=== PATIENT | male | born 1990 | race Caucasian/White ===

== ENCOUNTER 2019-06-09 08:18 | Inpatient (IN) | payer OTHER | END 2019-06-12 08:55 | disposition home or self-care (01) | LOC: YASAS 08:18 → Y6N 09:51 ==

== ENCOUNTER 2019-12-18 13:08 | Inpatient (IN) | payer OTHER ==
[2019-12-18] MEDS ORDERED: SODIUM CHLORIDE 0.9% 1000 ML INFUS.BAG IV ONE ×3 (13:18→17:05)
--- NOTE | 2019-12-18 13:18 | PDOC ---
History of Present Illness - General Chief Complaint: Respiratory Arrest Stated Complaint: UNRESPONSIVE Time Seen by Provider: 12/18/19 13:16 History Source: Patient, Parent(s), EMS, Friend, Old Records Exam Limitations: Unresponsive - History of Present Illness Initial Comments: 12/18/19 13:16 29yM w PMHx substance abuse (opioids, cocaine, cannabis), seizure BIBEMS from [facility] found dyspneic, tachypneic, minimally responsive to command, tonic- clonic arm movement, epistaxis at [facility] at 12[facility] gave total of 8 narcan, 5gm x2 versed which stopped seizure activity but remained minimally responsive to pain, desat to 70s on RA. Intubated w 20 etomidate, 100 rocuronium, 7.5 ET tube, at 24 viet to protect airway, placed on vent, given another 5 versed. Per parents and friends living at [facility], pt was coughing for past 4 days, denies recent known illicit drug use over past 2 months. On olanzapine, propofol, sertraline. Past seizures attributed to illicit drug use, not on any seizure medication Past History - Past Medical History Allergies/Adverse Reactions: Allergies Allergy/AdvReac Type Severity Reaction Status Date / Time No Known Allergies Allergy Verified 12/18/19 13:20 Home Medications: Ambulatory Orders Olanzapine 15 mg PO HS 06/09/19 Propranolol HCl 10 mg PO BID 06/09/19 Sertraline HCl [Zoloft] 150 mg PO DAILY 06/09/19 Asthma: No Cardiac Disorders: No COPD: No Diabetes: No GI Disorders: No Disorders: No HTN: No Kidney Stones: No Seizures: No - Surgical History Abdominal Surgery: No Appendectomy: No Cardiac Surgery: No Cholecystectomy: No Lung Surgery: No Neurologic Surgery: No Orthopedic Surgery: No - Reproductive History Testicular Surgery: No - Psycho Social/Smoking Cessation Hx Smoking History: Never smoked Hx Alcohol Use: No Drug/Substance Use Hx: Yes (percocets) Substance Use Type: Opiates Hx Substance Use Treatment: Yes Review of Systems - Review of Systems Able to Perform ROS?: No *Physical Exam - Physical Exam General Appearance: Yes: Nourished, Appropriately Dressed HEENT: positive: STEVE (not dilated/constricted). negative: Scleral Icterus (R) , Scleral Icterus (L), Rhinorrhea Neck: positive: Supple. negative: Rigid Respiratory/Chest: positive: Rhonchi (damaso ). negative: Chest Tender, Respiratory Distress (on vent), Crackles, Wheezing Cardiovascular: positive: Regular Rhythm, S1, S2, Tachycardia. negative: Edema , Murmur Gastrointestinal/Abdominal: positive: Normal Bowel Sounds, Flat, Soft. negative : Organomegaly Extremity: positive: Normal Capillary Refill, Delayed Capillary Refill Integumentary: positive: Normal Color, Cold. negative: Warm, Rash, Swelling Neurologic: negative: Fully Oriented, Alert, Respond to painful stimul ED Treatment Course - LABORATORY CBC & Chemistry Diagram: 12/18/19 13:30 12/18/19 13:30 Medical Decision Making - Critical Care Time Total Critical Care Time (minutes): 36 Critical Care Statement: The care of this patient involved high complexity decision making to prevent further life threatening deterioration of the patient 's condition and/or to evaluate & treat vital organ system(s) failure or risk of failure. - Medical Decision Making 12/18/19 13:18 Head/c-spine CT diffuse hypoattenuation of white matter, hyperattenuated distal ICA/tentorium, no acute bleed/infarct/mass, cannot rule out mild brain edema. NO cervical fx/subluxation EKG sinus tachycardia, HR 149, QTc 425, no ST changes CXR extensive L lung opacity - PNA + opioids, benzo, cocaine, lactate 4.7, carboxyhemoglobin 3.2 --- 29yM w PMHx substance abuse (opioids, cocaine, cannabis) BIBEMS found unresponsive, dyspneic, seizure activity at sober house likely 2/2 opioid/benzo/ cocaine use. Also has CAP (L sided opacity on CXR). Low concern for CVA (no acute bleed/infarct CT) Given 2L NS, vanc, zosyn, azithromycin, transitioned from propofol to precedex drip d/t hypotension. Placed [place]. Vent TV 450, RR 24, FiO2 100, PEEP 5 Accepted by ICU for placement Consulted Dr Mobley neuro - load w 1g keppra, schedule 500 keppra BID, agrees with plan Admitted ICU hospitalist for seizure, CAP, acute respiratory failure, cocaine/ opioid abuse Discharge - Discharge Information Problems reviewed: Yes Clinical Impression/Diagnosis: Seizure, Substance abuse, Cocaine use disorder Acute respiratory failure Qualifiers: Respiratory failure complication: unspecified whether with hypoxia or hypercapnia Qualified Code(s): J96.00 - Acute respiratory failure, unspecified whether with hypoxia or hypercapnia CAP (community acquired pneumonia) Qualifiers: Laterality: left Lung location: lower lobe of lung Qualified Code(s): J18.9 - Pneumonia, unspecified organism Opioid dependence Qualifiers: Substance use status: with unspecified opioid-induced disorder Qualified Code(s ): F11.29 - Opioid dependence with unspecified opioid-induced disorder Condition: Critical - Follow up/Referral - Patient Discharge Instructions - Post Discharge Activity
[2019-12-18] MEDS ORDERED: ETOMIDATE 20 MG/10 ML AMPUL IVPUSH ONE (13:25)
[2019-12-18] MEDS ORDERED: PROPOFOL 1,000,000 MCG/100 ML VIAL ONE (13:42)
[2019-12-18 13:43] LABS: CARBOXYHEMOGLOBIN 3.2 % (0-2)
[2019-12-18] MEDS ORDERED: PIPERACILLIN/TAZOB 4.5 GM 4.5 GM in DEXTROSE 5%-WATER 100 ML IVPB ONE (13:43)
[2019-12-18] MEDS ORDERED: VANCOMYCIN 1 GM in D5W (PRE-DOCKED) 1,000 MG/250 ML IVPB ONE (13:43)
[2019-12-18] MEDS ORDERED: AZITHROMYCIN IVPB 500 MG in DEXTROSE 5%-WATER - 250 ML IVPB ONE (13:43)
--- NOTE | 2019-12-18 14:03 | PDOC ---
Documentation entered by Nadege Henriquez SCRIBE, acting as scribe for Jeimy Santiago DO. Jeimy Santiago DO: This documentation has been prepared by the Florence moran Nirvannie, SCRIBE, under my direction and personally reviewed by me in its entirety. I confirm that the documentation accurately reflects all work, treatment, procedures, and medical decision making performed by me. Attending Attestation - Resident Resident Name: Fracisco García - ED Attending Attestation I have performed the following: I have examined & evaluated the patient, The case was reviewed & discussed with the resident, I agree w/resident's findings & plan, Exceptions are as noted - HPI HPI: 12/18/19 14:04 The patient is a 29 year old male, with a significant past medical history of polysubstance abuse (heroin, oxycontin, THC) and hypertension, who presents to the emergency department via EMS unresponsive. As per EMS, they responded to a call for a patient [facility] at [facility]. He was given 8 of Narcan by [facility] staff. They note he there was he vomited prior to their arrival and there was possible epistaxis. EMS notes patient experienced full body convulsions thus given Versed x2 (15). He was minimally responsive to very deep painful stimuli thus, was intubated in the field for airway protection. Pre-intubation O2 Saturation: 70% Intubated with: 20 Etomidate 100 Rocuronium 7.5 ET-tube While in the ED, patient is intubated, unresponsive, and not seizing. History is limited secondary to patients clinical condition. Allergies per [facility] from [facility]: NKDA Social History: Polysubstance abuse (heroin, oxycontin, THC) Home Medications per EMS: Propranolol. Cetirizine. Unknown further medications and dosages. - Physicial Exam PE: 12/18/19 14:05 Constitutional: +Unresponsive. +Intubated. Head: Normocephalic. Atraumatic Eyes: +Pupils 3mm and nonreactive. ENT: +Dry vomit and blood to the perioral. Neck: No lymphadenopathy. Cardiovascular: +Tachycardic. Regular rhythm. S1, S2 regular. Distal pulses are 2+ and symmetric. Pulmonary/Chest: +Coarse breath sounds bilaterally, L>R. Rhonchorous breath sounds bilaterally. No wheezing orrales. Abdominal: Soft and non-distended. No rebound, guarding or rigidity. No organomegaly. No palpable masses. External Genitalia: Normal, no signs of blood or trauma. Musculoskeletal: No edema. No cyanosis. No clubbing. Radial/pedal pulses are intact and 2+ bilaterally Skin: Skin is warm and dry. No petechiae. No purpura. Neurological: +Unresponsive. Psychiatric: +Unresponsive. - Critical Care Time Total Critical Care Time: 60 Critical Care Statement: The care of this patient involved high complexity decision making to prevent further life threatening deterioration of the patient 's condition and/or to evaluate & treat vital organ system(s) failure or risk of failure. - Medical Decision Making 12/18/19 13:48 I, Dr. Jeimy Santiago, DO, attest that this document has been prepared under my direction and personally reviewed by me in its entirety. I further attest, that it accurately reflects all work, treatment, procedures and medical decision -making performed by me. a/p: 29yo male biba from his [facility] for eval of seizure activity -pt given 8mg narcan by the fci, still seizing -given versed 5mg x 2 without improvement in seizure activity -pt intubated for airway protection by medics and for hypoxia - pulse ox 70, sonorous respirations -pt arrives intubated and unresponsive -pupils 3mm -pt received rocuronium waitstaff captain -pt with coarse bs L>R, concern for pna -will send labs, ekg, cultures, head ct -will place on the vent -rectal temp 99 -concern for pna vs aspiration pna -will start iv abx -will need admission to the ICU 12/18/19 14:01 Father Yury called and was updated- states hx of prior seizures in the past when using drugs and fentanyl has been in rehab and the fci x 2m for drug use seen yesterday and was coughing, looked sick, was taking otc cough medicine Yury: [phone] 12/18/19 14:27 pt starting to gag on the tube, no other purposeful movements will start propofol 12/18/19 14:33 TJ a family friend at the bedside and updated 12/18/19 14:33 case discussed with the ICU team Dr. Leandra dudley JUNE microblogged for admission 12/18/19 14:44 drug screen + cocaine, opiates, benzos - received benzos waitstaff captain 12/18/19 14:49 ICU team at the bedside and accepts pt to unit precedex ordered 12/18/19 14:58 case discussed with june who accepts pt to service 12/18/19 15:13 pt with elevated wbc 12/18/19 15:[address] Mobley who recommends keppra load and keppra bid 12/18/19 15:29 pt with trop .44 renal failure hyperkalemia call placed to nephro 12/18/19 15:35 CK high and unable to be calculated, diluting call placed to cards as well rectal asa ordered will treat hyperkalemia 12/18/19 15:57 Call placed to [facility] transfer center for critical care transfer, case discussed with Dr. Bartholomew made aware no beds are available to admit to ICU pending bed availability at [facility]. 12/18/19 16:[address] Bartholomew - no icu beds at [facility] available resident discussed the case with nephrology family updated and will admit here pending a bed availability at [facility] 12/18/19 16:[address] burton who agrees with the current plan 12/18/19 16:18 all docs discussed and agree with the plan pt will be admitted to our icu family updated 12/18/19 16:20 family agrees to the central line resident placed the central line Discharge - Discharge Information Problems reviewed: Yes Clinical Impression/Diagnosis: Seizure, Substance abuse, Cocaine use disorder Acute respiratory failure Qualifiers: Respiratory failure complication: unspecified whether with hypoxia or hypercapnia Qualified Code(s): J96.00 - Acute respiratory failure, unspecified whether with hypoxia or hypercapnia CAP (community acquired pneumonia) Qualifiers: Laterality: left Lung location: lower lobe of lung Qualified Code(s): J18.9 - Pneumonia, unspecified organism Opioid dependence Qualifiers: Substance use status: with unspecified opioid-induced disorder Qualified Code(s ): F11.29 - Opioid dependence with unspecified opioid-induced disorder Condition: Critical - Admission Yes - Follow up/Referral - Patient Discharge Instructions - Post Discharge Activity Heart Score/ECG Review - ECG Intrepretation Comment:: 12/18/19 13:52 sinus tach at 149, r axis, t wave inversions inferior leads, R heart strain pattern on the ekg, abnl ekg
[2019-12-18] MEDS: PROPOFOL 1,000,000 MCG/100 ML VIAL IVPB SCH ×3 (14:20→19:52)
[2019-12-18] MEDS ORDERED: ACETAMINOPHEN 1000 MG/100 ML VIAL (NON FORMULARY) IVPB ONE (14:34)
--- NOTE | 2019-12-18 14:37 | EKG ---
Test Reason : Blood Pressure : / mmHG Vent. Rate : 149 BPM Atrial Rate : 149 BPM P-R Int : 124 ms QRS Dur : 098 ms QT Int : 270 ms P-R-T Axes : 044 095 013 degrees QTc Int : 425 ms SINUS TACHYCARDIA RIGHTWARD AXIS T WAVE ABNORMALITY, CONSIDER INFERIOR ISCHEMIA ABNORMAL ECG NO PREVIOUS ECGS AVAILABLE Confirmed by MD KAREN, YOHANNES ([id number]) on 12/18/2019 2:37:32 PM Referred By: Confirmed By:YOHANNES JONES MD
[2019-12-18 14:39] LABS: METHADONE, UR NEGATIVE ng/ml (CUTOFF=300); PHENCYCLIDINE,URINE NEGATIVE ng/ml (CUTOFF=25); URINE AMPHETAMINES NEGATIVE ng/ml (CUTOFF=500); URINE BARBITURATES NEGATIVE ng/ml (CUTOFF=200)
[2019-12-18 14:41] LABS: COCAINE, UR POSITIVE ng/ml (CUTOFF=300); OPIATES, URI POSITIVE ng/ml (CUTOFF=300); URINE BENZODIAZEPINES POSITIVE ng/ml (CUTOFF=200)
[2019-12-18] MEDS ORDERED: LORazepam 2 MG/ML SDV VIAL ONE (14:41)
[2019-12-18] MEDS ORDERED: DEXMEDETOMIDINE HCL 200 MCG in SODIUM CHLORIDE 48 ML IVPB SCH (14:45)
[2019-12-18] MEDS ORDERED: DEXMEDETOMIDINE HCL 200 MCG/2 ML IVPB ONE (14:46)
[2019-12-18 14:50] LABS: EPI CELLS 1.7 /HPF (0-5/HPF); HYALINE CASTS 34 /lpf (0-8); URINE APPEARANCE CLEAR; URINE BACTERIA 0.7 /hpf (NEGATIVE); URINE BILIRUBIN NEGATIVE (NEGATIVE); URINE COLOR YELLOW; URINE GLUCOSE (UA) NEGATIVE (NEGATIVE); URINE KETONE NEGATIVE (NEGATIVE); URINE LEUK ESTERASE NEGATIVE (NEGATIVE); URINE NITRITE NEGATIVE (NEGATIVE); URINE PROTEIN 2+ (NEGATIVE); URINE RBC 3 /hpf (0-4); URINE UROBILINOGEN 0.2 mg/dL (0.2-1.0); URINE WBC 5 /hpf (0-5)
[2019-12-18 14:57] LABS: BASO % 0.1 % (0-2.0); MEAN PLT VOLUME 7.9 fl (7.5-11.1)
[2019-12-18 14:59] LABS: HEMOGLOBIN 18.5 GM/dL (11.7-16.9); LYMPH % 11.5 % (8-40); MCH 33.1 pg (25.7-33.7); MCHC 33.7 g/dl (32.0-35.9); MEAN CELL VOLUME 98.4 fl (80-96); MONO % 12.7 % (3.8-10.2); NEUT % 75.7 % (42.8-82.8); PLATELET COUNT 334 K/MM3 (134-434); RBC 5.59 M/mm3 (4.00-5.60); RDW 13.8 % (11.9-15.9); WHITE BLOOD COUNT 13.7 K/mm3 (4.0-10.0)
[2019-12-18] MEDS ORDERED: levETIRAcetam 500 MG/5 ML INJECTION VIAL IVPB ONE ×2 (15:10→15:19)
[2019-12-18 15:17] LABS: INR 1.07 (0.83-1.09); PROTHROMBIN TIME (PATIENT) 12.6 SEC (9.7-13.0)
[2019-12-18] MEDS ORDERED: ACETAMINOPHEN INJECTION 100 ML IVPB ONE (15:19)
[2019-12-18] MEDS ORDERED: AZITHROMYCIN IVPB 500 MG/250 ML BAG IVPB ONE (15:19)
[2019-12-18 15:20] LABS: ACTIVATED PTT 26.7 SECONDS (25.2-36.5)
[2019-12-18] MEDS ORDERED: VANCOMYCIN 1 GRAM (PRE-DOCKED) 1,000 MG/250 ML BAG IVPB ONE (15:20)
[2019-12-18] MEDS ORDERED: PIPERACILLIN/TAZOB 4.5 GM 4.5 GM/100 ML BAG IVPB ONE (15:20)
[2019-12-18 15:21] LABS: MAGNESIUM 2.5 mg/dL (1.8-2.4)
[2019-12-18 15:27] LABS: ALBUMIN 3.9 g/dl (3.4-5.0); ALK PHOS 146 U/L (45-117); ANION GAP 10 MMOL/L (8-16); BILIRUBIN,TOTAL 0.6 mg/dL (0.2-1); BLOOD UREA NITROGEN 32.5 mg/dL (7-18); CALCIUM 7.4 mg/dL (8.5-10.1); CHLORIDE 104 mmol/L (98-107); CO2 25 mmol/L (21-32); CREATININE 3.2 mg/dL (0.55-1.3); GLUCOSE,RANDOM 65 mg/dL (74-106); SGOT/AST 261 U/L (15-37); SGPT/ALT 72 U/L (13-61); SODIUM 138 mmol/L (136-145); TOT PROT 7.4 g/dl (6.4-8.2)
[2019-12-18 15:28] LABS: POTASSIUM 7.5 mmol/L (3.5-5.1)
[2019-12-18] MEDS ORDERED: ALBUTEROL SO4 0.083% IH SOL 2.5 MG/3 ML VIAL.NEB. NEB ONE ×3 (15:28→15:44)
--- NOTE | 2019-12-18 15:30 | HP ---
CHIEF COMPLAINT: seizure, loss of consciousness PCP: HISTORY OF PRESENT ILLNESS: Patient is a 29 year old male with history of polysubstance use disorder ( opiates, cocaine, cannabis), major depressive disorder (prior suicidal episodes) , paranoid psychoid, hemochromatosis, presents after being found minimally responsive, tremulous at correction. Patient was seen earlier this morning, snoring, and not easily arousable, however his co-inhabitants believed he was sleepy, and left him to rest. Upon checking on him around noon, he was noted to be shaking, minimally responsive with clear vomitus on the pillow, and bleeding from the nose. Patients family at bedside endorse that that yesterday patient endored flu- like symptoms cough, congestion, and went to store to by Tylenol, and DayQuill. Family endorse that patient is not fully complaint with his home Olanzapine, Propranolol, and Sertaline, or his [facility] therapy. Family endorse patient has had two prior episodes of seizures induced by drug use. Per [facility], he had last drug test approx. two weeks ago and was negative. He had been reportedly sober while resident of the [facility] over the past two months. Per ED sign out, patient was desaturating to the 70s on room air, and was given Naracan, with minimal effect. Upon EMS arrival, patient was intubated (etomidate , rocuronium), with 7.5 ET tube. Given Versed ER course was notable for: (1) CT head (2) Femoral line placement (3) Recent Travel: denies PAST MEDICAL HISTORY: polysubstance use disorder (opiates, cocaine, cannabis), major depressive disorder (prior suicidal episodes), paranoid psychoid, hemochromatosis PAST SURGICAL HISTORY: denies Social History: Lives in sober living correction for the past two months. Smoking: Social smoker, family unable to quantify Alcohol: Former alcohol consumption, denies excessive consumptin Drugs: opiates, marijuana, Allergies No Known Allergies Allergy (Verified 12/18/19 13:20) HOME MEDICATIONS: Home Medications Medication Instructions Recorded Olanzapine 15 mg PO HS 06/09/19 Propranolol HCl 10 mg PO BID 06/09/19 Sertraline HCl [Zoloft] 150 mg PO DAILY 06/09/19 REVIEW OF SYSTEMS As per HPI. Unable to obtain further due to patient's clinical condition ( intubated, sedated). PHYSICAL EXAMINATION Vital Signs - 24 hr 12/18/19 12/18/19 12/18/19 13:14 13:20 14:20 Temperature 99.2 F Pulse Rate 152 H Pulse Rate [ 143 H Apical] Respiratory 18 28 H Rate Blood Pressure 125/87 Blood Pressure 106/50 L [Right Arm] O2 Sat by Pulse 100 92 L Oximetry (%) 12/18/19 12/18/19 14:37 15:00 Temperature Pulse Rate Pulse Rate [ 141 H 136 H Apical] Respiratory 26 H 28 H Rate Blood Pressure Blood Pressure 155/135 H 120/93 [Right Arm] O2 Sat by Pulse 93 L Oximetry (%) GENERAL: Intubated, sedated. HEENT: NC/AT. PERRL, sclera anicteric, conjunctiva clear. Supple. LUNGS: Coarse, mechanical breath sounds auscultated bilaterally, with scattered rhonchi. HEART: Regular rate and rhythm, normal S1 and S2 without murmur, rub or gallop. ABDOMEN: Soft, not distended. Normoactive bowel sounds. No hepatomegaly palpated. EXTREMITIES: 2+ radial ,dorsalis pedis pulses bilaterally, cool. No peripheral edema. NEUROLOGICAL: Sedated, however moves all four extremities equally. SKIN: Warm, dry. Left femoral line in place. Laboratory Results - last 24 hr 12/18/19 12/18/19 12/18/19 13:30 13:30 13:30 WBC 13.7 H RBC 5.59 Hgb 18.5 H Hct 55.0 H D MCV 98.4 H MCH 33.1 MCHC 33.7 RDW 13.8 Plt Count 334 D MPV 7.9 Absolute Neuts (auto) 10.4 H Neutrophils % 75.7 Lymphocytes % 11.5 D Monocytes % 12.7 H D Eosinophils % 0.0 D Basophils % 0.1 Nucleated RBC % 0 PT with INR INR PTT (Actin FS) Carboxyhemoglobin Methemoglobin Sodium 138 Potassium 7.5 H* Chloride 104 Carbon Dioxide 25 Anion Gap 10 BUN 32.5 H Creatinine 3.2 H Est GFR (CKD-EPI)AfAm 29.17 Est GFR (CKD-EPI)NonAf 25.17 Random Glucose 65 L Lactic Acid Calcium 7.4 L Magnesium 2.5 H Total Bilirubin 0.6 AST 261 H ALT 72 H Alkaline Phosphatase 146 H Ammonia Creatine Kinase Troponin I 0.44 H Total Protein 7.4 Albumin 3.9 Lipase 137 TSH 2.37 Urine Color Urine Appearance Urine pH Ur Specific Holcomb Urine Protein Urine Glucose (UA) Urine Ketones Urine Blood Urine Nitrite Urine Bilirubin Urine Urobilinogen Ur Leukocyte Esterase Urine WBC (Auto) Urine RBC (Auto) Urine Casts (Auto) U Epithel Cells (Auto) Urine Bacteria (Auto) Opiates Screen Methadone Screen Barbiturate Screen Phencyclidine Screen Ur Amphetamines Screen MDMA (Ecstasy) Screen Benzodiazepines Screen Cocaine Screen U Marijuana (THC) Screen Alcohol, Quantitative < 3 12/18/19 12/18/19 12/18/19 13:30 13:33 13:55 WBC RBC Hgb Hct MCV MCH MCHC RDW Plt Count MPV Absolute Neuts (auto) Neutrophils % Lymphocytes % Monocytes % Eosinophils % Basophils % Nucleated RBC % PT with INR 12.60 INR 1.07 PTT (Actin FS) 26.7 Carboxyhemoglobin 3.2 H Methemoglobin 1.0 Sodium Potassium Chloride Carbon Dioxide Anion Gap BUN Creatinine Est GFR (CKD-EPI)AfAm Est GFR (CKD-EPI)NonAf Random Glucose Lactic Acid Calcium Magnesium Total Bilirubin AST ALT Alkaline Phosphatase Ammonia Creatine Kinase Troponin I Total Protein Albumin Lipase TSH Urine Color Urine Appearance Urine pH Ur Specific Holcomb Urine Protein Urine Glucose (UA) Urine Ketones Urine Blood Urine Nitrite Urine Bilirubin Urine Urobilinogen Ur Leukocyte Esterase Urine WBC (Auto) Urine RBC (Auto) Urine Casts (Auto) U Epithel Cells (Auto) Urine Bacteria (Auto) Opiates Screen Positive A* Methadone Screen Negative Barbiturate Screen Negative Phencyclidine Screen Negative Ur Amphetamines Screen Negative MDMA (Ecstasy) Screen Negative Benzodiazepines Screen Positive A* Cocaine Screen Positive A* U Marijuana (THC) Screen Negative Alcohol, Quantitative 12/18/19 12/18/19 12/18/19 13:55 13:55 13:55 WBC RBC Hgb Hct MCV MCH MCHC RDW Plt Count MPV Absolute Neuts (auto) Neutrophils % Lymphocytes % Monocytes % Eosinophils % Basophils % Nucleated RBC % PT with INR INR PTT (Actin FS) Carboxyhemoglobin Methemoglobin Sodium Potassium Chloride Carbon Dioxide Anion Gap BUN Creatinine Est GFR (CKD-EPI)AfAm Est GFR (CKD-EPI)NonAf Random Glucose Lactic Acid 4.7 H* Calcium Magnesium Total Bilirubin AST ALT Alkaline Phosphatase Ammonia 27.50 Creatine Kinase Troponin I Total Protein Albumin Lipase TSH Urine Color Yellow Urine Appearance Clear Urine pH 5.0 Ur Specific Holcomb 1.019 Urine Protein 2+ H Urine Glucose (UA) Negative Urine Ketones Negative Urine Blood 3+ H Urine Nitrite Negative Urine Bilirubin Negative Urine Urobilinogen 0.2 Ur Leukocyte Esterase Negative Urine WBC (Auto) 5 Urine RBC (Auto) 3 Urine Casts (Auto) 34 U Epithel Cells (Auto) 1.7 Urine Bacteria (Auto) 0.7 Opiates Screen Methadone Screen Barbiturate Screen Phencyclidine Screen Ur Amphetamines Screen MDMA (Ecstasy) Screen Benzodiazepines Screen Cocaine Screen U Marijuana (THC) Screen Alcohol, Quantitative ASSESSMENT/PLAN: Patient is a 29 year old male with history of polysubstance use disorder ( opiates, cocaine, cannabis), major depressive disorder (prior suicidal episodes) , paranoid psychoid, hemochromatosis, presents after being found minimally responsive, tremulous at correction. Acute hypoxic respiratory failure -Chest radiograph reveals left lung infiltrative changes, atelectasis -ABG reveals metabolic acidosis, hypoxemia. -Currently intubated; ARDS NET ventilator settings: Tidal volume 425 respiratory rate 20 FiO2 100% PEEP 15. Goal plateu pressure less than 30. -Follow chest radiograph -D-dimer 2231; however unclear for PE in setting of acute seizure, and renal insufficency. However, EKG reveals S1Q3T3. In setting of acute hypoxic respiratory failure, will begin Heparin drip for suspected pulmonary embolism. Unable to obtain CTA chest as patient has acute kidney injury. Sepsis secondary to ?left sided pneumonia -Concern for aspiration pneumonia as patient was reportedly seizing, with vomitus, and blood noted upon his bed sheets. -Patient received 3L IV normal saline in ED. Continue IV fluids, CVP goal 8 - 12 in setting of sepsis -Patient received IV Vancomycin, Zosyn, Cleosin. -Levophed initiated for hemodynamic support -ID recommendations appreciated NSTEMI -Troponin 0.44. EKG reveals sinus tachycardia at 144BPM. -Likely type II, secondary to sepsis -Follow troponin -Cardiac ECHO -Telemetry monitoring Seizure -CT head reveals decreased attenuation of cerebral white matter, concerning for mild brain edema. -Loaded with Keppra in ED. Continue 500mg IV BID -Sedated with Propofol, Fentanyl. -Neurology recommendations appreciated. -Seizure precautions Acute kidney injury; secondary to rhabdomyolysis -CPK was not quantifiable in the laboratory -Del Angel catheter draining tea colored urine -Continue IV normal saline bolus. -Follow CPK -Nephrology recommendations appreciated Hyperkalemia -Likely secondary to seizure activity. -Given Insulin, D50, Kayexelate in ED. Nephrology recommendations appreciated -Follow repeat BMP Major depressive disorder -Will reconcile, and reinstate home medications once weaned off sedation FEN -IV normal saline boluses, to maintain CVP 8 -12 -Hyperkalemia; follow BMP -NPO Prophylaxis -SCDs bilateral lower extremities Disposition -Admit to ICU Visit type - Emergency Visit Emergency Visit: Yes ED Registration Date: 12/18/19 Care time: The patient presented to the Emergency Department on the above date and was hospitalized for further evaluation of their emergent condition. - New Patient This patient is new to me today: Yes Date on this admission: 12/18/19 - Critical Care Critical Care patient: Yes Total Critical Care Time (in minutes): 60 Critical Care Statement: The care of this patient involved high complexity decision making to prevent further life threatening deterioration of the patient 's condition and/or to evaluate & treat vital organ system(s) failure or risk of failure. ATTENDING PHYSICIAN STATEMENT I saw and evaluated the patient. I reviewed the resident's note and discussed the case with the resident. I agree with the resident's findings and plan as documented. SUBJECTIVE: OBJECTIVE: ASSESSMENT AND PLAN:
[2019-12-18] MEDS ORDERED: ASPIRIN 300 MG SUPP.RECT PR ONE (15:32)
[2019-12-18] MEDS ORDERED: INSULIN REGULAR HUMAN 100 UNITS/ML *VIAL IVPUSH ONE ×2 (15:33→20:46)
[2019-12-18] MEDS ORDERED: DEXTROSE 50%-WATER - 25 GM/50 ML VIAL IVPUSH ONE ×2 (15:33→20:45)
[2019-12-18] MEDS ORDERED: CALCIUM GLUCONATE 10% - 1,000 MG/10 ML VIAL IVPUSH ONE ×2 (15:33→20:44)
[2019-12-18] MEDS ORDERED: SODIUM ZIRCONIUM CYCLOSILICATE (LOKELMA) 5 GM PACKET PO ONE (15:34)
[2019-12-18] MEDS ORDERED: ASPIRIN 300 MG SUPP.RECT RC ONE ×2 (15:34→15:45)
[2019-12-18] MEDS ORDERED: SODIUM POLYSTYRENE SULFONATE 15 GM/60 ML BOTTLE PO ONE ×2 (15:36→20:45)
[2019-12-18] MEDS ORDERED: MIDAZOLAM HCL 2 MG/2 ML SINGLE DOSE VIAL IVPUSH ONE (15:43)
[2019-12-18] MEDS ORDERED: DEXTROSE 50%-WATER - 25 GM/50 ML VIAL ONE ×2 (15:44→21:40)
[2019-12-18] MEDS ORDERED: CALCIUM GLUCONATE 10% - 1,000 MG/10 ML VIAL ONE (15:45)
[2019-12-18] MEDS ORDERED: INSULIN REGULAR HUMAN 100 UNITS/ML *VIAL ONE (15:45)
[2019-12-18 15:52] LABS: ANISOCYTOSIS 1+; MACROCYTOSIS 0; PLATELET ESTIMATE NORMAL
[2019-12-18] MEDS ORDERED: MIDAZOLAM HCL 2 MG/2 ML SINGLE DOSE VIAL ONE (15:55)
[2019-12-18] MEDS ORDERED: fentaNYL CITRATE 250 MCG/5 ML VIAL ONE (16:14)
[2019-12-18] MEDS ORDERED: NOREPINEPHRINE BITARTRATE 8,000 MCG in DEXTROSE 5%-WATER - 492 ML IV SCH ×2 (16:15→18:38)
[2019-12-18] MEDS: FENTANYL INJECTION 500 MCG in DEXTROSE 5%-WATER - 90 ML IVPB SCH (16:21)
[2019-12-18] MEDS ORDERED: NOREPINEPHRINE BITARTRATE 4 MG/4 ML ML IV ONE ×2 (16:28→19:35)
--- NOTE | 2019-12-18 16:31 | PN ---
Teaching Attending Note Name of Resident: Jonathan Reid ATTENDING PHYSICIAN STATEMENT I saw and evaluated the patient. I reviewed the resident's note and discussed the case with the resident. I agree with the resident's findings and plan as documented. SUBJECTIVE: Patient is a 29yom with PMHx of substance abuse (opioids, cocaine, cannabis), seizure from [facility] ,presented to the emergency room as per notes dyspneic , tachypneic, minimally responsive to command, tonic-clonic arm movement, epistaxis at correction at 12pm. As per notes, [facility] and EMS gave total of 8 narcan, 5gm x2 versed which stopped seizure activity but remained minimally responsive to pain, desat to 70s on RA. Patient was intubated w 20 etomidate, 100 rocuronium, 7.5 ET tube, at 24 viet to protect airway, placed on vent, given another 5 versed. Per parents and friends living at [facility], pt was coughing for past 4 days, denies recent known illicit drug use over past 2 months. Past seizures attributed to his use of illicit drugs, not on any seizure medication at this time. Unable to get further hx since patient is intubated. OBJECTIVE: Vital Signs Temperature 99.2 F 12/18/19 13:20 Pulse Rate 136 H 12/18/19 15:00 Respiratory Rate 40 H 12/18/19 15:51 Blood Pressure 120/93 12/18/19 15:00 O2 Sat by Pulse Oximetry (%) 95 12/18/19 15:51 GENERAL: The patient is intubated , sedated and s/p paralytics. HEAD: NC/AT EYES: sedated, intubated, sclera anicteric, conjunctiva clear. ENT: Ears normal, positive for Et-tube NECK: Trachea midline, supple. LUNGS: intubated on the Vent. HEART: sinus tachycardia , S1, S2 positive, no rub or gallop. ABDOMEN: Soft, NT,ND, no guarding, no rebound, no hepatosplenomegaly, no masses. EXTREMITIES: 2+ pulses, warm, well-perfused, no edema. NEUROLOGICAL: unable to access PSYCH: unable to access, intubated . SKIN: Warm, dry, normal turgor, no rashes or lesions noted CBCD WBC 13.7 K/mm3 (4.0-10.0) H 12/18/19 13:30 RBC 5.59 M/mm3 (4.00-5.60) 12/18/19 13:30 Hgb 18.5 GM/dL (11.7-16.9) H 12/18/19 13:30 Hct 55.0 % (35.4-49) H D 12/18/19 13:30 MCV 98.4 fl (80-96) H 12/18/19 13:30 MCHC 33.7 g/dl (32.0-35.9) 12/18/19 13:30 RDW 13.8 % (11.9-15.9) 12/18/19 13:30 Plt Count 334 K/MM3 (134-434) D 12/18/19 13:30 MPV 7.9 fl (7.5-11.1) 12/18/19 13:30 CMP Sodium 138 mmol/L (136-145) 12/18/19 13:30 Potassium 7.5 mmol/L (3.5-5.1) H* 12/18/19 13:30 Chloride 104 mmol/L (98-107) 12/18/19 13:30 Carbon Dioxide 25 mmol/L (21-32) 12/18/19 13:30 Anion Gap 10 MMOL/L (8-16) 12/18/19 13:30 BUN 32.5 mg/dL (7-18) H 12/18/19 13:30 Creatinine 3.2 mg/dL (0.55-1.3) H 12/18/19 13:30 Random Glucose 65 mg/dL (74-106) L 12/18/19 13:30 Calcium 7.4 mg/dL (8.5-10.1) L 12/18/19 13:30 Total Bilirubin 0.6 mg/dL (0.2-1) 12/18/19 13:30 AST 261 U/L (15-37) H 12/18/19 13:30 ALT 72 U/L (13-61) H 12/18/19 13:30 Alkaline Phosphatase 146 U/L (45-117) H 12/18/19 13:30 Total Protein 7.4 g/dl (6.4-8.2) 12/18/19 13:30 Albumin 3.9 g/dl (3.4-5.0) 12/18/19 13:30 CARDIAC ENZYMES Creatine Kinase U/L (26-308) 12/18/19 13:30 Troponin I 0.44 ng/ml (0.00-0.05) H 12/18/19 13:30 Current Medications Generic Name Dose Route Start Last Admin Trade Name Andresq PRN Reason Stop Dose Admin Chlorhexidine Gluconate 1 applic 12/18/19 22:00 Hibiclens For Decolonization - TP HS JARED Chlorhexidine Gluconate 1 applic 12/18/19 22:00 Hibiclens For Decolonization - TP HS JARED Propofol 1,000,000 mcg in 100 mls @ 3.402 mls/hr 12/18/19 13:30 12/18/19 15: 00 Diprivan - IVPB 0 mcg/kg/min TITR JARED 0 mls/hr Titration Protocol 5 MCG/KG/MIN Dexmedetomidine HCl 200 mcg/ 50 mls @ 5.66 mls/hr 12/18/19 14:45 12/18/19 15: 00 Sodium Chloride IVPB 0.2 mcg/kg/hr TITR JARED 5.66 mls/hr Administration 0.2 MCG/KG/HR Fentanyl 500 mcg/ Dextrose 100 mls @ 0.2 mls/hr 12/18/19 16:00 12/18/19 16:21 IVPB 12/19/19 15:59 1 mcg/hr TITR JARED 0.2 mls/hr Administration 1 MCG/HR Norepinephrine Bitartrate 8, 500 mls @ 12.75 mls/hr 12/18/19 16:15 000 mcg/ Dextrose IV ASDIR JARED Protocol 0.03 MCG/KG/MIN Levetiracetam 500 mg 12/18/19 22:00 Keppra Injection - IVPB BID JARED Mupirocin 1 applic 12/18/19 22:00 Bactroban Ointment (For Decolonization) - NS 12/23/19 21:59 BID JARED Mupirocin 1 applic 12/18/19 22:00 Bactroban Ointment (For Decolonization) - NS 12/23/19 21:59 BID JARED Home Medications Medication Instructions Recorded Olanzapine 15 mg PO HS 06/09/19 Propranolol HCl 10 mg PO BID 06/09/19 Sertraline HCl [Zoloft] 150 mg PO DAILY 06/09/19 CXR: Extensive left infiltrate.ET in place EKG: S1Q3T3 pattern ASSESSMENT AND PLAN: Patient is a 29yom with PMHx of substance abuse (opioids, cocaine, cannabis), seizure from [facility] ,presented to the emergency room with respiratory failure s/p intubation since was found unresponsive with tonic-clonic arm movement. #Acute respiratory failure s/p intubation: ICU management , discussed with #Septic shock ICU management, trend lactic acid , septic w/u ordered. ID discussed with , on pressors #Extensive left lower lobe infiltrate(Pneumonia) shayla't r/o aspiration: on clindamycin/zosyn renally dosed, one dose of vancomycin #acute hyperkalemia: given calcium gluconate/insulin/d50/bicarb, repeat is 4.5 #Acute severe Rhabdo: IVF at 250ml/hr, bmp every 4 hours, nephro on the case #Polysubstance Abuse ; s/p narcan , intubated now for airway protection #ARF due to acute rhabdo, IVF at 250ml per hr. Dr Reed on the case #Elevated Ddimer 2k/with carmoxyhgb elevation with S1Q3T3 pattern with tachycardia shayla't r/o PE: will start the patient heparin drip , echo ordered , cardio onthe case dr burton. duplex of le ordered DVT Px: heparin drip ICU cc time: 40min, discussed with id/pulm/residents
[2019-12-18] MEDS ORDERED: SODIUM POLYSTYRENE SULFONATE 15 GM/60 ML BOTTLE ONE (16:42)
--- NOTE | 2019-12-18 16:49 | PDOC ---
*Physical Exam - Vital Signs Last Vital Signs Temp Pulse Resp BP Pulse Ox 99.2 F 136 H 40 H 120/93 95 12/18/19 13:20 12/18/19 15:00 12/18/19 15:51 12/18/19 15:00 12/18/19 15:51 ED Treatment Course - LABORATORY CBC & Chemistry Diagram: 12/18/19 13:30 12/18/19 18:00 - Medications Given in the ED: ED Medications Discontinued Medications Generic Name Dose Route Start Last Admin Trade Name Kimberley PRN Reason Stop Dose Admin Acetaminophen 1,000 mg 12/18/19 14:34 12/18/19 15:50 Ofirmev Injection - IVPB 12/18/19 14:35 1,000 mg ONCE ONE Administration Calcium Gluconate 1,000 mg 12/18/19 15:33 12/18/19 15:40 Calcium Gluconate 10% - IVPUSH 12/18/19 15:34 1,000 mg ONCE ONE Administration Dextrose 25 gm 12/18/19 15:33 12/18/19 15:40 D50w (Vial) - IVPUSH 12/18/19 15:34 25 gm NOW ONE Administration Fentanyl 100 mcg 12/18/19 15:31 12/18/19 15:37 Sublimaze Injection - IVPUSH 12/18/19 15:32 100 mcg ONCE ONE Administration Azithromycin 500 mg/ Dextrose 250 mls @ 250 mls/hr 12/18/19 13:43 12/18/19 16 :04 IVPB 12/18/19 14:42 250 mls/hr ONCE ONE Administration Piperacillin Sod/Tazobactam 100 mls @ 200 mls/hr 12/18/19 13:43 12/18/19 15: 30 Sod 4.5 gm/ Dextrose IVPB 12/18/19 14:12 200 mls/hr ONCE ONE Administration Protocol Insulin Human Regular 10 units 12/18/19 15:33 12/18/19 15:40 Novolin R Vial *For Ivpush Or Iv Drip Only* IVPUSH 12/18/19 15:34 10 units ONCE ONE Administration Levetiracetam 1,000 mg 12/18/19 15:10 12/18/19 15:27 Keppra Injection - IVPB 12/18/19 15:11 1,000 mg ONCE ONE Administration Lorazepam 2 mg 12/18/19 14:41 12/18/19 14:40 Ativan Injection - IVPUSH 12/18/19 14:42 2 mg ONCE ONE Administration Midazolam HCl 2 mg 12/18/19 15:43 12/18/19 15:55 Versed - IVPUSH 12/18/19 15:44 2 mg ONCE ONE Administration Sodium Chloride 1,000 ml 12/18/19 13:18 12/18/19 13:15 Normal Saline - IV 12/18/19 13:19 1,000 ml ONCE ONE Administration Sodium Chloride 1,000 ml 12/18/19 14:34 12/18/19 14:30 Normal Saline - IV 12/18/19 14:35 1,000 ml ONCE ONE Administration Discharge - Discharge Information Problems reviewed: Yes Clinical Impression/Diagnosis: Seizure, Substance abuse, Cocaine use disorder Acute respiratory failure Qualifiers: Respiratory failure complication: unspecified whether with hypoxia or hypercapnia Qualified Code(s): J96.00 - Acute respiratory failure, unspecified whether with hypoxia or hypercapnia CAP (community acquired pneumonia) Qualifiers: Laterality: left Lung location: lower lobe of lung Qualified Code(s): J18.9 - Pneumonia, unspecified organism Opioid dependence Qualifiers: Substance use status: with unspecified opioid-induced disorder Qualified Code(s ): F11.29 - Opioid dependence with unspecified opioid-induced disorder Condition: Critical - Follow up/Referral - Patient Discharge Instructions - Post Discharge Activity Central Line Insertion - Procedure Note Indication: Sepsis, Vasopressor Consent on Chart: No (emergent procedure) Central Line: Triple Lumen Catheter Position: Supine Area prepped with Chlorhexidine solution then draped using sterile barrier protection. Anesthesia: Lidocaine 1% Technique used: Seldinger Ultrasound Guided Assistance: Yes Site: Left Femoral Dark venous non-pulsatile flow noted from hub of needle. The catheter was introduced. Guide wire removed intact. Each port aspirated then flushed with sterile normal saline and capped. Line secured to skin with suture. Biopatch placed around base of line. Sterile occlusive dressing applied. No complications. Patient tolerated the procedure well.
[2019-12-18 17:05] LABS: ARTERIAL BLD GAS O2 SATURATION 74.9 % (95-98); ARTERIAL BLOOD GAS BASE EXCESS -10.4 meq/l (-2-2); ARTERIAL BLOOD GAS PCO2 42.6 mmHg (35-45); ARTERIAL BLOOD GAS pH 7.22 (7.35-7.45)
[2019-12-18] MEDS ORDERED: ASPIRIN 81 MG CHEWABLE TABLETS PO ONE (17:05)
[2019-12-18] MEDS ORDERED: ASPIRIN 81 MG CHEWABLE TABLETS ONE (17:06)
[2019-12-18] MEDS ORDERED: VANCOMYCIN 1 GM PREMIX - 1 GM/200 ML BAG IVPB ONE (17:13)
[2019-12-18 17:24] LABS: ARTERIAL BLOOD GAS PO2 < 49 mmHg (80-100)
--- NOTE | 2019-12-18 17:49 | CONSULT ---
Consultation: REQUESTING PROVIDER: CONSULT REQUEST: We have been asked to medically evaluate this patient for acute hypoxic respiratory failure. HISTORY OF PRESENT ILLNESS: 29 y.o. M PMH polysubstance abuse (opioids, benzos, cocaine, THC), MDD (prior suicidal episodes), paranoid personality d/o, hemochromatosis presenting from [facility]hab [facility] via EMS for unresponsiveness. As patient is intubated, history obtained from test carrier of patient's fdc. Says the patient was found unconscious, vomiting lying on his side in his room; also noted to have epistaxis. He was given 8 of narcan by the staff at the rehab home. En route to ED patient had seizure activity, was given 2 versed pushed by EMS & intubated in the field for desats to 70s & worsening resp distress. In ED patient remained unresponsive. U-tox + for benzos/ opiates/ cocaine. CXR shows near complete L lung opacity. ABG showing acute hypoxic respiratory failure. L femoral line placed for access in ED, levo initiated 2/2 hypotension, sedated on propofol. ROS: tachycardia, hypotension, reported flu-like symptoms x past few days PHYSICAL EXAMINATION Vital Signs - 24 hr Last Vital Signs Temp Pulse Resp BP Pulse Ox 99.2 F 117 H 26 H 80/45 L 92 L 12/18/19 13:20 12/18/19 17:10 12/18/19 16:48 12/18/19 17:10 12/18/19 16:38 GENERAL: Intubated & sedated HEENT: NCAT. ET tube in place. Sclera clear. MMM. No JVD LUNGS: + vent sounds b/l; decreased breath sounds @ L lung base. HEART: Tachycardic, normal S1 and S2 without murmur, rub or gallop. ABDOMEN: Soft, nontender, not distended, normoactive bowel sounds. : [place] in place draining milan colored urine EXTREMITIES: 2+ pulses, warm, well-perfused. No cyanosis. No peripheral edema. PSYCHIATRIC: unable to assess at this time SKIN: Warm, dry, normal turgor, no rashes or lesions noted. Laboratory Results - last 24 hr Laboratory Last Values WBC 13.7 K/mm3 (4.0-10.0) H 12/18/19 13:30 RBC 5.59 M/mm3 (4.00-5.60) 12/18/19 13:30 Hgb 18.5 GM/dL (11.7-16.9) H 12/18/19 13:30 Hct 55.0 % (35.4-49) H D 12/18/19 13:30 MCV 98.4 fl (80-96) H 12/18/19 13:30 MCH 33.1 pg (25.7-33.7) 12/18/19 13:30 MCHC 33.7 g/dl (32.0-35.9) 12/18/19 13:30 RDW 13.8 % (11.9-15.9) 12/18/19 13:30 Plt Count 334 K/MM3 (134-434) D 12/18/19 13:30 MPV 7.9 fl (7.5-11.1) 12/18/19 13:30 Absolute Neuts (auto) 10.4 K/mm3 (1.5-8.0) H 12/18/19 13:30 Neutrophils % 75.7 % (42.8-82.8) 12/18/19 13:30 Neutrophils % (Manual) 34.6 % (42.8-82.8) L 12/18/19 13:30 Band Neutrophils % 26.7 % 12/18/19 13:30 Lymphocytes % 11.5 % (8-40) D 12/18/19 13:30 Lymphocytes % (Manual) 4.0 % (8-40) L 12/18/19 13:30 Monocytes % 12.7 % (3.8-10.2) H D 12/18/19 13:30 Monocytes % (Manual) 9 % (3.8-10.2) 12/18/19 13:30 Eosinophils % 0.0 % (0-4.5) D 12/18/19 13:30 Eosinophils % (Manual) 0.0 % (0-4.5) 12/18/19 13:30 Basophils % 0.1 % (0-2.0) 12/18/19 13:30 Basophils % (Manual) 0.0 % (0-2.0) 12/18/19 13:30 Myelocytes % (Man) 0 % (0-2) 12/18/19 13:30 Promyelocytes % (Man) 0 % (0-2) 12/18/19 13:30 Blast Cells % (Manual) 0 % (0-0) 12/18/19 13:30 Nucleated RBC % 0 % (0-0) 12/18/19 13:30 Metamyelocytes 14 % (0-2) H 12/18/19 13:30 Hypochromia 0 12/18/19 13:30 Platelet Estimate Normal 12/18/19 13:30 Polychromasia 2+ 12/18/19 13:30 Poikilocytosis 1+ 12/18/19 13:30 Anisocytosis 1+ 12/18/19 13:30 Microcytosis 1+ 12/18/19 13:30 Macrocytosis 0 12/18/19 13:30 PT with INR 12.60 SEC (9.7-13.0) 12/18/19 13:30 INR 1.07 (0.83-1.09) 12/18/19 13:30 PTT (Actin FS) 26.7 SECONDS (25.2-36.5) 12/18/19 13:30 D-Dimer 2231 ng/ml (0-500) H 12/18/19 13:30 Anticoagulation Therapy No Result Required. 12/18/19 16:36 Puncture Site Right femoral 12/18/19 16:36 ABG pH 7.22 (7.35-7.45) L 12/18/19 16:36 ABG pCO2 at Pt Temp 42.6 mmHg (35-45) 12/18/19 16:36 ABG pO2 at Pt Temp < 49 mmHg (80-100) L* 12/18/19 16:36 ABG HCO3 16.7 mmol/L (22-27) L 12/18/19 16:36 ABG O2 Sat (Measured) 74.9 % (95-98) L 12/18/19 16:36 ABG O2 Content No Result Required. 12/18/19 16:36 ABG Base Excess -10.4 meq/l (-2-2) L 12/18/19 16:36 Abdiel Test No Result Required. 12/18/19 16:36 Carboxyhemoglobin 3.2 % (0-2) H 12/18/19 13:33 Methemoglobin 1.0 % (0-2) 12/18/19 13:33 O2 Delivery Device Mech vent 12/18/19 16:36 Oxygen Flow Rate 100% 12/18/19 16:36 Vent Mode A/c 12/18/19 16:36 Vent Rate 18 12/18/19 16:36 Mechanical Rate Yes 12/18/19 16:36 PEEP 8.0 cmH2O 12/18/19 16:36 Pressure Support Vent 450 12/18/19 16:36 Sodium 138 mmol/L (136-145) 12/18/19 13:30 Potassium 7.5 mmol/L (3.5-5.1) H* 12/18/19 13:30 Chloride 104 mmol/L (98-107) 12/18/19 13:30 Carbon Dioxide 25 mmol/L (21-32) 12/18/19 13:30 Anion Gap 10 MMOL/L (8-16) 12/18/19 13:30 BUN 32.5 mg/dL (7-18) H 12/18/19 13:30 Creatinine 3.2 mg/dL (0.55-1.3) H 12/18/19 13:30 Est GFR (CKD-EPI)AfAm 29.17 12/18/19 13:30 Est GFR (CKD-EPI)NonAf 25.17 12/18/19 13:30 Random Glucose 65 mg/dL (74-106) L 12/18/19 13:30 Lactic Acid 5.2 mmol/L (0.4-2.0) H* 12/18/19 15:36 Calcium 7.4 mg/dL (8.5-10.1) L 12/18/19 13:30 Magnesium 2.5 mg/dL (1.8-2.4) H 12/18/19 13:30 Total Bilirubin 0.6 mg/dL (0.2-1) 12/18/19 13:30 AST 261 U/L (15-37) H 12/18/19 13:30 ALT 72 U/L (13-61) H 12/18/19 13:30 Alkaline Phosphatase 146 U/L (45-117) H 12/18/19 13:30 Ammonia 27.50 umol/L (11-32) 12/18/19 13:55 Creatine Kinase U/L (26-308) 12/18/19 13:30 Troponin I 0.44 ng/ml (0.00-0.05) H 12/18/19 13:30 Total Protein 7.4 g/dl (6.4-8.2) 12/18/19 13:30 Albumin 3.9 g/dl (3.4-5.0) 12/18/19 13:30 Lipase 137 U/L (73-393) 12/18/19 13:30 TSH 2.37 uIU/ml (0.358-3.74) 12/18/19 13:30 Urine Color Yellow 12/18/19 13:55 Urine Appearance Clear 12/18/19 13:55 Urine pH 5.0 (5.0-8.0) 12/18/19 13:55 Ur Specific [place] 1.019 (1.010-1.035) 12/18/19 13:55 Urine Protein 2+ (NEGATIVE) H 12/18/19 13:55 Urine Glucose (UA) Negative (NEGATIVE) 12/18/19 13:55 Urine Ketones Negative (NEGATIVE) 12/18/19 13:55 Urine Blood 3+ (NEGATIVE) H 12/18/19 13:55 Urine Nitrite Negative (NEGATIVE) 12/18/19 13:55 Urine Bilirubin Negative (NEGATIVE) 12/18/19 13:55 Urine Urobilinogen 0.2 mg/dL (0.2-1.0) 12/18/19 13:55 Ur Leukocyte Esterase Negative (NEGATIVE) 12/18/19 13:55 Urine WBC (Auto) 5 /hpf (0-5) 12/18/19 13:55 Urine RBC (Auto) 3 /hpf (0-4) 12/18/19 13:55 Urine Casts (Auto) 34 /lpf (0-8) 12/18/19 13:55 U Pathogenic Cast Auto Few granular /lpf (NEGATIVE) 12/18/19 13:55 U Epithel Cells (Auto) 1.7 /HPF (0-5/HPF) 12/18/19 13:55 Urine Bacteria (Auto) 0.7 /hpf (NEGATIVE) 12/18/19 13:55 Urine Yeast (Auto) None (NEGATIVE) 12/18/19 13:55 Salicylates < 1.7 mg/dL (2.8-20) L 12/18/19 15:30 Opiates Screen Positive ng/ml (HXWOOZ=745) A* 12/18/19 13:55 Methadone Screen Negative ng/ml (YPNTYK=776) 12/18/19 13:55 Acetaminophen <2.0 12/18/19 15:30 Barbiturate Screen Negative ng/ml (BWFRDK=661) 12/18/19 13:55 Phencyclidine Screen Negative ng/ml (CUTOFF=25) 12/18/19 13:55 Ur Amphetamines Screen Negative ng/ml (WECLQL=785) 12/18/19 13:55 MDMA (Ecstasy) Screen Negative ng/ml (OTSZPF=193) 12/18/19 13:55 Benzodiazepines Screen Positive ng/ml (VCZBNW=533) A* 12/18/19 13:55 Cocaine Screen Positive ng/ml (NDPZLE=865) A* 12/18/19 13:55 U Marijuana (THC) Screen Negative ng/ml (CUTOFF=50) 12/18/19 13:55 Alcohol, Quantitative < 3 mg/dL (0.0-5.0) 12/18/19 13:30 Current Medications Chlorhexidine Gluconate (Hibiclens For Decolonization -) 1 applic TP HS JARED Chlorhexidine Gluconate (Hibiclens For Decolonization -) 1 applic TP HS JARED Propofol (Diprivan -) 1,000,000 mcg in 100 mls @ 3.402 mls/hr IVPB TITR JARED; Protocol Last Titration: 12/18/19 15:00 Dose: 0 mcg/kg/min, 0 mls/hr Dexmedetomidine HCl 200 mcg/ (Sodium Chloride) 50 mls @ 5.66 mls/hr IVPB TITR JARED Last Infusion: 12/18/19 15:45 Dose: 0.8 mcg/kg/hr, 22.67 mls/hr Fentanyl 500 mcg/ Dextrose 100 mls @ 0.2 mls/hr IVPB TITR JARED Stop: 12/19/19 15:59 Last Admin: 12/18/19 16:21 Dose: 50 mcg/hr, 10 mls/hr Norepinephrine Bitartrate 8, (000 mcg/ Dextrose) 500 mls @ 12.75 mls/hr IV ASDIR JARED; Protocol Last Titration: 12/18/19 17:10 Dose: 0.01 mcg/kg/min, 7 mls/hr Piperacillin Sod/Tazobactam (Sod 2.25 gm/ Dextrose) 50 mls @ 100 mls/hr IVPB Q8H-IV JARED; Protocol Clindamycin Phosphate (Cleocin 900 Mg Premix Ivpb -) 900 mg in 50 mls @ 100 mls/hr IVPB Q8H-IV JARED; Protocol Propofol (Diprivan -) 1,000,000 mcg in 100 mls @ 3.402 mls/hr IVPB TITR JARED; Protocol Sodium Chloride (Normal Saline -) 1,000 mls @ 125 mls/hr IV ASDIR JARED Sodium Chloride (Normal Saline -) 1,000 mls @ 1,000 mls/hr IV ASDIR STA Stop: 12/18/19 19:03 Sodium Bicarbonate 150 meq/ (Dextrose) 1,150 mls @ 100 mls/hr IV Q10H JARED Levetiracetam (Keppra Injection -) 500 mg IVPB BID JARED Mupirocin (Bactroban Ointment (For Decolonization) -) 1 applic NS BID JARED Stop: 12/23/19 21:59 Mupirocin (Bactroban Ointment (For Decolonization) -) 1 applic NS BID JARED Stop: 12/23/19 21:59 Sodium Bicarbonate (Sodium Bicarbonate 8.4% -) 50 meq IVPUSH ONCE ONE Stop: 12/18/19 17:57 ASSESSMENT/PLAN: 29 y.o. M PMH polysubstance abuse (opioids, benzos, cocaine, THC), hx of tremors, MDD (prior suicidal episodes), paranoid personality d/o, hemochromatosis admitted for acute hypoxic respiratory failure. 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 Mobley consulted, recs load w/ 1g keppra, 500mg keppra BID for seizures -home meds: olanzapine, propranolol, sertraline #CV -EKG shows sinus tachy 149, no ST changes, qtc 425 -S1Q3T3 noted on EKG, starting heparin drip -trop 0.44, f/u repeat & trend -lactic acid uptrending, f/u repeat -on pressor support w/ levo, adding vaso, left fem line in place -cvp monitoring -case discussed w/ Dr. Leija-- recommends continue hemodynamic support. patient currently not a candidate for cardiac cath or b-blockers given cocaine in u-tox; additionally pt has multiple reasons for elevated trops #Pulm -acute hypoxic resp failure -CXR shows near complete L lung opacity -intubated 425/20/100%/15 -ABG: appears venous, pH 7.21 pCO2 46.9 -maintain SaO2 >90% -fludrocortisone hydrocortisone #Renal -acute rhabdo, f/u cpk -continue IVF NS @125cc/hr -bicarb push & drip -Hyperkalemia to 7.5-- given kayexalate 30g, ca gluconate 1g, d50w 25g, insulin 10U -f/u renal U/S -Dr. Reed aware #GI -transaminitis-- may be 2/2 shock liver -trend lft's -f/u abd U/S #Heme/onc -reported hx of hemochromatosis -hgb 18.5; continue to monitor cbc #ID -possible aspiration pna -leukocytosis -covering empirically s/p vanc/zosyn/ azithromycin in ED -clindamycin added -Dr. Hopkins aware #FENLTD -continue ivf -hyperkalemia, f/u repeat bmp -NPO -L femoral central line placed 12/18/2019 -toledo placed 12/18/2019 Dr. Lux made aware Dispo: We will continue to follow the patient. Thank you for this consultative opportunity. Call made to [facility], patient accepted to ICU under Dr. Ortiz pending bed availability Visit type - Emergency Visit Emergency Visit: Yes ED Registration Date: 12/18/19 Care time: The patient presented to the Emergency Department on the above date and was hospitalized for further evaluation of their emergent condition. - New Patient This patient is new to me today: Yes Date on this admission: 12/20/19 - Critical Care Critical Care patient: Yes Total Critical Care Time (in minutes): 45 Critical Care Statement: The care of this patient involved high complexity decision making to prevent further life threatening deterioration of the patient's condition and/or to evaluate & treat vital organ system(s) failure or risk of failure. ATTENDING PHYSICIAN STATEMENT I saw and evaluated the patient. I reviewed the resident's note and discussed the case with the resident. I agree with the resident's findings and plan as documented. SUBJECTIVE: OBJECTIVE: ASSESSMENT AND PLAN:
[2019-12-18] MEDS ORDERED: SODIUM BICARBONATE 8.4% 50 MEQ/50 ML DISP.SYRIN IVPUSH ONE ×2 (17:56→22:28)
[2019-12-18] MEDS ORDERED: DEXTROSE 5%-WATER - 1,000 ML with SODIUM BICARBONATE 8.4% - 150 MEQ IV SCH (18:00)
[2019-12-18] MEDS ORDERED: SODIUM CHLORIDE 1,000 ML IV STA ×2 (18:04→18:31)
[2019-12-18] MEDS ORDERED: SODIUM BICARBONATE 8.4% - 150 MEQ in DEXTROSE 5%-WATER - 1,000 ML IV SCH (18:10)
[2019-12-18] MEDS ORDERED: SODIUM CHLORIDE 1,000 ML IV SCH ×2 (18:15→23:53)
--- NOTE | 2019-12-18 18:34 | CONSULT ---
Consult - text type - Consultation Consultation Note: NEUROLOGY CONSULTATION is greatly appreciated: Events reviewed and discussed with Drs. García and Jessie. Patient examined with family at the bedside. Apparently on olanzepine and sertraline This 29 yo RH man with h/o polysubstance abuse has had 2 possible seizures in the past attributed to benzodiazepine withdrawal. No living in a "sober" correction but today's Tox screen is positive for Opioids , benzodiazepines and cocaine. Pt unwell with cough x few days. Found unresponsive today with stertorous respirations. Then, had witnessed Tonic -clonic seizure. Given versed in the field by EMS then intubated for respiratory compromise. In ED K+=7.5 mg% and CK reported to high to measure without dilation. No further seizures noted but patient on Propofol, fentanyl, Cortef, Flurinef, multiple pressors and antibioics for pneumonia. Examined in [facility] ED prior to transfer to the ICU. DEE: Intubated. No response to sternal pressure but + Spontaneous respirations. Pupils 2 mm reactive. No corneals. Min Horizontal EOM's to Doll's head Flaccid Tetraplegia. Suppressed reflexes. Plantars silent. No response to pinch. IMP: Severe B/L cerebraql dysfunction c/w Iatrogenic coma at this time. Etiology of today's events uncertain. Respiratory arrest due to opioids and benzos complicated by seizures Vs. seizures and respiratory arrest due to illicit drugs + versed. High CK could be seen with trauma, pressure or prolonged seizures. SUGGEST: Agree with current regimen of pressors, aggressive hydration, antibiotics Continue levetiracetaqm a500 mg IV q 12 hrs. Reduce Fentanyl and propofol as expeditiously as possible. Await CK (and follow daily to assure gradual normalization). Thank you very much, Iban Mobley MD
[2019-12-18 18:44] LABS: ANION GAP 9 MMOL/L (8-16); BLOOD UREA NITROGEN 33.4 mg/dL (7-18); CHLORIDE 115 mmol/L (98-107); CO2 19 mmol/L (21-32); CREATININE 3.1 mg/dL (0.55-1.3); GLUCOSE,RANDOM 110 mg/dL (74-106); POTASSIUM 4.7 mmol/L (3.5-5.1); SODIUM 143 mmol/L (136-145)
[2019-12-18] MEDS ORDERED: HEPARIN NA (PORCINE) 5,000 UNITS/ML 1ML VIAL IVPUSH PRN ×2 (18:51)
[2019-12-18] MEDS ORDERED: HEPARIN - 25,000 UNIT in SODIUM CHLORIDE 495 ML IV SCH (19:00)
[2019-12-18] MEDS: VASOPRESSIN 50 UNITS in SODIUM CHLORIDE 97.5 ML IVPB SCH (19:00)
[2019-12-18 19:31] LABS: N-TERMINAL BNP 4306.9 pg/ml (5-125)
[2019-12-18] MEDS ORDERED: MIDAZOLAM IN 0.9 % SOD.CHLORID 1 MG/1 ML PLAST..BAG ONE (19:34)
[2019-12-18] MEDS ORDERED: MIDAZOLAM 100 MG in SODIUM CHLORIDE 100 ML IVPB SCH (19:45)
[2019-12-18] MEDS: PIPERACILLIN/TAZOB 2.25 GM 2.25 GM in DEXTROSE 5%-WATER - 50 ML IVPB SCH (19:47)
[2019-12-18] MEDS ORDERED: SODIUM BICARBONATE 8.4% 50 MEQ/50 ML VIAL ONE (19:47)
[2019-12-18] MEDS: CLINDAMYCIN 900 MG PREMIX IVPB 900 MG/50 ML BAG IVPB SCH (19:59)
[2019-12-18] MEDS: HYDROCORTISONE SOD SUCCINATE 100 MG/2 ML VIAL IVPB SCH (19:59)
[2019-12-18] MEDS ORDERED: DOPAMINE 400 MG/D5W - 400,000 MCG/250 ML INFUS.BAG IVPB ONE (20:00)
[2019-12-18] MEDS ORDERED: DOPAMINE HCL 400,000 MCG in SODIUM CHLORIDE 240 ML IV SCH (20:00)
[2019-12-18 20:10] LABS: ARTERIAL BLD GAS O2 SATURATION 59.7 % (95-98); ARTERIAL BLOOD GAS BASE EXCESS -9.6 meq/l (-2-2); ARTERIAL BLOOD GAS PCO2 46.9 mmHg (35-45); ARTERIAL BLOOD GAS pH 7.21 (7.35-7.45)
[2019-12-18 20:25] LABS: BLOOD UREA NITROGEN 35.8 mg/dL (7-18); CALCIUM 7.1 mg/dL (8.5-10.1); CREATININE 2.8 mg/dL (0.55-1.3); POTASSIUM 5.2 mmol/L (3.5-5.1)
[2019-12-18 20:29] LABS: ALLENS TEST POSITIVE; ARTERIAL BLOOD GAS PO2 < 49 mmHg (80-100)
[2019-12-18] MEDS: FLUDROCORTISONE ACETATE 0.1 MG TABLET (FP) GT SCH (20:45)
[2019-12-18] MEDS ORDERED: SODIUM POLYSTYRENE SULFONATE 15 GM/60 ML BOTTLE GT ONE (20:45)
[2019-12-18] MEDS ORDERED: ALBUTEROL SO4 2.5/IPRATROPIUM 0.5 INH SOL 3 ML VIAL.NEB. NEB ONE (20:47)
[2019-12-18] MEDS ORDERED: DEXTROSE 50%-WATER 25 GM/50 ML DISP.SYRIN ONE (21:27)
[2019-12-18] MEDS: PANTOPRAZOLE SODIUM 40 MG VIAL IVPUSH SCH (21:38)
[2019-12-18] MEDS: CHLORHEXIDINE GLUCONATE 4% CLEANSER FOR DECOLONIZATION TP SCH (21:42)
[2019-12-18] MEDS: MUPIROCIN 2% TOPICAL OINTMENT FOR DECOLONIZATION NS SCH (21:43)
[2019-12-18] MEDS ORDERED: MUPIROCIN 2% TOPICAL OINTMENT FOR DECOLONIZATION NS SCH (22:00)
[2019-12-18] MEDS ORDERED: CHLORHEXIDINE GLUCONATE 4% CLEANSER FOR DECOLONIZATION TP SCH (22:00)
[2019-12-18] MEDS: levETIRAcetam 500 MG/5 ML INJECTION VIAL IVPB SCH (22:01)
[2019-12-18 22:14] LABS: ARTERIAL BLD GAS O2 SATURATION 96.7 % (95-98); ARTERIAL BLOOD GAS BASE EXCESS -7.6 meq/l (-2-2); ARTERIAL BLOOD GAS PCO2 46.2 mmHg (35-45); ARTERIAL BLOOD GAS PO2 95.3 mmHg (80-100); ARTERIAL BLOOD GAS pH 7.25 (7.35-7.45)
[2019-12-18 22:22] LABS: ALLENS TEST POSITIVE
[2019-12-18] MEDS ORDERED: SODIUM BICARBONATE 8.4% 50 MEQ/50 ML VIAL IVPUSH ONE (22:45)
[2019-12-19] MEDS ORDERED: PROPOFOL 1,000,000 MCG/100 ML VIAL ONE (00:09)
[2019-12-19] MEDS ORDERED: fentaNYL CITRATE 250 MCG/5 ML VIAL ONE ×2 (00:09→10:18)
[2019-12-19] MEDS: HYDROCORTISONE SOD SUCCINATE 100 MG/2 ML VIAL IVPB SCH ×2 (01:04→05:41)
[2019-12-19] MEDS ORDERED: DEXTROSE 5%-WATER - 50 ML IVPB ONE ×2 (01:06→09:33)
[2019-12-19] MEDS ORDERED: PIPERACILLIN/TAZOBACTAM 2.25 GM VIAL IVPB ONE ×2 (01:06→09:32)
[2019-12-19] MEDS: PIPERACILLIN/TAZOB 2.25 GM 2.25 GM in DEXTROSE 5%-WATER - 50 ML IVPB SCH ×2 (01:08→10:03)
[2019-12-19 01:52] LABS: BLOOD UREA NITROGEN 34.3 mg/dL (7-18); CALCIUM 7.1 mg/dL (8.5-10.1); CREATININE 2.4 mg/dL (0.55-1.3); POTASSIUM 4.7 mmol/L (3.5-5.1)
[2019-12-19] MEDS: CLINDAMYCIN 900 MG PREMIX IVPB 900 MG/50 ML BAG IVPB SCH ×2 (02:05→10:00)
[2019-12-19] MEDS: PROPOFOL 1,000,000 MCG/100 ML VIAL IVPB SCH ×3 (02:13→17:31)
[2019-12-19] MEDS: FENTANYL INJECTION 500 MCG in DEXTROSE 5%-WATER - 90 ML IVPB SCH ×2 (02:17→12:38)
[2019-12-19] MEDS ORDERED: PT OWN MED DRAWER 7, Y5N ONE (05:06)
[2019-12-19 06:28] LABS: ARTERIAL BLD GAS O2 SATURATION 99.3 % (95-98); ARTERIAL BLOOD GAS BASE EXCESS -3.9 meq/l (-2-2); ARTERIAL BLOOD GAS PCO2 49.4 mmHg (35-45); ARTERIAL BLOOD GAS PO2 261 mmHg (80-100); ARTERIAL BLOOD GAS pH 7.29 (7.35-7.45)
[2019-12-19 06:58] LABS: HEMATOCRIT 40.3 % (35.4-49); HEMOGLOBIN 13.9 GM/dL (11.7-16.9); MCH 33.1 pg (25.7-33.7); MCHC 34.4 g/dl (32.0-35.9); MEAN CELL VOLUME 96.4 fl (80-96); MEAN PLT VOLUME 7.5 fl (7.5-11.1); PLATELET COUNT 215 K/MM3 (134-434); RBC 4.18 M/mm3 (4.00-5.60); RDW 14.1 % (11.9-15.9); WHITE BLOOD COUNT 14.8 K/mm3 (4.0-10.0)
[2019-12-19 07:23] LABS: ALLENS TEST POSITIVE
[2019-12-19 07:36] LABS: ALBUMIN 2.4 g/dl (3.4-5.0); BILIRUBIN,TOTAL 0.7 mg/dL (0.2-1); BLOOD UREA NITROGEN 31.1 mg/dL (7-18); MAGNESIUM 1.7 mg/dL (1.8-2.4); PHOSPHOROUS 3.5 mg/dL (2.5-4.9); POTASSIUM 4.5 mmol/L (3.5-5.1); TOT PROT 4.5 g/dl (6.4-8.2)
[2019-12-19 07:55] LABS: CALCIUM 6.9 mg/dL (8.5-10.1)
[2019-12-19 08:03] LABS: GAMMA GLUTAMYL TRANSPEPTIDASE 37 U/L (5-85)
[2019-12-19] MEDS ORDERED: CALCIUM GLUCONATE 10% - 1,000 MG/10 ML VIAL IVPB ONE (08:15)
--- NOTE | 2019-12-19 09:11 | EKG ---
Test Reason : Blood Pressure : / mmHG Vent. Rate : 119 BPM Atrial Rate : 119 BPM P-R Int : 126 ms QRS Dur : 086 ms QT Int : 324 ms P-R-T Axes : 038 045 018 degrees QTc Int : 455 ms SINUS TACHYCARDIA OTHERWISE NORMAL ECG WHEN COMPARED WITH ECG OF 18-DEC-2019 20:17, NO SIGNIFICANT CHANGE WAS FOUND Confirmed by Douglas Rodriguez ([id number]) on 12/19/2019 9:11:03 AM Referred By: Confirmed By:Douglas Rodriguez
--- NOTE | 2019-12-19 09:13 | EKG ---
Test Reason : Blood Pressure : / mmHG Vent. Rate : 115 BPM Atrial Rate : 115 BPM P-R Int : 124 ms QRS Dur : 082 ms QT Int : 308 ms P-R-T Axes : 053 068 008 degrees QTc Int : 426 ms SINUS TACHYCARDIA OTHERWISE NORMAL ECG WHEN COMPARED WITH ECG OF 18-DEC-2019 20:02, NO SIGNIFICANT CHANGE WAS FOUND Confirmed by Douglas Rodriguez ([id number]) on 12/19/2019 9:13:05 AM Referred By: Confirmed By:Douglas Rodriguez
--- NOTE | 2019-12-19 09:43 | CON.CARD ---
Consult Consult Specialty:: CV - History of Present Illness Chief Complaint: unresponsive History of Present Illness: 29 year old male found minimally responsive in residential treatment facility. noted to be tremulous as well. previously seen earlier that day in AM snoring, and not easily arousable, however his co-inhabitants believed he was sleeping. Upon checking on him around noon, he was noted to be shaking, minimally responsive with clear vomitus on the pillow, and bleeding from the nose. Patients family reports he c/o'd flu- like symptoms cough, congestion the day prior course: desat to 70s, intubated by EMS. given narcan with no response. hypotensive to 70s in ER--resuscitated temp to 101.8 tachy 110s CPK > 21359, urine + cocaine bun/creat 32/3.2-->31/2.0 this am lactate 5-->2.5 this am AST/LT elevated trop 0.44--3.6--2.6 ECG x 2 no ischemic findings CXR extensive L infiltrate CT head: mild bilat white matter leukomalacia of ? etiology--neuro consulted presently: intubated, sedated off pressors PMH: polysubstance use disorder (opiates, cocaine, cannabis), major depressive disorder (prior suicidal episodes), paranoid psychoid, hemochromatosis - Alcohol/Substance Use Hx Alcohol Use: No - Smoking History Smoking history: Never smoked Home Medications - Allergies Allergies/Adverse Reactions: Allergies Allergy/AdvReac Type Severity Reaction Status Date / Time No Known Allergies Allergy Verified 12/18/19 13:20 - Home Medications Home Medications: Ambulatory Orders Olanzapine 15 mg PO HS 06/09/19 Propranolol HCl 10 mg PO BID 06/09/19 Sertraline HCl [Zoloft] 150 mg PO DAILY 06/09/19 Family Medical History Family History: Unable to Obtain Review of Systems Unable to obtain ROS, reason: pt sedated/intubated Vital Signs: Vital Signs Temperature 99.9 F H 12/19/19 07:00 Pulse Rate 116 H 12/19/19 08:30 Respiratory Rate 24 H 12/19/19 08:52 Blood Pressure 104/62 12/19/19 08:30 O2 Sat by Pulse Oximetry (%) 96 12/19/19 08:52 Constitutional: Yes: Well Nourished, No Distress Eyes: No: Sclera Icterus HENT: No: Nasal Congestion Neck: No: Decreased ROM Respiratory: Yes: CTA Bilaterally (anteriorly), Diminished (L lung field diffusely). No: Accessory Muscle Use, Rales, Wheezes Gastrointestinal: Yes: Normal Bowel Sounds. No: Distention, Hepatomegaly, Palpable Mass, Tenderness Cardiovascular: Yes: Regular Rate and Rhythm JVD: No Carotid Bruit: No PMI: Non-Displaced Heart Sounds: Yes: S1, S2. No: Gallop Murmur: No: Systolic Murmur, Diastolic Murmur Musculoskeletal: Yes: Other (No kyphosis) Extremities: No: Cool, Cyanosis Edema: No Peripheral Pulses: 2+ Left Carotid, 2+ Right Carotid, 2+ Left Doralis Pedis, 2+ Right Dorsalis Pedis Integumentary: No: Jaundice Neurological: No: Alert, Oriented (x3) Psychiatric: No: Agitated - Other Data Labs, Other Data: CBC, BMP 12/19/19 05:33 12/19/19 05:33 INR, PTT INR 1.07 (0.83-1.09) 12/18/19 13:30 Troponin, BNP 12/18/19 12/18/19 12/19/19 13:30 18:00 00:12 Troponin I 0.44 H 1.07 H* 3.62 H* B-Natriuretic Peptide 4306.9 H 12/19/19 05:33 Troponin I 2.64 H* B-Natriuretic Peptide Troponin, BNP 12/18/19 12/18/19 12/19/19 13:30 18:00 00:12 Troponin I 0.44 H 1.07 H* 3.62 H* B-Natriuretic Peptide 4306.9 H 12/19/19 05:33 Troponin I 2.64 H* B-Natriuretic Peptide Assessment/Plan ECG #1:: sinus tach, Rward QRS axis, nonsp T wave abn, no progression #2 and 3: normal axis, o/w change PNA, hypoxic resp failure, polysubstance abuse/intoxication: -extensive L infiltrate on CXR, ? aspiration -abx, vent mgmt, etc per pulm/crit care septic shock, lactic acidosis: -off pressors, currently hemodynamically stable. -monitor MAP--rec vasopressin prn for MAP > 60, with levo/dopamine as needed ( at cost of tachycardia)--currently MAP at goals -aggressive fluid resuscitation, abx mgmt as doing rhabdomyolysis with JOSE MIGUEL (sec to cocaine intoxication): -renal fxn improving -cont aggressive fluids NSTEMI: -pt young with no known traditional CAD risk factors -no ecg changes, mult other life-threatening medical problems -this is Type II SD sec to demand ischemia/injury, vs sepsis syndrome associated myonecrosis -no ischemia-focused med intervention or testing indicated -check echo for LV function transaminitis: -likely shock liver -trend labs, cont supportive care ext time in data review, pt exam, formulating mgmt plan of potentially life- threatening medical problems = 39 min
[2019-12-19] MEDS: MIDAZOLAM IN 0.9 % SOD.CHLORID 100 MG/100 ML PLAST..BAG IVPB SCH ×2 (09:59→17:26)
[2019-12-19] MEDS ORDERED: AZITHROMYCIN IVPB 250 MG in DEXTROSE 5%-WATER - 250 ML IVPB SCH (10:00)
[2019-12-19] MEDS: levETIRAcetam 500 MG/5 ML INJECTION VIAL IVPB SCH ×2 (10:04→21:01)
[2019-12-19] MEDS: PANTOPRAZOLE SODIUM 40 MG VIAL IVPUSH SCH (10:05)
[2019-12-19] MEDS: FLUDROCORTISONE ACETATE 0.1 MG TABLET (FP) GT SCH (10:29)
[2019-12-19] MEDS: MUPIROCIN 2% TOPICAL OINTMENT FOR DECOLONIZATION NS SCH ×2 (10:52→21:02)
--- NOTE | 2019-12-19 11:26 | PN ---
Progress Note (short form) - Note Progress Note: ID consult dictated imp/reccd 29 yo [facility], history of opiate use with multiple ODs- last 2 months ago at home\was admitted to the hospital briefly at that time has not recently had any medical admissions- they have all been for detox/rehab now found [place] at [facility], ?seizures, unresponsive brought to ED and intubated- large right sided infiltrate most c/w aspiration would continue vancomycin by level (renal function improving) and zosyn given recent admission to the hospoital obtain sputum culture today obtain urinary antigens rhabdoymolysis- iv hydration ongoing possible seizure Problem List - Problems (1) Acute respiratory failure Code(s): J96.00 - ACUTE RESPIRATORY FAILURE, UNSP W HYPOXIA OR HYPERCAPNIA Qualifiers: Respiratory failure complication: unspecified whether with hypoxia or hypercapnia Qualified Code(s): J96.00 - Acute respiratory failure, unspecified whether with hypoxia or hypercapnia (2) Aspiration pneumonia Code(s): J69.0 - PNEUMONITIS DUE TO INHALATION OF FOOD AND VOMIT (3) Substance abuse Code(s): F19.10 - OTHER PSYCHOACTIVE SUBSTANCE ABUSE, UNCOMPLICATED (4) Seizure Code(s): R56.9 - UNSPECIFIED CONVULSIONS (5) Rhabdomyolysis Code(s): M62.82 - RHABDOMYOLYSIS
[2019-12-19] MEDS ORDERED: CEFTRIAXONE 2 GM in DEXTROSE 5%-WATER 100 ML IVPB SCH (11:30)
--- NOTE | 2019-12-19 11:40 | PN ---
Teaching Attending Note Name of Resident: Jojo Chaparro ATTENDING PHYSICIAN STATEMENT I saw and evaluated the patient. I reviewed the resident's note and discussed the case with the resident. I agree with the resident's findings and plan as documented. SUBJECTIVE: Pt seen and examined in the ICU. Remains intubated, sedated. Hemodynamics much improved, off pressors. Oxygenation also improving, FiO2 down to 40%, PEEP 8. Bedside ultrasound performed showing minimal effusion but mostly consolidated lung. OBJECTIVE: Vital Signs Period Temp Pulse Resp BP Sys/Santoyo Pulse Ox Last 24 Hr 99.2 F-101.8 F 112-152 18-40 78-155/35-135 81-100 Intake & Output 12/16/19 12/17/19 12/18/19 12/19/19 23:59 23:59 23:59 23:59 Intake Total 1250 2538 Output Total 1175 1500 Balance 75 1038 Weight 105 kg Gen: intubated, sedated Heart: tachycardic, regular Lung: scattered rhonchi Abd: soft, nontender Ext: no edema CBC, BMP 12/19/19 05:33 12/19/19 05:33 Active Medications Chlorhexidine Gluconate (Hibiclens For Decolonization -) 1 applic TP HS [facility] Last Admin: 12/18/19 21:42 Dose: 1 applic Heparin Sodium (Porcine) (Heparin -) 5,000 unit SQ TID [facility] Fentanyl 500 mcg/ Dextrose 100 mls @ 0.2 mls/hr IVPB TITR [facility] Stop: 12/19/19 15:59 Last Admin: 12/19/19 02:17 Dose: 50 mcg/hr, 10 mls/hr Clindamycin Phosphate (Cleocin 900 Mg Premix Ivpb -) 900 mg in 50 mls @ 100 mls /hr IVPB Q8H-IV [facility]; Protocol Last Admin: 12/19/19 10:00 Dose: 100 mls/hr Propofol (Diprivan -) 1,000,000 mcg in 100 mls @ 3.402 mls/hr IVPB TITR [facility]; Protocol Last Admin: 12/19/19 10:09 Dose: 8 mcg/kg/min, 5.443 mls/hr Vasopressin 50 units/ Sodium (Chloride) 100 mls @ 24 mls/hr IVPB TITR [facility]; Protocol Last Titration: 12/18/19 23:30 Dose: 0 units/min, 0 mls/hr Norepinephrine Bitartrate 8, (000 mcg/ Dextrose) 500 mls @ 12.75 mls/hr IV Q39H [facility]; Protocol Last Titration: 12/19/19 06:20 Dose: 0.04 mcg/kg/min, 18.8 mls/hr Dopamine HCl 400,000 mcg/ (Sodium Chloride) 250 mls @ 8.5 mls/hr IV TITR [facility]; Protocol Last Admin: 12/19/19 02:49 Dose: Not Given Azithromycin 250 mg/ Dextrose 250 mls @ 250 mls/hr IVPB DAILY [facility] Last Admin: 12/19/19 10:28 Dose: 250 mls/hr Sodium Chloride (Normal Saline -) 1,000 mls @ 150 mls/hr IV ASDIR [facility] Last Admin: 12/19/19 00:21 Dose: 150 mls/hr Midazolam HCl (Midazolam 100mg/100ml-0.9%Nacl) 100 mg in 100 mls @ 1 mls/hr IVPB TITR [facility]; Protocol Last Admin: 12/19/19 09:59 Dose: 6 mg/hr, 6 mls/hr Ceftriaxone Sodium 2 gm/ (Dextrose) 100 mls @ 200 mls/hr IVPB DAILY [facility]; Protocol Levetiracetam (Keppra Injection -) 500 mg IVPB BID [facility] Last Admin: 12/19/19 10:04 Dose: 500 mg Mupirocin (Bactroban Ointment (For Decolonization) -) 1 applic NS BID [facility] Stop: 12/23/19 21:59 Last Admin: 12/19/19 10:52 Dose: 1 applic Pantoprazole Sodium (Protonix Iv) 40 mg IVPUSH DAILY [facility] Last Admin: 12/19/19 10:05 Dose: 40 mg ASSESSMENT AND PLAN: Acute Hypoxic and Hypercapneic Respiratory Failure Pneumonia likely Aspiration Septic Shock Lactic Acidosis Acute Kidney Injury Rhabdomyolysis Elevated LFTs likely Ischemic Injury +Troponins likely Demand Ischemia Polysubstance Abuse Depression Hemochromatosis - IV antibiotics - f/u cultures - send urinary antigens - change femoral line - off pressors, maintain MAP >65 - taper stress dose steroids - IVF, bicarb - monitor urine output, creatinine - check urine myoglobin - trend cardiac enzymes - echocardiogram - taper Fio2, PEEP to keep SpO2 >90% - if continues to improve, lighten sedation to assess mental status - spontaneous breathing trials as tolerated - enteral feeds if unable to extubate - DVT/GI prophylaxis - continue ICU monitoring critical care time spent in reviewing chart, evaluating patient and formulating plan 35 min
--- NOTE | 2019-12-19 11:40 | CONSULT ---
Consult - text type - Consultation Consultation Note: Renal consult for JOSE MIGUEL and hyperkalemia This is a 29 year old gentleman with history of substance abuse who presented from long term unresponsive and intubated in the field and found to have shock and acute renal failure with hyperkalemia. Seen and examined at the bedside. Family at the bedside. Pt has reported flu like symptoms for a few days prior to admission. Currently sedated on vent. Making urine via [place]. PMHx: as above Allergies: NKDA Family Hx: NC Social Hx: No T/A/D ROS: as per HPI, all other pertinent ros negative Home Medications Medication Instructions Recorded Olanzapine 15 mg PO HS 06/09/19 Propranolol HCl 10 mg PO BID 06/09/19 Sertraline HCl [Zoloft] 150 mg PO DAILY 06/09/19 Vital Signs Temperature 99.9 F H 12/19/19 07:00 Pulse Rate 116 H 12/19/19 08:30 Respiratory Rate 24 H 12/19/19 08:52 Blood Pressure 104/62 12/19/19 08:30 O2 Sat by Pulse Oximetry (%) 96 12/19/19 08:52 Intake & Output 12/16/19 12/17/19 12/18/19 12/19/19 23:59 23:59 23:59 23:59 Intake Total 1250 2538 Output Total 1175 1500 Balance 75 1038 Weight 105 kg On vent via ET Tube neck supple RRR, no M/R Dec BS left lung, no wheeze soft NT/ND no LE edema, clubbing or cyanosis [place] in place CBC, BMP 12/19/19 05:33 12/19/19 05:33 Laboratory Tests 12/18/19 12/18/19 12/18/19 13:30 18:00 19:10 Potassium 7.5 H* 5.2 H Carbon Dioxide 25 20 L Creatinine 3.2 H 2.8 H Lactic Acid Creatine Kinase > 22128 H 12/19/19 12/19/19 12/19/19 05:33 05:33 05:33 Potassium 4.5 Carbon Dioxide 23 Creatinine 2.0 H Lactic Acid 2.5 H* Creatine Kinase > 1400 H Current Medications Chlorhexidine Gluconate (Hibiclens For Decolonization -) 1 applic TP HS JARED Last Admin: 12/18/19 21:42 Dose: 1 applic Heparin Sodium (Porcine) (Heparin -) 5,000 unit SQ TID JARED Fentanyl 500 mcg/ Dextrose 100 mls @ 0.2 mls/hr IVPB TITR [facility] Stop: 12/19/19 15:59 Last Admin: 12/19/19 02:17 Dose: 50 mcg/hr, 10 mls/hr Clindamycin Phosphate (Cleocin 900 Mg Premix Ivpb -) 900 mg in 50 mls @ 100 mls /hr IVPB Q8H-IV [facility]; Protocol Last Admin: 12/19/19 10:00 Dose: 100 mls/hr Propofol (Diprivan -) 1,000,000 mcg in 100 mls @ 3.402 mls/hr IVPB TITR [facility]; Protocol Last Admin: 12/19/19 10:09 Dose: 8 mcg/kg/min, 5.443 mls/hr Vasopressin 50 units/ Sodium (Chloride) 100 mls @ 24 mls/hr IVPB TITR [facility]; Protocol Last Titration: 12/18/19 23:30 Dose: 0 units/min, 0 mls/hr Norepinephrine Bitartrate 8, (000 mcg/ Dextrose) 500 mls @ 12.75 mls/hr IV Q39H [facility]; Protocol Last Titration: 12/19/19 06:20 Dose: 0.04 mcg/kg/min, 18.8 mls/hr Dopamine HCl 400,000 mcg/ (Sodium Chloride) 250 mls @ 8.5 mls/hr IV TITR [facility]; Protocol Last Admin: 12/19/19 02:49 Dose: Not Given Azithromycin 250 mg/ Dextrose 250 mls @ 250 mls/hr IVPB DAILY [facility] Last Admin: 12/19/19 10:28 Dose: 250 mls/hr Sodium Chloride (Normal Saline -) 1,000 mls @ 150 mls/hr IV ASDIR [facility] Last Admin: 12/19/19 00:21 Dose: 150 mls/hr Midazolam HCl (Midazolam 100mg/100ml-0.9%Nacl) 100 mg in 100 mls @ 1 mls/hr IVPB TITR [facility]; Protocol Last Admin: 12/19/19 09:59 Dose: 6 mg/hr, 6 mls/hr Ceftriaxone Sodium 2 gm/ (Dextrose) 100 mls @ 200 mls/hr IVPB DAILY [facility]; Protocol Levetiracetam (Keppra Injection -) 500 mg IVPB BID [facility] Last Admin: 12/19/19 10:04 Dose: 500 mg Mupirocin (Bactroban Ointment (For Decolonization) -) 1 applic NS BID [facility] Stop: 12/23/19 21:59 Last Admin: 12/19/19 10:52 Dose: 1 applic Pantoprazole Sodium (Protonix Iv) 40 mg IVPUSH DAILY [facility] Last Admin: 12/19/19 10:05 Dose: 40 mg 29 year old gentleman with history of substance abuse who presented from long term unresponsive and intubated in the field and found to have shock and acute renal failure with hyperkalemia. 1. Acute kidney injury from pigment injury vs. ATN from shock 2. Hyperkalemia 3. Rhabdomyolysis 4. Shock/Sepsis 5. AMS 6. Lactic acidosis 7. Hypocalcemia 8. Hypomagnesemia Renal function gradually improving from admission and pt is non-oliguric. Hyperkalemia has resolved. pH > 7.2. CK levels remain very elevated Continue Normal saline and Bicarb gtt concurrently. Would monitor BMP Q6h to monitor for significant hypocalceima (corrected Ca < 7.5), metabolic alkalsosis (serum bicarb > 30) that can be induced by bicarb gtt Will need to be on aggressive IVF untril CK < 5000 Continue vent support keep MAP > 65, CVP 10-12 Empiric antibiotics per ID Trend Mg/PHos levels daily Thank you Jose Roberto Reed DO
[2019-12-19] MEDS ORDERED: DEXTROSE 5%-WATER 100 ML IVPB ONE ×4 (11:45→20:44)
[2019-12-19] MEDS ORDERED: VANCOMYCIN 1 GM in D5W (PRE-DOCKED) 1,000 MG/250 ML IVPB SCH (12:00)
[2019-12-19] MEDS ORDERED: MAGNESIUM SULF 50% (8.12 MEQ/2 ML-1 GM VIAL) IVPB ONE (12:00)
[2019-12-19] MEDS ORDERED: PIPERACILLIN/TAZOBACTAM 4.5 GM VIAL IVPB ONE ×3 (12:04→20:44)
[2019-12-19] MEDS: PIPERACILLIN/TAZOB 4.5 GM 4.5 GM in DEXTROSE 5%-WATER 100 ML IVPB SCH ×4 (12:07→18:05)
--- NOTE | 2019-12-19 12:10 | ECHO ---
Name: HANNAH SUAREZ Exam:Adult Echocardiogram Study Date: 12/19/2019 10:29 AM Age: 29 yrs Reason For Study: evaluate systolic fn,vegetations Height: 71 in Weight: 250 lb BSA: 2.3 m2 Procedure Study Quality: Poor. Left Ventricle The left ventricular size, thickness and function are normal. Ejection Fraction = 55-60%. Right Ventricle The right ventricle is not well visualized. Atria Normal left and right atrial size and function. Mitral Valve The mitral valve is grossly normal. Tricuspid Valve The tricuspid valve is not well visualized, but is grossly normal. Aortic Valve The aortic valve is normal in structure and function. Pulmonic Valve The pulmonic valve is not well visualized. Great Vessels The aortic root is normal size. Pericardium/Pleura There is no pericardial effusion. Interpretation Summary This was essentially a normal study. Technicall limited study. Douglas Rodriguez 12/19/2019 12:09 PM
--- NOTE | 2019-12-19 12:13 | EKG ---
Test Reason : Blood Pressure : / mmHG Vent. Rate : 120 BPM Atrial Rate : 120 BPM P-R Int : 130 ms QRS Dur : 090 ms QT Int : 348 ms P-R-T Axes : 041 035 017 degrees QTc Int : 491 ms SINUS TACHYCARDIA OTHERWISE NORMAL ECG WHEN COMPARED WITH ECG OF 19-DEC-2019 02:19, NO SIGNIFICANT CHANGE WAS FOUND Confirmed by Douglas Rodriguez ([id number]) on 12/19/2019 12:13:09 PM Referred By: Confirmed By:Douglas Rodriguez
[2019-12-19] MEDS ORDERED: SODIUM BICARBONATE 8.4% - 150 MEQ in DEXTROSE 5%-WATER - 1,000 ML IVPB SCH (12:15)
[2019-12-19] MEDS ORDERED: VANCOMYCIN 1 GM in D5W (PRE-DOCKED) 1,000 MG/250 ML IVPB ONE (12:30)
[2019-12-19] MEDS: HEPARIN NA (PORCINE) 5,000 UNITS/ML 1ML VIAL SQ SCH ×2 (14:51→21:00)
--- NOTE | 2019-12-19 15:02 | PN ---
Physical Exam: SUBJECTIVE: Patient seen and examined in the morning. Patient was hypotensive overnight, low MAP reported to be 30, was put on pressors and bicarb drip due to acidosis on ABG. In the morning pressors were turned off. Patient was sedated and intubated, unable to respond to questions about pain. OBJECTIVE: Vital Signs Period Temp Pulse Resp BP Sys/Santoyo Pulse Ox Last 24 Hr 99.9 F-101.8 F 112-143 15-40 78-155/35-135 81-99 GENERAL: The patient is sedated and intubated. Not alert. HEAD:ET tube in place. EYES: PERRLA. ENT: Copious secretions on suction. NECK: Trachea midline, full range of motion, supple. LUNGS: Decreased breath sounds on the left side, clear to auscultation on the right side. HEART: Tachycardic, but no murmurs, rubs, gallops present. ABDOMEN: Soft, nontender, normoactive bowel sounds. EXTREMITIES: 2+ pulses, warm, well-perfused, no edema. SKIN: Warm, dry, normal turgor, no rashes or lesions noted Laboratory Results - last 24 hr 12/18/19 12/18/19 12/18/19 10:00 13:30 13:30 WBC 13.7 H RBC 5.59 Hgb 18.5 H Hct 55.0 H D MCV 98.4 H MCH 33.1 MCHC 33.7 RDW 13.8 Plt Count 334 D MPV 7.9 Absolute Neuts (auto) 10.4 H Neutrophils % 75.7 Neutrophils % (Manual) 34.6 L Band Neutrophils % 26.7 Lymphocytes % 11.5 D Lymphocytes % (Manual) 4.0 L Monocytes % 12.7 H D Monocytes % (Manual) 9 Eosinophils % 0.0 D Eosinophils % (Manual) 0.0 Basophils % 0.1 Basophils % (Manual) 0.0 Myelocytes % (Man) 0 Promyelocytes % (Man) 0 Blast Cells % (Manual) 0 Nucleated RBC % 0 Metamyelocytes 14 H Hypochromia 0 Platelet Estimate Normal Polychromasia 2+ Poikilocytosis 1+ Anisocytosis 1+ Microcytosis 1+ Macrocytosis 0 PT with INR INR PTT (Actin FS) D-Dimer Anticoagulation Therapy No Result Required. Puncture Site ABG pH ABG pCO2 at Pt Temp ABG pO2 at Pt Temp ABG HCO3 ABG O2 Sat (Measured) ABG O2 Content ABG Base Excess Abdiel Test O2 Delivery Device Oxygen Flow Rate Vent Mode Vent Rate Mechanical Rate PEEP Pressure Support Vent Sodium 138 Potassium 7.5 H* Chloride 104 Carbon Dioxide 25 Anion Gap 10 BUN 32.5 H Creatinine 3.2 H Est GFR (CKD-EPI)AfAm 29.17 Est GFR (CKD-EPI)NonAf 25.17 Random Glucose 65 L Lactic Acid Calcium 7.4 L Phosphorus Magnesium Total Bilirubin 0.6 GGT AST 261 H ALT 72 H Alkaline Phosphatase 146 H Ammonia Creatine Kinase Creatine Kinase Index CK-MB (CK-2) Troponin I 0.44 H B-Natriuretic Peptide Total Protein 7.4 Albumin 3.9 Lipase TSH Urine Color Urine Appearance Urine pH Ur Specific [place] Urine Protein Urine Glucose (UA) Urine Ketones Urine Blood Urine Nitrite Urine Bilirubin Urine Urobilinogen Ur Leukocyte Esterase Urine WBC (Auto) Urine RBC (Auto) Urine Casts (Auto) U Pathogenic Cast Auto U Epithel Cells (Auto) Urine Bacteria (Auto) Urine Yeast (Auto) Random Vancomycin Salicylates Opiates Screen Methadone Screen Acetaminophen Barbiturate Screen Phencyclidine Screen Ur Amphetamines Screen MDMA (Ecstasy) Screen Benzodiazepines Screen Cocaine Screen U Marijuana (THC) Screen Alcohol, Quantitative < 3 Influenza A (Rapid) Influenza B (Rapid) 12/18/19 12/18/19 12/18/19 13:30 13:30 13:30 WBC RBC Hgb Hct MCV MCH MCHC RDW Plt Count MPV Absolute Neuts (auto) Neutrophils % Neutrophils % (Manual) Band Neutrophils % Lymphocytes % Lymphocytes % (Manual) Monocytes % Monocytes % (Manual) Eosinophils % Eosinophils % (Manual) Basophils % Basophils % (Manual) Myelocytes % (Man) Promyelocytes % (Man) Blast Cells % (Manual) Nucleated RBC % Metamyelocytes Hypochromia Platelet Estimate Polychromasia Poikilocytosis Anisocytosis Microcytosis Macrocytosis PT with INR 12.60 INR 1.07 PTT (Actin FS) 26.7 D-Dimer 2231 H Anticoagulation Therapy Puncture Site ABG pH ABG pCO2 at Pt Temp ABG pO2 at Pt Temp ABG HCO3 ABG O2 Sat (Measured) ABG O2 Content ABG Base Excess Abdiel Test O2 Delivery Device Oxygen Flow Rate Vent Mode Vent Rate Mechanical Rate PEEP Pressure Support Vent Sodium Potassium Chloride Carbon Dioxide Anion Gap BUN Creatinine Est GFR (CKD-EPI)AfAm Est GFR (CKD-EPI)NonAf Random Glucose Lactic Acid Calcium Phosphorus Magnesium 2.5 H Total Bilirubin GGT AST ALT Alkaline Phosphatase Ammonia Creatine Kinase Creatine Kinase Index CK-MB (CK-2) Troponin I B-Natriuretic Peptide Total Protein Albumin Lipase 137 TSH 2.37 Urine Color Urine Appearance Urine pH Ur Specific [place] Urine Protein Urine Glucose (UA) Urine Ketones Urine Blood Urine Nitrite Urine Bilirubin Urine Urobilinogen Ur Leukocyte Esterase Urine WBC (Auto) Urine RBC (Auto) Urine Casts (Auto) U Pathogenic Cast Auto U Epithel Cells (Auto) Urine Bacteria (Auto) Urine Yeast (Auto) Random Vancomycin Salicylates Opiates Screen Methadone Screen Acetaminophen Barbiturate Screen Phencyclidine Screen Ur Amphetamines Screen MDMA (Ecstasy) Screen Benzodiazepines Screen Cocaine Screen U Marijuana (THC) Screen Alcohol, Quantitative Influenza A (Rapid) Influenza B (Rapid) 12/18/19 12/18/19 12/18/19 13:55 13:55 13:55 WBC RBC Hgb Hct MCV MCH MCHC RDW Plt Count MPV Absolute Neuts (auto) Neutrophils % Neutrophils % (Manual) Band Neutrophils % Lymphocytes % Lymphocytes % (Manual) Monocytes % Monocytes % (Manual) Eosinophils % Eosinophils % (Manual) Basophils % Basophils % (Manual) Myelocytes % (Man) Promyelocytes % (Man) Blast Cells % (Manual) Nucleated RBC % Metamyelocytes Hypochromia Platelet Estimate Polychromasia Poikilocytosis Anisocytosis Microcytosis Macrocytosis PT with INR INR PTT (Actin FS) D-Dimer Anticoagulation Therapy Puncture Site ABG pH ABG pCO2 at Pt Temp ABG pO2 at Pt Temp ABG HCO3 ABG O2 Sat (Measured) ABG O2 Content ABG Base Excess Abdiel Test O2 Delivery Device Oxygen Flow Rate Vent Mode Vent Rate Mechanical Rate PEEP Pressure Support Vent Sodium Potassium Chloride Carbon Dioxide Anion Gap BUN Creatinine Est GFR (CKD-EPI)AfAm Est GFR (CKD-EPI)NonAf Random Glucose Lactic Acid 4.7 H* Calcium Phosphorus Magnesium Total Bilirubin GGT AST ALT Alkaline Phosphatase Ammonia Creatine Kinase Creatine Kinase Index CK-MB (CK-2) Troponin I B-Natriuretic Peptide Total Protein Albumin Lipase TSH Urine Color Yellow Urine Appearance Clear Urine pH 5.0 Ur Specific [place] 1.019 Urine Protein 2+ H Urine Glucose (UA) Negative Urine Ketones Negative Urine Blood 3+ H Urine Nitrite Negative Urine Bilirubin Negative Urine Urobilinogen 0.2 Ur Leukocyte Esterase Negative Urine WBC (Auto) 5 Urine RBC (Auto) 3 Urine Casts (Auto) 34 U Pathogenic Cast Auto Few granular U Epithel Cells (Auto) 1.7 Urine Bacteria (Auto) 0.7 Urine Yeast (Auto) None Random Vancomycin Salicylates Opiates Screen Positive A* Methadone Screen Negative Acetaminophen Barbiturate Screen Negative Phencyclidine Screen Negative Ur Amphetamines Screen Negative MDMA (Ecstasy) Screen Negative Benzodiazepines Screen Positive A* Cocaine Screen Positive A* U Marijuana (THC) Screen Negative Alcohol, Quantitative Influenza A (Rapid) Influenza B (Rapid) 12/18/19 12/18/19 12/18/19 13:55 15:30 15:36 WBC RBC Hgb Hct MCV MCH MCHC RDW Plt Count MPV Absolute Neuts (auto) Neutrophils % Neutrophils % (Manual) Band Neutrophils % Lymphocytes % Lymphocytes % (Manual) Monocytes % Monocytes % (Manual) Eosinophils % Eosinophils % (Manual) Basophils % Basophils % (Manual) Myelocytes % (Man) Promyelocytes % (Man) Blast Cells % (Manual) Nucleated RBC % Metamyelocytes Hypochromia Platelet Estimate Polychromasia Poikilocytosis Anisocytosis Microcytosis Macrocytosis PT with INR INR PTT (Actin FS) D-Dimer Anticoagulation Therapy Puncture Site ABG pH ABG pCO2 at Pt Temp ABG pO2 at Pt Temp ABG HCO3 ABG O2 Sat (Measured) ABG O2 Content ABG Base Excess Abdiel Test O2 Delivery Device Oxygen Flow Rate Vent Mode Vent Rate Mechanical Rate PEEP Pressure Support Vent Sodium Potassium Chloride Carbon Dioxide Anion Gap BUN Creatinine Est GFR (CKD-EPI)AfAm Est GFR (CKD-EPI)NonAf Random Glucose Lactic Acid 5.2 H* Calcium Phosphorus Magnesium Total Bilirubin GGT AST ALT Alkaline Phosphatase Ammonia 27.50 Creatine Kinase Creatine Kinase Index CK-MB (CK-2) Troponin I B-Natriuretic Peptide Total Protein Albumin Lipase TSH Urine Color Urine Appearance Urine pH Ur Specific [place] Urine Protein Urine Glucose (UA) Urine Ketones Urine Blood Urine Nitrite Urine Bilirubin Urine Urobilinogen Ur Leukocyte Esterase Urine WBC (Auto) Urine RBC (Auto) Urine Casts (Auto) U Pathogenic Cast Auto U Epithel Cells (Auto) Urine Bacteria (Auto) Urine Yeast (Auto) Random Vancomycin Salicylates < 1.7 L Opiates Screen Methadone Screen Acetaminophen <2.0 Barbiturate Screen Phencyclidine Screen Ur Amphetamines Screen MDMA (Ecstasy) Screen Benzodiazepines Screen Cocaine Screen U Marijuana (THC) Screen Alcohol, Quantitative Influenza A (Rapid) Influenza B (Rapid) 12/18/19 12/18/19 12/18/19 16:36 18:00 18:00 WBC RBC Hgb Hct MCV MCH MCHC RDW Plt Count MPV Absolute Neuts (auto) Neutrophils % Neutrophils % (Manual) Band Neutrophils % Lymphocytes % Lymphocytes % (Manual) Monocytes % Monocytes % (Manual) Eosinophils % Eosinophils % (Manual) Basophils % Basophils % (Manual) Myelocytes % (Man) Promyelocytes % (Man) Blast Cells % (Manual) Nucleated RBC % Metamyelocytes Hypochromia Platelet Estimate Polychromasia Poikilocytosis Anisocytosis Microcytosis Macrocytosis PT with INR INR PTT (Actin FS) D-Dimer Anticoagulation Therapy No Result Required. Puncture Site Right femoral ABG pH 7.22 L ABG pCO2 at Pt Temp 42.6 ABG pO2 at Pt Temp < 49 L* ABG HCO3 16.7 L ABG O2 Sat (Measured) 74.9 L ABG O2 Content No Result Required. ABG Base Excess -10.4 L Abdiel Test No Result Required. O2 Delivery Device Mech vent Oxygen Flow Rate 100% Vent Mode A/c Vent Rate 18 Mechanical Rate Yes PEEP 8.0 Pressure Support Vent 450 Sodium 143 Potassium 4.7 Chloride 115 H Carbon Dioxide 19 L Anion Gap 9 BUN 33.4 H Creatinine 3.1 H Est GFR (CKD-EPI)AfAm 30.31 Est GFR (CKD-EPI)NonAf 26.15 Random Glucose 110 H Lactic Acid 5.2 H* Calcium 7.0 L Phosphorus Magnesium Total Bilirubin GGT AST ALT Alkaline Phosphatase Ammonia Creatine Kinase > 27059 H Creatine Kinase Index 0.0 CK-MB (CK-2) 115.2 H Troponin I 1.07 H* B-Natriuretic Peptide 4306.9 H Total Protein Albumin Lipase TSH Urine Color Urine Appearance Urine pH Ur Specific [place] Urine Protein Urine Glucose (UA) Urine Ketones Urine Blood Urine Nitrite Urine Bilirubin Urine Urobilinogen Ur Leukocyte Esterase Urine WBC (Auto) Urine RBC (Auto) Urine Casts (Auto) U Pathogenic Cast Auto U Epithel Cells (Auto) Urine Bacteria (Auto) Urine Yeast (Auto) Random Vancomycin Salicylates Opiates Screen Methadone Screen Acetaminophen Barbiturate Screen Phencyclidine Screen Ur Amphetamines Screen MDMA (Ecstasy) Screen Benzodiazepines Screen Cocaine Screen U Marijuana (THC) Screen Alcohol, Quantitative Influenza A (Rapid) Influenza B (Rapid) 12/18/19 12/18/19 12/18/19 19:10 19:55 21:00 WBC RBC Hgb Hct MCV MCH MCHC RDW Plt Count MPV Absolute Neuts (auto) Neutrophils % Neutrophils % (Manual) Band Neutrophils % Lymphocytes % Lymphocytes % (Manual) Monocytes % Monocytes % (Manual) Eosinophils % Eosinophils % (Manual) Basophils % Basophils % (Manual) Myelocytes % (Man) Promyelocytes % (Man) Blast Cells % (Manual) Nucleated RBC % Metamyelocytes Hypochromia Platelet Estimate Polychromasia Poikilocytosis Anisocytosis Microcytosis Macrocytosis PT with INR INR PTT (Actin FS) D-Dimer Anticoagulation Therapy No Result Required. Puncture Site Right radial ABG pH 7.21 L ABG pCO2 at Pt Temp 46.9 H ABG pO2 at Pt Temp < 49 L* ABG HCO3 17.9 L ABG O2 Sat (Measured) 59.7 L ABG O2 Content No Result Required. ABG Base Excess -9.6 L Abdiel Test Positive O2 Delivery Device No Result Required. Oxygen Flow Rate Yes Vent Mode No Result Required. Vent Rate No Result Required. Mechanical Rate No Result Required. PEEP Pressure Support Vent No Result Required. Sodium 144 Potassium 5.2 H Chloride 114 H Carbon Dioxide 20 L Anion Gap 10 BUN 35.8 H Creatinine 2.8 H Est GFR (CKD-EPI)AfAm 34.28 Est GFR (CKD-EPI)NonAf 29.57 Random Glucose 102 Lactic Acid Calcium 7.1 L Phosphorus Magnesium Total Bilirubin GGT AST ALT Alkaline Phosphatase Ammonia Creatine Kinase Creatine Kinase Index CK-MB (CK-2) Troponin I B-Natriuretic Peptide Total Protein Albumin Lipase TSH Urine Color Urine Appearance Urine pH Ur Specific [place] Urine Protein Urine Glucose (UA) Urine Ketones Urine Blood Urine Nitrite Urine Bilirubin Urine Urobilinogen Ur Leukocyte Esterase Urine WBC (Auto) Urine RBC (Auto) Urine Casts (Auto) U Pathogenic Cast Auto U Epithel Cells (Auto) Urine Bacteria (Auto) Urine Yeast (Auto) Random Vancomycin Salicylates Opiates Screen Methadone Screen Acetaminophen Barbiturate Screen Phencyclidine Screen Ur Amphetamines Screen MDMA (Ecstasy) Screen Benzodiazepines Screen Cocaine Screen U Marijuana (THC) Screen Alcohol, Quantitative Influenza A (Rapid) Negative Influenza B (Rapid) Negative 12/18/19 12/19/19 12/19/19 22:00 00:12 00:12 WBC RBC Hgb Hct MCV MCH MCHC RDW Plt Count MPV Absolute Neuts (auto) Neutrophils % Neutrophils % (Manual) Band Neutrophils % Lymphocytes % Lymphocytes % (Manual) Monocytes % Monocytes % (Manual) Eosinophils % Eosinophils % (Manual) Basophils % Basophils % (Manual) Myelocytes % (Man) Promyelocytes % (Man) Blast Cells % (Manual) Nucleated RBC % Metamyelocytes Hypochromia Platelet Estimate Polychromasia Poikilocytosis Anisocytosis Microcytosis Macrocytosis PT with INR INR PTT (Actin FS) D-Dimer Anticoagulation Therapy Puncture Site Right brachial ABG pH 7.25 L ABG pCO2 at Pt Temp 46.2 H ABG pO2 at Pt Temp 95.3 ABG HCO3 19.3 L ABG O2 Sat (Measured) 96.7 ABG O2 Content 18.8 ABG Base Excess -7.6 L Abdiel Test Positive O2 Delivery Device Vent Oxygen Flow Rate 100 Vent Mode A/c Vent Rate 20 Mechanical Rate Y PEEP 15.0 Pressure Support Vent 425 Sodium 143 Potassium 4.7 Chloride 112 H Carbon Dioxide 23 Anion Gap 7 L BUN 34.3 H Creatinine 2.4 H Est GFR (CKD-EPI)AfAm 41.30 Est GFR (CKD-EPI)NonAf 35.63 Random Glucose 126 H Lactic Acid 3.3 H* Calcium 7.1 L Phosphorus Magnesium Total Bilirubin GGT AST ALT Alkaline Phosphatase Ammonia Creatine Kinase Creatine Kinase Index CK-MB (CK-2) Troponin I 3.62 H* B-Natriuretic Peptide Total Protein Albumin Lipase TSH Urine Color Urine Appearance Urine pH Ur Specific [place] Urine Protein Urine Glucose (UA) Urine Ketones Urine Blood Urine Nitrite Urine Bilirubin Urine Urobilinogen Ur Leukocyte Esterase Urine WBC (Auto) Urine RBC (Auto) Urine Casts (Auto) U Pathogenic Cast Auto U Epithel Cells (Auto) Urine Bacteria (Auto) Urine Yeast (Auto) Random Vancomycin Salicylates Opiates Screen Methadone Screen Acetaminophen Barbiturate Screen Phencyclidine Screen Ur Amphetamines Screen MDMA (Ecstasy) Screen Benzodiazepines Screen Cocaine Screen U Marijuana (THC) Screen Alcohol, Quantitative Influenza A (Rapid) Influenza B (Rapid) 12/19/19 12/19/19 12/19/19 00:12 05:33 05:33 WBC 14.8 H RBC 4.18 Hgb 13.9 Hct 40.3 D MCV 96.4 H MCH 33.1 MCHC 34.4 RDW 14.1 Plt Count 215 D MPV 7.5 Absolute Neuts (auto) Neutrophils % Neutrophils % (Manual) Band Neutrophils % Lymphocytes % Lymphocytes % (Manual) Monocytes % Monocytes % (Manual) Eosinophils % Eosinophils % (Manual) Basophils % Basophils % (Manual) Myelocytes % (Man) Promyelocytes % (Man) Blast Cells % (Manual) Nucleated RBC % Metamyelocytes Hypochromia Platelet Estimate Polychromasia Poikilocytosis Anisocytosis Microcytosis Macrocytosis PT with INR INR PTT (Actin FS) 43.3 H D-Dimer Anticoagulation Therapy Puncture Site ABG pH ABG pCO2 at Pt Temp ABG pO2 at Pt Temp ABG HCO3 ABG O2 Sat (Measured) ABG O2 Content ABG Base Excess Abdiel Test O2 Delivery Device Oxygen Flow Rate Vent Mode Vent Rate Mechanical Rate PEEP Pressure Support Vent Sodium Potassium Chloride Carbon Dioxide Anion Gap BUN Creatinine Est GFR (CKD-EPI)AfAm Est GFR (CKD-EPI)NonAf Random Glucose Lactic Acid Calcium Phosphorus Magnesium Total Bilirubin GGT AST ALT Alkaline Phosphatase Ammonia Creatine Kinase Creatine Kinase Index CK-MB (CK-2) Troponin I B-Natriuretic Peptide Total Protein Albumin Lipase TSH Urine Color Urine Appearance Urine pH Ur Specific [place] Urine Protein Urine Glucose (UA) Urine Ketones Urine Blood Urine Nitrite Urine Bilirubin Urine Urobilinogen Ur Leukocyte Esterase Urine WBC (Auto) Urine RBC (Auto) Urine Casts (Auto) U Pathogenic Cast Auto U Epithel Cells (Auto) Urine Bacteria (Auto) Urine Yeast (Auto) Random Vancomycin 5.9 L Salicylates Opiates Screen Methadone Screen Acetaminophen Barbiturate Screen Phencyclidine Screen Ur Amphetamines Screen MDMA (Ecstasy) Screen Benzodiazepines Screen Cocaine Screen U Marijuana (THC) Screen Alcohol, Quantitative Influenza A (Rapid) Influenza B (Rapid) 12/19/19 12/19/19 12/19/19 05:33 05:33 05:33 WBC RBC Hgb Hct MCV MCH MCHC RDW Plt Count MPV Absolute Neuts (auto) Neutrophils % Neutrophils % (Manual) Band Neutrophils % Lymphocytes % Lymphocytes % (Manual) Monocytes % Monocytes % (Manual) Eosinophils % Eosinophils % (Manual) Basophils % Basophils % (Manual) Myelocytes % (Man) Promyelocytes % (Man) Blast Cells % (Manual) Nucleated RBC % Metamyelocytes Hypochromia Platelet Estimate Polychromasia Poikilocytosis Anisocytosis Microcytosis Macrocytosis PT with INR INR PTT (Actin FS) D-Dimer Anticoagulation Therapy Puncture Site ABG pH ABG pCO2 at Pt Temp ABG pO2 at Pt Temp ABG HCO3 ABG O2 Sat (Measured) ABG O2 Content ABG Base Excess Abdiel Test O2 Delivery Device Oxygen Flow Rate Vent Mode Vent Rate Mechanical Rate PEEP Pressure Support Vent Sodium 142 Potassium 4.5 Chloride 112 H Carbon Dioxide 23 Anion Gap 7 L BUN 31.1 H Creatinine 2.0 H Est GFR (CKD-EPI)AfAm 51.48 Est GFR (CKD-EPI)NonAf 44.42 Random Glucose 123 H Lactic Acid 2.5 H* Calcium 6.9 L* Phosphorus 3.5 Magnesium 1.7 L Total Bilirubin 0.7 GGT 37 AST 536 H ALT 101 H Alkaline Phosphatase 99 Ammonia Creatine Kinase > 1400 H Creatine Kinase Index 0.0 CK-MB (CK-2) 92.3 H Troponin I 2.64 H* B-Natriuretic Peptide Total Protein 4.5 L Albumin 2.4 L Lipase TSH Urine Color Urine Appearance Urine pH Ur Specific [place] Urine Protein Urine Glucose (UA) Urine Ketones Urine Blood Urine Nitrite Urine Bilirubin Urine Urobilinogen Ur Leukocyte Esterase Urine WBC (Auto) Urine RBC (Auto) Urine Casts (Auto) U Pathogenic Cast Auto U Epithel Cells (Auto) Urine Bacteria (Auto) Urine Yeast (Auto) Random Vancomycin Salicylates Opiates Screen Methadone Screen Acetaminophen Barbiturate Screen Phencyclidine Screen Ur Amphetamines Screen MDMA (Ecstasy) Screen Benzodiazepines Screen Cocaine Screen U Marijuana (THC) Screen Alcohol, Quantitative Influenza A (Rapid) Influenza B (Rapid) 12/19/19 12/19/19 06:00 08:30 WBC RBC Hgb Hct MCV MCH MCHC RDW Plt Count MPV Absolute Neuts (auto) Neutrophils % Neutrophils % (Manual) Band Neutrophils % Lymphocytes % Lymphocytes % (Manual) Monocytes % Monocytes % (Manual) Eosinophils % Eosinophils % (Manual) Basophils % Basophils % (Manual) Myelocytes % (Man) Promyelocytes % (Man) Blast Cells % (Manual) Nucleated RBC % Metamyelocytes Hypochromia Platelet Estimate Polychromasia Poikilocytosis Anisocytosis Microcytosis Macrocytosis PT with INR INR PTT (Actin FS) 49.6 H D-Dimer Anticoagulation Therapy No Result Required. Puncture Site Left brachial ABG pH 7.29 L ABG pCO2 at Pt Temp 49.4 H ABG pO2 at Pt Temp 261 H ABG HCO3 23.0 ABG O2 Sat (Measured) 99.3 H ABG O2 Content 26.1 ABG Base Excess -3.9 L Abdiel Test Positive O2 Delivery Device No Result Required. Oxygen Flow Rate 100% Vent Mode A/c Vent Rate 12 Mechanical Rate No Result Required. PEEP Pressure Support Vent No Result Required. Sodium Potassium Chloride Carbon Dioxide Anion Gap BUN Creatinine Est GFR (CKD-EPI)AfAm Est GFR (CKD-EPI)NonAf Random Glucose Lactic Acid Calcium Phosphorus Magnesium Total Bilirubin GGT AST ALT Alkaline Phosphatase Ammonia Creatine Kinase Creatine Kinase Index CK-MB (CK-2) Troponin I B-Natriuretic Peptide Total Protein Albumin Lipase TSH Urine Color Urine Appearance Urine pH Ur Specific [place] Urine Protein Urine Glucose (UA) Urine Ketones Urine Blood Urine Nitrite Urine Bilirubin Urine Urobilinogen Ur Leukocyte Esterase Urine WBC (Auto) Urine RBC (Auto) Urine Casts (Auto) U Pathogenic Cast Auto U Epithel Cells (Auto) Urine Bacteria (Auto) Urine Yeast (Auto) Random Vancomycin Salicylates Opiates Screen Methadone Screen Acetaminophen Barbiturate Screen Phencyclidine Screen Ur Amphetamines Screen MDMA (Ecstasy) Screen Benzodiazepines Screen Cocaine Screen U Marijuana (THC) Screen Alcohol, Quantitative Influenza A (Rapid) Influenza B (Rapid) Active Medications Generic Name Dose Route Start Last Admin Trade Name Freq PRN Reason Stop Dose Admin Chlorhexidine Gluconate 1 applic 12/18/19 22:00 12/18/19 21:42 Hibiclens For Decolonization - TP 1 applic HS JARED Administration Heparin Sodium (Porcine) 5,000 unit 12/19/19 14:00 Heparin - SQ TID JARED Fentanyl 500 mcg/ Dextrose 100 mls @ 0.2 mls/hr 12/18/19 16:00 12/19/19 12:38 IVPB 12/19/19 15:59 50 mcg/hr TITR JARED 10 mls/hr Administration 1 MCG/HR Propofol 1,000,000 mcg in 100 mls @ 3.402 mls/hr 12/18/19 18:00 12/19/19 10:09 Diprivan - IVPB 8 mcg/kg/min TITR JARED 5.443 mls/hr Administration Protocol 5 MCG/KG/MIN Vasopressin 50 units/ Sodium 100 mls @ 24 mls/hr 12/18/19 18:30 12/18/19 23:30 Chloride IVPB 0 units/min TITR JARED 0 mls/hr Titration Protocol 0.2 UNITS/MIN Norepinephrine Bitartrate 8, 500 mls @ 12.75 mls/hr 12/18/19 18:38 12/19/19 06:20 000 mcg/ Dextrose IV 0.04 mcg/kg/min Q39H JARED 18.8 mls/hr Titration Protocol 0.03 MCG/KG/MIN Sodium Chloride 1,000 mls @ 150 mls/hr 12/18/19 23:53 12/19/19 00:21 Normal Saline - IV 150 mls/hr ASDIR JARED Administration Midazolam HCl 100 mg in 100 mls @ 1 mls/hr 12/19/19 09:25 12/19/19 09:59 Midazolam 100mg/100ml-0.9%Nacl IVPB 6 mg/hr TITR JARED 6 mls/hr Administration Protocol 1 MG/HR Piperacillin Sod/Tazobactam 100 mls @ 200 mls/hr 12/19/19 12:00 12/19/19 12:07 Sod 4.5 gm/ Dextrose IVPB 200 mls/hr Q6H JARED Administration Protocol Sodium Bicarbonate 150 meq/ 1,150 mls @ 83 mls/hr 12/19/19 12:15 Dextrose IVPB Q13H JARED Piperacillin Sod/Tazobactam 100 mls @ 200 mls/hr 12/19/19 12:15 12/19/19 12:37 Sod 4.5 gm/ Dextrose IVPB 12/20/19 06:44 Not Given Q6H JARED Protocol Levetiracetam 500 mg 12/18/19 22:00 12/19/19 10:04 Keppra Injection - IVPB 500 mg BID JARED Administration Mupirocin 1 applic 12/18/19 22:00 12/19/19 10:52 Bactroban Ointment (For Decolonization) - NS 12/23/19 21:59 1 applic BID JARED Administration Pantoprazole Sodium 40 mg 12/18/19 20:45 12/19/19 10:05 Protonix Iv IVPUSH 40 mg DAILY JARED Administration Vancomycin HCl 1,000 mg 12/19/19 12:00 Vancomycin (Pre-Docked) IVPB Q8H [facility] Protocol ASSESSMENT/PLAN: 29 M PMH PSA (opioids, benzos, cocaine, THC) hx of tremors, MDD (prior suicidal episodes), paranoid personality disorder, hemochromatosis, patient transferred to ICU for acute hypoxic respiratory failure, 29 y.o. M PMH polysubstance abuse (opioids, benzos, cocaine, THC), hx of tremors, MDD (prior suicidal episodes), paranoid personality d/o, hemochromatosis admitted for acute hypoxic respiratory failure. Neuro/Psych -Patient has hx of withdrawal seizures, PSA, MDD, paranoid personality, tremors. -After discussion with family, patient had had previous psychiatric admissions at [facility] in relation to Substance Use. Patient had 2 admissions to medical floor after overdosing on Heroin, likely laced with fentanyl according to family. -Utox was positive for opiates, benzos, cocaine. -Had witnessed seizure by EMS. -Was found down at [facility], unsure of how long. -Sedated on propofol, versed, and fentanyl -Loaded with keppra, continue keppra 500 BID -Neurology consulted, appreciate recs Cardiovascular -EKG shows sinus tachycardia, no ST Changes, QTC of 496. -Likely septic shock 2/2 to PNA. -Troponins peaked at 3.62, downtrending now, likely demand ischemia 2/2 sepsis -[id number] noted on initial EKG, was on heparin drip. Repeat EKG shows resolution, d/c heparin drip -Lactic acid downtrending -Patient required pressors in the morning and d/c steroids, currently maintaining MAPS on his own. -CVP monitoring -Cardiology consulted, appreciate recs. Patient was not candidate for cardiac cath or beta blockers due to positive cocaine on U-Tox. Pulm -Acute Hypoxic Respiratory failure -Chest X-ray shows significant multi-lobar consolidation in the left lung. -ABG shows: 7.29/49.4/261/23/99.3 -Vent settings: Vt: 425, RR: 14, O2: 40%, PEEP 5. -Repeat ABG after bicarb drip running @ 6PM GI -Transaminitis likely 2/2 to shock liver -LFTs elevated -Abdominal U/S shows mild fatty liver, borderline thickening of gallbladder. -Continue to trend LFTs Renal -Acute rhabdomyolsis -CPK showed >14,000. Remains elevated -Repeat @ 6PM -Bicarb drip -Repeat UA, VBG, Calcium, and Phosphorous @6PM -Replete Calcium as needed. -Hyperkalemia overnight, normalized after given kayexelate 30, Calcium gluconate, insulin, d50. -Renal U/S shows unremarkable kidneys. -Nephrology consulted, appreciate recs Heme/Onc -Hx of hemochromatosis -Hgb of 13.9 today ID -Left lung PNA -Given vanc/zoysn/azithromycin/clindamycin -Patient was hospitalized twice in past year, will cover with Vancomycin and Zoysn -F/U Urine culture, Blood culture, sputum culture -ID recommended, appreciate recs F: NS @ 150 E: Bicarb drip, monitor Ca, K, Phos, Mag. CMP. Repeat CMP @ 6PM. N: NPO Lines: Right side central line placed 2/3, Del Angel placed 2/2. DVT: Heparin SQ Dispo: Continue ICU monitoring, patient no longer requires transfer to [facility]. Visit type - Emergency Visit Emergency Visit: Yes ED Registration Date: 12/18/19 Care time: The patient presented to the Emergency Department on the above date and was hospitalized for further evaluation of their emergent condition. - New Patient This patient is new to me today: Yes Date on this admission: 12/19/19 - Critical Care Critical Care patient: Yes Total Critical Care Time (in minutes): 35 Critical Care Statement: The care of this patient involved high complexity decision making to prevent further life threatening deterioration of the patient's condition and/or to evaluate & treat vital organ system(s) failure or risk of failure. ATTENDING PHYSICIAN STATEMENT I saw and evaluated the patient. I reviewed the resident's note and discussed the case with the resident. I agree with the resident's findings and plan as documented. SUBJECTIVE: OBJECTIVE: ASSESSMENT AND PLAN:
[2019-12-19] MEDS ORDERED: ACETAMINOPHEN 1000 MG/100 ML VIAL (NON FORMULARY) IVPB ONE (16:26)
[2019-12-19 16:58] LABS: BLOOD UREA NITROGEN 26.8 mg/dL (7-18); CALCIUM 7.5 mg/dL (8.5-10.1); CREATININE 1.6 mg/dL (0.55-1.3); POTASSIUM 3.9 mmol/L (3.5-5.1)
--- NOTE | 2019-12-19 17:11 | PN ---
Teaching Attending Note Name of Resident: Perry Ortega ATTENDING PHYSICIAN STATEMENT I saw and evaluated the patient. I reviewed the resident's note and discussed the case with the resident. I agree with the resident's findings and plan as documented. SUBJECTIVE: in ICU, intubated , sedated. Vital Signs Temperature 100.2 F H 12/19/19 15:00 Pulse Rate 130 H 12/19/19 15:00 Respiratory Rate 17 12/19/19 16:05 Blood Pressure 121/57 L 12/19/19 15:00 O2 Sat by Pulse Oximetry (%) 94 L 12/19/19 12:10 GENERAL: The patient is intubated , sedated and s/p paralytics. HEAD: NC/AT EYES: sedated, intubated, sclera anicteric, conjunctiva clear. ENT: Ears normal, positive for Et-tube NECK: Trachea midline, supple. LUNGS: intubated on the Vent. HEART: sinus tachycardia , S1, S2 positive, no rub or gallop. ABDOMEN: Soft, NT,ND, no guarding, no rebound, no hepatosplenomegaly, no masses. EXTREMITIES: 2+ pulses, warm, well-perfused, no edema. NEUROLOGICAL: unable to access PSYCH: unable to access, intubated . SKIN: Warm, dry, normal turgor, no rashes or lesions noted CBCD WBC 14.8 K/mm3 (4.0-10.0) H 12/19/19 05:33 RBC 4.18 M/mm3 (4.00-5.60) 12/19/19 05:33 Hgb 13.9 GM/dL (11.7-16.9) 12/19/19 05:33 Hct 40.3 % (35.4-49) D 12/19/19 05:33 MCV 96.4 fl (80-96) H 12/19/19 05:33 MCHC 34.4 g/dl (32.0-35.9) 12/19/19 05:33 RDW 14.1 % (11.9-15.9) 12/19/19 05:33 Plt Count 215 K/MM3 (134-434) D 12/19/19 05:33 MPV 7.5 fl (7.5-11.1) 12/19/19 05:33 CMP Sodium 145 mmol/L (136-145) 12/19/19 16:00 Potassium 3.9 mmol/L (3.5-5.1) 12/19/19 16:00 Chloride 113 mmol/L (98-107) H 12/19/19 16:00 Carbon Dioxide 27 mmol/L (21-32) 12/19/19 16:00 Anion Gap 5 MMOL/L (8-16) L 12/19/19 16:00 BUN 26.8 mg/dL (7-18) H 12/19/19 16:00 Creatinine 1.6 mg/dL (0.55-1.3) H 12/19/19 16:00 Random Glucose 107 mg/dL (74-106) H 12/19/19 16:00 Calcium 7.5 mg/dL (8.5-10.1) L 12/19/19 16:00 Total Bilirubin 0.7 mg/dL (0.2-1) 12/19/19 05:33 AST 536 U/L (15-37) H 12/19/19 05:33 ALT 101 U/L (13-61) H 12/19/19 05:33 Alkaline Phosphatase 99 U/L (45-117) 12/19/19 05:33 Total Protein 4.5 g/dl (6.4-8.2) L 12/19/19 05:33 Albumin 2.4 g/dl (3.4-5.0) L 12/19/19 05:33 CARDIAC ENZYMES Creatine Kinase > 54973 U/L (26-308) H 12/19/19 05:33 Troponin I 2.64 ng/ml (0.00-0.05) H* 12/19/19 05:33 Current Medications Generic Name Dose Route Start Last Admin Trade Name Freq PRN Reason Stop Dose Admin Chlorhexidine Gluconate 1 applic 12/18/19 22:00 12/18/19 21:42 Hibiclens For Decolonization - TP 1 applic HS JARED Administration Heparin Sodium (Porcine) 5,000 unit 12/19/19 14:00 12/19/19 14:51 Heparin - SQ 5,000 unit TID JARED Administration Propofol 1,000,000 mcg in 100 mls @ 3.402 mls/hr 12/18/19 18:00 12/19/19 10: 09 Diprivan - IVPB 8 mcg/kg/min TITR JARED 5.443 mls/hr Administration Protocol 5 MCG/KG/MIN Vasopressin 50 units/ Sodium 100 mls @ 24 mls/hr 12/18/19 18:30 12/18/19 23: 30 Chloride IVPB 0 units/min TITR JARED 0 mls/hr Titration Protocol 0.2 UNITS/MIN Norepinephrine Bitartrate 8, 500 mls @ 12.75 mls/hr 12/18/19 18:38 12/19/19 06:20 000 mcg/ Dextrose IV 0.04 mcg/kg/min Q39H JARED 18.8 mls/hr Titration Protocol 0.03 MCG/KG/MIN Sodium Chloride 1,000 mls @ 150 mls/hr 12/18/19 23:53 12/19/19 00:21 Normal Saline - IV 150 mls/hr ASDIR JARED Administration Midazolam HCl 100 mg in 100 mls @ 1 mls/hr 12/19/19 09:25 12/19/19 09:59 Midazolam 100mg/100ml-0.9%Nacl IVPB 6 mg/hr TITR JARED 6 mls/hr Administration Protocol 1 MG/HR Piperacillin Sod/Tazobactam 100 mls @ 200 mls/hr 12/19/19 12:00 12/19/19 12: 07 Sod 4.5 gm/ Dextrose IVPB 200 mls/hr Q6H JARED Administration Protocol Sodium Bicarbonate 150 meq/ 1,150 mls @ 83 mls/hr 12/19/19 12:15 Dextrose IVPB Q13H JARED Piperacillin Sod/Tazobactam 100 mls @ 200 mls/hr 12/19/19 12:15 12/19/19 12: 37 Sod 4.5 gm/ Dextrose IVPB 12/20/19 06:44 Not Given Q6H JARED Protocol Levetiracetam 500 mg 12/18/19 22:00 12/19/19 10:04 Keppra Injection - IVPB 500 mg BID JARED Administration Mupirocin 1 applic 12/18/19 22:00 12/19/19 10:52 Bactroban Ointment (For Decolonization) - NS 12/23/19 21:59 1 applic BID JARED Administration Pantoprazole Sodium 40 mg 12/18/19 20:45 12/19/19 10:05 Protonix Iv IVPUSH 40 mg DAILY JARED Administration Home Medications Medication Instructions Recorded Olanzapine 15 mg PO HS 06/09/19 Propranolol HCl 10 mg PO BID 06/09/19 Sertraline HCl [Zoloft] 150 mg PO DAILY 06/09/19 Home Medications Medication Instructions Recorded Olanzapine 15 mg PO HS 06/09/19 Propranolol HCl 10 mg PO BID 06/09/19 Sertraline HCl [Zoloft] 150 mg PO DAILY 06/09/19 Laboratory Tests 12/18/19 12/18/19 12/18/19 13:30 13:55 13:55 Potassium 7.5 H* Chloride Lactic Acid 4.7 H* Opiates Screen Positive A* Benzodiazepines Screen Positive A* Cocaine Screen Positive A* 12/18/19 12/18/19 12/18/19 15:36 18:00 18:00 Potassium Chloride 115 H Lactic Acid 5.2 H* 5.2 H* Opiates Screen Benzodiazepines Screen Cocaine Screen CXR: Extensive left infiltrate.ET in place EKG: S1Q3T3 pattern LE duplex: negative for DVT EKG 12/19/2019; sinus tach.rate of 120, Qtc 491, no significant change Microbiology 12/18/19 13:30 Blood - Peripheral Venous Blood Culture - Preliminary NO GROWTH OBTAINED AFTER 24 HOURS, INCUBATION TO CONTINUE FOR 4 DAYS. 12/18/19 13:30 Blood - Peripheral Venous Blood Culture - Preliminary NO GROWTH OBTAINED AFTER 24 HOURS, INCUBATION TO CONTINUE FOR 4 DAYS. ASSESSMENT AND PLAN: Patient is a 29yom with PMHx of substance abuse (opioids, cocaine, cannabis), seizure from [facility] ,presented to the emergency room with respiratory failure s/p intubation since was found unresponsive with tonic-clonic arm movement. #Acute respiratory failure s/p intubation: ICU management , discussed with , #Septic shock ICU management, trend lactic acid , septic w/u, no growth so far, on pressors, weaning off #Extensive left lower lobe infiltrate(Pneumonia) shayla't r/o aspiration: s/p clindamycin, continue zosyn and vanco as per ID; renally dosed, s/p vanco #acute hyperkalemia: given calcium gluconate/insulin/d50/bicarb, repeat is 4.5-- >3.9 now #Acute severe Rhabdo: IVF at 250ml/hr, bmp every 4 hours, nephro on the case #Polysubstance Abuse ; s/p narcan , intubated now for airway protection #ARF due to acute rhabdo, IVF at 250ml per hr. Dr Reed on the case #Elevated Ddimer 2k/with carmoxyhgb elevation with S1Q3T3 pattern with tachycardia shayla't r/o PE: continue heparin drip , echo ordered is normal , cardio onthe case dr burton. duplex of le negative DVT Px: heparin drip ICU: CC 35min
--- NOTE | 2019-12-19 17:36 | PN ---
Physical Exam: SUBJECTIVE: Patient seen and examined NAEON Weaned off vassopressin. On levophed, intubated and sedated OBJECTIVE: Vital Signs Period Temp Pulse Resp BP Sys/Santoyo Pulse Ox Last 24 Hr 99.8 F-101.8 F 112-130 15-27 78-149/35-78 81-99 GENERAL: Intubated, sedated(propofol, midazolam) HEENT: NC/AT.Sclera anicteric, conjunctiva clear. Supple. LUNGS: Coarse, mechanical breath sounds auscultated bilaterally, with scattered rhonchi. HEART: Tachy to 110s, reg rhythm, normal S1 and S2 without murmur, rub or gallop. ABDOMEN: Soft, not distended. Normoactive bowel sounds. No hepatomegaly palpated. EXTREMITIES: 2+ radial ,dorsalis pedis pulses bilaterally. No peripheral edema. NEUROLOGICAL: unable to examine d/t sedation SKIN: Warm, dry. Left femoral line in place. Laboratory Results - last 24 hr 12/18/19 12/18/19 12/18/19 10:00 16:36 18:00 WBC RBC Hgb Hct MCV MCH MCHC RDW Plt Count MPV PTT (Actin FS) Anticoagulation Therapy No Result Required. Puncture Site Right femoral ABG pH 7.22 L ABG pCO2 at Pt Temp 42.6 ABG pO2 at Pt Temp < 49 L* ABG HCO3 16.7 L ABG O2 Sat (Measured) 74.9 L ABG O2 Content No Result Required. ABG Base Excess -10.4 L Abdiel Test No Result Required. O2 Delivery Device Mec vent Oxygen Flow Rate 100% Vent Mode A/c Vent Rate 18 Mechanical Rate Yes PEEP 8.0 Pressure Support Vent 450 Sodium 143 Potassium 4.7 Chloride 115 H Carbon Dioxide 19 L Anion Gap 9 BUN 33.4 H Creatinine 3.1 H Est GFR (CKD-EPI)AfAm 30.31 Est GFR (CKD-EPI)NonAf 26.15 Random Glucose 110 H Lactic Acid Calcium 7.0 L Phosphorus Magnesium Total Bilirubin GGT AST ALT Alkaline Phosphatase Creatine Kinase > 81535 H Creatine Kinase Index 0.0 CK-MB (CK-2) 115.2 H Troponin I 1.07 H* B-Natriuretic Peptide 4306.9 H Total Protein Albumin Random Vancomycin Influenza A (Rapid) Influenza B (Rapid) 12/18/19 12/18/19 12/18/19 18:00 19:10 19:55 WBC RBC Hgb Hct MCV MCH MCHC RDW Plt Count MPV PTT (Actin FS) Anticoagulation Therapy No Result Required. Puncture Site Right radial ABG pH 7.21 L ABG pCO2 at Pt Temp 46.9 H ABG pO2 at Pt Temp < 49 L* ABG HCO3 17.9 L ABG O2 Sat (Measured) 59.7 L ABG O2 Content No Result Required. ABG Base Excess -9.6 L Abdiel Test Positive O2 Delivery Device No Result Required. Oxygen Flow Rate Yes Vent Mode No Result Required. Vent Rate No Result Required. Mechanical Rate No Result Required. PEEP Pressure Support Vent No Result Required. Sodium 144 Potassium 5.2 H Chloride 114 H Carbon Dioxide 20 L Anion Gap 10 BUN 35.8 H Creatinine 2.8 H Est GFR (CKD-EPI)AfAm 34.28 Est GFR (CKD-EPI)NonAf 29.57 Random Glucose 102 Lactic Acid 5.2 H* Calcium 7.1 L Phosphorus Magnesium Total Bilirubin GGT AST ALT Alkaline Phosphatase Creatine Kinase Creatine Kinase Index CK-MB (CK-2) Troponin I B-Natriuretic Peptide Total Protein Albumin Random Vancomycin Influenza A (Rapid) Influenza B (Rapid) 12/18/19 12/18/19 12/19/19 21:00 22:00 00:12 WBC RBC Hgb Hct MCV MCH MCHC RDW Plt Count MPV PTT (Actin FS) Anticoagulation Therapy Puncture Site Right brachial ABG pH 7.25 L ABG pCO2 at Pt Temp 46.2 H ABG pO2 at Pt Temp 95.3 ABG HCO3 19.3 L ABG O2 Sat (Measured) 96.7 ABG O2 Content 18.8 ABG Base Excess -7.6 L Abdiel Test Positive O2 Delivery Device Vent Oxygen Flow Rate 100 Vent Mode A/c Vent Rate 20 Mechanical Rate Y PEEP 15.0 Pressure Support Vent 425 Sodium 143 Potassium 4.7 Chloride 112 H Carbon Dioxide 23 Anion Gap 7 L BUN 34.3 H Creatinine 2.4 H Est GFR (CKD-EPI)AfAm 41.30 Est GFR (CKD-EPI)NonAf 35.63 Random Glucose 126 H Lactic Acid Calcium 7.1 L Phosphorus Magnesium Total Bilirubin GGT AST ALT Alkaline Phosphatase Creatine Kinase Creatine Kinase Index CK-MB (CK-2) Troponin I 3.62 H* B-Natriuretic Peptide Total Protein Albumin Random Vancomycin Influenza A (Rapid) Negative Influenza B (Rapid) Negative 12/19/19 12/19/19 12/19/19 00:12 00:12 05:33 WBC RBC Hgb Hct MCV MCH MCHC RDW Plt Count MPV PTT (Actin FS) 43.3 H Anticoagulation Therapy Puncture Site ABG pH ABG pCO2 at Pt Temp ABG pO2 at Pt Temp ABG HCO3 ABG O2 Sat (Measured) ABG O2 Content ABG Base Excess Abdiel Test O2 Delivery Device Oxygen Flow Rate Vent Mode Vent Rate Mechanical Rate PEEP Pressure Support Vent Sodium Potassium Chloride Carbon Dioxide Anion Gap BUN Creatinine Est GFR (CKD-EPI)AfAm Est GFR (CKD-EPI)NonAf Random Glucose Lactic Acid 3.3 H* Calcium Phosphorus Magnesium Total Bilirubin GGT AST ALT Alkaline Phosphatase Creatine Kinase Creatine Kinase Index CK-MB (CK-2) Troponin I B-Natriuretic Peptide Total Protein Albumin Random Vancomycin 5.9 L Influenza A (Rapid) Influenza B (Rapid) 12/19/19 12/19/19 12/19/19 05:33 05:33 05:33 WBC 14.8 H RBC 4.18 Hgb 13.9 Hct 40.3 D MCV 96.4 H MCH 33.1 MCHC 34.4 RDW 14.1 Plt Count 215 D MPV 7.5 PTT (Actin FS) Anticoagulation Therapy Puncture Site ABG pH ABG pCO2 at Pt Temp ABG pO2 at Pt Temp ABG HCO3 ABG O2 Sat (Measured) ABG O2 Content ABG Base Excess Abdiel Test O2 Delivery Device Oxygen Flow Rate Vent Mode Vent Rate Mechanical Rate PEEP Pressure Support Vent Sodium 142 Potassium 4.5 Chloride 112 H Carbon Dioxide 23 Anion Gap 7 L BUN 31.1 H Creatinine 2.0 H Est GFR (CKD-EPI)AfAm 51.48 Est GFR (CKD-EPI)NonAf 44.42 Random Glucose 123 H Lactic Acid 2.5 H* Calcium 6.9 L* Phosphorus 3.5 Magnesium 1.7 L Total Bilirubin 0.7 GGT AST 536 H ALT 101 H Alkaline Phosphatase 99 Creatine Kinase Creatine Kinase Index CK-MB (CK-2) Troponin I B-Natriuretic Peptide Total Protein 4.5 L Albumin 2.4 L Random Vancomycin Influenza A (Rapid) Influenza B (Rapid) 12/19/19 12/19/19 12/19/19 05:33 05:33 06:00 WBC RBC Hgb Hct MCV MCH MCHC RDW Plt Count MPV PTT (Actin FS) Anticoagulation Therapy No Result Required. Puncture Site Left brachial ABG pH 7.29 L ABG pCO2 at Pt Temp 49.4 H ABG pO2 at Pt Temp 261 H ABG HCO3 23.0 ABG O2 Sat (Measured) 99.3 H ABG O2 Content 26.1 ABG Base Excess -3.9 L Abdiel Test Positive O2 Delivery Device No Result Required. Oxygen Flow Rate 100% Vent Mode A/c Vent Rate 12 Mechanical Rate No Result Required. PEEP Pressure Support Vent No Result Required. Sodium Potassium Chloride Carbon Dioxide Anion Gap BUN Creatinine Est GFR (CKD-EPI)AfAm Est GFR (CKD-EPI)NonAf Random Glucose Lactic Acid Calcium Phosphorus Magnesium Total Bilirubin GGT 37 AST ALT Alkaline Phosphatase Creatine Kinase > 72947 H Creatine Kinase Index Cancelled Cancelled CK-MB (CK-2) Cancelled Cancelled Troponin I 2.64 H* B-Natriuretic Peptide Total Protein Albumin Random Vancomycin Influenza A (Rapid) Influenza B (Rapid) 12/19/19 12/19/19 08:30 16:00 WBC RBC Hgb Hct MCV MCH MCHC RDW Plt Count MPV PTT (Actin FS) 49.6 H Anticoagulation Therapy Puncture Site ABG pH ABG pCO2 at Pt Temp ABG pO2 at Pt Temp ABG HCO3 ABG O2 Sat (Measured) ABG O2 Content ABG Base Excess Abdiel Test O2 Delivery Device Oxygen Flow Rate Vent Mode Vent Rate Mechanical Rate PEEP Pressure Support Vent Sodium 145 Potassium 3.9 Chloride 113 H Carbon Dioxide 27 Anion Gap 5 L BUN 26.8 H Creatinine 1.6 H Est GFR (CKD-EPI)AfAm 67.43 Est GFR (CKD-EPI)NonAf 58.18 Random Glucose 107 H Lactic Acid Calcium 7.5 L Phosphorus Magnesium Total Bilirubin GGT AST ALT Alkaline Phosphatase Creatine Kinase Creatine Kinase Index CK-MB (CK-2) Troponin I B-Natriuretic Peptide Total Protein Albumin Random Vancomycin Influenza A (Rapid) Influenza B (Rapid) Active Medications Generic Name Dose Route Start Last Admin Trade Name Freq PRN Reason Stop Dose Admin Chlorhexidine Gluconate 1 applic 12/18/19 22:00 12/18/19 21:42 Hibiclens For Decolonization - TP 1 applic HS JARED Administration Heparin Sodium (Porcine) 5,000 unit 12/19/19 14:00 12/19/19 14:51 Heparin - SQ 5,000 unit TID JARED Administration Propofol 1,000,000 mcg in 100 mls @ 3.402 mls/hr 12/18/19 18:00 12/19/19 10: 09 Diprivan - IVPB 8 mcg/kg/min TITR JARED 5.443 mls/hr Administration Protocol 5 MCG/KG/MIN Vasopressin 50 units/ Sodium 100 mls @ 24 mls/hr 12/18/19 18:30 12/18/19 23: 30 Chloride IVPB 0 units/min TITR JARED 0 mls/hr Titration Protocol 0.2 UNITS/MIN Norepinephrine Bitartrate 8, 500 mls @ 12.75 mls/hr 12/18/19 18:38 12/19/19 06:20 000 mcg/ Dextrose IV 0.04 mcg/kg/min Q39H JARED 18.8 mls/hr Titration Protocol 0.03 MCG/KG/MIN Sodium Chloride 1,000 mls @ 150 mls/hr 12/18/19 23:53 12/19/19 00:21 Normal Saline - IV 150 mls/hr ASDIR JARED Administration Midazolam HCl 100 mg in 100 mls @ 1 mls/hr 12/19/19 09:25 12/19/19 09:59 Midazolam 100mg/100ml-0.9%Nacl IVPB 6 mg/hr TITR JARED 6 mls/hr Administration Protocol 1 MG/HR Piperacillin Sod/Tazobactam 100 mls @ 200 mls/hr 12/19/19 12:00 12/19/19 12: 07 Sod 4.5 gm/ Dextrose IVPB 200 mls/hr Q6H JARED Administration Protocol Sodium Bicarbonate 150 meq/ 1,150 mls @ 83 mls/hr 12/19/19 12:15 Dextrose IVPB Q13H JARED Piperacillin Sod/Tazobactam 100 mls @ 200 mls/hr 12/19/19 12:15 12/19/19 12: 37 Sod 4.5 gm/ Dextrose IVPB 12/20/19 06:44 Not Given Q6H [facility] Protocol Levetiracetam 500 mg 12/18/19 22:00 12/19/19 10:04 Keppra Injection - IVPB 500 mg BID JARED Administration Mupirocin 1 applic 12/18/19 22:00 12/19/19 10:52 Bactroban Ointment (For Decolonization) - NS 12/23/19 21:59 1 applic BID JARED Administration Pantoprazole Sodium 40 mg 12/18/19 20:45 12/19/19 10:05 Protonix Iv IVPUSH 40 mg DAILY JARED Administration ASSESSMENT/PLAN: 29M with pmh of polysubstance use disorder (opiates, cocaine, cannabis), major depressive disorder (prior suicidal episodes), paranoid psychoid, hemochromatosis, presents after being found minimally responsive, tremulous at retirement. Intubated for metabolic acidosis w/ severe hypoxemia, imaging suggestive of severe Left-sided pneumonia. CTH showing mild b/l white matter leukomalacia, mild brain swelling/edema, mild chronic sinusitis. # Acute hypoxic respiratory failure > CXR: left lung infiltrative changes, atelectasis > AB.22/42.6/<49/16.7 then 7.29/49.4/261/23 > Vent Settings: AC, 425, 14, PEEP 5.0, 40% > D-dimer 2231 --unclear for PE but EKG reveals S1Q3T3 --no CTA, as JOSE MIGUEL --heparin gtt > Sepsis secondary to ?left sided pneumonia - abx regimen: Vancomycin, Zosyn - Levophed initiated for hemodynamic support - ID(Db) recommendations: -- vanc + zosyn -- fu sputum cx, fu urinary Ag # NSTEMI --likely demand and sepsis > Troponin 0.44, 1.07, 3.62, 2.64 > BNP 4306 > EKG reveals sinus tachycardia at 144BPM. > Cardiac ECHO: LVEF 55-60%, normal - Telemetry monitoring # Transaminitis --likely 2/2 sepsis > ALT/AST: 72/261, 101/536 > US RUQ: borderline GB wall thickening, mild fatty liver infiltration - avoid hepatotoxins # Seizure > CT head reveals decreased attenuation of cerebral white matter, concerning for mild brain edema. > CK >14,000 - Loaded with Keppra in ED. Continue 500mg IV BID - Neurology(Leandra) recommendations appreciated. --wean of sedation when possible, Keppra 500mg IV q12h -Seizure precautions # Acute kidney injury --secondary to rhabdomyolysis vs sespsis ---improving > US Renal: normal kidneys b/l > Cr 3.2, 3.1, 2.8, 2.4, 2.0, 1.6 -Del Angel catheter draining tea colored urine now yellow -Continue IV normal saline bolus. -Follow CPK -Nephrology recommendations appreciated # Hyperkalemia --resolved -Likely secondary to seizure activity. -Given Insulin, D50, Kayexelate in ED. Nephrology recommendations appreciated -Follow repeat BMP # Major depressive disorder -Will reconcile, and will consider home medications once weaned off sedation # FEN - NS @150, maintain CVP 8 -12 -Hyperkalemia; follow BMP -NPO Prophylaxis -SCDs bilateral lower extremities Disposition -Admit to ICU Visit type - Emergency Visit Emergency Visit: No - New Patient This patient is new to me today: No - Critical Care Critical Care patient: Yes Total Critical Care Time (in minutes): 33 Critical Care Statement: The care of this patient involved high complexity decision making to prevent further life threatening deterioration of the patient 's condition and/or to evaluate & treat vital organ system(s) failure or risk of failure. ATTENDING PHYSICIAN STATEMENT I saw and evaluated the patient. I reviewed the resident's note and discussed the case with the resident. I agree with the resident's findings and plan as documented. SUBJECTIVE: OBJECTIVE: ASSESSMENT AND PLAN:
[2019-12-19 18:09] LABS: EPI CELLS 5.7 /HPF (0-5/HPF); HYALINE CASTS 40 /lpf (0-8); URINE APPEARANCE TURBID; URINE BILIRUBIN NEGATIVE (NEGATIVE); URINE COLOR YELLOW; URINE GLUCOSE (UA) NEGATIVE (NEGATIVE); URINE KETONE NEGATIVE (NEGATIVE); URINE LEUK ESTERASE NEGATIVE (NEGATIVE); URINE NITRITE NEGATIVE (NEGATIVE); URINE PROTEIN 1+ (NEGATIVE); URINE RBC 22 /hpf (0-4)
[2019-12-19 18:35] LABS: URINE BACTERIA FEW /hpf (NEGATIVE); URINE WBC 18.6 /hpf (0-5)
[2019-12-19 18:37] LABS: URINE CRYSTALS MODERATE /hpf
--- NOTE | 2019-12-19 19:40 | CONS ---
DATE OF CONSULTATION: DATE OF DICTATION: 12/19/2019 INFECTIOUS DISEASE CONSULTATION REQUESTING PHYSICIAN: Hospitalist Service. CONSULTING PHYSICIAN: Deepika Bazzi MD. HISTORY OF PRESENT ILLNESS: This is a 29-year-old man with a history of polysubstance abuse. Per his mom, he has had several episodes of overdose, the last being 2 months ago when he overdosed in her house, and they resuscitated him with Narcan. He was then living in a sober house and was found unresponsive there yesterday with twitching. He was found minimally responsive. He had been seen earlier that morning snoring; however, his co-inhabitants believed he was sleeping, so it is unclear really how long he was unresponsive. Around noon he was noted to be shaking, minimally responsive, with clear vomitus on the pillow, and he was brought to the emergency room. He required intubation in the ER. He was hypoxic. He was given Narcan with minimal effect, and he was intubated. PAST MEDICAL HISTORY: Polysubstance use disorder, major depressive disorder, and paranoid psychosis and hemochromatosis. He has never had any surgery. He has been living in a sober halfway. He is a social smoker. He has social alcohol use and uses opiates, marijuana, and cocaine. He has no known drug allergies. MEDICATION: His medications as an outpatient include olanzapine, propranolol, and sertraline. REVIEW OF SYSTEMS: Per his mom, he has had multiple admissions for detox and rehabilitation but minimal medical admissions. On arrival to the ICU, he was initially acidotic and hypoxic requiring bicarb. He was in rhabdomyolysis and he required pressors. This morning the pressors have been stopped. He remains receiving IV fluids and he is now on antiseizure medications, and he is receiving antibiotics as well. I am asked to comment on his antibiotic management. PHYSICAL EXAMINATION: General: He is orally intubated. He is unresponsive. Vital signs: His temperature 99.8, pulse of 119, blood pressure 107/57, respiratory rate 15. His FiO2 is 40%. HEENT: Normocephalic. Eyes are anicteric. Lungs: Diminished breath sounds on the left. Heart: Regular rate and rhythm. Abdomen: Soft, nontender. Extremities: Without edema. LABORATORY: Notable for a white count of 14.8, hemoglobin 13.9, platelets are 215. His last ABG shows a pH of 7.29 from this morning. His BUN and creatinine are 26 and 1.6 with a CPK of greater than 14,000. His urinalysis notable for blood, is otherwise negative. His urine toxicology screen is positive for opiates, benzodiazepines, and cocaine. His transaminases: AST of 536, ALT of 101, and his hepatitis serology is pending. His influenza serology is negative. Blood cultures negative at 24 hours, and his chest x-ray shows diffuse air space changes in the left lung. He has some increased right hilar markings as well. He had a head CT and cervical CT done in the emergency room. He had a chest x-ray that shows extensive right infiltrates. IMPRESSION: In summary, he was seen by neurology for patient had severe bilateral cerebral dysfunction and complicated by respiratory arrest due to polysubstance use with possible seizures as well. Current plan from an infectious disease standpoint: Would continue vancomycin and Zosyn, as he has been in and out of multiple rehabilitation facilities, colonization with MRSA is a concern. Would obtain sputum culture today as well as urinary antigens. He is being treated for his rhabdomyolysis. 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 Further recommendations to follow. DEEPIKA BAZZI M.D. [id number]
[2019-12-19 20:16] LABS: ARTERIAL BLD GAS O2 SATURATION 96.7 % (95-98); ARTERIAL BLOOD GAS BASE EXCESS 2.5 meq/l (-2-2); ARTERIAL BLOOD GAS PCO2 48.4 mmHg (35-45); ARTERIAL BLOOD GAS PO2 83.8 mmHg (80-100); ARTERIAL BLOOD GAS pH 7.38 (7.35-7.45)
[2019-12-19 20:18] LABS: ALLENS TEST POSITIVE
[2019-12-19] MEDS: VASOPRESSIN 50 UNITS in SODIUM CHLORIDE 97.5 ML IVPB SCH (21:00)
[2019-12-19] MEDS ORDERED: PIPERACILLIN/TAZOB 4.5 GM 4.5 GM in DEXTROSE 5%-WATER 100 ML IVPB SCH (21:00)
[2019-12-19] MEDS: CHLORHEXIDINE GLUCONATE 4% CLEANSER FOR DECOLONIZATION TP SCH (21:02)
[2019-12-19 21:36] LABS: ALBUMIN 2.1 g/dl (3.4-5.0); ALK PHOS 80 U/L (45-117); ANION GAP 6 MMOL/L (8-16); BILIRUBIN,TOTAL 0.5 mg/dL (0.2-1); BLOOD UREA NITROGEN 25.3 mg/dL (7-18); CALCIUM 7.2 mg/dL (8.5-10.1); CHLORIDE 111 mmol/L (98-107); CO2 28 mmol/L (21-32); CREATININE 1.4 mg/dL (0.55-1.3); GLUCOSE,RANDOM 113 mg/dL (74-106); POTASSIUM 3.6 mmol/L (3.5-5.1); SGOT/AST 434 U/L (15-37); SGPT/ALT 90 U/L (13-61); SODIUM 144 mmol/L (136-145); TOT PROT 4.4 g/dl (6.4-8.2)
[2019-12-19] MEDS: LACTATED RINGERS SOLUTION 1,000 ML/1,000 ML INFUS.BAG IV SCH (23:30)
[2019-12-20] MEDS: VANCOMYCIN HCL 1,500 MG in DEXTROSE 5%-WATER - 500 ML IVPB SCH ×2 (00:12→12:53)
[2019-12-20] MEDS ORDERED: PIPERACILLIN/TAZOBACTAM 4.5 GM VIAL IVPB ONE ×3 (03:09→18:15)
[2019-12-20] MEDS ORDERED: DEXTROSE 5%-WATER 100 ML IVPB ONE ×3 (03:09→18:15)
[2019-12-20] MEDS: PIPERACILLIN/TAZOB 4.5 GM 4.5 GM in DEXTROSE 5%-WATER 100 ML IVPB SCH ×3 (03:20→18:25)
[2019-12-20] MEDS: MIDAZOLAM IN 0.9 % SOD.CHLORID 100 MG/100 ML PLAST..BAG IVPB SCH ×2 (03:20→12:36)
[2019-12-20] MEDS: HEPARIN NA (PORCINE) 5,000 UNITS/ML 1ML VIAL SQ SCH ×3 (05:00→22:05)
[2019-12-20 07:13] LABS: BASO % 0.4 % (0-2.0); EOS % 1.5 % (0-4.5); HEMATOCRIT 32.5 % (35.4-49); HEMOGLOBIN 11.3 GM/dL (11.7-16.9); MCH 33.4 pg (25.7-33.7); MCHC 34.8 g/dl (32.0-35.9); MEAN CELL VOLUME 95.9 fl (80-96); MEAN PLT VOLUME 7.5 fl (7.5-11.1); MONO % 5.8 % (3.8-10.2); NEUT % 72.3 % (42.8-82.8); PLATELET COUNT 161 K/MM3 (134-434); RBC 3.39 M/mm3 (4.00-5.60); RDW 13.9 % (11.9-15.9); WHITE BLOOD COUNT 10.6 K/mm3 (4.0-10.0)
[2019-12-20 07:15] LABS: ARTERIAL BLD GAS O2 SATURATION 95.3 % (95-98); ARTERIAL BLOOD GAS BASE EXCESS 2.4 meq/l (-2-2); ARTERIAL BLOOD GAS PCO2 54.9 mmHg (35-45); ARTERIAL BLOOD GAS PO2 90.1 mmHg (80-100); ARTERIAL BLOOD GAS pH 7.34 (7.35-7.45)
[2019-12-20 07:16] LABS: ALLENS TEST POSITIVE
[2019-12-20] MEDS: DEXTROSE 5%-WATER - 1,000 ML with SODIUM BICARBONATE 8.4% - 150 MEQ IV SCH ×2 (07:38→22:08)
[2019-12-20 08:15] LABS: BILIRUBIN,TOTAL 0.5 mg/dL (0.2-1); CALCIUM 7.3 mg/dL (8.5-10.1); CREATININE 1.3 mg/dL (0.55-1.3); MAGNESIUM 2.4 mg/dL (1.8-2.4); PHOSPHOROUS 2.2 mg/dL (2.5-4.9); POTASSIUM 3.4 mmol/L (3.5-5.1); TOT PROT 4.3 g/dl (6.4-8.2)
--- NOTE | 2019-12-20 09:03 | PN ---
Teaching Attending Note Name of Resident: Perry Ortega ATTENDING PHYSICIAN STATEMENT I saw and evaluated the patient. I reviewed the resident's note and discussed the case with the resident. I agree with the resident's findings and plan as documented. SUBJECTIVE: Patient is in ICU, sedate , intubated , weaning trial for possible extubation today , father at bedside. as per father , patient was never intubated before. OBJECTIVE: Vital Signs Temperature 97.6 F 12/20/19 06:00 Pulse Rate 101 H 12/20/19 06:00 Respiratory Rate 18 12/20/19 07:42 Blood Pressure 128/58 L 12/20/19 06:00 O2 Sat by Pulse Oximetry (%) 96 12/20/19 07:42 GENERAL: The patient is intubated , sedated and s/p paralytics. HEAD: NC/AT EYES: sedated, intubated, sclera anicteric, conjunctiva clear. ENT: Ears normal, positive for Et-tube NECK: Trachea midline, supple. LUNGS: intubated on the Vent. HEART: sinus tachycardia , S1, S2 positive, no rub or gallop. ABDOMEN: Soft, NT,ND, no guarding, no rebound, no hepatosplenomegaly, no masses. EXTREMITIES: 2+ pulses, warm, well-perfused, no edema. NEUROLOGICAL: unable to access PSYCH: unable to access, intubated . SKIN: Warm, dry, normal turgor, no rashes or lesions noted CBCD WBC 10.6 K/mm3 (4.0-10.0) H 12/20/19 05:30 RBC 3.39 M/mm3 (4.00-5.60) L 12/20/19 05:30 Hgb 11.3 GM/dL (11.7-16.9) L 12/20/19 05:30 Hct 32.5 % (35.4-49) L D 12/20/19 05:30 MCV 95.9 fl (80-96) 12/20/19 05:30 MCHC 34.8 g/dl (32.0-35.9) 12/20/19 05:30 RDW 13.9 % (11.9-15.9) 12/20/19 05:30 Plt Count 161 K/MM3 (134-434) D 12/20/19 05:30 MPV 7.5 fl (7.5-11.1) 12/20/19 05:30 CMP Sodium 143 mmol/L (136-145) 12/20/19 05:30 Potassium 3.4 mmol/L (3.5-5.1) L 12/20/19 05:30 Chloride 109 mmol/L (98-107) H 12/20/19 05:30 Carbon Dioxide 30 mmol/L (21-32) 12/20/19 05:30 Anion Gap 4 MMOL/L (8-16) L 12/20/19 05:30 BUN 22.0 mg/dL (7-18) H 12/20/19 05:30 Creatinine 1.3 mg/dL (0.55-1.3) 12/20/19 05:30 Random Glucose 73 mg/dL (74-106) L 12/20/19 05:30 Calcium 7.3 mg/dL (8.5-10.1) L 12/20/19 05:30 Total Bilirubin 0.5 mg/dL (0.2-1) 12/20/19 05:30 AST 372 U/L (15-37) H 12/20/19 05:30 ALT 90 U/L (13-61) H 12/20/19 05:30 Alkaline Phosphatase 74 U/L (45-117) 12/20/19 05:30 Total Protein 4.3 g/dl (6.4-8.2) L 12/20/19 05:30 Albumin 2.0 g/dl (3.4-5.0) L 12/20/19 05:30 CARDIAC ENZYMES Creatine Kinase > 74103 U/L (26-308) H 12/19/19 20:30 Troponin I 2.64 ng/ml (0.00-0.05) H* 12/19/19 05:33 Current Medications Generic Name Dose Route Start Last Admin Trade Name Freq PRN Reason Stop Dose Admin Chlorhexidine Gluconate 1 applic 12/18/19 22:00 12/19/19 21:02 Hibiclens For Decolonization - TP 1 applic HS JARED Administration Heparin Sodium (Porcine) 5,000 unit 12/19/19 14:00 12/20/19 05:00 Heparin - SQ 5,000 unit TID JARED Administration Propofol 1,000,000 mcg in 100 mls @ 3.402 mls/hr 02/02/20 18:00 12/20/19 08: 58 Diprivan - IVPB 10 mcg/kg/min TITR JARED 6.804 mls/hr Titration Protocol 5 MCG/KG/MIN Vasopressin 50 units/ Sodium 100 mls @ 24 mls/hr 12/18/19 18:30 12/19/19 21: 00 Chloride IVPB Not Given TITR JARED Protocol 0.2 UNITS/MIN Norepinephrine Bitartrate 8, 500 mls @ 12.75 mls/hr 12/18/19 18:38 12/19/19 08:30 000 mcg/ Dextrose IV 0 mcg/kg/min Q39H JARED 0 mls/hr Titration Protocol 0.03 MCG/KG/MIN Midazolam HCl 100 mg in 100 mls @ 1 mls/hr 12/19/19 09:25 12/20/19 08:58 Midazolam 100mg/100ml-0.9%Nacl IVPB 0 mg/hr TITR JARED 0 mls/hr Titration Protocol 1 MG/HR Vancomycin HCl 1,500 mg/ 500 mls @ 250 mls/hr 12/20/19 00:00 12/20/19 00:12 Dextrose IVPB 250 mls/hr 0000,1200 JARED Administration Protocol Piperacillin Sod/Tazobactam 100 mls @ 200 mls/hr 12/20/19 04:00 12/20/19 03: 20 Sod 4.5 gm/ Dextrose IVPB 200 mls/hr Q8H-IV JARED Administration Protocol Lactated Ringer's 1,000 ml in 1,000 mls @ 150 mls/hr 12/19/19 23:30 12/19/19 23:30 Lactated Ringers Solution IV 150 mls/hr ASDIR JARED Administration Sodium Bicarbonate 150 meq/ 1,150 mls @ 83 mls/hr 12/20/19 03:30 12/20/19 07: 38 Dextrose IV Not Given ASDIR JARED Potassium Phosphate 15 mm/ 255 mls @ 62.5 mls/hr 12/20/19 10:00 Sodium Chloride IVPB 12/20/19 14:04 ONCE ONE Potassium Chloride 10 meq in 100 mls @ 100 mls/hr 12/20/19 08:45 Potassium Chloride 10 Meq Premix Ivpb - IVPB 12/20/19 11:44 Q60M JARED Levetiracetam 500 mg 12/18/19 22:00 12/19/19 21:01 Keppra Injection - IVPB 500 mg BID JARED Administration Mupirocin 1 applic 12/18/19 22:00 12/19/19 21:02 Bactroban Ointment (For Decolonization) - NS 12/23/19 21:59 1 applic BID JARED Administration Pantoprazole Sodium 40 mg 12/18/19 20:45 12/19/19 10:05 Protonix Iv IVPUSH 40 mg DAILY JARED Administration Home Medications Medication Instructions Recorded Olanzapine 15 mg PO HS 06/09/19 Propranolol HCl 10 mg PO BID 06/09/19 Sertraline HCl [Zoloft] 150 mg PO DAILY 06/09/19 Home Medications Medication Instructions Recorded Olanzapine 15 mg PO HS 06/09/19 Propranolol HCl 10 mg PO BID 06/09/19 Sertraline HCl [Zoloft] 150 mg PO DAILY 06/09/19 Laboratory Tests 12/18/19 12/18/19 12/18/19 13:30 13:55 13:55 Potassium 7.5 H* Chloride Lactic Acid 4.7 H* Opiates Screen Positive A* Benzodiazepines Screen Positive A* Cocaine Screen Positive A* 12/18/19 12/18/19 12/18/19 15:36 18:00 18:00 Potassium Chloride 115 H Lactic Acid 5.2 H* 5.2 H* Opiates Screen Benzodiazepines Screen Cocaine Screen CXR: Extensive left infiltrate.ET in place EKG: S1Q3T3 pattern LE duplex: negative for DVT EKG 12/19/2019; sinus tach.rate of 120, Qtc 491, no significant change Microbiology 12/19/19 16:00 Sputum - Endotrachea Suction/Ventilator Gram Stain - Final 12/18/19 13:30 Blood - Peripheral Venous Blood Culture - Preliminary NO GROWTH OBTAINED AFTER 48 HOURS, INCUBATION TO CONTINUE FOR 3 DAYS. 12/18/19 13:30 Blood - Peripheral Venous Blood Culture - Preliminary NO GROWTH OBTAINED AFTER 48 HOURS, INCUBATION TO CONTINUE FOR 3 DAYS. 12/19/19 16:00 Urine - Urine Del Angel Legionella Antigen - Final 12/19/19 16:00 Urine - Urine Del Angel Streptococcus pneumoniae Antigen (M - Final 12/18/19 13:55 Urine - Urine Clean Catch Urine Culture - Final NO GROWTH OBTAINED ASSESSMENT AND PLAN: Patient is a 29yom with PMHx of substance abuse (opioids, cocaine, cannabis), seizure from Sober house ,presented to the emergency room with respiratory failure s/p intubation since was found unresponsive with tonic-clonic arm movement. #Acute respiratory failure s/p intubation: ICU management , weaning trial to extubate the patient #Septic shock ICU management, lactic acid trending down , septic w/u, no growth so far, continue pressor, trial of weaning off the pressors #Extensive left lower lobe infiltrate(Pneumonia) shayla't r/o aspiration: s/p clindamycin, continue zosyn and vanco as per ID; renally dosed, s/p vanco #acute hyperkalemia: given calcium gluconate/insulin/d50/bicarb, repeat is 4.5-- >3.9 ---> 3.4 repleted #Acute severe Rhabdo: IVF at 250ml/hr, bmp every 4 hours, nephro on the case #Polysubstance Abuse ; s/p narcan , intubated now for airway protection #ARF due to acute rhabdo, IVF at 250ml per hr. Dr Reed on the case #Elevated Ddimer 2k/with carmoxyhgb elevation with S1Q3T3 pattern with tachycardia shayla't r/o PE: s/p heparin drip stopped by ICU team, echo ordered is normal , cardio on the case. duplex is le negative # Hx of Depression # hx of Hemochromatosis DVT Px: heparin drip ICU: cc care time of 35min CXR reviewed
--- NOTE | 2019-12-20 09:45 | PROC ---
Central Line Insertion Indication: Poor Venous Access Risks and Benefits Explained: Yes Consent on Chart: Yes Central Line: Triple Lumen Catheter Anesthesia: 1% Lidocaine Sterile Technique: Yes Ultrasound Guided Assistance: Yes Position: Right Internal Jugular Post Insertion: Yes: Bilateral Breath Sounds, Bilateral Chest Expansion, Chest X-Ray Ordered Sterile Dressing Applied: Yes
[2019-12-20] MEDS ORDERED: POTASSIUM PHOSPHATE 15 MM in SODIUM CHLORIDE 250 ML IVPB ONE (10:00)
[2019-12-20] MEDS ORDERED: PT OWN MED DRAWER 7, Y5N ONE ×3 (10:02→11:23)
[2019-12-20] MEDS ORDERED: PROPOFOL 200 MG/20 ML VIAL IVPUSH ONE (10:04)
[2019-12-20] MEDS: KCL 10 MEQ IVPB 10 MEQ/100 ML INFUS.BAG IVPB SCH ×3 (10:15→12:37)
[2019-12-20] MEDS: levETIRAcetam 500 MG/5 ML INJECTION VIAL IVPB SCH ×2 (10:16→22:06)
[2019-12-20] MEDS: PANTOPRAZOLE SODIUM 40 MG VIAL IVPUSH SCH (10:21)
[2019-12-20] MEDS: MUPIROCIN 2% TOPICAL OINTMENT FOR DECOLONIZATION NS SCH ×2 (10:50→22:02)
--- NOTE | 2019-12-20 11:04 | PN ---
Progress Note (short form) - Note Progress Note: s: intubated, sedated Current Medications Chlorhexidine Gluconate (Hibiclens For Decolonization -) 1 applic TP HS JARED Last Admin: 12/19/19 21:02 Dose: 1 applic Heparin Sodium (Porcine) (Heparin -) 5,000 unit SQ TID JARED Last Admin: 12/20/19 05:00 Dose: 5,000 unit Propofol (Diprivan -) 1,000,000 mcg in 100 mls @ 3.402 mls/hr IVPB TITR JARED; Protocol Last Titration: 12/20/19 10:22 Dose: 25 mcg/kg/min, 17.01 mls/hr Midazolam HCl (Midazolam 100mg/100ml-0.9%Nacl) 100 mg in 100 mls @ 1 mls/hr IVPB TITR JARED; Protocol Last Titration: 12/20/19 10:22 Dose: 2 mg/hr, 2 mls/hr Vancomycin HCl 1,500 mg/ (Dextrose) 500 mls @ 250 mls/hr IVPB 0000,1200 JARED; Protocol Last Admin: 12/20/19 00:12 Dose: 250 mls/hr Piperacillin Sod/Tazobactam (Sod 4.5 gm/ Dextrose) 100 mls @ 200 mls/hr IVPB Q8H-IV JARED; Protocol Last Admin: 12/20/19 03:20 Dose: 200 mls/hr Lactated Ringer's (Lactated Ringers Solution) 1,000 ml in 1,000 mls @ 150 mls/ hr IV ASDIR JARED Last Admin: 12/19/19 23:30 Dose: 150 mls/hr Sodium Bicarbonate 150 meq/ (Dextrose) 1,150 mls @ 83 mls/hr IV ASDIR JARED Last Admin: 12/20/19 07:38 Dose: Not Given Potassium Phosphate 15 mm/ (Sodium Chloride) 255 mls @ 62.5 mls/hr IVPB ONCE ONE Stop: 12/20/19 14:04 Potassium Chloride (Potassium Chloride 10 Meq Premix Ivpb -) 10 meq in 100 mls @ 100 mls/hr IVPB Q60M JARED Stop: 12/20/19 11:44 Last Admin: 12/20/19 10:15 Dose: 100 mls/hr Dexmedetomidine HCl 200 mcg/ (Sodium Chloride) 50 mls @ 5.47 mls/hr IVPB TITR JARED; Protocol Levetiracetam (Keppra Injection -) 500 mg IVPB BID [facility] Last Admin: 12/20/19 10:16 Dose: 500 mg Mupirocin (Bactroban Ointment (For Decolonization) -) 1 applic NS BID [facility] Stop: 12/23/19 21:59 Last Admin: 12/20/19 10:50 Dose: 1 applic Pantoprazole Sodium (Protonix Iv) 40 mg IVPUSH DAILY [facility] Last Admin: 12/20/19 10:21 Dose: 40 mg Vital Signs Period Temp Pulse Resp BP Sys/Santoyo Pulse Ox Last 24 Hr 97.6 F-100.2 F 92-130 15-18 105-128/47-65 94-97 Constitutional: Yes: Well Nourished, No Distress Eyes: No: Sclera Icterus HENT: No: Nasal Congestion Neck: No: Decreased ROM Respiratory: Yes: CTA Bilaterally (anteriorly), Diminished (L lung field diffusely). No: Accessory Muscle Use, Rales, Wheezes Gastrointestinal: Yes: Normal Bowel Sounds. No: Distention, Hepatomegaly, Palpable Mass, Tenderness Cardiovascular: Yes: Regular Rate and Rhythm JVD: No Carotid Bruit: No PMI: Non-Displaced Heart Sounds: Yes: S1, S2. No: Gallop Murmur: No: Systolic Murmur, Diastolic Murmur Musculoskeletal: Yes: Other (No kyphosis) Extremities: No: Cool, Cyanosis Edema: No Peripheral Pulses: 2+ Left Carotid, 2+ Right Carotid, 2+ Left Doralis Pedis, 2+ Right Dorsalis Pedis Integumentary: No: Jaundice Neurological: No: Alert, Oriented (x3) Psychiatric: No: Agitated Assessment/Plan ECG #1:: sinus tach, Rward QRS axis, nonsp T wave abn, no progression #2 and 3: normal axis, o/w change echo 12/2019 tds, nl LV/RV function, no significant valvular pathology tele: sinus tach PNA, hypoxic resp failure, polysubstance abuse/intoxication: -extensive L infiltrate on CXR, ? aspiration -abx, vent mgmt, etc per pulm/crit care - pt on UFH gtt for ?PE - R axis on initial ecg, AC per critical care - no need for AC from troponin standpoint septic shock, lactic acidosis: -off pressors, currently hemodynamically stable-rec vasopressin prn for MAP > 60 if needed -aggressive fluid resuscitation, abx mgmt as doing rhabdomyolysis with JOSE MIGUEL (sec to cocaine intoxication): -renal fxn improving -cont fluids NSTEMI: -pt young with no known traditional CAD risk factors -no ecg changes, mult other life-threatening medical problems -this is Type II ND sec to demand ischemia/injury, vs sepsis syndrome associated myonecrosis -no ischemia-focused med intervention or testing indicated -nl LV function on echo, trop peaked at 3.6 transaminitis: -likely shock liver -trend labs, cont supportive care ext time in data review, pt exam, formulating mgmt plan of potentially life- threatening medical problems = 35 min
[2019-12-20] MEDS: PROPOFOL 1,000,000 MCG/100 ML VIAL IVPB SCH ×3 (11:08→22:05)
--- NOTE | 2019-12-20 12:16 | PN ---
Teaching Attending Note Name of Resident: Jojo Chaparro ATTENDING PHYSICIAN STATEMENT I saw and evaluated the patient. I reviewed the resident's note and discussed the case with the resident. I agree with the resident's findings and plan as documented. SUBJECTIVE: Pt seen and examined in the ICU. Remains intubated, sedated, off pressors. Vented on volume assist control with 50% FiO2. Trialled on CPAP/PS but with tachypnea and abdominal breathing. OBJECTIVE: Vital Signs Period Temp Pulse Resp BP Sys/Santoyo Pulse Ox Last 24 Hr 97.6 F-100.2 F 92-130 15-20 105-128/47-65 95-97 Intake & Output 12/17/19 12/18/19 12/19/19 12/20/19 23:59 23:59 23:59 23:59 Intake Total 1250 5728 3428 Output Total 1175 3100 600 Balance 75 2628 2828 Weight 105 kg 109.401 kg Gen: intubated, sedated Heart: RRR Lung: decreased breath sounds left Abd: soft, nontender Ext: no edema CBC, BMP 12/20/19 05:30 12/20/19 05:30 Active Medications Chlorhexidine Gluconate (Hibiclens For Decolonization -) 1 applic TP HS JARED Last Admin: 12/19/19 21:02 Dose: 1 applic Heparin Sodium (Porcine) (Heparin -) 5,000 unit SQ TID JARED Last Admin: 12/20/19 05:00 Dose: 5,000 unit Propofol (Diprivan -) 1,000,000 mcg in 100 mls @ 3.402 mls/hr IVPB TITR JARED; Protocol Last Admin: 12/20/19 11:08 Dose: 25 mcg/kg/min, 17.01 mls/hr Midazolam HCl (Midazolam 100mg/100ml-0.9%Nacl) 100 mg in 100 mls @ 1 mls/hr IVPB TITR JARED; Protocol Last Titration: 12/20/19 10:22 Dose: 2 mg/hr, 2 mls/hr Vancomycin HCl 1,500 mg/ (Dextrose) 500 mls @ 250 mls/hr IVPB 0000,1200 JARED; Protocol Last Admin: 12/20/19 00:12 Dose: 250 mls/hr Piperacillin Sod/Tazobactam (Sod 4.5 gm/ Dextrose) 100 mls @ 200 mls/hr IVPB Q8H-IV JARED; Protocol Last Admin: 12/20/19 11:00 Dose: 200 mls/hr Lactated Ringer's (Lactated Ringers Solution) 1,000 ml in 1,000 mls @ 150 mls/ hr IV ASDIR JARED Last Admin: 12/19/19 23:30 Dose: 150 mls/hr Sodium Bicarbonate 150 meq/ (Dextrose) 1,150 mls @ 83 mls/hr IV ASDIR JARED Last Admin: 12/20/19 07:38 Dose: Not Given Potassium Phosphate 15 mm/ (Sodium Chloride) 255 mls @ 62.5 mls/hr IVPB ONCE ONE Stop: 12/20/19 14:04 Last Admin: 12/20/19 11:37 Dose: 62.5 mls/hr Dexmedetomidine HCl 200 mcg/ (Sodium Chloride) 50 mls @ 5.47 mls/hr IVPB TITR JARED; Protocol Levetiracetam (Keppra Injection -) 500 mg IVPB BID [facility] Last Admin: 12/20/19 10:16 Dose: 500 mg Mupirocin (Bactroban Ointment (For Decolonization) -) 1 applic NS BID [facility] Stop: 12/23/19 21:59 Last Admin: 12/20/19 10:50 Dose: 1 applic Pantoprazole Sodium (Protonix Iv) 40 mg IVPUSH DAILY [facility] Last Admin: 12/20/19 10:21 Dose: 40 mg ASSESSMENT AND PLAN: Acute Hypoxic and Hypercapneic Respiratory Failure Pneumonia likely Aspiration Septic Shock Lactic Acidosis Acute Kidney Injury Rhabdomyolysis Elevated LFTs likely Ischemic Injury +Troponins likely Demand Ischemia Polysubstance Abuse Depression Hemochromatosis - continue antibiotics - f/u cultures - f/u urinary antigens - off pressors, maintain MAP >65 - s/p stress dose steroids - IVF, bicarb - monitor urine output, creatinine - check urine myoglobin - trend CPK - taper Fio2, PEEP to keep SpO2 >90% - daily sedation vacations to assess mental status - spontaneous breathing trials as tolerated - start enteral feeds - DVT/GI prophylaxis - continue ICU monitoring critical care time spent in reviewing chart, evaluating patient and formulating plan 35 min
[2019-12-20] MEDS: DEXMEDETOMIDINE HCL 200 MCG in SODIUM CHLORIDE 48 ML IVPB SCH ×2 (12:22→20:30)
--- NOTE | 2019-12-20 12:51 | PN ---
Physical Exam: SUBJECTIVE: Patient seen and examined in the morning. No acute events overnight, patient is intubated and sedated. Patient was taken off of sedation a few times,however he began resisting the vent. OBJECTIVE: Vital Signs Period Temp Pulse Resp BP Sys/Santoyo Pulse Ox Last 24 Hr 97.6 F-100.2 F 92-130 15-20 105-128/47-65 95-97 GENERAL: The patient is sedated and intubated. Not alert. HEAD:ET tube in place. EYES: PERRLA. ENT: Copious secretions on suction. NECK: Trachea midline, full range of motion, supple. LUNGS: Decreased breath sounds on the left side, clear to auscultation on the right side. HEART: Tachycardic, but no murmurs, rubs, gallops present. ABDOMEN: Soft, nontender, normoactive bowel sounds. EXTREMITIES: 2+ pulses, warm, well-perfused, no edema. SKIN: Warm, dry, normal turgor, no rashes or lesions noted Laboratory Results - last 24 hr 12/19/19 12/19/19 12/19/19 05:33 05:33 07:55 WBC RBC Hgb Hct MCV MCH MCHC RDW Plt Count MPV Absolute Neuts (auto) Neutrophils % Lymphocytes % Monocytes % Eosinophils % Basophils % Nucleated RBC % PTT (Actin FS) Anticoagulation Therapy No Result Required. Puncture Site Left radial ABG pH 7.38 ABG pCO2 at Pt Temp 48.4 H ABG pO2 at Pt Temp 83.8 ABG HCO3 27.7 H ABG O2 Sat (Measured) 96.7 ABG O2 Content 15.4 ABG Base Excess 2.5 H Abdiel Test Positive O2 Delivery Device Vent Oxygen Flow Rate 50 Vent Mode A/c Vent Rate 14 Mechanical Rate No Result Required. PEEP 5.0 Pressure Support Vent 425 Sodium Potassium Chloride Carbon Dioxide Anion Gap BUN Creatinine Est GFR (CKD-EPI)AfAm Est GFR (CKD-EPI)NonAf Random Glucose Lactic Acid Calcium Phosphorus Magnesium Total Bilirubin GGT 37 AST ALT Alkaline Phosphatase Creatine Kinase > 93009 H Creatine Kinase Index Cancelled Cancelled CK-MB (CK-2) Cancelled Cancelled Troponin I 2.64 H* Total Protein Albumin Urine Color Urine Appearance Urine pH Ur Specific [place] Urine Protein Urine Glucose (UA) Urine Ketones Urine Blood Urine Nitrite Urine Bilirubin Urine Urobilinogen Ur Leukocyte Esterase Urine WBC (Auto) Urine RBC (Auto) Urine Casts (Auto) U Pathogenic Cast Auto U Epithel Cells (Auto) Urine Crystals (Auto) Urine Bacteria (Auto) Random Vancomycin Hep C Ab Diagnostic Influenza A (Rapid) Influenza B (Rapid) 12/19/19 12/19/19 12/19/19 08:30 16:00 16:00 WBC RBC Hgb Hct MCV MCH MCHC RDW Plt Count MPV Absolute Neuts (auto) Neutrophils % Lymphocytes % Monocytes % Eosinophils % Basophils % Nucleated RBC % PTT (Actin FS) Anticoagulation Therapy Puncture Site ABG pH ABG pCO2 at Pt Temp ABG pO2 at Pt Temp ABG HCO3 ABG O2 Sat (Measured) ABG O2 Content ABG Base Excess Abdiel Test O2 Delivery Device Oxygen Flow Rate Vent Mode Vent Rate Mechanical Rate PEEP Pressure Support Vent Sodium 145 Potassium 3.9 Chloride 113 H Carbon Dioxide 27 Anion Gap 5 L BUN 26.8 H Creatinine 1.6 H Est GFR (CKD-EPI)AfAm 67.43 Est GFR (CKD-EPI)NonAf 58.18 Random Glucose 107 H Lactic Acid Calcium 7.5 L Phosphorus Magnesium Total Bilirubin GGT AST ALT Alkaline Phosphatase Creatine Kinase Creatine Kinase Index CK-MB (CK-2) Troponin I Total Protein Albumin Urine Color Yellow Urine Appearance Turbid Urine pH 5.0 Ur Specific [place] 1.024 Urine Protein 1+ H Urine Glucose (UA) Negative Urine Ketones Negative Urine Blood 3+ H Urine Nitrite Negative Urine Bilirubin Negative Urine Urobilinogen 1.0 Ur Leukocyte Esterase Negative Urine WBC (Auto) 18.6 Urine RBC (Auto) 22 Urine Casts (Auto) 40 U Pathogenic Cast Auto Moderate U Epithel Cells (Auto) 5.7 Urine Crystals (Auto) Moderate Urine Bacteria (Auto) Few Random Vancomycin Hep C Ab Diagnostic <0.1 Influenza A (Rapid) Influenza B (Rapid) 12/19/19 12/19/19 12/19/19 20:30 20:30 22:30 WBC RBC Hgb Hct MCV MCH MCHC RDW Plt Count MPV Absolute Neuts (auto) Neutrophils % Lymphocytes % Monocytes % Eosinophils % Basophils % Nucleated RBC % PTT (Actin FS) Anticoagulation Therapy Puncture Site ABG pH ABG pCO2 at Pt Temp ABG pO2 at Pt Temp ABG HCO3 ABG O2 Sat (Measured) ABG O2 Content ABG Base Excess Abdiel Test O2 Delivery Device Oxygen Flow Rate Vent Mode Vent Rate Mechanical Rate PEEP Pressure Support Vent Sodium 144 Potassium 3.6 Chloride 111 H Carbon Dioxide 28 Anion Gap 6 L BUN 25.3 H Creatinine 1.4 H Est GFR (CKD-EPI)AfAm 79.24 Est GFR (CKD-EPI)NonAf 68.37 Random Glucose 113 H Lactic Acid Calcium 7.2 L Phosphorus Magnesium Total Bilirubin 0.5 GGT AST 434 H ALT 90 H Alkaline Phosphatase 80 Creatine Kinase > 11087 H Creatine Kinase Index 0.0 CK-MB (CK-2) 31.9 H Troponin I Total Protein 4.4 L Albumin 2.1 L Urine Color Urine Appearance Urine pH Ur Specific [place] Urine Protein Urine Glucose (UA) Urine Ketones Urine Blood Urine Nitrite Urine Bilirubin Urine Urobilinogen Ur Leukocyte Esterase Urine WBC (Auto) Urine RBC (Auto) Urine Casts (Auto) U Pathogenic Cast Auto U Epithel Cells (Auto) Urine Crystals (Auto) Urine Bacteria (Auto) Random Vancomycin 9.2 L Hep C Ab Diagnostic Influenza A (Rapid) Negative Influenza B (Rapid) Negative 12/20/19 12/20/19 12/20/19 05:30 05:30 05:30 WBC 10.6 H RBC 3.39 L Hgb 11.3 L Hct 32.5 L D MCV 95.9 MCH 33.4 MCHC 34.8 RDW 13.9 Plt Count 161 D MPV 7.5 Absolute Neuts (auto) 7.6 Neutrophils % 72.3 Lymphocytes % 20.0 D Monocytes % 5.8 Eosinophils % 1.5 D Basophils % 0.4 D Nucleated RBC % 0 PTT (Actin FS) 32.3 Anticoagulation Therapy Puncture Site ABG pH ABG pCO2 at Pt Temp ABG pO2 at Pt Temp ABG HCO3 ABG O2 Sat (Measured) ABG O2 Content ABG Base Excess Abdiel Test O2 Delivery Device Oxygen Flow Rate Vent Mode Vent Rate Mechanical Rate PEEP Pressure Support Vent Sodium Potassium Chloride Carbon Dioxide Anion Gap BUN Creatinine Est GFR (CKD-EPI)AfAm Est GFR (CKD-EPI)NonAf Random Glucose Lactic Acid 0.9 Calcium Phosphorus Magnesium Total Bilirubin GGT AST ALT Alkaline Phosphatase Creatine Kinase Creatine Kinase Index CK-MB (CK-2) Troponin I Total Protein Albumin Urine Color Urine Appearance Urine pH Ur Specific [place] Urine Protein Urine Glucose (UA) Urine Ketones Urine Blood Urine Nitrite Urine Bilirubin Urine Urobilinogen Ur Leukocyte Esterase Urine WBC (Auto) Urine RBC (Auto) Urine Casts (Auto) U Pathogenic Cast Auto U Epithel Cells (Auto) Urine Crystals (Auto) Urine Bacteria (Auto) Random Vancomycin Hep C Ab Diagnostic Influenza A (Rapid) Influenza B (Rapid) 12/20/19 12/20/19 05:30 07:00 WBC RBC Hgb Hct MCV MCH MCHC RDW Plt Count MPV Absolute Neuts (auto) Neutrophils % Lymphocytes % Monocytes % Eosinophils % Basophils % Nucleated RBC % PTT (Actin FS) Anticoagulation Therapy No Result Required. Puncture Site Right brachial ABG pH 7.34 L ABG pCO2 at Pt Temp 54.9 H ABG pO2 at Pt Temp 90.1 ABG HCO3 28.7 H ABG O2 Sat (Measured) 95.3 ABG O2 Content 16.1 ABG Base Excess 2.4 H Abdiel Test Positive O2 Delivery Device Vent Oxygen Flow Rate 50% Vent Mode A/c Vent Rate 14 Mechanical Rate Yes PEEP 5.0 Pressure Support Vent 425 Sodium 143 Potassium 3.4 L Chloride 109 H Carbon Dioxide 30 Anion Gap 4 L BUN 22.0 H Creatinine 1.3 Est GFR (CKD-EPI)AfAm 86.67 Est GFR (CKD-EPI)NonAf 74.78 Random Glucose 73 L Lactic Acid Calcium 7.3 L Phosphorus 2.2 L Magnesium 2.4 Total Bilirubin 0.5 GGT AST 372 H ALT 90 H Alkaline Phosphatase 74 Creatine Kinase Creatine Kinase Index CK-MB (CK-2) Troponin I 0.82 H* Total Protein 4.3 L Albumin 2.0 L Urine Color Urine Appearance Urine pH Ur Specific [place] Urine Protein Urine Glucose (UA) Urine Ketones Urine Blood Urine Nitrite Urine Bilirubin Urine Urobilinogen Ur Leukocyte Esterase Urine WBC (Auto) Urine RBC (Auto) Urine Casts (Auto) U Pathogenic Cast Auto U Epithel Cells (Auto) Urine Crystals (Auto) Urine Bacteria (Auto) Random Vancomycin Hep C Ab Diagnostic Influenza A (Rapid) Influenza B (Rapid) Active Medications Generic Name Dose Route Start Last Admin Trade Name Freq PRN Reason Stop Dose Admin Chlorhexidine Gluconate 1 applic 12/18/19 22:00 12/19/19 21:02 Hibiclens For Decolonization - TP 1 applic HS JARED Administration Heparin Sodium (Porcine) 5,000 unit 12/19/19 14:00 12/20/19 05:00 Heparin - SQ 5,000 unit TID JARED Administration Propofol 1,000,000 mcg in 100 mls @ 3.402 mls/hr 12/18/19 18:00 12/20/19 11:08 Diprivan - IVPB 25 mcg/kg/min TITR JARED 17.01 mls/hr Administration Protocol 5 MCG/KG/MIN Midazolam HCl 100 mg in 100 mls @ 1 mls/hr 12/19/19 09:25 12/20/19 10:22 Midazolam 100mg/100ml-0.9%Nacl IVPB 2 mg/hr TITR JARED 2 mls/hr Titration Protocol 1 MG/HR Vancomycin HCl 1,500 mg/ 500 mls @ 250 mls/hr 12/20/19 00:00 12/20/19 00:12 Dextrose IVPB 250 mls/hr 0000,1200 JARED Administration Protocol Piperacillin Sod/Tazobactam 100 mls @ 200 mls/hr 12/20/19 04:00 12/20/19 11:00 Sod 4.5 gm/ Dextrose IVPB 200 mls/hr Q8H-IV JARED Administration Protocol Lactated Ringer's 1,000 ml in 1,000 mls @ 150 mls/hr 12/19/19 23:30 12/19/19 23:30 Lactated Ringers Solution IV 150 mls/hr ASDIR JARED Administration Sodium Bicarbonate 150 meq/ 1,150 mls @ 83 mls/hr 12/20/19 03:30 12/20/19 07:38 Dextrose IV Not Given ASDIR JARED Potassium Phosphate 15 mm/ 255 mls @ 62.5 mls/hr 12/20/19 10:00 12/20/19 11:37 Sodium Chloride IVPB 12/20/19 14:04 62.5 mls/hr ONCE ONE Administration Dexmedetomidine HCl 200 mcg/ 50 mls @ 5.47 mls/hr 12/20/19 10:15 12/20/19 12:22 Sodium Chloride IVPB 0.2 mcg/kg/hr TITR JARED 5.47 mls/hr Administration Protocol 0.2 MCG/KG/HR Levetiracetam 500 mg 12/18/19 22:00 12/20/19 10:16 Keppra Injection - IVPB 500 mg BID JARED Administration Mupirocin 1 applic 12/18/19 22:00 12/20/19 10:50 Bactroban Ointment (For Decolonization) - NS 12/23/19 21:59 1 applic BID JARED Administration Pantoprazole Sodium 40 mg 12/18/19 20:45 12/20/19 10:21 Protonix Iv IVPUSH 40 mg DAILY JARED Administration ASSESSMENT/PLAN: 29 M PMH PSA (opioids, benzos, cocaine, THC) hx of tremors, MDD (prior suicidal episodes), paranoid personality disorder, hemochromatosis, patient transferred to ICU for acute hypoxic respiratory failure. Neuro/Psych -Patient has hx of withdrawal seizures, PSA, MDD, paranoid personality, tremors. -After discussion with family, patient had had previous psychiatric admissions at [facility] in relation to Substance Use. Patient had 2 admissions to medical floor after overdosing on Heroin, likely laced with fentanyl according to family. -Utox was positive for opiates, benzos, cocaine. -Had witnessed seizure by EMS. -Was found down at [facility], unsure of how long. -Sedated on propofol, versed, and fentanyl. -D/C versed and switch to Precedex. -Loaded with keppra, continue keppra 500 BID -Neurology consulted, appreciate recs Cardiovascular -EKG shows sinus tachycardia, no ST Changes, QTC of 496. -Likely septic shock 2/2 to PNA. -Troponins peaked at 3.62, downtrending now. -Type II IL secondary to demand ischemia vs sepsis associated myonecrosis as per Cardiology. -S1Q3T3 noted on initial EKG, was on heparin drip. Repeat EKG shows resolution, d/c heparin drip -Lactic acid downtrending -Patient required pressors in the morning and d/c steroids, currently maintaining MAPS on his own. -CVP monitoring -Cardiology consulted, appreciate recs. Patient does not require Pulm -Acute Hypoxic Respiratory failure -Chest X-ray shows significant multi-lobar consolidation in the left lung. -ABG shows: 7.34/54.9/90.1/28.7/95.3 -Vent settings: Vt: 425, RR: 14, O2: 40%, PEEP 5. GI -Transaminitis likely 2/2 to shock liver -LFTs elevated but downtrending. -Abdominal U/S shows mild fatty liver, borderline thickening of gallbladder. -Continue to trend LFTs Renal -Acute rhabdomyolsis -CPK 17281. Remains elevated but is downtrending. -Continue LR -Bicarb drip -Repeat UA for urine PH. -Trend and Replete Calcium as needed. -Hyperkalemia overnight, normalized after given kayexelate 30, Calcium gluconate, insulin, d50. -Renal U/S shows unremarkable kidneys. -Nephrology consulted, appreciate recs Heme/Onc -Hx of hemochromatosis -Hgb of 11.3 today ID -Left lung PNA -Given vanc/zoysn/azithromycin/clindamycin -Patient was hospitalized twice in past year, will cover with Vancomycin and Zoysn -F/U Urine culture, Blood culture, sputum culture. Preliminary no growth. -ID recommended, appreciate recs F: LR @ 150 E: Bicarb drip, monitor Ca, K, Phos, Mag. CMP. Repeat CMP @ 6PM. N: Promote Tube Feed. Lines: Right side central line placed 2/3, Del Angel placed 2/2. DVT: Heparin SQ Dispo: Continue ICU monitoring Visit type - Emergency Visit Emergency Visit: Yes ED Registration Date: 12/18/19 Care time: The patient presented to the Emergency Department on the above date and was hospitalized for further evaluation of their emergent condition. - New Patient This patient is new to me today: No - Critical Care Critical Care patient: Yes Total Critical Care Time (in minutes): 45 Critical Care Statement: The care of this patient involved high complexity decision making to prevent further life threatening deterioration of the patient's condition and/or to evaluate & treat vital organ system(s) failure or risk of failure. ATTENDING PHYSICIAN STATEMENT I saw and evaluated the patient. I reviewed the resident's note and discussed the case with the resident. I agree with the resident's findings and plan as documented. SUBJECTIVE: OBJECTIVE: ASSESSMENT AND PLAN:
--- NOTE | 2019-12-20 14:10 | PN ---
Physical Exam: SUBJECTIVE: Patient seen and examined NAEON Off pressors since 12/19/19 AM. Left femoral line removed. RIJ placed. Father at bedside, endorses that patient had flu-like symptoms for week prior to admission. OBJECTIVE: Vital Signs Period Temp Pulse Resp BP Sys/Santoyo Pulse Ox Last 24 Hr 97.6 F-100.3 F 92-130 15-21 105-156/47-73 95-97 GENERAL: Intubated, sedated(propofol, midazolam) HEAD: NC/AT. Anicteric sclera, clear conjunctiva and w/o pallor. EYES: Sluggish pupils. Extraocular movements intact, sclera anicteric, conjunctiva clear. No ptosis. ENT: Ears normal, nares patent, OG and ET tube in place. NECK: Trachea midline, full range of motion, supple. LUNGS: Breath sounds w/ mechanical sounds bilaterally, mild scattered ronchi. Vent 425ml, 14, 5, 50% HEART: tachycardia, regular rhythm, S1, S2 without murmur, rub or gallop. ABDOMEN: Soft, nontender, nondistended, normoactive bowel sounds EXTREMITIES: 2+ pulses of b/l radial and b/l DP, warm, well-perfused. Mild peripheral nonpitting edema. NEUROLOGICAL: unable to examine d/t sedation SKIN: Warm, dry, normal turgor, no rashes or lesions noted. Laboratory Results - last 24 hr 12/19/19 12/19/19 12/19/19 05:33 05:33 07:55 WBC RBC Hgb Hct MCV MCH MCHC RDW Plt Count MPV Absolute Neuts (auto) Neutrophils % Lymphocytes % Monocytes % Eosinophils % Basophils % Nucleated RBC % PTT (Actin FS) Anticoagulation Therapy No Result Required. Puncture Site Left radial ABG pH 7.38 ABG pCO2 at Pt Temp 48.4 H ABG pO2 at Pt Temp 83.8 ABG HCO3 27.7 H ABG O2 Sat (Measured) 96.7 ABG O2 Content 15.4 ABG Base Excess 2.5 H Abdiel Test Positive O2 Delivery Device Vent Oxygen Flow Rate 50 Vent Mode A/c Vent Rate 14 Mechanical Rate No Result Required. PEEP 5.0 Pressure Support Vent 425 Sodium Potassium Chloride Carbon Dioxide Anion Gap BUN Creatinine Est GFR (CKD-EPI)AfAm Est GFR (CKD-EPI)NonAf Random Glucose Lactic Acid Calcium Phosphorus Magnesium Total Bilirubin GGT 37 AST ALT Alkaline Phosphatase Creatine Kinase > 95232 H Creatine Kinase Index Cancelled Cancelled CK-MB (CK-2) Cancelled Cancelled Troponin I 2.64 H* Total Protein Albumin Urine Color Urine Appearance Urine pH Ur Specific Harmony Urine Protein Urine Glucose (UA) Urine Ketones Urine Blood Urine Nitrite Urine Bilirubin Urine Urobilinogen Ur Leukocyte Esterase Urine WBC (Auto) Urine RBC (Auto) Urine Casts (Auto) U Pathogenic Cast Auto U Epithel Cells (Auto) Urine Crystals (Auto) Urine Bacteria (Auto) Random Vancomycin Hep C Ab Diagnostic Influenza A (Rapid) Influenza B (Rapid) 12/19/19 12/19/19 12/19/19 08:30 16:00 16:00 WBC RBC Hgb Hct MCV MCH MCHC RDW Plt Count MPV Absolute Neuts (auto) Neutrophils % Lymphocytes % Monocytes % Eosinophils % Basophils % Nucleated RBC % PTT (Actin FS) Anticoagulation Therapy Puncture Site ABG pH ABG pCO2 at Pt Temp ABG pO2 at Pt Temp ABG HCO3 ABG O2 Sat (Measured) ABG O2 Content ABG Base Excess Abdiel Test O2 Delivery Device Oxygen Flow Rate Vent Mode Vent Rate Mechanical Rate PEEP Pressure Support Vent Sodium 145 Potassium 3.9 Chloride 113 H Carbon Dioxide 27 Anion Gap 5 L BUN 26.8 H Creatinine 1.6 H Est GFR (CKD-EPI)AfAm 67.43 Est GFR (CKD-EPI)NonAf 58.18 Random Glucose 107 H Lactic Acid Calcium 7.5 L Phosphorus Magnesium Total Bilirubin GGT AST ALT Alkaline Phosphatase Creatine Kinase Creatine Kinase Index CK-MB (CK-2) Troponin I Total Protein Albumin Urine Color Yellow Urine Appearance Turbid Urine pH 5.0 Ur Specific Harmony 1.024 Urine Protein 1+ H Urine Glucose (UA) Negative Urine Ketones Negative Urine Blood 3+ H Urine Nitrite Negative Urine Bilirubin Negative Urine Urobilinogen 1.0 Ur Leukocyte Esterase Negative Urine WBC (Auto) 18.6 Urine RBC (Auto) 22 Urine Casts (Auto) 40 U Pathogenic Cast Auto Moderate U Epithel Cells (Auto) 5.7 Urine Crystals (Auto) Moderate Urine Bacteria (Auto) Few Random Vancomycin Hep C Ab Diagnostic <0.1 Influenza A (Rapid) Influenza B (Rapid) 12/19/19 12/19/19 12/19/19 20:30 20:30 22:30 WBC RBC Hgb Hct MCV MCH MCHC RDW Plt Count MPV Absolute Neuts (auto) Neutrophils % Lymphocytes % Monocytes % Eosinophils % Basophils % Nucleated RBC % PTT (Actin FS) Anticoagulation Therapy Puncture Site ABG pH ABG pCO2 at Pt Temp ABG pO2 at Pt Temp ABG HCO3 ABG O2 Sat (Measured) ABG O2 Content ABG Base Excess Abdiel Test O2 Delivery Device Oxygen Flow Rate Vent Mode Vent Rate Mechanical Rate PEEP Pressure Support Vent Sodium 144 Potassium 3.6 Chloride 111 H Carbon Dioxide 28 Anion Gap 6 L BUN 25.3 H Creatinine 1.4 H Est GFR (CKD-EPI)AfAm 79.24 Est GFR (CKD-EPI)NonAf 68.37 Random Glucose 113 H Lactic Acid Calcium 7.2 L Phosphorus Magnesium Total Bilirubin 0.5 GGT AST 434 H ALT 90 H Alkaline Phosphatase 80 Creatine Kinase > 10293 H Creatine Kinase Index 0.0 CK-MB (CK-2) 31.9 H Troponin I Total Protein 4.4 L Albumin 2.1 L Urine Color Urine Appearance Urine pH Ur Specific Harmony Urine Protein Urine Glucose (UA) Urine Ketones Urine Blood Urine Nitrite Urine Bilirubin Urine Urobilinogen Ur Leukocyte Esterase Urine WBC (Auto) Urine RBC (Auto) Urine Casts (Auto) U Pathogenic Cast Auto U Epithel Cells (Auto) Urine Crystals (Auto) Urine Bacteria (Auto) Random Vancomycin 9.2 L Hep C Ab Diagnostic Influenza A (Rapid) Negative Influenza B (Rapid) Negative 12/20/19 12/20/19 12/20/19 05:30 05:30 05:30 WBC 10.6 H RBC 3.39 L Hgb 11.3 L Hct 32.5 L D MCV 95.9 MCH 33.4 MCHC 34.8 RDW 13.9 Plt Count 161 D MPV 7.5 Absolute Neuts (auto) 7.6 Neutrophils % 72.3 Lymphocytes % 20.0 D Monocytes % 5.8 Eosinophils % 1.5 D Basophils % 0.4 D Nucleated RBC % 0 PTT (Actin FS) 32.3 Anticoagulation Therapy Puncture Site ABG pH ABG pCO2 at Pt Temp ABG pO2 at Pt Temp ABG HCO3 ABG O2 Sat (Measured) ABG O2 Content ABG Base Excess Abdiel Test O2 Delivery Device Oxygen Flow Rate Vent Mode Vent Rate Mechanical Rate PEEP Pressure Support Vent Sodium Potassium Chloride Carbon Dioxide Anion Gap BUN Creatinine Est GFR (CKD-EPI)AfAm Est GFR (CKD-EPI)NonAf Random Glucose Lactic Acid 0.9 Calcium Phosphorus Magnesium Total Bilirubin GGT AST ALT Alkaline Phosphatase Creatine Kinase Creatine Kinase Index CK-MB (CK-2) Troponin I Total Protein Albumin Urine Color Urine Appearance Urine pH Ur Specific Harmony Urine Protein Urine Glucose (UA) Urine Ketones Urine Blood Urine Nitrite Urine Bilirubin Urine Urobilinogen Ur Leukocyte Esterase Urine WBC (Auto) Urine RBC (Auto) Urine Casts (Auto) U Pathogenic Cast Auto U Epithel Cells (Auto) Urine Crystals (Auto) Urine Bacteria (Auto) Random Vancomycin Hep C Ab Diagnostic Influenza A (Rapid) Influenza B (Rapid) 12/20/19 12/20/19 05:30 07:00 WBC RBC Hgb Hct MCV MCH MCHC RDW Plt Count MPV Absolute Neuts (auto) Neutrophils % Lymphocytes % Monocytes % Eosinophils % Basophils % Nucleated RBC % PTT (Actin FS) Anticoagulation Therapy No Result Required. Puncture Site Right brachial ABG pH 7.34 L ABG pCO2 at Pt Temp 54.9 H ABG pO2 at Pt Temp 90.1 ABG HCO3 28.7 H ABG O2 Sat (Measured) 95.3 ABG O2 Content 16.1 ABG Base Excess 2.4 H Abdiel Test Positive O2 Delivery Device Vent Oxygen Flow Rate 50% Vent Mode A/c Vent Rate 14 Mechanical Rate Yes PEEP 5.0 Pressure Support Vent 425 Sodium 143 Potassium 3.4 L Chloride 109 H Carbon Dioxide 30 Anion Gap 4 L BUN 22.0 H Creatinine 1.3 Est GFR (CKD-EPI)AfAm 86.67 Est GFR (CKD-EPI)NonAf 74.78 Random Glucose 73 L Lactic Acid Calcium 7.3 L Phosphorus 2.2 L Magnesium 2.4 Total Bilirubin 0.5 GGT AST 372 H ALT 90 H Alkaline Phosphatase 74 Creatine Kinase 18000 H Creatine Kinase Index 16.8 H CK-MB (CK-2) 2025 H Troponin I 0.82 H* Total Protein 4.3 L Albumin 2.0 L Urine Color Urine Appearance Urine pH Ur Specific Harmony Urine Protein Urine Glucose (UA) Urine Ketones Urine Blood Urine Nitrite Urine Bilirubin Urine Urobilinogen Ur Leukocyte Esterase Urine WBC (Auto) Urine RBC (Auto) Urine Casts (Auto) U Pathogenic Cast Auto U Epithel Cells (Auto) Urine Crystals (Auto) Urine Bacteria (Auto) Random Vancomycin Hep C Ab Diagnostic Influenza A (Rapid) Influenza B (Rapid) Active Medications Generic Name Dose Route Start Last Admin Trade Name Freq PRN Reason Stop Dose Admin Chlorhexidine Gluconate 1 applic 12/18/19 22:00 12/19/19 21:02 Hibiclens For Decolonization - TP 1 applic HS JARED Administration Heparin Sodium (Porcine) 5,000 unit 12/19/19 14:00 12/20/19 05:00 Heparin - SQ 5,000 unit TID JARED Administration Propofol 1,000,000 mcg in 100 mls @ 3.402 mls/hr 12/18/19 18:00 12/20/19 13: 25 Diprivan - IVPB 30 mcg/kg/min TITR JARED 20.412 mls/hr Titration Protocol 5 MCG/KG/MIN Midazolam HCl 100 mg in 100 mls @ 1 mls/hr 12/19/19 09:25 12/20/19 12:52 Midazolam 100mg/100ml-0.9%Nacl IVPB 0 mg/hr TITR JARED 0 mls/hr Titration Protocol 1 MG/HR Vancomycin HCl 1,500 mg/ 500 mls @ 250 mls/hr 12/20/19 00:00 12/20/19 12:53 Dextrose IVPB 250 mls/hr 0000,1200 JARED Administration Protocol Piperacillin Sod/Tazobactam 100 mls @ 200 mls/hr 12/20/19 04:00 12/20/19 11: 00 Sod 4.5 gm/ Dextrose IVPB 200 mls/hr Q8H-IV JARED Administration Protocol Lactated Ringer's 1,000 ml in 1,000 mls @ 150 mls/hr 12/19/19 23:30 12/19/19 23:30 Lactated Ringers Solution IV 150 mls/hr ASDIR JARED Administration Sodium Bicarbonate 150 meq/ 1,150 mls @ 83 mls/hr 12/20/19 03:30 12/20/19 07: 38 Dextrose IV Not Given ASDIR JARED Potassium Phosphate 15 mm/ 255 mls @ 62.5 mls/hr 12/20/19 10:00 12/20/19 11: 37 Sodium Chloride IVPB 12/20/19 14:04 62.5 mls/hr ONCE ONE Administration Dexmedetomidine HCl 200 mcg/ 50 mls @ 5.47 mls/hr 12/20/19 10:15 12/20/19 12: 22 Sodium Chloride IVPB 0.2 mcg/kg/hr TITR JARED 5.47 mls/hr Administration Protocol 0.2 MCG/KG/HR Levetiracetam 500 mg 12/18/19 22:00 12/20/19 10:16 Keppra Injection - IVPB 500 mg BID JARED Administration Mupirocin 1 applic 12/18/19 22:00 12/20/19 10:50 Bactroban Ointment (For Decolonization) - NS 12/23/19 21:59 1 applic BID JARED Administration Pantoprazole Sodium 40 mg 12/18/19 20:45 12/20/19 10:21 Protonix Iv IVPUSH 40 mg DAILY JARED Administration ASSESSMENT/PLAN: 29M with pmh of polysubstance use disorder (opiates, cocaine, cannabis), major depressive disorder (prior suicidal episodes), paranoid psychoid, hemochromatosis, presents after being found minimally responsive, tremulous at [facility]dc. Intubated for metabolic acidosis w/ severe hypoxemia, imaging suggestive of severe Left-sided pneumonia. CTH showing mild b/l white matter leukomalacia, mild brain swelling/edema, mild chronic sinusitis. # Acute hypoxic respiratory failure > CXR: left lung infiltrative changes, atelectasis > AB.22/42.6/<49/16.7 then 7.29/49.4/261/23 > Vent Settings: AC, 425, 14, PEEP 5.0, 50% > D-dimer 2231 --unclear for PE but EKG reveals S1Q3T3 --no CTA, as JOSE MIGUEL --heparin gtt --stopped > Sepsis secondary to ?left sided pneumonia - abx regimen: Vancomycin, Zosyn - Levophed initiated for hemodynamic support - ID(Db) recommendations: -- vanc + zosyn -- fu sputum cx, fu urinary Ag # NSTEMI --likely demand and sepsis > Troponin 0.44, 1.07, 3.62, 2.64, 0.82 > BNP 4306 > EKG reveals sinus tachycardia at 144BPM. > Cardiac ECHO: LVEF 55-60%, normal - Telemetry monitoring # Transaminitis --likely 2/2 sepsis > ALT/AST: 72/261, 101/536, 372/90 > US RUQ: borderline GB wall thickening, mild fatty liver infiltration - avoid hepatotoxins # Seizure > CT head reveals decreased attenuation of cerebral white matter, concerning for mild brain edema. > CK >14,000, 90398 - Loaded with Keppra in ED. Continue 500mg IV BID - Neurology(Leandra) recommendations appreciated. --wean of sedation when possible, Keppra 500mg IV q12h -Seizure precautions # Acute kidney injury --secondary to rhabdomyolysis vs sespsis ---improving > US Renal: normal kidneys b/l > Cr 3.2, 3.1, 2.8, 2.4, 2.0, 1.6, 1.4, 1.3 - Del Angel catheter draining tea colored urine, now yellow - Continue IV normal saline bolus. - Follow CPK - Nephrology recommendations appreciated # Hyperkalemia --resolved - Likely secondary to seizure activity. - Given Insulin, D50, Kayexelate in ED. Nephrology recommendations appreciated - Follow repeat BMP # Major depressive disorder - Will reconcile, and will consider home medications once weaned off sedation # FEN - LR @150, maintain CVP 8 -12 - Hyperkalemia; follow BMP - NPO Prophylaxis - SCDs bilateral lower extremities Disposition - ICU Visit type - Emergency Visit Emergency Visit: No - New Patient This patient is new to me today: No - Critical Care Critical Care patient: Yes Total Critical Care Time (in minutes): 40 Critical Care Statement: The care of this patient involved high complexity decision making to prevent further life threatening deterioration of the patient 's condition and/or to evaluate & treat vital organ system(s) failure or risk of failure. ATTENDING PHYSICIAN STATEMENT I saw and evaluated the patient. I reviewed the resident's note and discussed the case with the resident. I agree with the resident's findings and plan as documented. SUBJECTIVE: OBJECTIVE: ASSESSMENT AND PLAN:
[2019-12-20] MEDS ORDERED: ACETAMINOPHEN 325 MG TABLET (FP) PO ONE (14:14)
--- NOTE | 2019-12-20 14:30 | PN ---
Progress Note, Physician History of Present Illness: Coverage for Dr Reed. Pt seen and examined at bedside. He remains in the ICU. He remains intubated. Pt is making urine. - Current Medication List Current Medications: Active Medications Acetaminophen (Tylenol -) 650 mg PO ONCE ONE Stop: 12/20/19 14:15 Chlorhexidine Gluconate (Hibiclens For Decolonization -) 1 applic TP HS JARED Last Admin: 12/19/19 21:02 Dose: 1 applic Heparin Sodium (Porcine) (Heparin -) 5,000 unit SQ TID JARED Last Admin: 12/20/19 05:00 Dose: 5,000 unit Propofol (Diprivan -) 1,000,000 mcg in 100 mls @ 3.402 mls/hr IVPB TITR JARED; Protocol Last Titration: 12/20/19 13:25 Dose: 30 mcg/kg/min, 20.412 mls/hr Midazolam HCl (Midazolam 100mg/100ml-0.9%Nacl) 100 mg in 100 mls @ 1 mls/hr IVPB TITR JARED; Protocol Last Titration: 12/20/19 12:52 Dose: 0 mg/hr, 0 mls/hr Vancomycin HCl 1,500 mg/ (Dextrose) 500 mls @ 250 mls/hr IVPB 0000,1200 JARED; Protocol Last Admin: 12/20/19 12:53 Dose: 250 mls/hr Piperacillin Sod/Tazobactam (Sod 4.5 gm/ Dextrose) 100 mls @ 200 mls/hr IVPB Q8H-IV JARED; Protocol Last Admin: 12/20/19 11:00 Dose: 200 mls/hr Lactated Ringer's (Lactated Ringers Solution) 1,000 ml in 1,000 mls @ 150 mls/ hr IV ASDIR JARED Last Admin: 12/19/19 23:30 Dose: 150 mls/hr Sodium Bicarbonate 150 meq/ (Dextrose) 1,150 mls @ 83 mls/hr IV ASDIR JARED Last Admin: 12/20/19 07:38 Dose: Not Given Dexmedetomidine HCl 200 mcg/ (Sodium Chloride) 50 mls @ 5.47 mls/hr IVPB TITR JARED; Protocol Last Admin: 12/20/19 12:22 Dose: 0.2 mcg/kg/hr, 5.47 mls/hr Levetiracetam (Keppra Injection -) 500 mg IVPB BID [facility] Last Admin: 12/20/19 10:16 Dose: 500 mg Mupirocin (Bactroban Ointment (For Decolonization) -) 1 applic NS BID [facility] Stop: 12/23/19 21:59 Last Admin: 12/20/19 10:50 Dose: 1 applic Pantoprazole Sodium (Protonix Iv) 40 mg IVPUSH DAILY [facility] Last Admin: 12/20/19 10:21 Dose: 40 mg - Objective Vital Signs: Vital Signs Temperature 100.3 F H 12/20/19 12:00 Pulse Rate 112 H 12/20/19 12:00 Respiratory Rate 21 H 12/20/19 12:00 Blood Pressure 155/66 12/20/19 12:00 O2 Sat by Pulse Oximetry (%) 95 12/20/19 08:40 Constitutional: Yes: Calm Eyes: Yes: Conjunctiva Clear HENT: Yes: Atraumatic Cardiovascular: Yes: S1, S2 Respiratory: Yes: Mechanically Ventilated Gastrointestinal: Yes: Soft Genitourinary: Yes: Del Angel Present Musculoskeletal: Yes: WNL Edema: No Neurological: Yes: Lethargy Labs: CBC, BMP 12/20/19 05:30 12/20/19 05:30 INR, PTT INR 1.07 (0.83-1.09) 12/18/19 13:30 - ....Imaging Chest X-ray: Report Reviewed Assessment/Plan Current Medications Generic Name Dose Route Start Last Admin Trade Name Freq PRN Reason Stop Dose Admin Acetaminophen 650 mg 12/20/19 14:14 Tylenol - PO 12/20/19 14:15 ONCE ONE Chlorhexidine Gluconate 1 applic 12/18/19 22:00 12/19/19 21:02 Hibiclens For Decolonization - TP 1 applic HS [facility] Administration Heparin Sodium (Porcine) 5,000 unit 12/19/19 14:00 12/20/19 05:00 Heparin - SQ 5,000 unit TID JARED Administration Propofol 1,000,000 mcg in 100 mls @ 3.402 mls/hr 12/18/19 18:00 12/20/19 13: 25 Diprivan - IVPB 30 mcg/kg/min TITR JARED 20.412 mls/hr Titration Protocol 5 MCG/KG/MIN Midazolam HCl 100 mg in 100 mls @ 1 mls/hr 12/19/19 09:25 12/20/19 12:52 Midazolam 100mg/100ml-0.9%Nacl IVPB 0 mg/hr TITR JARED 0 mls/hr Titration Protocol 1 MG/HR Vancomycin HCl 1,500 mg/ 500 mls @ 250 mls/hr 12/20/19 00:00 12/20/19 12:53 Dextrose IVPB 250 mls/hr 0000,1200 JARED Administration Protocol Piperacillin Sod/Tazobactam 100 mls @ 200 mls/hr 12/20/19 04:00 12/20/19 11: 00 Sod 4.5 gm/ Dextrose IVPB 200 mls/hr Q8H-IV JARED Administration Protocol Lactated Ringer's 1,000 ml in 1,000 mls @ 150 mls/hr 12/19/19 23:30 12/19/19 23:30 Lactated Ringers Solution IV 150 mls/hr ASDIR JARED Administration Sodium Bicarbonate 150 meq/ 1,150 mls @ 83 mls/hr 12/20/19 03:30 12/20/19 07: 38 Dextrose IV Not Given ASDIR JARED Dexmedetomidine HCl 200 mcg/ 50 mls @ 5.47 mls/hr 12/20/19 10:15 12/20/19 12: 22 Sodium Chloride IVPB 0.2 mcg/kg/hr TITR JARED 5.47 mls/hr Administration Protocol 0.2 MCG/KG/HR Levetiracetam 500 mg 12/18/19 22:00 12/20/19 10:16 Keppra Injection - IVPB 500 mg BID JARED Administration Mupirocin 1 applic 12/18/19 22:00 12/20/19 10:50 Bactroban Ointment (For Decolonization) - NS 12/23/19 21:59 1 applic BID JARED Administration Pantoprazole Sodium 40 mg 12/18/19 20:45 12/20/19 10:21 Protonix Iv IVPUSH 40 mg DAILY JARED Administration Laboratory Tests 12/18/19 12/20/19 13:30 05:30 Potassium 7.5 H* 3.4 L Creatinine 3.2 H 1.3 Laboratory Tests 12/18/19 13:55 Opiates Screen Positive A* Benzodiazepines Screen Positive A* Cocaine Screen Positive A* 1. JOSE MIGUEL from pigment injury vs. ATN from shock 2. Hyperkalemia 3. Rhabdomyolysis 4. Shock/Sepsis 5. AMS 6. Lactic acidosis 7. multi drug abuse Plan - renal function is improving - cpk is improving - cont to monitor cpk levels - replace lytes - vent support - discussed with ICU team - discussed with mother at bedside
[2019-12-20] MEDS ORDERED: ACETAMINOPHEN 1000 MG/100 ML VIAL (NON FORMULARY) IVPB ONE (14:34)
[2019-12-20 15:10] LABS: EPI CELLS 0.7 /HPF (0-5/HPF); HYALINE CASTS 3 /lpf (0-8); URINE APPEARANCE CLEAR; URINE BACTERIA 0 /hpf (NEGATIVE); URINE BILIRUBIN NEGATIVE (NEGATIVE); URINE COLOR YELLOW; URINE GLUCOSE (UA) NEGATIVE (NEGATIVE); URINE KETONE NEGATIVE (NEGATIVE); URINE LEUK ESTERASE NEGATIVE (NEGATIVE); URINE NITRITE NEGATIVE (NEGATIVE); URINE PROTEIN NEGATIVE (NEGATIVE); URINE UROBILINOGEN 0.2 mg/dL (0.2-1.0); URINE WBC 1 /hpf (0-5)
[2019-12-20 15:56] LABS: URINE RBC 608.9 /hpf (0-4); YEAST NONE SEEN (NEGATIVE)
[2019-12-20 18:07] LABS: HEP B CORE AB, TOT Negative (Negative)
--- NOTE | 2019-12-20 18:54 | PN ---
Progress Note (short form) - Note Progress Note: remains intubateed apparently started fighting the vent when sedation was stopped now sedated and comfortable Vital Signs Period Temp Pulse Resp BP Sys/Santoyo Pulse Ox Last 24 Hr 97.6 F-100.8 F 92-125 15-24 107-156/47-73 95-97 cor-rrr lungs decreased bs at bases abd soft,nt ext no edema +[place] CBC, BMP 12/20/19 05:30 12/20/19 05:30 Microbiology 12/19/19 16:00 Sputum - Endotrachea Suction/Ventilator Gram Stain - Final 12/18/19 13:30 Blood - Peripheral Venous Blood Culture - Preliminary NO GROWTH OBTAINED AFTER 48 HOURS, INCUBATION TO CONTINUE FOR 3 DAYS. 12/18/19 13:30 Blood - Peripheral Venous Blood Culture - Preliminary NO GROWTH OBTAINED AFTER 48 HOURS, INCUBATION TO CONTINUE FOR 3 DAYS. 12/19/19 16:00 Urine - Urine [place] Legionella Antigen - Final 12/19/19 16:00 Urine - Urine [place] Streptococcus pneumoniae Antigen (M - Final 12/18/19 13:55 Urine - Urine Clean Catch Urine Culture - Final NO GROWTH OBTAINED imp/reccd respiratory failure aspiration pneumonia seizures? substance use f/u cultures vanco trough in am vanco/zosyn to continue
[2019-12-20] MEDS: CHLORHEXIDINE GLUCONATE 4% CLEANSER FOR DECOLONIZATION TP SCH (22:03)
[2019-12-20] MEDS: LACTATED RINGERS SOLUTION 1,000 ML/1,000 ML INFUS.BAG IV SCH (22:08)
[2019-12-21] MEDS ORDERED: DEXTROSE 5%-WATER 100 ML IVPB ONE ×4 (01:02→21:03)
[2019-12-21] MEDS ORDERED: PIPERACILLIN/TAZOBACTAM 4.5 GM VIAL IVPB ONE ×4 (01:02→21:03)
[2019-12-21] MEDS: VANCOMYCIN HCL 1,500 MG in DEXTROSE 5%-WATER - 500 ML IVPB SCH (01:17)
[2019-12-21] MEDS: PIPERACILLIN/TAZOB 4.5 GM 4.5 GM in DEXTROSE 5%-WATER 100 ML IVPB SCH ×3 (01:18→17:07)
[2019-12-21] MEDS: LACTATED RINGERS SOLUTION 1,000 ML/1,000 ML INFUS.BAG IV SCH (01:19)
[2019-12-21] MEDS: DEXTROSE 5%-WATER - 1,000 ML with SODIUM BICARBONATE 8.4% - 150 MEQ IV SCH (05:42)
[2019-12-21] MEDS: HEPARIN NA (PORCINE) 5,000 UNITS/ML 1ML VIAL SQ SCH ×3 (05:42→21:09)
[2019-12-21 06:43] LABS: BASO % 0.3 % (0-2.0); EOS % 3.5 % (0-4.5); HEMATOCRIT 31.5 % (35.4-49); HEMOGLOBIN 11.2 GM/dL (11.7-16.9); LYMPH % 19.7 % (8-40); MCH 33.5 pg (25.7-33.7); MCHC 35.4 g/dl (32.0-35.9); MEAN CELL VOLUME 94.7 fl (80-96); MEAN PLT VOLUME 7.3 fl (7.5-11.1); MONO % 5.2 % (3.8-10.2); NEUT % 71.3 % (42.8-82.8); PLATELET COUNT 150 K/MM3 (134-434); RBC 3.33 M/mm3 (4.00-5.60); RDW 13.5 % (11.9-15.9); WHITE BLOOD COUNT 10.1 K/mm3 (4.0-10.0)
[2019-12-21 07:12] LABS: ALBUMIN 2.1 g/dl (3.4-5.0); BILIRUBIN,TOTAL 0.4 mg/dL (0.2-1); BLOOD UREA NITROGEN 12.1 mg/dL (7-18); CALCIUM 7.3 mg/dL (8.5-10.1); CREATININE 0.9 mg/dL (0.55-1.3); MAGNESIUM 2.2 mg/dL (1.8-2.4); PHOSPHOROUS 1.9 mg/dL (2.5-4.9); POTASSIUM 3.1 mmol/L (3.5-5.1); TOT PROT 4.5 g/dl (6.4-8.2)
[2019-12-21] MEDS ORDERED: POTASSIUM PHOSPHATE 20 MM in SODIUM CHLORIDE 250 ML IVPB ONE (07:14)
[2019-12-21] MEDS: levETIRAcetam 500 MG/5 ML INJECTION VIAL IVPB SCH ×2 (09:55→21:09)
[2019-12-21] MEDS: MIDAZOLAM IN 0.9 % SOD.CHLORID 100 MG/100 ML PLAST..BAG IVPB SCH (09:55)
[2019-12-21] MEDS: PANTOPRAZOLE SODIUM 40 MG VIAL IVPUSH SCH (09:55)
[2019-12-21] MEDS: MUPIROCIN 2% TOPICAL OINTMENT FOR DECOLONIZATION NS SCH ×2 (09:55→21:10)
[2019-12-21] MEDS: DEXMEDETOMIDINE HCL 200 MCG in SODIUM CHLORIDE 48 ML IVPB SCH (11:13)
--- NOTE | 2019-12-21 11:41 | PN ---
Physical Exam: SUBJECTIVE: Patient seen and examined. pt was initially switched to SIMV then to CPAP then extubated to venture mask. Pt off sedation. low grade fever overnight requiring repeat blood cultures. OBJECTIVE: Vital Signs Period Temp Pulse Resp BP Sys/Santoyo Pulse Ox Last 24 Hr 99.3 F-100.9 F 73-112 14-24 108-155/54-69 98-100 GENERAL: The patient is extubated but still drowsy from sedatives HEAD: Normal with no signs of trauma. EYES: PERRL, sclera anicteric, conjunctiva clear. No ptosis. ENT:oropharynx with secretions requiring suction, moist mucous membranes. NECK: Trachea midline, full range of motion, supple. LUNGS: Breath sounds decreased in the lower lung field but more pronounced on the left, no wheezing or rales or crackles HEART: tachy but Regular rate and rhythm, S1, S2 without murmur, rub or gallop. ABDOMEN: Soft, nontender, nondistended, normoactive bowel sounds, no guarding, no rebound, no hepatosplenomegaly, no masses. EXTREMITIES: 2+ pulses, warm, well-perfused, no edema. SKIN: Warm, dry, normal turgor, no rashes or lesions noted Laboratory Results - last 24 hr 12/19/19 12/20/19 12/20/19 08:30 05:30 13:05 WBC RBC Hgb Hct MCV MCH MCHC RDW Plt Count MPV Absolute Neuts (auto) Neutrophils % Lymphocytes % Monocytes % Eosinophils % Basophils % Nucleated RBC % PTT (Actin FS) Sodium 143 Potassium 3.4 L Chloride 109 H Carbon Dioxide 30 Anion Gap 4 L BUN 22.0 H Creatinine 1.3 Est GFR (CKD-EPI)AfAm 86.67 Est GFR (CKD-EPI)NonAf 74.78 Random Glucose 73 L Calcium 7.3 L Phosphorus 2.2 L Magnesium 2.4 Total Bilirubin 0.5 AST 372 H ALT 90 H Alkaline Phosphatase 74 Creatine Kinase 96510 H Creatine Kinase Index 0.1 CK-MB (CK-2) 20.3 H Troponin I 0.82 H* Total Protein 4.3 L Albumin 2.0 L Urine Color Yellow Urine Appearance Clear Urine pH 6.0 Ur Specific [place] 1.013 Urine Protein Negative Urine Glucose (UA) Negative Urine Ketones Negative Urine Blood 2+ H Urine Nitrite Negative Urine Bilirubin Negative Urine Urobilinogen 0.2 Ur Leukocyte Esterase Negative Urine WBC (Auto) 1 Urine RBC (Auto) 608.9 Urine Casts (Auto) 3 U Epithel Cells (Auto) 0.7 Urine Bacteria (Auto) 0 Urine Yeast (Auto) None seen Hep A IgM Ab Confirm Negative Hepatitis A Ab Total Negative Hep Bs Antigen Negative Hep Bs Antibody Reactive Hep B Core Total Ab Negative Hep B Core IgM Ab Negative Hepatitis Be Antibody Negative Hepatitis Be Antigen Negative Influenza A (Rapid) Influenza B (Rapid) 12/20/19 12/21/19 12/21/19 13:33 05:00 05:00 WBC 10.1 H RBC 3.33 L Hgb 11.2 L Hct 31.5 L MCV 94.7 MCH 33.5 MCHC 35.4 RDW 13.5 Plt Count 150 MPV 7.3 L Absolute Neuts (auto) 7.2 Neutrophils % 71.3 Lymphocytes % 19.7 Monocytes % 5.2 Eosinophils % 3.5 D Basophils % 0.3 Nucleated RBC % 0 PTT (Actin FS) 31.4 Sodium Potassium Chloride Carbon Dioxide Anion Gap BUN Creatinine Est GFR (CKD-EPI)AfAm Est GFR (CKD-EPI)NonAf Random Glucose Calcium Phosphorus Magnesium Total Bilirubin AST ALT Alkaline Phosphatase Creatine Kinase Creatine Kinase Index CK-MB (CK-2) Troponin I Total Protein Albumin Urine Color Urine Appearance Urine pH Ur Specific [place] Urine Protein Urine Glucose (UA) Urine Ketones Urine Blood Urine Nitrite Urine Bilirubin Urine Urobilinogen Ur Leukocyte Esterase Urine WBC (Auto) Urine RBC (Auto) Urine Casts (Auto) U Epithel Cells (Auto) Urine Bacteria (Auto) Urine Yeast (Auto) Hep A IgM Ab Confirm Hepatitis A Ab Total Hep Bs Antigen Hep Bs Antibody Hep B Core Total Ab Hep B Core IgM Ab Hepatitis Be Antibody Hepatitis Be Antigen Influenza A (Rapid) Negative Influenza B (Rapid) Negative 12/21/19 12/21/19 05:00 05:00 WBC RBC Hgb Hct MCV MCH MCHC RDW Plt Count MPV Absolute Neuts (auto) Neutrophils % Lymphocytes % Monocytes % Eosinophils % Basophils % Nucleated RBC % PTT (Actin FS) Sodium 146 H Potassium 3.1 L Chloride 108 H Carbon Dioxide 33 H Anion Gap 4 L BUN 12.1 Creatinine 0.9 Est GFR (CKD-EPI)AfAm 135.19 Est GFR (CKD-EPI)NonAf 116.64 Random Glucose 90 Calcium 7.3 L Phosphorus 1.9 L Magnesium 2.2 Total Bilirubin 0.4 AST 264 H ALT 80 H Alkaline Phosphatase 74 Creatine Kinase 7315 H Creatine Kinase Index 0.0 CK-MB (CK-2) 3.6 Troponin I Total Protein 4.5 L Albumin 2.1 L Urine Color Urine Appearance Urine pH Ur Specific [place] Urine Protein Urine Glucose (UA) Urine Ketones Urine Blood Urine Nitrite Urine Bilirubin Urine Urobilinogen Ur Leukocyte Esterase Urine WBC (Auto) Urine RBC (Auto) Urine Casts (Auto) U Epithel Cells (Auto) Urine Bacteria (Auto) Urine Yeast (Auto) Hep A IgM Ab Confirm Hepatitis A Ab Total Hep Bs Antigen Hep Bs Antibody Hep B Core Total Ab Hep B Core IgM Ab Hepatitis Be Antibody Hepatitis Be Antigen Influenza A (Rapid) Influenza B (Rapid) Active Medications Generic Name Dose Route Start Last Admin Trade Name Freq PRN Reason Stop Dose Admin Acetaminophen 1,000 mg 12/20/19 14:34 12/20/19 15:02 Ofirmev Injection - IVPB 1,000 mg ONCE ONE Administration Chlorhexidine Gluconate 1 applic 12/18/19 22:00 12/20/19 22:03 Hibiclens For Decolonization - TP 1 applic HS JARED Administration Heparin Sodium (Porcine) 5,000 unit 12/19/19 14:00 12/21/19 05:42 Heparin - SQ 5,000 unit TID JARED Administration Propofol 1,000,000 mcg in 100 mls @ 3.402 mls/hr 12/18/19 18:00 12/21/19 01:19 Diprivan - IVPB 30 mcg/kg/min TITR JARED 20.412 mls/hr Titration Protocol 5 MCG/KG/MIN Midazolam HCl 100 mg in 100 mls @ 1 mls/hr 12/19/19 09:25 12/21/19 09:55 Midazolam 100mg/100ml-0.9%Nacl IVPB Not Given TITR JARED Protocol 1 MG/HR Piperacillin Sod/Tazobactam 100 mls @ 200 mls/hr 12/20/19 04:00 12/21/19 09:56 Sod 4.5 gm/ Dextrose IVPB 200 mls/hr Q8H-IV JARED Administration Protocol Lactated Ringer's 1,000 ml in 1,000 mls @ 150 mls/hr 12/19/19 23:30 12/21/19 01:19 Lactated Ringers Solution IV Not Given ASDIR JARED Sodium Bicarbonate 150 meq/ 1,150 mls @ 83 mls/hr 12/20/19 03:30 12/21/19 05:42 Dextrose IV Not Given ASDIR JARED Dexmedetomidine HCl 200 mcg/ 50 mls @ 5.47 mls/hr 12/20/19 10:15 12/21/19 11:13 Sodium Chloride IVPB 0.3 mcg/kg/hr TITR JARED 8.2 mls/hr Administration Protocol 0.2 MCG/KG/HR Levetiracetam 500 mg 12/18/19 22:00 12/21/19 09:55 Keppra Injection - IVPB 500 mg BID JARED Administration Mupirocin 1 applic 12/18/19 22:00 12/21/19 09:55 Bactroban Ointment (For Decolonization) - NS 12/23/19 21:59 1 applic BID JARED Administration Pantoprazole Sodium 40 mg 12/18/19 20:45 12/21/19 09:55 Protonix Iv IVPUSH 40 mg DAILY JARED Administration ASSESSMENT/PLAN: 29 M PMH PSA (opioids, benzos, cocaine, THC) hx of tremors, MDD (prior suicidal episodes), paranoid personality disorder, hemochromatosis, patient transferred to ICU for acute hypoxic respiratory failure. Neuro/Psych - cont keppra 500 BID - off sedation - monitor - Hx of withdrawal seizures. ativan PRN added Cardiovascular - off pressors and off heparin drip - BP 149/66 mmHg (map 84) and stable Pulm - Acute Hypoxic Respiratory failure. resolved - Chest X-ray shows improvement of Left lung white out - Extubated and satting >90% on venture mask. consider Cpap if grunting GI - Transaminitis likely 2/2 to shock liver - LFTs elevated but downtrending. - Abdominal U/S shows mild fatty liver, borderline thickening of gallbladder. - Continue to trend LFTs Renal - Acute rhabdomyolsis - CPK 7315. Remains elevated but is downtrending. - D/C'ed Bicarb drip - hypokalemic and hypophosphotemia. repleted with KPhos - Renal U/S shows unremarkable kidneys. - Nephrology consulted, appreciate recs Heme/Onc -Hx of hemochromatosis -Hgb of 11.2 today ID -Left lung PNA -cont vanc and zosyn -f/u vanc trough -ID recommended, appreciate recs F: Switched to 1/2NS + 40mEq @75 E: monitor lytes N: off tube feeds. will get speech and swallow prior to initiating feeding Lines: Right side central line placed 2/3, [place] placed 12/18. DVT: Heparin SQ Dispo: Continue ICU monitoring Visit type - Emergency Visit Emergency Visit: Yes ED Registration Date: 12/18/19 Care time: The patient presented to the Emergency Department on the above date and was hospitalized for further evaluation of their emergent condition. - New Patient This patient is new to me today: No - Critical Care Critical Care patient: Yes Total Critical Care Time (in minutes): 36 Critical Care Statement: The care of this patient involved high complexity decision making to prevent further life threatening deterioration of the patient's condition and/or to evaluate & treat vital organ system(s) failure or risk of failure. ATTENDING PHYSICIAN STATEMENT I saw and evaluated the patient. I reviewed the resident's note and discussed the case with the resident. I agree with the resident's findings and plan as documented. SUBJECTIVE: OBJECTIVE: ASSESSMENT AND PLAN:
--- NOTE | 2019-12-21 11:42 | PN ---
Teaching Attending Note Name of Resident: Marilu Mai ATTENDING PHYSICIAN STATEMENT I saw and evaluated the patient. I reviewed the resident's note and discussed the case with the resident. I agree with the resident's findings and plan as documented. SUBJECTIVE: Pt seen and examined in the ICU. Remains intubated, sedated. Remains off pressors. Good urine output and renal recovery. CPK trending down. OBJECTIVE: Vital Signs Period Temp Pulse Resp BP Sys/Santoyo Pulse Ox Last 24 Hr 99.3 F-100.9 F 73-112 14-24 108-155/54-69 98-100 Intake & Output 12/18/19 12/19/19 12/20/19 12/21/19 23:59 23:59 23:59 23:59 Intake Total 1250 5728 3428 3570 Output Total 1175 3100 4100 1800 Balance 75 9248 -542 1770 Weight 105 kg 109.316 kg 108.318 kg Gen: intubated, sedated Heart: RRR Lung: decreased breath sounds at the bases Abd: soft, nontender Ext: no edema CBC, BMP 12/21/19 05:00 12/21/19 05:00 Active Medications Acetaminophen (Ofirmev Injection -) 1,000 mg IVPB ONCE ONE Last Admin: 12/20/19 15:02 Dose: 1,000 mg Chlorhexidine Gluconate (Hibiclens For Decolonization -) 1 applic TP HS JARED Last Admin: 12/20/19 22:03 Dose: 1 applic Heparin Sodium (Porcine) (Heparin -) 5,000 unit SQ TID JARED Last Admin: 12/21/19 05:42 Dose: 5,000 unit Propofol (Diprivan -) 1,000,000 mcg in 100 mls @ 3.402 mls/hr IVPB TITR JARED; Protocol Last Titration: 12/21/19 01:19 Dose: 30 mcg/kg/min, 20.412 mls/hr Midazolam HCl (Midazolam 100mg/100ml-0.9%Nacl) 100 mg in 100 mls @ 1 mls/hr IVPB TITR JARED; Protocol Last Admin: 12/21/19 09:55 Dose: Not Given Piperacillin Sod/Tazobactam (Sod 4.5 gm/ Dextrose) 100 mls @ 200 mls/hr IVPB Q8H-IV JARED; Protocol Last Admin: 12/21/19 09:56 Dose: 200 mls/hr Lactated Ringer's (Lactated Ringers Solution) 1,000 ml in 1,000 mls @ 150 mls/ hr IV ASDIR JARED Last Admin: 12/21/19 01:19 Dose: Not Given Sodium Bicarbonate 150 meq/ (Dextrose) 1,150 mls @ 83 mls/hr IV ASDIR JARED Last Admin: 12/21/19 05:42 Dose: Not Given Dexmedetomidine HCl 200 mcg/ (Sodium Chloride) 50 mls @ 5.47 mls/hr IVPB TITR JARED; Protocol Last Admin: 12/21/19 11:13 Dose: 0.3 mcg/kg/hr, 8.2 mls/hr Levetiracetam (Keppra Injection -) 500 mg IVPB BID JARED Last Admin: 12/21/19 09:55 Dose: 500 mg Mupirocin (Bactroban Ointment (For Decolonization) -) 1 applic NS BID JARED Stop: 12/23/19 21:59 Last Admin: 12/21/19 09:55 Dose: 1 applic Pantoprazole Sodium (Protonix Iv) 40 mg IVPUSH DAILY [facility] Last Admin: 12/21/19 09:55 Dose: 40 mg ASSESSMENT AND PLAN: Acute Hypoxic and Hypercapneic Respiratory Failure Pneumonia likely Aspiration Septic Shock Lactic Acidosis Acute Kidney Injury Rhabdomyolysis Elevated LFTs likely Ischemic Injury +Troponins likely Demand Ischemia Polysubstance Abuse Depression Hemochromatosis - continue antibiotics - off pressors, maintain MAP >65 - s/p stress dose steroids - IVF, can d/c bicarb - monitor urine output, creatinine - trend CPK - taper Fio2, PEEP to keep SpO2 >90% - daily sedation vacations to assess mental status - spontaneous breathing trials as tolerated - enteral feeds if unable to extubate - DVT/GI prophylaxis - continue ICU monitoring critical care time spent in reviewing chart, evaluating patient and formulating plan 35 min
[2019-12-21] MEDS ORDERED: ALBUTEROL SO4 2.5/IPRATROPIUM 0.5 INH SOL 3 ML VIAL.NEB. NEB ONE (11:58)
[2019-12-21] MEDS ORDERED: ACETAMINOPHEN 1000 MG/100 ML VIAL (NON FORMULARY) IVPB ONE ×2 (12:15→20:02)
--- NOTE | 2019-12-21 13:50 | PN ---
Teaching Attending Note Name of Resident: Perry Ortega ATTENDING PHYSICIAN STATEMENT I saw and evaluated the patient. I reviewed the resident's note and discussed the case with the resident. I agree with the resident's findings and plan as documented. SUBJECTIVE:seen around 10 am No events over night OBJECTIVE: NAD , intubated sedated, comfortable. round equal pupils, reactive to light . Lungs: clear anteriorly CV: RRR, no MRG abd: soft, ND. Scrotal edema . [place] in urethra Ext: trace edema on LE ASSESSMENT AND PLAN: 29 y/o man with h/o Polysubstance abuse,hemochromoatosis, depression, seizure disorder, who presented from [facility] and is being treated fro resp failure. 1- Septic shock : resolved 2- LLL PNA , possible aspiration PNA 3- Acute hypoxic resp failure 4- Tonic clonic seizure 5- Polysubstance abuse ( cocaine, Benzo, ETOH) 6- JOSE MIGUEL : resolved 7- Elevated D dimer. in settingof severe sepsis. 8- Rhabdomyolysis 9- Transaminitits: likely due to sepsis/ETOH /and septic shock 10- Eelvated trop : demand ischemia from above 11- Hyperkalemia: resolved plan: - Extubation when possible - full neuro exam when extubated. - CT reviewed. brain edema could not be r/o. ? seizure vs anoxic brain injury - will d/w neuro whether CT will need to be repeated. - cont Keppra - after extubation , start benzos PRN to avoid withdrawal - will confirm his meds, and if on SSRI will resume to avoid withdrawal seizures - IVF chqnged to NS today . monitor renal function - replete K and PHos - cont zosyn . d/w ID. Off Vanco d/w parents and with Dr. Lux. Critical Care Total Critical Care Time (in minutes): 35 Critical Care Statement: The care of this patient involved high complexity decision making to prevent further life threatening deterioration of the patient 's condition and/or to evaluate & treat vital organ system(s) failure or risk of failure.
--- NOTE | 2019-12-21 14:38 | PN ---
Progress Note (short form) - Note Progress Note: Renal follow up JOSE MIGUEL Seen and examined in the ICU s/p extubation making urine no overnight events remains on IVF Vital Signs Temperature 99.8 F H 12/21/19 10:00 Pulse Rate 101 H 12/21/19 12:52 Respiratory Rate 34 H 12/21/19 12:00 Blood Pressure 164/90 12/21/19 12:00 O2 Sat by Pulse Oximetry (%) 96 12/21/19 12:52 Intake & Output 12/18/19 12/19/19 12/20/19 12/21/19 23:59 23:59 23:59 23:59 Intake Total 1250 5728 3428 3570 Output Total 1175 3100 4100 1800 Balance 75 2628 -672 1770 Weight 105 kg 109.316 kg 108.318 kg On facemask O2 RRR, no M/R Dec BS left lung, no wheeze soft NT/ND + edema CBC, BMP 12/21/19 05:00 12/21/19 05:00 Current Medications Chlorhexidine Gluconate (Hibiclens For Decolonization -) [address] [facility] Last Admin: 12/20/19 22:03 Dose: 1 applic Heparin Sodium (Porcine) (Heparin -) 5,000 unit SQ TID JARED Last Admin: 12/21/19 05:42 Dose: 5,000 unit Piperacillin Sod/Tazobactam (Sod 4.5 gm/ Dextrose) 100 mls @ 200 mls/hr IVPB Q8H-IV JARED; Protocol Last Admin: 12/21/19 09:56 Dose: 200 mls/hr Potassium Chloride 40 meq/ (Sodium Chloride) 1,020 mls @ 75 mls/hr IVPB Q13H [facility] Levetiracetam (Keppra Injection -) [address] [facility] Last Admin: 12/21/19 09:55 Dose: 500 mg Mupirocin (Bactroban Ointment (For Decolonization) -) [address] [facility] Stop: 12/23/19 21:59 Last Admin: 12/21/19 09:55 Dose: 1 applic Pantoprazole Sodium (Protonix Iv) [address] [facility] Last Admin: 12/21/19 09:55 Dose: 40 mg 29 year old gentleman with history of substance abuse who presented from [facility] unresponsive and intubated in the field and found to have shock and acute renal failure with hyperkalemia. 1. Acute kidney injury from pigment injury vs. ATN from shock 2. Hyperkalemia 3. Rhabdomyolysis 4. Shock/Sepsis 5. AMS 6. Lactic acidosis 7. Hypocalcemia 8. Hypomagnesemia Renal function improved and pt is non-oliguric CK remains elevated, continue isotonic fluids replete potassium as needed ICU monitoring Trend renal function, electrolytes and CK daily Thank you Jose Roberto Reed DO
--- NOTE | 2019-12-21 15:19 | PN ---
Progress Note (short form) - Note Progress Note: s:recently extubated, sedation still wearing off, not communicating. off pressors Current Medications Generic Name Dose Route Start Last Admin Trade Name Freq PRN Reason Stop Dose Admin Chlorhexidine Gluconate 1 applic 12/18/19 22:00 12/20/19 22:03 Hibiclens For Decolonization - TP 1 applic HS JARED Administration Heparin Sodium (Porcine) 5,000 unit 12/19/19 14:00 12/21/19 05:42 Heparin - SQ 5,000 unit TID JARED Administration Piperacillin Sod/Tazobactam 100 mls @ 200 mls/hr 12/20/19 04:00 12/21/19 09: 56 Sod 4.5 gm/ Dextrose IVPB 200 mls/hr Q8H-IV JARED Administration Protocol Potassium Chloride 40 meq/ 1,020 mls @ 75 mls/hr 12/21/19 12:30 Sodium Chloride IVPB Q13H JARED Levetiracetam 500 mg 12/18/19 22:00 12/21/19 09:55 Keppra Injection - IVPB 500 mg BID JARED Administration Lorazepam 1 mg 12/21/19 14:49 Ativan Injection - IVPUSH Q4H PRN WITHDRAWAL(CONT SUBST) Mupirocin 1 applic 12/18/19 22:00 12/21/19 09:55 Bactroban Ointment (For Decolonization) - NS 12/23/19 21:59 1 applic BID JARED Administration Pantoprazole Sodium 40 mg 12/18/19 20:45 12/21/19 09:55 Protonix Iv IVPUSH 40 mg DAILY JARED Administration Vital Signs Temp 99.8 F H 12/21/19 10:00 Pulse 101 H 12/21/19 12:52 Resp 34 H 12/21/19 12:00 BP 164/90 12/21/19 12:00 Pulse Ox 96 12/21/19 12:52 Intake & Output 12/20/19 12/21/19 12/21/19 23:59 11:59 23:59 Intake Total 3570 Output Total 1800 1800 Balance -1800 1770 Weight 241 lb 238 lb 12.8 oz Intake: IV 3120 D5w - 1,000 ml @ 83 mls/ 996 hr IV ASDIR JARED with Sodium Bicarbonate 8.4% - 150 Meq Rx#:[id number] LACTATED RINGERS SOLUTION 1800 1,000 ml In 1,000 ml @ 150 mls/hr IV ASDIR JARED Rx#:[id number] Precedex - 200 Mcg In 84 Normal Saline - 48 ml @ 0 .2 MCG/KG/HR 5.47 mls/hr IVPB TITR JARED Rx#: [id number] RAC#20 s/l 12/18/19 240 Tube Feeding 250 Tube Irrigant 200 Output: Urine 1800 1800 Del Angel 1800 1800 Other: Voiding Method Indwelling Catheter Indwelling Catheter Height 5 ft 11 in Body Mass Index (BMI) 33.6 Constitutional: Yes: Well Nourished, No Distress Eyes: No: Sclera Icterus HENT: No: Nasal Congestion Respiratory: Yes: CTA Bilaterally (anteriorly), Diminished (L lung field diffusely). No: Accessory Muscle Use, Rales, Wheezes Gastrointestinal: Yes: Normal Bowel Sounds. No: Distention, Hepatomegaly, Palpable Mass, Tenderness Cardiovascular: Yes: Regular Rate and Rhythm JVD: No Heart Sounds: Yes: S1, S2. No: Gallop Murmur: No: Systolic Murmur, Diastolic Murmur Extremities: No: Cool, Cyanosis Edema: No Peripheral Pulses: 2+ Left Carotid, 2+ Right Carotid, 2+ Left Doralis Pedis, 2+ Right Dorsalis Pedis Integumentary: No: Jaundice diaphoresis Neurological: lethargic Psychiatric: No: Agitated Laboratory Last Values WBC 10.1 K/mm3 (4.0-10.0) H 12/21/19 05:00 RBC 3.33 M/mm3 (4.00-5.60) L 12/21/19 05:00 Hgb 11.2 GM/dL (11.7-16.9) L 12/21/19 05:00 Hct 31.5 % (35.4-49) L 12/21/19 05:00 MCV 94.7 fl (80-96) 12/21/19 05:00 MCH 33.5 pg (25.7-33.7) 12/21/19 05:00 MCHC 35.4 g/dl (32.0-35.9) 12/21/19 05:00 RDW 13.5 % (11.9-15.9) 12/21/19 05:00 Plt Count 150 K/MM3 (134-434) 12/21/19 05:00 MPV 7.3 fl (7.5-11.1) L 12/21/19 05:00 Absolute Neuts (auto) 7.2 K/mm3 (1.5-8.0) 12/21/19 05:00 Neutrophils % 71.3 % (42.8-82.8) 12/21/19 05:00 Neutrophils % (Manual) 34.6 % (42.8-82.8) L 12/18/19 13:30 Band Neutrophils % 26.7 % 12/18/19 13:30 Lymphocytes % 19.7 % (8-40) 12/21/19 05:00 Lymphocytes % (Manual) 4.0 % (8-40) L 12/18/19 13:30 Monocytes % 5.2 % (3.8-10.2) 12/21/19 05:00 Monocytes % (Manual) 9 % (3.8-10.2) 12/18/19 13:30 Eosinophils % 3.5 % (0-4.5) D 12/21/19 05:00 Eosinophils % (Manual) 0.0 % (0-4.5) 12/18/19 13:30 Basophils % 0.3 % (0-2.0) 12/21/19 05:00 Basophils % (Manual) 0.0 % (0-2.0) 12/18/19 13:30 Myelocytes % (Man) 0 % (0-2) 12/18/19 13:30 Promyelocytes % (Man) 0 % (0-2) 12/18/19 13:30 Blast Cells % (Manual) 0 % (0-0) 12/18/19 13:30 Nucleated RBC % 0 % (0-0) 12/21/19 05:00 Metamyelocytes 14 % (0-2) H 12/18/19 13:30 Hypochromia 0 12/18/19 13:30 Platelet Estimate Normal 12/18/19 13:30 Polychromasia 2+ 12/18/19 13:30 Poikilocytosis 1+ 12/18/19 13:30 Anisocytosis 1+ 12/18/19 13:30 Microcytosis 1+ 12/18/19 13:30 Macrocytosis 0 12/18/19 13:30 PT with INR 12.60 SEC (9.7-13.0) 12/18/19 13:30 INR 1.07 (0.83-1.09) 12/18/19 13:30 PTT (Actin FS) 31.4 SECONDS (25.2-36.5) 12/21/19 05:00 D-Dimer 2231 ng/ml (0-500) H 12/18/19 13:30 Anticoagulation Therapy No Result Required. 12/20/19 07:00 Puncture Site Right brachial 12/20/19 07:00 ABG pH 7.34 (7.35-7.45) L 12/20/19 07:00 ABG pCO2 at Pt Temp 54.9 mmHg (35-45) H 12/20/19 07:00 ABG pO2 at Pt Temp 90.1 mmHg (80-100) 12/20/19 07:00 ABG HCO3 28.7 mmol/L (22-27) H 12/20/19 07:00 ABG O2 Sat (Measured) 95.3 % (95-98) 12/20/19 07:00 ABG O2 Content 16.1 % vol 12/20/19 07:00 ABG Base Excess 2.4 meq/l (-2-2) H 12/20/19 07:00 Abdiel Test Positive 12/20/19 07:00 Carboxyhemoglobin 3.2 % (0-2) H 12/18/19 13:33 Methemoglobin 1.0 % (0-2) 12/18/19 13:33 O2 Delivery Device Vent 12/20/19 07:00 Oxygen Flow Rate 50% 12/20/19 07:00 Vent Mode A/c 12/20/19 07:00 Vent Rate 14 12/20/19 07:00 Mechanical Rate Yes 12/20/19 07:00 PEEP 5.0 cmH2O 12/20/19 07:00 Pressure Support Vent 425 12/20/19 07:00 Sodium 146 mmol/L (136-145) H 12/21/19 05:00 Potassium 3.1 mmol/L (3.5-5.1) L 12/21/19 05:00 Chloride 108 mmol/L (98-107) H 12/21/19 05:00 Carbon Dioxide 33 mmol/L (21-32) H 12/21/19 05:00 Anion Gap 4 MMOL/L (8-16) L 12/21/19 05:00 BUN 12.1 mg/dL (7-18) 12/21/19 05:00 Creatinine 0.9 mg/dL (0.55-1.3) 12/21/19 05:00 Est GFR (CKD-EPI)AfAm 135.19 12/21/19 05:00 Est GFR (CKD-EPI)NonAf 116.64 12/21/19 05:00 Random Glucose 90 mg/dL (74-106) 12/21/19 05:00 Lactic Acid 0.9 mmol/L (0.4-2.0) 12/20/19 05:30 Calcium 7.3 mg/dL (8.5-10.1) L 12/21/19 05:00 Phosphorus 1.9 mg/dL (2.5-4.9) L 12/21/19 05:00 Magnesium 2.2 mg/dL (1.8-2.4) 12/21/19 05:00 Total Bilirubin 0.4 mg/dL (0.2-1) 12/21/19 05:00 GGT 37 U/L (5-85) 12/19/19 05:33 AST 264 U/L (15-37) H 12/21/19 05:00 ALT 80 U/L (13-61) H 12/21/19 05:00 Alkaline Phosphatase 74 U/L (45-117) 12/21/19 05:00 Ammonia 27.50 umol/L (11-32) 12/18/19 13:55 Creatine Kinase 7315 U/L (26-308) H 12/21/19 05:00 Creatine Kinase Index 0.0 % (0.0-5.0) 12/21/19 05:00 CK-MB (CK-2) 3.6 ng/mL (0.5-3.6) 12/21/19 05:00 Troponin I 0.82 ng/ml (0.00-0.05) H* 12/20/19 05:30 B-Natriuretic Peptide 4306.9 pg/ml (5-125) H 12/18/19 18:00 Total Protein 4.5 g/dl (6.4-8.2) L 12/21/19 05:00 Albumin 2.1 g/dl (3.4-5.0) L 12/21/19 05:00 Lipase 137 U/L (73-393) 12/18/19 13:30 TSH 2.37 uIU/ml (0.358-3.74) 12/18/19 13:30 Urine Color Yellow 12/20/19 13:05 Urine Appearance Clear 12/20/19 13:05 Urine pH 6.0 (5.0-8.0) 12/20/19 13:05 Ur Specific [place] 1.013 (1.010-1.035) 12/20/19 13:05 Urine Protein Negative (NEGATIVE) 12/20/19 13:05 Urine Glucose (UA) Negative (NEGATIVE) 12/20/19 13:05 Urine Ketones Negative (NEGATIVE) 12/20/19 13:05 Urine Blood 2+ (NEGATIVE) H 12/20/19 13:05 Urine Nitrite Negative (NEGATIVE) 12/20/19 13:05 Urine Bilirubin Negative (NEGATIVE) 12/20/19 13:05 Urine Urobilinogen 0.2 mg/dL (0.2-1.0) 12/20/19 13:05 Ur Leukocyte Esterase Negative (NEGATIVE) 12/20/19 13:05 Urine WBC (Auto) 1 /hpf (0-5) 12/20/19 13:05 Urine RBC (Auto) 608.9 /hpf (0-4) 12/20/19 13:05 Urine Casts (Auto) 3 /lpf (0-8) 12/20/19 13:05 U Pathogenic Cast Auto Moderate /lpf (NEGATIVE) 12/19/19 16:00 U Epithel Cells (Auto) 0.7 /HPF (0-5/HPF) 12/20/19 13:05 Urine Crystals (Auto) Moderate /hpf 12/19/19 16:00 Urine Bacteria (Auto) 0 /hpf (NEGATIVE) 12/20/19 13:05 Urine Yeast (Auto) None seen (NEGATIVE) 12/20/19 13:05 Random Vancomycin 9.2 ug/ml (18-26) L 12/19/19 22:30 Salicylates < 1.7 mg/dL (2.8-20) L 12/18/19 15:30 Opiates Screen Positive ng/ml (FPYSOB=548) A* 12/18/19 13:55 Methadone Screen Negative ng/ml (ZDKAJQ=655) 12/18/19 13:55 Acetaminophen <2.0 12/18/19 15:30 Barbiturate Screen Negative ng/ml (HFRFOQ=055) 12/18/19 13:55 Phencyclidine Screen Negative ng/ml (CUTOFF=25) 12/18/19 13:55 Ur Amphetamines Screen Negative ng/ml (NYCXWF=880) 12/18/19 13:55 MDMA (Ecstasy) Screen Negative ng/ml (DHTIOD=896) 12/18/19 13:55 Benzodiazepines Screen Positive ng/ml (OWLOJJ=476) A* 12/18/19 13:55 Cocaine Screen Positive ng/ml (BIIBJU=262) A* 12/18/19 13:55 U Marijuana (THC) Screen Negative ng/ml (CUTOFF=50) 12/18/19 13:55 Alcohol, Quantitative < 3 mg/dL (0.0-5.0) 12/18/19 13:30 Hep A IgM Ab Confirm Negative (Negative) 12/19/19 08:30 Hepatitis A Ab Total Negative (Negative) 12/19/19 08:30 Hep Bs Antigen Negative (Negative) 12/19/19 08:30 Hep Bs Antibody Reactive (.) 12/19/19 08:30 Hep B Core Total Ab Negative (Negative) 12/19/19 08:30 Hep B Core IgM Ab Negative (Negative) 12/19/19 08:30 Hepatitis Be Antibody Negative (Negative) 12/19/19 08:30 Hepatitis Be Antigen Negative (Negative) 12/19/19 08:30 Hep C Ab Diagnostic <0.1 s/co ratio (0.0-0.9) 12/19/19 08:30 Influenza A (Rapid) Negative (Negative) 12/20/19 13:33 Influenza B (Rapid) Negative (Negative) 12/20/19 13:33 Assessment/Plan ECG #1:: sinus tach, Rward QRS axis, nonsp T wave abn, no progression #2 and 3: normal axis, o/w change echo 12/2019 tds, nl LV/RV function, no significant valvular pathology tele: sinus rhythm est cct 35 mins PNA, hypoxic resp failure, polysubstance abuse/intoxication: -extensive L infiltrate on CXR, ? aspiration - now extubated - on abx septic shock, lactic acidosis: -off pressors, currently hemodynamically stable -aggressive fluid resuscitation, abx mgmt as doing rhabdomyolysis with JOSE MIGUEL (sec to cocaine intoxication): -renal fxn improving, ck improving -cont fluids NSTEMI: -pt young with no known traditional CAD risk factors -no ecg changes, mult other life-threatening medical problems -this is Type II NM sec to demand ischemia/injury, vs sepsis syndrome associated myonecrosis -no ischemia-focused med intervention or testing indicated -nl LV function on echo, trop peaked at 3.6, now improving transaminitis: -likely shock liver -improving, trend labs, cont supportive care
[2019-12-21] MEDS: POTASSIUM CHLORIDE 40 MEQ in SODIUM CHLORIDE 0.45% 1,000 ML IVPB SCH (15:32)
--- NOTE | 2019-12-21 15:54 | PN ---
Progress Note (short form) - Note Progress Note: NEUROLOGY PROGRESS: Events reviewed and discussed with residents on morning rounds. Patient examined with his father at the bedside. Attempts to taper Propofol, yesterday, C/C'd for "bucking the respirator." Still on pressors but VS stable. On Antibiotics for pneumonia. No seizures on Levetiracetam. EXAM (on propofol) Pupils 5mm and reactive. + spontaneous respirations. Sluggish corneaqls. No EOM's to Doll's head. No response to sternal pressure. IMP: No seizures on Levetiracetam Drug induced Coma. Cannot r/o contribution from anoxic encephalopathy SUGGEST: Taper and D/C pressors Taper and D/C Propofol Continue levetiracetam and antibiotics. Neuro F/U off Propofol. Thank you very much, Iban Mobley MD
--- NOTE | 2019-12-21 16:52 | PN ---
Progress Note (short form) - Note Progress Note: seen at 9am today sedated and intubated at that time parents at bedside Vital Signs Period Temp Pulse Resp BP Sys/Santoyo Pulse Ox Last 24 Hr 99.7 F-100.9 F 73-115 14-34 122-164/54-90 96-100 cor-rrr lungs decreased bs at bases abd soft,nt ext no edema CBC, BMP 12/21/19 05:00 12/21/19 05:00 Microbiology 12/20/19 17:25 Sputum - Endotrachea Suction/Ventilator Gram Stain - Final 12/18/19 13:30 Blood - Peripheral Venous Blood Culture - Preliminary NO GROWTH OBTAINED AFTER 72 HOURS, INCUBATION TO CONTINUE FOR 2 DAYS. 12/18/19 13:30 Blood - Peripheral Venous Blood Culture - Preliminary NO GROWTH OBTAINED AFTER 72 HOURS, INCUBATION TO CONTINUE FOR 2 DAYS. 12/19/19 16:00 Sputum - Endotrachea Suction/Ventilator Gram Stain - Final 12/19/19 16:00 Sputum - Endotrachea Suction/Ventilator Sputum Culture - Preliminary NORMAL RESPIRATORY VALENTINO 12/19/19 16:00 Urine - Urine Del Angel Legionella Antigen - Final 12/19/19 16:00 Urine - Urine Del Angel Streptococcus pneumoniae Antigen (M - Final 12/18/19 13:55 Urine - Urine Clean Catch Urine Culture - Final NO GROWTH OBTAINED imp/reccd respiratory failure aspiration pneumonia-normal valentino in culture- cxray improved left sided infiltrate seizures? substance use d/c vancomycin, continue zosyn for now cxray improving
[2019-12-21] MEDS: LORazepam 2 MG/ML SDV VIAL IVPUSH PRN ×2 (17:09→22:31)
--- NOTE | 2019-12-21 18:40 | PN ---
Physical Exam: SUBJECTIVE: Patient seen and examined NAEON. Did not pass weaning trial on 12/20/19. Off pressors since AM of 12/20/19 Sedated in AM. Off Sedation and extubated ~1230 OBJECTIVE: Vital Signs Period Temp Pulse Resp BP Sys/Santoyo Pulse Ox Last 24 Hr 99.7 F-100.9 F 73-120 14-34 124-164/57-90 96-100 GENERAL: obese, mildly agitated HEAD: NC/AT. Anicteric sclera, clear conjunctiva and w/o pallor. EYES: Reactive pupils b/l. Sclera anicteric, conjunctiva clear. No ptosis. ENT: Ears normal, nares patent NECK: Trachea midline, full range of motion, supple. RIJ in place LUNGS: Breath sounds w/ mild coarse BS bilaterally HEART: tachycardia, regular rhythm, S1, S2 without murmur, rub or gallop. ABDOMEN: Soft, nontender, nondistended, normoactive bowel sounds. Del Angel with light yellow urine EXTREMITIES: 2+ pulses of b/l radial and b/l DP, warm, well-perfused. Mild peripheral nonpitting edema. NEUROLOGICAL: Moaning spontaneously. Not responding to commands. Withdraws from pain. Occasionally opens eyes spontaneously. GCS ~8 Spontaneous movement of BUE and BLE. Wrist restraints in place. SKIN: Warm, dry, normal turgor, no rashes or lesions noted. Laboratory Results - last 24 hr 12/21/19 12/21/19 12/21/19 05:00 05:00 05:00 WBC 10.1 H RBC 3.33 L Hgb 11.2 L Hct 31.5 L MCV 94.7 MCH 33.5 MCHC 35.4 RDW 13.5 Plt Count 150 MPV 7.3 L Absolute Neuts (auto) 7.2 Neutrophils % 71.3 Lymphocytes % 19.7 Monocytes % 5.2 Eosinophils % 3.5 D Basophils % 0.3 Nucleated RBC % 0 PTT (Actin FS) 31.4 Sodium 146 H Potassium 3.1 L Chloride 108 H Carbon Dioxide 33 H Anion Gap 4 L BUN 12.1 Creatinine 0.9 Est GFR (CKD-EPI)AfAm 135.19 Est GFR (CKD-EPI)NonAf 116.64 Random Glucose 90 Calcium 7.3 L Phosphorus 1.9 L Magnesium 2.2 Total Bilirubin 0.4 AST 264 H ALT 80 H Alkaline Phosphatase 74 Creatine Kinase Creatine Kinase Index CK-MB (CK-2) Total Protein 4.5 L Albumin 2.1 L 12/21/19 05:00 WBC RBC Hgb Hct MCV MCH MCHC RDW Plt Count MPV Absolute Neuts (auto) Neutrophils % Lymphocytes % Monocytes % Eosinophils % Basophils % Nucleated RBC % PTT (Actin FS) Sodium Potassium Chloride Carbon Dioxide Anion Gap BUN Creatinine Est GFR (CKD-EPI)AfAm Est GFR (CKD-EPI)NonAf Random Glucose Calcium Phosphorus Magnesium Total Bilirubin AST ALT Alkaline Phosphatase Creatine Kinase 7315 H Creatine Kinase Index 0.0 CK-MB (CK-2) 3.6 Total Protein Albumin Active Medications Generic Name Dose Route Start Last Admin Trade Name Freq PRN Reason Stop Dose Admin Chlorhexidine Gluconate 1 applic 12/18/19 22:00 12/20/19 22:03 Hibiclens For Decolonization - TP 1 applic HS JARED Administration Heparin Sodium (Porcine) 5,000 unit 12/19/19 14:00 12/21/19 15:25 Heparin - SQ 5,000 unit TID JARED Administration Piperacillin Sod/Tazobactam 100 mls @ 200 mls/hr 12/20/19 04:00 12/21/19 17: 07 Sod 4.5 gm/ Dextrose IVPB 200 mls/hr Q8H-IV JARED Administration Protocol Potassium Chloride 40 meq/ 1,020 mls @ 75 mls/hr 12/21/19 12:30 12/21/19 15: 32 Sodium Chloride IVPB 75 mls/hr Q13H JARED Administration Levetiracetam 500 mg 12/18/19 22:00 12/21/19 09:55 Keppra Injection - IVPB 500 mg BID JARED Administration Lorazepam 1 mg 12/21/19 14:49 12/21/19 17:09 Ativan Injection - IVPUSH 1 mg Q4H PRN Administration WITHDRAWAL(CONT SUBST) Mupirocin 1 applic 12/18/19 22:00 12/21/19 09:55 Bactroban Ointment (For Decolonization) - NS 12/23/19 21:59 1 applic BID JARED Administration Pantoprazole Sodium 40 mg 12/18/19 20:45 12/21/19 09:55 Protonix Iv IVPUSH 40 mg DAILY JARED Administration Sertraline HCl 150 mg 12/22/19 10:00 Zoloft - PO DAILY JARED ASSESSMENT/PLAN: 29M with pmh of polysubstance use disorder (opiates, cocaine, cannabis), major depressive disorder (prior suicidal episodes), paranoid psychoid, hemochromatosis, presents after being found minimally responsive, [facility] Intubated for metabolic acidosis w/ severe hypoxemia, imaging suggestive of severe Left-sided pneumonia. CTH showing mild b/l white matter leukomalacia, mild brain swelling/edema, mild chronic sinusitis. Extubated on 12/21/19. Pt displaying AMS, possibly sustained anoxic brain injury. # Acute hypoxic respiratory failure > CXR: left lung infiltrative changes, atelectasis > AB.22/42.6/<49/16.7 then 7.29/49.4/261/23 > Vent Settings: AC, 425, 14, PEEP 5.0, 50% > D-dimer 2231 --unclear for PE but EKG reveals S1Q3T3 --no CTA, as JOSE MIGUEL --heparin gtt --stopped > Sepsis secondary to ?left sided pneumonia(?aspiration) - abx regimen: Vancomycin, Zosyn - Levophed initiated for hemodynamic support - ID(Db) recommendations: -- vanc + zosyn; stopped zosyn -- fu sputum cx, fu urinary Ag: neg # NSTEMI --likely demand and sepsis > Troponin 0.44, 1.07, 3.62, 2.64, 0.82 > BNP 4306 > EKG reveals sinus tachycardia at 144BPM. > Cardiac ECHO: LVEF 55-60%, normal - Telemetry monitoring # Transaminitis --likely 2/2 sepsis > ALT/AST: 72/261, 101/536, 372/90, 264/80 > US RUQ: borderline GB wall thickening, mild fatty liver infiltration - avoid hepatotoxins # Seizure > CT head reveals decreased attenuation of cerebral white matter, concerning for mild brain edema. > CK >14,000, 91823, 7315 - Loaded with Keppra in ED. Continue 500mg IV BID - Neurology(Leandra) recommendations appreciated. --wean of sedation when possible, Keppra 500mg IV q12h, Abx --will examine when off sedation -Seizure precautions # Acute kidney injury --secondary to rhabdomyolysis vs sespsis ---normalized > US Renal: normal kidneys b/l > Cr 3.2, 3.1, 2.8, 2.4, 2.0, 1.6, 1.4, 1.3, 0.9 - Del Angel catheter draining tea colored urine, now yellow - Continue IVF - Follow CPK - Nephrology(Derek) recommendations appreciated --cw IVF, trend # Hyperkalemia --resolved - Likely secondary to seizure activity. - Given Insulin, D50, Kayexelate in ED. Nephrology recommendations appreciated - Follow repeat BMP # Major depressive disorder - home sertraline # FEN - NS + K @75 - NPO Prophylaxis - SCDs + SQH Disposition - ICU Visit type - Emergency Visit Emergency Visit: No - New Patient This patient is new to me today: No - Critical Care Critical Care patient: Yes Total Critical Care Time (in minutes): 35 Critical Care Statement: The care of this patient involved high complexity decision making to prevent further life threatening deterioration of the patient 's condition and/or to evaluate & treat vital organ system(s) failure or risk of failure. ATTENDING PHYSICIAN STATEMENT I saw and evaluated the patient. I reviewed the resident's note and discussed the case with the resident. I agree with the resident's findings and plan as documented. SUBJECTIVE: OBJECTIVE: ASSESSMENT AND PLAN:
[2019-12-21] MEDS ORDERED: LORazepam 2 MG/ML SDV VIAL ONE (19:48)
[2019-12-21] MEDS ORDERED: LORazepam 2 MG/ML SDV VIAL IVPUSH ONE (19:56)
[2019-12-21] MEDS: CHLORHEXIDINE GLUCONATE 4% CLEANSER FOR DECOLONIZATION TP SCH (21:10)
[2019-12-22] MEDS ORDERED: LORazepam 2 MG/ML SDV VIAL IVPUSH ONE ×3 (00:38→03:20)
[2019-12-22] MEDS ORDERED: IBUPROFEN 800 MG/8 ML IJ IVPB ONE (00:42)
[2019-12-22] MEDS ORDERED: LORazepam 2 MG/ML SDV VIAL ONE (00:43)
[2019-12-22] MEDS: PIPERACILLIN/TAZOB 4.5 GM 4.5 GM in DEXTROSE 5%-WATER 100 ML IVPB SCH ×3 (01:26→17:12)
[2019-12-22] MEDS: POTASSIUM CHLORIDE 40 MEQ in SODIUM CHLORIDE 0.45% 1,000 ML IVPB SCH (03:32)
[2019-12-22] MEDS: HEPARIN NA (PORCINE) 5,000 UNITS/ML 1ML VIAL SQ SCH ×3 (05:08→21:24)
[2019-12-22] MEDS: LORazepam 2 MG/ML SDV VIAL IVPUSH PRN (05:42)
[2019-12-22 06:37] LABS: BASO % 0.2 % (0-2.0); EOS % 0.9 % (0-4.5); HEMATOCRIT 33.8 % (35.4-49); LYMPH % 11.3 % (8-40); MCH 33.5 pg (25.7-33.7); MCHC 35.5 g/dl (32.0-35.9); MEAN CELL VOLUME 94.4 fl (80-96); MEAN PLT VOLUME 7.7 fl (7.5-11.1); MONO % 7.4 % (3.8-10.2); NEUT % 80.2 % (42.8-82.8); PLATELET COUNT 189 K/MM3 (134-434); RBC 3.58 M/mm3 (4.00-5.60); WHITE BLOOD COUNT 13.6 K/mm3 (4.0-10.0)
--- NOTE | 2019-12-22 07:13 | PN ---
Physical Exam: SUBJECTIVE: Patient seen and examined Patient spiked fevers overnight, so cultures re-sent. Continues to be agitated and groan, not speaking intelligible words. Given total of 10mg Ativan yesterday. Switching to Haldol IM PRN today. OBJECTIVE: Vital Signs Period Temp Pulse Resp BP Sys/Santoyo Pulse Ox Last 24 Hr 99.5 F-101.2 F 73-120 20-37 139-164/54-90 96-100 GENERAL: The patient is awake, agitated. HEAD: Normal with no signs of trauma. EYES: PERRL, extraocular movements intact, sclera anicteric, conjunctiva clear ENT: Ears normal, nares patent, oropharynx clear without exudates NECK: Trachea midline, full range of motion, supple LUNGS: Breath sounds equal, clear to auscultation bilaterally HEART: Tachycardic, S1, S2 without murmur, rub or gallop. ABDOMEN: Soft, nontender, nondistended, hypoactive bowel sounds EXTREMITIES: 2+ pulses, warm, well-perfused, no edema NEUROLOGICAL: Groaning unintelligible words, rolling around in bed. 5/5 strength in all extremities. Does not cooperate with cranial nerve exam.. SKIN: Warm, dry Laboratory Results - last 24 hr 12/21/19 12/21/19 12/22/19 05:00 05:00 05:21 WBC RBC Hgb Hct MCV MCH MCHC RDW Plt Count MPV Absolute Neuts (auto) Neutrophils % Lymphocytes % Monocytes % Eosinophils % Basophils % Nucleated RBC % PTT (Actin FS) 31.9 Sodium 146 H Potassium 3.1 L Chloride 108 H Carbon Dioxide 33 H Anion Gap 4 L BUN 12.1 Creatinine 0.9 Est GFR (CKD-EPI)AfAm 135.19 Est GFR (CKD-EPI)NonAf 116.64 Random Glucose 90 Calcium 7.3 L Phosphorus 1.9 L Magnesium 2.2 Total Bilirubin 0.4 AST 264 H ALT 80 H Alkaline Phosphatase 74 Creatine Kinase 7315 H Creatine Kinase Index 0.0 CK-MB (CK-2) 3.6 Total Protein 4.5 L Albumin 2.1 L 12/22/19 05:21 WBC 13.6 H RBC 3.58 L Hgb 12.0 Hct 33.8 L MCV 94.4 MCH 33.5 MCHC 35.5 RDW 13.0 Plt Count 189 D MPV 7.7 Absolute Neuts (auto) 10.9 H Neutrophils % 80.2 Lymphocytes % 11.3 D Monocytes % 7.4 Eosinophils % 0.9 Basophils % 0.2 Nucleated RBC % 0 PTT (Actin FS) Sodium Potassium Chloride Carbon Dioxide Anion Gap BUN Creatinine Est GFR (CKD-EPI)AfAm Est GFR (CKD-EPI)NonAf Random Glucose Calcium Phosphorus Magnesium Total Bilirubin AST ALT Alkaline Phosphatase Creatine Kinase Creatine Kinase Index CK-MB (CK-2) Total Protein Albumin Active Medications Generic Name Dose Route Start Last Admin Trade Name Freq PRN Reason Stop Dose Admin Chlorhexidine Gluconate 1 applic 12/18/19 22:00 12/21/19 21:10 Hibiclens For Decolonization - TP 1 applic HS JARED Administration Heparin Sodium (Porcine) 5,000 unit 12/19/19 14:00 12/22/19 05:08 Heparin - SQ 5,000 unit TID JARED Administration Piperacillin Sod/Tazobactam 100 mls @ 200 mls/hr 12/20/19 04:00 12/22/19 01:26 Sod 4.5 gm/ Dextrose IVPB 200 mls/hr Q8H-IV JARED Administration Protocol Potassium Chloride 40 meq/ 1,020 mls @ 75 mls/hr 12/21/19 12:30 12/22/19 03:32 Sodium Chloride IVPB Not Given Q13H JARED Levetiracetam 500 mg 12/18/19 22:00 12/21/19 21:09 Keppra Injection - IVPB 500 mg BID JARED Administration Lorazepam 1 mg 12/21/19 14:49 12/22/19 05:42 Ativan Injection - IVPUSH 1 mg Q4H PRN Administration WITHDRAWAL(CONT SUBST) Mupirocin 1 applic 12/18/19 22:00 12/21/19 21:10 Bactroban Ointment (For Decolonization) - NS 12/23/19 21:59 1 applic BID JARED Administration Pantoprazole Sodium 40 mg 12/18/19 20:45 12/21/19 09:55 Protonix Iv IVPUSH 40 mg DAILY JARED Administration Sertraline HCl 150 mg 12/22/19 10:00 Zoloft - PO DAILY JARED ASSESSMENT/PLAN: 29 yo M PMH polysubstance use disorder (opiates, cocaine, cannabis), major depressive disorder w/ prior suicidal episodes, paranoid psychosis, hemochromatosis, initially presented after being found minimally responsive and tremulous at retirement. Patient was intubated for acute respiratory failure, found to have severe left-sided pneumonia, s/p extubation. Neuro/Psych: - hx polysubstance use disorder, MDD w/ prior suicide attempts - CTH showing mild b/l white matter leukomalacia, mild brain swelling/edema, mild chronic sinusitis. - AMS, c/f anoxic brain injury - Keppra 500mg BID - off sedation - hx withdrawal seizures - receiving Haldol PRN, no longer on Ativan - Neurology following (Dr. Mobley), appreciate recs CV: - off pressors - off heparin drip - Troponin 0.44, 1.07, 3.62, 2.64, 0.82 - no acute issues Respiratory: - acute hypoxic respiratory failure s/p intubation and extubation on 12/21/2019 - on Venti mask - CXR appears improved GI: - Transaminitis likely / to shock liver - Abdominal U/S shows mild fatty liver, borderline thickening of gallbladder. - Continue to trend LFTs Renal: - Acute rhabdomyolysis - CPK uptrended, [place] [address], but then downtrended after fluid change - no longer on bicarb drip - hypokalemic and hypophosphotemia. repleted with KPhos - Renal U/S shows unremarkable kidneys - Nephrology consulted (Dr. Reed), appreciate recs Heme/Onc: - Hx hemochromatosis - Hgb of 11.2 today ID: - left lung PNA - vanc dc'd - continue piptazo - on Caldolor - ID recommended, appreciate recs F: Switched from 1/2NS + 40 mEq @ 75 ccs/hr to 1/2 NS + 20 mEq @ 150 ccs/hr E: monitor lytes, replete PRN N: off tube feeds. Will get speech and swallow prior to initiating feeding Lines: - Right side central line placed 2/3 - Del Angel placed /2, dc'd 12/22 DVT: - Heparin SQ Dispo: Continue ICU monitoring Visit type - Emergency Visit Emergency Visit: No - New Patient This patient is new to me today: Yes Date on this admission: 02/06/20 - Critical Care Critical Care patient: Yes Total Critical Care Time (in minutes): 45 Critical Care Statement: The care of this patient involved high complexity decision making to prevent further life threatening deterioration of the patient's condition and/or to evaluate & treat vital organ system(s) failure or risk of failure. ATTENDING PHYSICIAN STATEMENT I saw and evaluated the patient. I reviewed the resident's note and discussed the case with the resident. I agree with the resident's findings and plan as documented. SUBJECTIVE: OBJECTIVE: ASSESSMENT AND PLAN:
[2019-12-22 07:14] LABS: ALBUMIN 2.5 g/dl (3.4-5.0); BILIRUBIN,TOTAL 0.9 mg/dL (0.2-1); BLOOD UREA NITROGEN 15.8 mg/dL (7-18); CALCIUM 8.1 mg/dL (8.5-10.1); CREATININE 0.9 mg/dL (0.55-1.3); PHOSPHOROUS 3.3 mg/dL (2.5-4.9); POTASSIUM 3.8 mmol/L (3.5-5.1); TOT PROT 5.3 g/dl (6.4-8.2)
[2019-12-22] MEDS ORDERED: PIPERACILLIN/TAZOBACTAM 4.5 GM VIAL IVPB ONE ×3 (09:07→21:17)
[2019-12-22] MEDS ORDERED: DEXTROSE 5%-WATER 100 ML IVPB ONE ×3 (09:08→21:17)
[2019-12-22] MEDS ORDERED: IBUPROFEN 800 MG/8 ML IJ IVPB PRN ×2 (10:12→14:36)
[2019-12-22] MEDS: PANTOPRAZOLE SODIUM 40 MG VIAL IVPUSH SCH (10:12)
[2019-12-22] MEDS: levETIRAcetam 500 MG/5 ML INJECTION VIAL IVPB SCH ×2 (10:12→21:24)
[2019-12-22] MEDS: SERTRALINE HCL 50 MG TABLET (FP) PO SCH (10:13)
[2019-12-22] MEDS: MUPIROCIN 2% TOPICAL OINTMENT FOR DECOLONIZATION NS SCH ×2 (10:13→21:23)
[2019-12-22] MEDS: SODIUM CHLORIDE 0.45%/POT 20 MEQ/1,000 ML INFUS.BAG IV SCH ×3 (10:22→21:24)
[2019-12-22] MEDS: HALOPERIDOL LACTATE 5 MG/ML IM PRN ×3 (11:08→20:50)
--- NOTE | 2019-12-22 11:36 | PN ---
Teaching Attending Note Name of Resident: Dillan Myers ATTENDING PHYSICIAN STATEMENT I saw and evaluated the patient. I reviewed the resident's note and discussed the case with the resident. I agree with the resident's findings and plan as documented. SUBJECTIVE: Pt seen and examined in the ICU. Extubated yesterday. More awake, arousable today. Febrile overnight. OBJECTIVE: Vital Signs Period Temp Pulse Resp BP Sys/Santyoo Pulse Ox Last 24 Hr 99.5 F-101.2 F 88-120 23-37 137-164/54-90 96-96 Intake & Output 12/19/19 12/20/19 12/21/19 12/22/19 23:59 23:59 23:59 23:59 Intake Total 5728 3428 5385 1000 Output Total 3100 4100 7200 1500 Balance 2628 -672 -1815 -500 Weight 109.316 kg 108.318 kg 104.95 kg Gen: tachypneic, arousable Heart: RRR Lung: decreased breath sounds at the bases Abd: soft, nontender Ext: no edema CBC, BMP 12/22/19 05:21 12/22/19 05:21 Active Medications Chlorhexidine Gluconate (Hibiclens For Decolonization -) 1 applic TP HS JARED Last Admin: 12/21/19 21:10 Dose: 1 applic Haloperidol (Haldol Injection (Fast Acting) -) 10 mg IM Q4H PRN PRN Reason: AGITATION Last Admin: 12/22/19 11:08 Dose: 10 mg Heparin Sodium (Porcine) (Heparin -) 5,000 unit SQ TID JARED Last Admin: 12/22/19 05:08 Dose: 5,000 unit Piperacillin Sod/Tazobactam (Sod 4.5 gm/ Dextrose) 100 mls @ 200 mls/hr IVPB Q8H-IV JARED; Protocol Last Admin: 12/22/19 10:12 Dose: 200 mls/hr Potassium Chloride/Sodium Chloride (1/2ns+20meq Kcl) 20 meq in 1,000 mls @ 150 mls/hr IV Q6H JARED Last Admin: 12/22/19 10:22 Dose: 150 mls/hr Ibuprofen (Caldolor Injection -) 400 mg IVPB Q8H PRN PRN Reason: FEVER Last Admin: 12/22/19 10:45 Dose: 400 mg Levetiracetam (Keppra Injection -) 500 mg IVPB BID [facility] Last Admin: 12/22/19 10:12 Dose: 500 mg Mupirocin (Bactroban Ointment (For Decolonization) -) 1 applic NS BID [facility] Stop: 12/23/19 21:59 Last Admin: 12/22/19 10:13 Dose: 1 applic Pantoprazole Sodium (Protonix Iv) 40 mg IVPUSH DAILY [facility] Last Admin: 12/22/19 10:12 Dose: 40 mg Sertraline HCl (Zoloft -) 150 mg PO DAILY [facility] Last Admin: 12/22/19 10:13 Dose: Not Given ASSESSMENT AND PLAN: Acute Hypoxic and Hypercapneic Respiratory Failure Pneumonia likely Aspiration Septic Shock resolving Lactic Acidosis resolved Acute Kidney Injury improving Rhabdomyolysis Elevated LFTs likely Ischemic Injury +Troponins likely Demand Ischemia Polysubstance Abuse Depression Hemochromatosis - continue antibiotics - reculture - d/c central line, [place] - off pressors, maintain MAP >65 - s/p stress dose steroids - increase IVF rate - monitor urine output, creatinine - trend CPK - aspiration precautions - DVT prophylaxis - continue ICU monitoring critical care time spent in reviewing chart, evaluating patient and formulating plan 35 min
--- NOTE | 2019-12-22 11:43 | PN ---
Progress Note (short form) - Note Progress Note: s: lethargic and agitated Current Medications Generic Name Dose Route Start Last Admin Trade Name Freq PRN Reason Stop Dose Admin Chlorhexidine Gluconate 1 applic 12/18/19 22:00 12/21/19 21:10 Hibiclens For Decolonization - TP 1 applic HS JARED Administration Haloperidol 10 mg 12/22/19 09:58 12/22/19 11:08 Haldol Injection (Fast Acting) - IM 10 mg Q4H PRN Administration AGITATION Heparin Sodium (Porcine) 5,000 unit 12/19/19 14:00 12/22/19 05:08 Heparin - SQ 5,000 unit TID JARED Administration Piperacillin Sod/Tazobactam 100 mls @ 200 mls/hr 12/20/19 04:00 12/22/19 10: 12 Sod 4.5 gm/ Dextrose IVPB 200 mls/hr Q8H-IV JARED Administration Protocol Potassium Chloride/Sodium Chloride 20 meq in 1,000 mls @ 150 mls/hr 12/22/19 10:06 12/22/19 10:22 1/2ns+20meq Kcl IV 150 mls/hr Q6H JARED Administration Ibuprofen 400 mg 12/22/19 10:12 12/22/19 10:45 Caldolor Injection - IVPB 400 mg Q8H PRN Administration FEVER Levetiracetam 500 mg 12/18/19 22:00 12/22/19 10:12 Keppra Injection - IVPB 500 mg BID JARED Administration Mupirocin 1 applic 12/18/19 22:00 12/22/19 10:13 Bactroban Ointment (For Decolonization) - NS 12/23/19 21:59 1 applic BID JARED Administration Pantoprazole Sodium 40 mg 12/18/19 20:45 12/22/19 10:12 Protonix Iv IVPUSH 40 mg DAILY JARED Administration Sertraline HCl 150 mg 12/22/19 10:00 12/22/19 10:13 Zoloft - PO Not Given DAILY JARED Vital Signs Period Temp Pulse Resp BP Sys/Santoyo Pulse Ox Last 24 Hr 99.5 F-101.2 F 88-120 23-37 137-164/54-90 96-96 Constitutional: Yes: Well Nourished, No Distress Eyes: No: Sclera Icterus HENT: No: Nasal Congestion Respiratory: Yes: CTA Bilaterally (anteriorly) Gastrointestinal: Yes: Normal Bowel Sounds. No: Distention, Hepatomegaly, Palpable Mass, Tenderness Cardiovascular: Yes: Regular Rate and Rhythm JVD: No Heart Sounds: Yes: S1, S2. No: Gallop Murmur: No: Systolic Murmur, Diastolic Murmur Extremities: No: Cool, Cyanosis Edema: No Peripheral Pulses: 2+ Left Carotid, 2+ Right Carotid, 2+ Left Doralis Pedis, 2+ Right Dorsalis Pedis Integumentary: No: Jaundice diaphoresis Neurological: lethargic Laboratory Last Values WBC 13.6 K/mm3 (4.0-10.0) H 12/22/19 05:21 RBC 3.58 M/mm3 (4.00-5.60) L 12/22/19 05:21 Hgb 12.0 GM/dL (11.7-16.9) 12/22/19 05:21 Hct 33.8 % (35.4-49) L 12/22/19 05:21 MCV 94.4 fl (80-96) 12/22/19 05:21 MCH 33.5 pg (25.7-33.7) 12/22/19 05:21 MCHC 35.5 g/dl (32.0-35.9) 12/22/19 05:21 RDW 13.0 % (11.9-15.9) 12/22/19 05:21 Plt Count 189 K/MM3 (134-434) D 12/22/19 05:21 MPV 7.7 fl (7.5-11.1) 12/22/19 05:21 Absolute Neuts (auto) 10.9 K/mm3 (1.5-8.0) H 12/22/19 05:21 Neutrophils % 80.2 % (42.8-82.8) 12/22/19 05:21 Neutrophils % (Manual) 34.6 % (42.8-82.8) L 12/18/19 13:30 Band Neutrophils % 26.7 % 12/18/19 13:30 Lymphocytes % 11.3 % (8-40) D 12/22/19 05:21 Lymphocytes % (Manual) 4.0 % (8-40) L 12/18/19 13:30 Monocytes % 7.4 % (3.8-10.2) 12/22/19 05:21 Monocytes % (Manual) 9 % (3.8-10.2) 12/18/19 13:30 Eosinophils % 0.9 % (0-4.5) 12/22/19 05:21 Eosinophils % (Manual) 0.0 % (0-4.5) 12/18/19 13:30 Basophils % 0.2 % (0-2.0) 12/22/19 05:21 Basophils % (Manual) 0.0 % (0-2.0) 12/18/19 13:30 Myelocytes % (Man) 0 % (0-2) 12/18/19 13:30 Promyelocytes % (Man) 0 % (0-2) 12/18/19 13:30 Blast Cells % (Manual) 0 % (0-0) 12/18/19 13:30 Nucleated RBC % 0 % (0-0) 12/22/19 05:21 Metamyelocytes 14 % (0-2) H 12/18/19 13:30 Hypochromia 0 12/18/19 13:30 Platelet Estimate Normal 12/18/19 13:30 Polychromasia 2+ 12/18/19 13:30 Poikilocytosis 1+ 12/18/19 13:30 Anisocytosis 1+ 12/18/19 13:30 Microcytosis 1+ 12/18/19 13:30 Macrocytosis 0 12/18/19 13:30 PT with INR 12.60 SEC (9.7-13.0) 12/18/19 13:30 INR 1.07 (0.83-1.09) 12/18/19 13:30 PTT (Actin FS) 31.9 SECONDS (25.2-36.5) 12/22/19 05:21 D-Dimer 2231 ng/ml (0-500) H 12/18/19 13:30 Anticoagulation Therapy No Result Required. 12/20/19 07:00 Puncture Site Right brachial 12/20/19 07:00 ABG pH 7.34 (7.35-7.45) L 12/20/19 07:00 ABG pCO2 at Pt Temp 54.9 mmHg (35-45) H 12/20/19 07:00 ABG pO2 at Pt Temp 90.1 mmHg (80-100) 12/20/19 07:00 ABG HCO3 28.7 mmol/L (22-27) H 12/20/19 07:00 ABG O2 Sat (Measured) 95.3 % (95-98) 12/20/19 07:00 ABG O2 Content 16.1 % vol 12/20/19 07:00 ABG Base Excess 2.4 meq/l (-2-2) H 12/20/19 07:00 Abdiel Test Positive 12/20/19 07:00 Carboxyhemoglobin 3.2 % (0-2) H 12/18/19 13:33 Methemoglobin 1.0 % (0-2) 12/18/19 13:33 O2 Delivery Device Vent 12/20/19 07:00 Oxygen Flow Rate 50% 12/20/19 07:00 Vent Mode A/c 12/20/19 07:00 Vent Rate 14 12/20/19 07:00 Mechanical Rate Yes 12/20/19 07:00 PEEP 5.0 cmH2O 12/20/19 07:00 Pressure Support Vent 425 12/20/19 07:00 Sodium 146 mmol/L (136-145) H 12/22/19 05:21 Potassium 3.8 mmol/L (3.5-5.1) 12/22/19 05:21 Chloride 111 mmol/L (98-107) H 12/22/19 05:21 Carbon Dioxide 27 mmol/L (21-32) 12/22/19 05:21 Anion Gap 7 MMOL/L (8-16) L 12/22/19 05:21 BUN 15.8 mg/dL (7-18) 12/22/19 05:21 Creatinine 0.9 mg/dL (0.55-1.3) 12/22/19 05:21 Est GFR (CKD-EPI)AfAm 135.19 12/22/19 05:21 Est GFR (CKD-EPI)NonAf 116.64 12/22/19 05:21 Random Glucose 80 mg/dL (74-106) 12/22/19 05:21 Lactic Acid 0.9 mmol/L (0.4-2.0) 12/20/19 05:30 Calcium 8.1 mg/dL (8.5-10.1) L 12/22/19 05:21 Phosphorus 3.3 mg/dL (2.5-4.9) 12/22/19 05:21 Magnesium 2.0 mg/dL (1.8-2.4) 12/22/19 05:21 Total Bilirubin 0.9 mg/dL (0.2-1) 12/22/19 05:21 GGT 37 U/L (5-85) 12/19/19 05:33 AST 471 U/L (15-37) H 12/22/19 05:21 ALT 130 U/L (13-61) H 12/22/19 05:21 Alkaline Phosphatase 97 U/L (45-117) 12/22/19 05:21 Ammonia 27.50 umol/L (11-32) 12/18/19 13:55 Creatine Kinase 13153 U/L (26-308) H 12/22/19 05:21 Creatine Kinase Index 0.0 % (0.0-5.0) 12/22/19 05:21 CK-MB (CK-2) 4.5 ng/mL (0.5-3.6) H 12/22/19 05:21 Troponin I 0.82 ng/ml (0.00-0.05) H* 12/20/19 05:30 B-Natriuretic Peptide 4306.9 pg/ml (5-125) H 12/18/19 18:00 Total Protein 5.3 g/dl (6.4-8.2) L 12/22/19 05:21 Albumin 2.5 g/dl (3.4-5.0) L 12/22/19 05:21 Lipase 137 U/L (73-393) 12/18/19 13:30 TSH 2.37 uIU/ml (0.358-3.74) 12/18/19 13:30 Urine Color Yellow 12/20/19 13:05 Urine Appearance Clear 12/20/19 13:05 Urine pH 6.0 (5.0-8.0) 12/20/19 13:05 Ur Specific [place] 1.013 (1.010-1.035) 12/20/19 13:05 Urine Protein Negative (NEGATIVE) 12/20/19 13:05 Urine Glucose (UA) Negative (NEGATIVE) 12/20/19 13:05 Urine Ketones Negative (NEGATIVE) 12/20/19 13:05 Urine Blood 2+ (NEGATIVE) H 12/20/19 13:05 Urine Nitrite Negative (NEGATIVE) 12/20/19 13:05 Urine Bilirubin Negative (NEGATIVE) 12/20/19 13:05 Urine Urobilinogen 0.2 mg/dL (0.2-1.0) 12/20/19 13:05 Ur Leukocyte Esterase Negative (NEGATIVE) 12/20/19 13:05 Urine WBC (Auto) 1 /hpf (0-5) 12/20/19 13:05 Urine RBC (Auto) 608.9 /hpf (0-4) 12/20/19 13:05 Urine Casts (Auto) 3 /lpf (0-8) 12/20/19 13:05 U Pathogenic Cast Auto Moderate /lpf (NEGATIVE) 12/19/19 16:00 U Epithel Cells (Auto) 0.7 /HPF (0-5/HPF) 12/20/19 13:05 Urine Crystals (Auto) Moderate /hpf 12/19/19 16:00 Urine Bacteria (Auto) 0 /hpf (NEGATIVE) 12/20/19 13:05 Urine Yeast (Auto) None seen (NEGATIVE) 12/20/19 13:05 Random Vancomycin 9.2 ug/ml (18-26) L 12/19/19 22:30 Salicylates < 1.7 mg/dL (2.8-20) L 12/18/19 15:30 Opiates Screen Positive ng/ml (FORYWX=625) A* 12/18/19 13:55 Methadone Screen Negative ng/ml (TORPTJ=258) 12/18/19 13:55 Acetaminophen <2.0 12/18/19 15:30 Barbiturate Screen Negative ng/ml (SEHYFO=330) 12/18/19 13:55 Phencyclidine Screen Negative ng/ml (CUTOFF=25) 12/18/19 13:55 Ur Amphetamines Screen Negative ng/ml (BZCZDP=643) 12/18/19 13:55 MDMA (Ecstasy) Screen Negative ng/ml (BDQPNV=549) 12/18/19 13:55 Benzodiazepines Screen Positive ng/ml (TSEVNI=431) A* 12/18/19 13:55 Cocaine Screen Positive ng/ml (GLKMWT=395) A* 12/18/19 13:55 U Marijuana (THC) Screen Negative ng/ml (CUTOFF=50) 12/18/19 13:55 Alcohol, Quantitative < 3 mg/dL (0.0-5.0) 12/18/19 13:30 Hep A IgM Ab Confirm Negative (Negative) 12/19/19 08:30 Hepatitis A Ab Total Negative (Negative) 12/19/19 08:30 Hep Bs Antigen Negative (Negative) 12/19/19 08:30 Hep Bs Antibody Reactive (.) 12/19/19 08:30 Hep B Core Total Ab Negative (Negative) 12/19/19 08:30 Hep B Core IgM Ab Negative (Negative) 12/19/19 08:30 Hepatitis Be Antibody Negative (Negative) 12/19/19 08:30 Hepatitis Be Antigen Negative (Negative) 12/19/19 08:30 Hep C Ab Diagnostic <0.1 s/co ratio (0.0-0.9) 12/19/19 08:30 Influenza A (Rapid) Negative (Negative) 12/20/19 13:33 Influenza B (Rapid) Negative (Negative) 12/20/19 13:33 Assessment/Plan ECG #1:: sinus tach, Rward QRS axis, nonsp T wave abn, no progression #2 and 3: normal axis echo 12/2019 tds, nl LV/RV function, no significant valvular pathology tele: sinus rhythm PNA, hypoxic resp failure, polysubstance abuse/intoxication: -extensive L infiltrate on CXR, ? aspiration - now extubated - on abx septic shock, lactic acidosis: -off pressors, currently hemodynamically stable -aggressive fluid resuscitation, abx mgmt as doing rhabdomyolysis with JOSE MIGUEL (sec to cocaine intoxication): -renal fxn improving -cont fluids NSTEMI: -pt young with no known traditional CAD risk factors -no ecg changes, mult other life-threatening medical problems -this is Type II [place] sec to demand ischemia/injury, vs sepsis syndrome associated myonecrosis -no ischemia-focused med intervention or testing indicated -nl LV function on echo, trop peaked at 3.6, now improving transaminitis: -likely shock liver -improving, trend labs, cont supportive care
[2019-12-22 12:44] LABS: EPI CELLS 1.9 /HPF (0-5/HPF); HYALINE CASTS 4 /lpf (0-8); URINE APPEARANCE CLEAR; URINE BACTERIA 1.5 /hpf (NEGATIVE); URINE BILIRUBIN NEGATIVE (NEGATIVE); URINE COLOR YELLOW; URINE GLUCOSE (UA) NEGATIVE (NEGATIVE); URINE KETONE 3+ (NEGATIVE); URINE LEUK ESTERASE TRACE (NEGATIVE); URINE NITRITE NEGATIVE (NEGATIVE); URINE PROTEIN 1+ (NEGATIVE); URINE RBC 11 /hpf (0-4); URINE UROBILINOGEN 0.2 mg/dL (0.2-1.0); URINE WBC 1 /hpf (0-5)
[2019-12-22] MEDS ORDERED: MULTIVIT INJ. ADULT COMBO WITH VIT K 1 COMBO 10 ML VIAL IV SCH (13:00)
--- NOTE | 2019-12-22 13:08 | PN ---
Teaching Attending Note Name of Resident: Perry Ortega ATTENDING PHYSICIAN STATEMENT I saw and evaluated the patient. I reviewed the resident's note and discussed the case with the resident. I agree with the resident's findings and plan as documented. SUBJECTIVE: Events over night noted for agitation requiring ativan . not awake enough to eat or cooperate with exam . OBJECTIVE: sleeping comfortably. becomes a little restless when awoken . responds to his father's reassurance. does not follow commands Lungs: decreased breath sounds at L base CV: RRR, no MRG Abd: soft, ND. ND Ext: trace edema on LE and upper extremities . Skin : No decub ulcer on sacral or gluteal areas neuro: limited. No facial droop , round equal pupils, moves all his extremities. knee jerk 2+ b/l. restrained in upper ext ASSESSMENT AND PLAN: 29 y/o man with h/o Polysubstance abuse,hemochromoatosis, depression, seizure disorder, who presented from [facility] home and is being treated fro resp failure. 1- Septic shock : resolved 2- LLL PNA, possible aspiration PNA 3- Acute hypoxic resp failure 4- Tonic clonic seizure 5- Polysubstance abuse . father indicates opioids and cocaine use mainly 6- JOSE MIGUEL: resolved 7- Elevated D dimer. in setting of severe sepsis. 8- Rhabdomyolysis 9- Transaminitits: likely due to sepsis/ETOH /and septic shock. 10- Eelvated trop : demand ischemia from above 11- Hyperkalemia: resolved plan: - S/p extubation - cont to have fever. No decub ulcers. remove [place]. will re-culture if spikes again. will send stool cx and c diff if diarrhea. - Transaminitis is worse today , ? due to Abx or due to worsening muscle breakdown. - d/w ICU team: stop ativan and monitor mental status. urine tox + for benzos after intubation . main abuse is cocaine and opioids - monitor mental status . if no improvement in few days then might need MRI - cont Keppra - cont SSRI - CPK is higher. increase IVF - Monitor electrolytes - cont zosyn . d/w father at bed side. d/w Dr. Lux Critical Care Total Critical Care Time (in minutes): 30 Critical Care Statement: The care of this patient involved high complexity decision making to prevent further life threatening deterioration of the patient 's condition and/or to evaluate & treat vital organ system(s) failure or risk of failure.
[2019-12-22 13:55] LABS: ALBUMIN 2.4 g/dl (3.4-5.0); BILIRUBIN,TOTAL 1.1 mg/dL (0.2-1); BLOOD UREA NITROGEN 16.4 mg/dL (7-18); CREATININE 0.7 mg/dL (0.55-1.3); POTASSIUM 3.5 mmol/L (3.5-5.1); TOT PROT 5.2 g/dl (6.4-8.2)
[2019-12-22] MEDS: THIAMINE HCL 200 MG/2 ML VIAL IVPB SCH (14:10)
--- NOTE | 2019-12-22 15:06 | PN ---
Progress Note, BOOM WORKER - Note Progress Note: Dysphagia consultation received. At bedside pt presents at sedated, lethargic but briefly wakes to auditory stimuli (calling his name). However, he quickly falls back asleep. Pt is unable to follow commands. Given reduced mental state and possible PNA, BOOM WORKER cannot safely conduct swallow eval at this time. BOOM WORKER will attempt again tomorrow to determine swallow status if appropriate. Results given verbally to wire charger (who is in agreement) and to PCP via chart.
--- NOTE | 2019-12-22 15:09 | PN ---
Progress Note (short form) - Note Progress Note: Renal follow up JOSE MIGUEL Seen and examined in the ICU awake and alert no overnight events making urine family at the bedside Vital Signs Temperature 100.0 F H 12/22/19 14:00 Pulse Rate 89 12/22/19 14:00 Respiratory Rate 35 H 12/22/19 14:00 Blood Pressure 152/82 12/22/19 14:00 O2 Sat by Pulse Oximetry (%) 96 12/22/19 07:41 Intake & Output 12/19/19 12/20/19 12/21/19 12/22/19 23:59 23:59 23:59 23:59 Intake Total 5728 3428 5385 1000 Output Total 3100 4100 7200 2500 Balance 1683 -744 -4999 -8793 Weight 109.316 kg 108.318 kg 104.95 kg On facemask O2 RRR, no M/R Dec BS left lung, no wheeze soft NT/ND + edema CBC, BMP 12/22/19 05:21 12/22/19 13:15 Current Medications Chlorhexidine Gluconate (Hibiclens For Decolonization -) 1 applic TP HS [facility] Last Admin: 12/21/19 21:10 Dose: 1 applic Haloperidol (Haldol Injection (Fast Acting) -) 10 mg IM Q4H PRN PRN Reason: AGITATION Last Admin: 12/22/19 15:06 Dose: 10 mg Heparin Sodium (Porcine) (Heparin -) 5,000 unit SQ TID JARED Last Admin: 12/22/19 13:38 Dose: 5,000 unit Piperacillin Sod/Tazobactam (Sod 4.5 gm/ Dextrose) 100 mls @ 200 mls/hr IVPB Q8H-IV JARED; Protocol Last Admin: 12/22/19 10:12 Dose: 200 mls/hr Potassium Chloride/Sodium Chloride (1/2ns+20meq Kcl) 20 meq in 1,000 mls @ 150 mls/hr IV Q6H JARED Last Admin: 12/22/19 10:22 Dose: 150 mls/hr Ibuprofen (Caldolor Injection -) 400 mg IVPB Q6H PRN PRN Reason: FEVER Levetiracetam (Keppra Injection -) 500 mg IVPB BID [facility] Last Admin: 12/22/19 10:12 Dose: 500 mg Mupirocin (Bactroban Ointment (For Decolonization) -) 1 applic NS BID [facility] Stop: 12/23/19 21:59 Last Admin: 12/22/19 10:13 Dose: 1 applic Pantoprazole Sodium (Protonix Iv) 40 mg IVPUSH DAILY [facility] Last Admin: 12/22/19 10:12 Dose: 40 mg Sertraline HCl (Zoloft -) 150 mg PO DAILY [facility] Last Admin: 12/22/19 10:13 Dose: Not Given Thiamine HCl (Vitamin B1 Injection -) 200 mg IVPB DAILY [facility] Last Admin: 12/22/19 14:10 Dose: 200 mg 29 year old gentleman with history of substance abuse who presented from [facility] unresponsive and intubated in the field and found to have shock and acute renal failure with hyperkalemia. 1. Acute kidney injury from pigment injury vs. ATN from shock 2. Hyperkalemia 3. Rhabdomyolysis 4. Shock/Sepsis 5. AMS 6. Lactic acidosis 7. Hypocalcemia 8. Hypomagnesemia Renal function improved and pt is non-oliguric CK remains elevated, continue isotonic fluids with careful monitoring of respiratory status. Can d/c IVF once CK levels < 5k and oral intake is stable replete potassium as needed ICU monitoring will follow up as needed, please call if there are any questions or concerns Thank you Jose Roberto Reed DO
--- NOTE | 2019-12-22 15:45 | PN ---
<Perry Ortega - Last Filed: 12/22/19 15:18> Physical Exam: SUBJECTIVE: Patient seen and examined O/N: received Ativan IVP x3 for agitation. Loose stools. Tmax 101.2F ~00:00 Patient not answering questions OBJECTIVE: Vital Signs Period Temp Pulse Resp BP Sys/Santoyo Pulse Ox Last 24 Hr 99.5 F-101.2 F 88-120 23-37 137-159/54-82 96-96 GENERAL: obese, mildly agitated HEAD: NC/AT. Anicteric sclera, clear conjunctiva and w/o pallor. EYES: Reactive pupils b/l. Sclera anicteric, conjunctiva clear. No ptosis. ENT: Ears normal, nares patent NECK: Trachea midline, full range of motion, supple. RIJ in place LUNGS: Breath sounds w/ mild coarse BS bilaterally. NC @2L HEART: tachycardia, regular rhythm, S1, S2 without murmur, rub or gallop. ABDOMEN: Soft, nontender, nondistended, normoactive bowel sounds. Del Angel with light yellow urine EXTREMITIES: 2+ pulses of b/l radial and b/l DP, warm, well-perfused. Mild peripheral nonpitting edema. No sacral decub noted NEUROLOGICAL: Moaning spontaneously. Not responding to commands. Withdraws from pain. Opens eyes to questioning. GCS ~10. Spontaneous movement of BUE and BLE. Wrist restraints in place. SKIN: Warm, dry, normal turgor, no rashes or lesions noted. Laboratory Results - last 24 hr 12/22/19 12/22/19 12/22/19 05:21 05:21 05:21 WBC 13.6 H RBC 3.58 L Hgb 12.0 Hct 33.8 L MCV 94.4 MCH 33.5 MCHC 35.5 RDW 13.0 Plt Count 189 D MPV 7.7 Absolute Neuts (auto) 10.9 H Neutrophils % 80.2 Lymphocytes % 11.3 D Monocytes % 7.4 Eosinophils % 0.9 Basophils % 0.2 Nucleated RBC % 0 PTT (Actin FS) 31.9 Sodium 146 H Potassium 3.8 Chloride 111 H Carbon Dioxide 27 Anion Gap 7 L BUN 15.8 Creatinine 0.9 Est GFR (CKD-EPI)AfAm 135.19 Est GFR (CKD-EPI)NonAf 116.64 Random Glucose 80 Calcium 8.1 L Phosphorus 3.3 Magnesium 2.0 Total Bilirubin 0.9 AST 471 H ALT 130 H Alkaline Phosphatase 97 Creatine Kinase Creatine Kinase Index CK-MB (CK-2) Total Protein 5.3 L Albumin 2.5 L Urine Color Urine Appearance Urine pH Ur Specific Tyler Urine Protein Urine Glucose (UA) Urine Ketones Urine Blood Urine Nitrite Urine Bilirubin Urine Urobilinogen Ur Leukocyte Esterase Urine WBC (Auto) Urine RBC (Auto) Urine Casts (Auto) U Epithel Cells (Auto) Urine Bacteria (Auto) 12/22/19 12/22/19 12/22/19 05:21 12:00 13:15 WBC RBC Hgb Hct MCV MCH MCHC RDW Plt Count MPV Absolute Neuts (auto) Neutrophils % Lymphocytes % Monocytes % Eosinophils % Basophils % Nucleated RBC % PTT (Actin FS) Sodium 142 Potassium 3.5 Chloride 111 H Carbon Dioxide 24 Anion Gap 7 L BUN 16.4 Creatinine 0.7 Est GFR (CKD-EPI)AfAm 149.90 Est GFR (CKD-EPI)NonAf 129.33 Random Glucose 85 Calcium 8.0 L Phosphorus Magnesium Total Bilirubin 1.1 H AST 452 H ALT 138 H Alkaline Phosphatase 86 Creatine Kinase 97957 H 32946 H Creatine Kinase Index 0.0 0.0 CK-MB (CK-2) 4.5 H 3.0 Total Protein 5.2 L Albumin 2.4 L Urine Color Yellow Urine Appearance Clear Urine pH 8.0 D Ur Specific Tyler 1.024 Urine Protein 1+ H Urine Glucose (UA) Negative Urine Ketones 3+ H Urine Blood 2+ H Urine Nitrite Negative Urine Bilirubin Negative Urine Urobilinogen 0.2 Ur Leukocyte Esterase Trace Urine WBC (Auto) 1 Urine RBC (Auto) 11 Urine Casts (Auto) 4 U Epithel Cells (Auto) 1.9 Urine Bacteria (Auto) 1.5 Active Medications Generic Name Dose Route Start Last Admin Trade Name Freq PRN Reason Stop Dose Admin Chlorhexidine Gluconate 1 applic 12/18/19 22:00 12/21/19 21:10 Hibiclens For Decolonization - TP 1 applic HS JARED Administration Haloperidol 10 mg 12/22/19 09:58 12/22/19 15:06 Haldol Injection (Fast Acting) - IM 10 mg Q4H PRN Administration AGITATION Heparin Sodium (Porcine) 5,000 unit 12/19/19 14:00 12/22/19 13:38 Heparin - SQ 5,000 unit TID JARED Administration Piperacillin Sod/Tazobactam 100 mls @ 200 mls/hr 12/20/19 04:00 12/22/19 10: 12 Sod 4.5 gm/ Dextrose IVPB 200 mls/hr Q8H-IV JARED Administration Protocol Potassium Chloride/Sodium Chloride 20 meq in 1,000 mls @ 150 mls/hr 12/22/19 10:06 12/22/19 10:22 1/2ns+20meq Kcl IV 150 mls/hr Q6H JARED Administration Ibuprofen 400 mg 12/22/19 14:36 Caldolor Injection - IVPB Q6H PRN FEVER Levetiracetam 500 mg 12/18/19 22:00 12/22/19 10:12 Keppra Injection - IVPB 500 mg BID JARED Administration Mupirocin 1 applic 12/18/19 22:00 12/22/19 10:13 Bactroban Ointment (For Decolonization) - NS 12/23/19 21:59 1 applic BID JARED Administration Pantoprazole Sodium 40 mg 12/18/19 20:45 12/22/19 10:12 Protonix Iv IVPUSH 40 mg DAILY JARED Administration Sertraline HCl 150 mg 12/22/19 10:00 12/22/19 10:13 Zoloft - PO Not Given DAILY JARED Thiamine HCl 200 mg 12/22/19 13:00 12/22/19 14:10 Vitamin B1 Injection - IVPB 200 mg DAILY JARED Administration ASSESSMENT/PLAN: 29M with pmh of polysubstance use disorder (opiates, cocaine, cannabis), major depressive disorder (prior suicidal episodes), paranoid psychoid, hemochromatosis, presents after being found minimally responsive, tremulous at residential. Intubated for metabolic acidosis w/ severe hypoxemia, imaging suggestive of severe Left-sided pneumonia. CTH showing mild b/l white matter leukomalacia, mild brain swelling/edema, mild chronic sinusitis. Extubated on 12/21/19. Pt displaying AMS, possibly sustained anoxic brain injury vs recent sedation. # Acute hypoxic respiratory failure --resolved, extubated; supplemental O2 via NC > CXR: left lung infiltrative changes, atelectasis > AB.22/42.6/<49/16.7 then 7.29/49.4/261/23 > Vent Settings: AC, 425, 14, PEEP 5.0, 50% > D-dimer 2231 --unclear for PE but EKG reveals S1Q3T3 --no CTA, as JOSE MIGUEL --heparin gtt --stopped > Sepsis secondary to ?left sided pneumonia(?aspiration) --improved HD; now with persistent leukocytosis - abx regimen: Vancomycin, Zosyn --> zosyn - ID(Db) recommendations: -- vanc + zosyn; stopped vanc -- fu sputum cx: NGTD, fu urinary Ag: neg > Fever --possibly 2/2 PNA - remove RIJ, remove Del Angel > CXR(12/22/19): improving - c Diff if persisent diarrhea # AMS --possibly 2/2 anoxic brain injury vs recent sedation + chronic substance( opioid + cocaine) usage > CTH: brain ?edema - consider MRI if mental status not improving # NSTEMI --likely demand and sepsis > Troponin 0.44, 1.07, 3.62, 2.64, 0.82 > BNP 4306 > EKG reveals sinus tachycardia at 144BPM. > Cardiac ECHO: LVEF 55-60%, normal - Telemetry monitoring # Transaminitis --likely 2/2 sepsis vs hepatoxins(?zosyn, ?keppra, ?ofirmev) > AST/ALT: 72/261 ...80/264, 130/471 > US RUQ: borderline GB wall thickening, mild fatty liver infiltration - avoid hepatotoxins if possible # Seizure > CT head reveals decreased attenuation of cerebral white matter, concerning for mild brain edema. > CK >14,000, 01159, 7315 - Loaded with Keppra in ED. Continue 500mg IV BID - Neurology(Leandra) recommendations appreciated. --wean of sedation when possible, Keppra 500mg IV q12h, Abx --will examine when off sedation -Seizure precautions # Acute kidney injury --secondary to rhabdomyolysis vs sespsis ---normalized > US Renal: normal kidneys b/l > Cr 3.2, 3.1, 2.8, 2.4, 2.0, 1.6, 1.4, 1.3, 0.9, 0.9 - Del Angel catheter draining tea colored urine, now yellow - Continue IVF - Follow CPK - Nephrology(Derek) recommendations appreciated --cw IVF, trend # Hyperkalemia --resolved - Likely secondary to seizure activity. - Given Insulin, D50, Kayexelate in ED. Nephrology recommendations appreciated - Follow repeat BMP # Major depressive disorder - home sertraline # FEN - NS + K @150 - NPO Prophylaxis - SCDs + SQH Disposition - ICU Visit type - Emergency Visit Emergency Visit: No - New Patient This patient is new to me today: No - Critical Care Critical Care patient: Yes Total Critical Care Time (in minutes): 34 Critical Care Statement: The care of this patient involved high complexity decision making to prevent further life threatening deterioration of the patient 's condition and/or to evaluate & treat vital organ system(s) failure or risk of failure. ATTENDING PHYSICIAN STATEMENT I saw and evaluated the patient. I reviewed the resident's note and discussed the case with the resident. I agree with the resident's findings and plan as documented. SUBJECTIVE: OBJECTIVE: ASSESSMENT AND PLAN: <Dillan Myers - Last Filed: 12/22/19 16:13> Physical Exam: SUBJECTIVE: Patient seen and examined OBJECTIVE: Vital Signs Period Temp Pulse Resp BP Sys/Santoyo Pulse Ox Last 24 Hr 99.5 F-101.2 F 88-120 23-37 137-154/54-82 96-96 GENERAL: The patient is awake, alert, and fully oriented, in no acute distress. HEAD: Normal with no signs of trauma. EYES: PERRL, extraocular movements intact, sclera anicteric, conjunctiva clear. No ptosis. ENT: Ears normal, nares patent, oropharynx clear without exudates, moist mucous membranes. NECK: Trachea midline, full range of motion, supple. LUNGS: Breath sounds equal, clear to auscultation bilaterally, no wheezes, no crackles, no accessory muscle use. HEART: Regular rate and rhythm, S1, S2 without murmur, rub or gallop. ABDOMEN: Soft, nontender, nondistended, normoactive bowel sounds, no guarding, no rebound, no hepatosplenomegaly, no masses. EXTREMITIES: 2+ pulses, warm, well-perfused, no edema. NEUROLOGICAL: Cranial nerves II through XII grossly intact. Normal speech, gait not observed. PSYCH: Normal mood, normal affect. SKIN: Warm, dry, normal turgor, no rashes or lesions noted Laboratory Results - last 24 hr 12/22/19 12/22/19 12/22/19 05:21 05:21 05:21 WBC 13.6 H RBC 3.58 L Hgb 12.0 Hct 33.8 L MCV 94.4 MCH 33.5 MCHC 35.5 RDW 13.0 Plt Count 189 D MPV 7.7 Absolute Neuts (auto) 10.9 H Neutrophils % 80.2 Lymphocytes % 11.3 D Monocytes % 7.4 Eosinophils % 0.9 Basophils % 0.2 Nucleated RBC % 0 PTT (Actin FS) 31.9 Sodium 146 H Potassium 3.8 Chloride 111 H Carbon Dioxide 27 Anion Gap 7 L BUN 15.8 Creatinine 0.9 Est GFR (CKD-EPI)AfAm 135.19 Est GFR (CKD-EPI)NonAf 116.64 Random Glucose 80 Calcium 8.1 L Phosphorus 3.3 Magnesium 2.0 Total Bilirubin 0.9 AST 471 H ALT 130 H Alkaline Phosphatase 97 Creatine Kinase Creatine Kinase Index CK-MB (CK-2) Total Protein 5.3 L Albumin 2.5 L Urine Color Urine Appearance Urine pH Ur Specific Tyler Urine Protein Urine Glucose (UA) Urine Ketones Urine Blood Urine Nitrite Urine Bilirubin Urine Urobilinogen Ur Leukocyte Esterase Urine WBC (Auto) Urine RBC (Auto) Urine Casts (Auto) U Epithel Cells (Auto) Urine Bacteria (Auto) 12/22/19 12/22/19 12/22/19 05:21 12:00 13:15 WBC RBC Hgb Hct MCV MCH MCHC RDW Plt Count MPV Absolute Neuts (auto) Neutrophils % Lymphocytes % Monocytes % Eosinophils % Basophils % Nucleated RBC % PTT (Actin FS) Sodium 142 Potassium 3.5 Chloride 111 H Carbon Dioxide 24 Anion Gap 7 L BUN 16.4 Creatinine 0.7 Est GFR (CKD-EPI)AfAm 149.90 Est GFR (CKD-EPI)NonAf 129.33 Random Glucose 85 Calcium 8.0 L Phosphorus Magnesium Total Bilirubin 1.1 H AST 452 H ALT 138 H Alkaline Phosphatase 86 Creatine Kinase 22173 H 65586 H Creatine Kinase Index 0.0 0.0 CK-MB (CK-2) 4.5 H 3.0 Total Protein 5.2 L Albumin 2.4 L Urine Color Yellow Urine Appearance Clear Urine pH 8.0 D Ur Specific Tyler 1.024 Urine Protein 1+ H Urine Glucose (UA) Negative Urine Ketones 3+ H Urine Blood 2+ H Urine Nitrite Negative Urine Bilirubin Negative Urine Urobilinogen 0.2 Ur Leukocyte Esterase Trace Urine WBC (Auto) 1 Urine RBC (Auto) 11 Urine Casts (Auto) 4 U Epithel Cells (Auto) 1.9 Urine Bacteria (Auto) 1.5 Active Medications Generic Name Dose Route Start Last Admin Trade Name Freq PRN Reason Stop Dose Admin Chlorhexidine Gluconate 1 applic 12/18/19 22:00 12/21/19 21:10 Hibiclens For Decolonization - TP 1 applic HS JARED Administration Haloperidol 10 mg 12/22/19 09:58 12/22/19 15:06 Haldol Injection (Fast Acting) - IM 10 mg Q4H PRN Administration AGITATION Heparin Sodium (Porcine) 5,000 unit 12/19/19 14:00 12/22/19 13:38 Heparin - SQ 5,000 unit TID JARED Administration Piperacillin Sod/Tazobactam 100 mls @ 200 mls/hr 12/20/19 04:00 12/22/19 10: 12 Sod 4.5 gm/ Dextrose IVPB 200 mls/hr Q8H-IV JARED Administration Protocol Potassium Chloride/Sodium Chloride 20 meq in 1,000 mls @ 150 mls/hr 12/22/19 10:06 12/22/19 10:22 1/2ns+20meq Kcl IV 150 mls/hr Q6H JARED Administration Ibuprofen 400 mg 12/22/19 14:36 Caldolor Injection - IVPB Q6H PRN FEVER Levetiracetam 500 mg 12/18/19 22:00 12/22/19 10:12 Keppra Injection - IVPB 500 mg BID JARDE Administration Mupirocin 1 applic 12/18/19 22:00 12/22/19 10:13 Bactroban Ointment (For Decolonization) - NS 12/23/19 21:59 1 applic BID JARED Administration Pantoprazole Sodium 40 mg 12/18/19 20:45 12/22/19 10:12 Protonix Iv IVPUSH 40 mg DAILY JARED Administration Sertraline HCl 150 mg 12/22/19 10:00 12/22/19 10:13 Zoloft - PO Not Given DAILY JARED Thiamine HCl 200 mg 12/22/19 13:00 12/22/19 14:10 Vitamin B1 Injection - IVPB 200 mg DAILY JARED Administration ASSESSMENT/PLAN: ATTENDING PHYSICIAN STATEMENT I saw and evaluated the patient. I reviewed the resident's note and discussed the case with the resident. I agree with the resident's findings and plan as documented. SUBJECTIVE: OBJECTIVE: ASSESSMENT AND PLAN:
[2019-12-22] MEDS ORDERED: METOPROLOL TARTRATE 5 MG/5 ML VIAL IVPUSH ONE (19:41)
[2019-12-22] MEDS: CHLORHEXIDINE GLUCONATE 4% CLEANSER FOR DECOLONIZATION TP SCH (21:24)
[2019-12-22 23:00] LABS: EPI CELLS 1.8 /HPF (0-5/HPF); HYALINE CASTS 1 /lpf (0-8); URINE APPEARANCE CLEAR; URINE BACTERIA 2.1 /hpf (NEGATIVE); URINE BILIRUBIN NEGATIVE (NEGATIVE); URINE COLOR YELLOW; URINE GLUCOSE (UA) NEGATIVE (NEGATIVE); URINE KETONE 3+ (NEGATIVE); URINE LEUK ESTERASE NEGATIVE (NEGATIVE); URINE NITRITE NEGATIVE (NEGATIVE); URINE PROTEIN 1+ (NEGATIVE); URINE RBC 4 /hpf (0-4); URINE UROBILINOGEN 0.2 mg/dL (0.2-1.0); URINE WBC 2 /hpf (0-5)
[2019-12-23] MEDS: PIPERACILLIN/TAZOB 4.5 GM 4.5 GM in DEXTROSE 5%-WATER 100 ML IVPB SCH ×3 (01:11→17:47)
[2019-12-23] MEDS: HALOPERIDOL LACTATE 5 MG/ML IM PRN ×5 (02:22→22:35)
[2019-12-23] MEDS: HEPARIN NA (PORCINE) 5,000 UNITS/ML 1ML VIAL SQ SCH ×3 (06:21→22:40)
[2019-12-23] MEDS: SODIUM CHLORIDE 0.45%/POT 20 MEQ/1,000 ML INFUS.BAG IV SCH ×3 (06:21→11:58)
[2019-12-23 06:42] LABS: HEMATOCRIT 34.2 % (35.4-49); HEMOGLOBIN 12.3 GM/dL (11.7-16.9); MCH 33.8 pg (25.7-33.7); MCHC 35.8 g/dl (32.0-35.9); MEAN CELL VOLUME 94.2 fl (80-96); MEAN PLT VOLUME 7.8 fl (7.5-11.1); PLATELET COUNT 193 K/MM3 (134-434); RBC 3.63 M/mm3 (4.00-5.60); WHITE BLOOD COUNT 10.6 K/mm3 (4.0-10.0)
[2019-12-23 07:17] LABS: ALBUMIN 2.4 g/dl (3.4-5.0); BLOOD UREA NITROGEN 17.3 mg/dL (7-18); CREATININE 0.7 mg/dL (0.55-1.3); MAGNESIUM 2.1 mg/dL (1.8-2.4); PHOSPHOROUS 2.7 mg/dL (2.5-4.9); POTASSIUM 3.6 mmol/L (3.5-5.1); TOT PROT 5.4 g/dl (6.4-8.2)
--- NOTE | 2019-12-23 08:00 | CONSULT ---
Consult Detox [facility] Reason for Current Admission/Consult: opiate and polysubstance abused Referred by:: Raquel Freeman - History History of Present Illness: this 29 years old with polysubstance dependence,heroin,cocaine , admitted to ICU at [facility] for respiratory arrest requiring intubation and respiratory support, sepsis,pneumonia,seizure,rhabdomyolysis,bipolar disorder,alter mental status seen in icu patient has alter mental status,tachypnea,tachycardia unable to give any information at this present time old history multiple admissions to detox last at [facility] 06/09/19 to 06/12/19 - History Source Limitations to Obtaining History: Other (alter mental status) - Alcohol/Substance Use Hx Alcohol Use: No Hx Substance Use: Yes - Past Medical History NIGHT MONITOR: Yes: Seizure - Significant Medical Findings: this 29 years old with polysubstance dependence,heroin dependence,cocaine dependence, has alter mental status,sob,tachypnia,tachycardia unable to give information ,dx s/p respiratory arrest has been intubated 12/18/2019and extubated on 2019 sepsis pnumonia alter mental status rhabdomyolysis poly substance dependence and abused bipolar disorder patient is not a candidate for detox at this time,critically ill, to be reevaluated when patient is stable
[2019-12-23] MEDS ORDERED: PIPERACILLIN/TAZOBACTAM 4.5 GM VIAL IVPB ONE ×2 (09:18→17:33)
[2019-12-23] MEDS ORDERED: DEXTROSE 5%-WATER 100 ML IVPB ONE ×2 (09:18→17:33)
[2019-12-23] MEDS: levETIRAcetam 500 MG/5 ML INJECTION VIAL IVPB SCH ×2 (09:33→22:39)
[2019-12-23] MEDS: THIAMINE HCL 200 MG/2 ML VIAL IVPB SCH (09:33)
[2019-12-23] MEDS: PANTOPRAZOLE SODIUM 40 MG VIAL IVPUSH SCH (09:33)
[2019-12-23] MEDS: SERTRALINE HCL 50 MG TABLET (FP) PO SCH (09:34)
--- NOTE | 2019-12-23 09:38 | PN ---
Progress Note (short form) - Note Progress Note: intermittent low grade temps extubated alert, conversant NAD Vital Signs Period Temp Pulse Resp BP Sys/Santoyo Pulse Ox Last 24 Hr 99 F-101.1 F 84-129 25-38 129-156/50-82 96-96 cor-rrr lungs few bibasilar crackles abd soft,nt ext trace edema, arms and feet CBC, BMP 12/23/19 06:10 12/23/19 06:10 Microbiology 12/20/19 16:00 Blood - Central Line Blood Culture - Preliminary NO GROWTH OBTAINED AFTER 48 HOURS, INCUBATION TO CONTINUE FOR 3 DAYS. 12/20/19 16:00 Blood - Central Line Blood Culture - Preliminary NO GROWTH OBTAINED AFTER 48 HOURS, INCUBATION TO CONTINUE FOR 3 DAYS. 12/18/19 13:30 Blood - Peripheral Venous Blood Culture - Preliminary NO GROWTH OBTAINED AFTER 96 HOURS, INCUBATION TO CONTINUE FOR 1 DAYS. 12/18/19 13:30 Blood - Peripheral Venous Blood Culture - Preliminary NO GROWTH OBTAINED AFTER 96 HOURS, INCUBATION TO CONTINUE FOR 1 DAYS. 12/19/19 16:00 Sputum - Endotrachea Suction/Ventilator Gram Stain - Final 12/19/19 16:00 Sputum - Endotrachea Suction/Ventilator Sputum Culture - Final NORMAL RESPIRATORY VALENTINO 12/20/19 17:25 Sputum - Endotrachea Suction/Ventilator Gram Stain - Final 12/20/19 17:25 Sputum - Endotrachea Suction/Ventilator Sputum Culture - Preliminary 12/20/19 18:50 Nares - Right Nares MRSA Screen - Final NO MRSA ISOLATED 12/19/19 16:00 Urine - Urine [place] Legionella Antigen - Final 12/19/19 16:00 Urine - Urine [place] Streptococcus pneumoniae Antigen (M - Final 12/18/19 13:55 Urine - Urine Clean Catch Urine Culture - Final NO GROWTH OBTAINED imp/reccd respiratory failure-extubated 2/ aspiration pneumonia-normal valentino in culture- cxray improved left sided infiltrate seizures? substance use clinically improved- day #5 zosyn tlc out, [place] d/nena d/c vancomycin, continue zosyn for now cxray improving
--- NOTE | 2019-12-23 10:01 | CONSULT ---
Admitting History and Physical - Smoking History Smoking history: Never smoked - Alcohol/Substance Use Hx Alcohol Use: No History - Admission Reason For Visit: RESPITORY FAILURE - Hearing Hearing: Normal Hearing Aide: No With Patient: No Speech Evaluation - Communication Primary Language: SUDANESE Communication: Yes: Within Normal Limits, Simple Responses Oral Expression Ability: Yes: No Impairment - Speech Production Apraxia: No Able to Make Needs Known: Yes: WNL Intelligibility: Yes: WNL - Speech Characteristics Voice Loudness: Normal Voice Pitch: Yes: Normal Voice Phonatory-based Quality: Yes: Normal Speech Pattern: Normal Nasal Resonance: Normal Articulation: Yes: Precise Rate of Speech: Intact Voice, Other Observations: Yes: Progressively Weak Voice (Secondary to left lobe PNA?) Voice Comment: Vocal quality decreased with longer sentences. Weak cough observed - Language/Auditory Comprehension Follows: Yes: 1 Stage Simple Commands (WFL), 2 Stage Simple Commands (WFL) Observation: Able to respond to yes/no queries: Yes, Yes/No Confusion: No, Comprehends Conversational Speech: Yes, Benefits from Slow Speech: No, Benefits from Repetiton: No, Benefits from Increased Volume of Speech: No - Language/Verbal Expression Able to Respond to Simple Queries: Yes: WNL Able to Communicate Wants and Needs: Yes: WNL Functional Communication Status: Yes: WNL Aware of Errors: Yes Attempts to Correct Errors: Yes Use of Gestures: No Written Expression: Not examined Reading Comprehension: Not examined Calculations: Not examined Attention: Yes: Intact - Memory/Perception group home Memory: Yes: Mildly Impaired Short Term Memory: Yes: Mildly Impaired - Swallow Evaluation/Bedside Assessment Current Nutritional Intake: NPO (pending swallow eval) Oral Secretions: Yes: WFL Tracheostomy Present: No Patient on Ventilator: No Dentition: Yes: Adequate Facial Symmetry at Rest: Symmetrical Facial Symmetry on Retraction: Symmetrical Facial Movement: Controlled Sensation: Normal Facial Comment: WFL for speech and swallowing purposes Against Resistance Opening: Normal Against Resistance Closing: Normal Pucker Lips: Normal Smile: Normal Lips, Comment: WFL for speech and swallowing purposes Lingual Movement: Normal Lingual Speed of Movement: Normal Lingual Movement Strgth Against Opposition: Normal Lingual Movement Characteristics: Normal Lingual Comment: WFL for speech and swallowing purposes Soft Palate Description: Normal Color Hard Palate Description: Normal Color Gag Reflex: Weak Bite Reflex: Present Velopharyngeal Movement: Normal Laryngeal Elevation: WFL Needs Assistance: Yes Rate of Intake: WFL Bolus Size: WFL Labial Seal: WFL Chewing: WFL Oral Prep Time: WFL A-P Transit: WFL Pocketing: None Timing of Swallow: WFL Coughing/Throat Clear: Yes (occassional subtle cough with thin liquids while using a straw. ) Other Findings/Remarks: 29 yo male seen at bedside for swallow eval to r/o dysphagia. Mental status has improved from the initial visit (12/22/2019). Pt presents as A&Ox2 verbal and cooperative for this session. MHX includes: poly substance abuse, JOSE MIGUEL and SzD. Admitted to ICU with sepsis. CXR confirms left hemithorax. Vocal quality is impaired characterized as weak and breathy, with reduced intensity and pitch. Volitional airway protection (without bolus) and swallow is WNL. Hypothryriod elevation was present/strong to palpation of the anterior neck. Current diet: NPO Pt given PO trials of pureed, soft solids, regular cut to bite sized pieces with total assistance revealed, adequate bolus formation and A P transport with a timely pharyngeal swallow (1-2 second average). No change in voicing or respiration after the swallow. Pt given PO trials of ice chips via spoon, thin liquids via cup and straw with total assistance revealed good acceptance, adequate labial containment / bolus control and, A P transport with a timely pharyngeal swallow (1-2 second average). Subtle cough after the swallow observed suggesting possible aspiration when using a straw ONLY. No signs of aspiration with thin liquids via cup Recommendations - Speech Evaluation, Impression/Plan Impression: Pt is able to tolerate puree and soft moisten and regular solids with thin liquids at this time. Subtle cough with thin liquids via straw only. No evidence of dysphagia or aspiration (when using a cup for thin liquids) on any solid consistency given during this evaluation Labor Relations Analyst Goals: Tolerate the least restrictive solid and liquid consistencies without s/s of penetration / aspiration. Short Term Goals: Tolerate purees, and regular solid and thin liquid consistencies via cup without s/s of penetration / aspiration. - Dysphagia Impressions/Plan Swallowing Skills: [facility] Dysphagia Impressions: Risk of Aspiration, Suspect Aspiration (when using a straw with thin liquids.) *Silent aspiration: cannot be R/O at bedside Dysphagia Treatment Plan: Small Bites, Safe Rate, Elevate HOB during feed, Other (alternate liquids for every 2-3 bites of solids.) Dysphagia Evaluation Summary: Trial po intake of regular and thin liquids at tolerated. Observe standard aspiration precautions. Total assistance for meals. No straws with thin liquids. Provide oral care before and after meal meals. Medication can be given crushed with applesauce. Results given verbally to viscose cellar charge hand and PCP via chart. INVENTORY CLERK to follow up for diet tolerance. - Recommendations Diet Consistency: Regular Liquids: Thin Liquids (via cup only. small sips.)
--- NOTE | 2019-12-23 10:13 | PN ---
Progress Note, Physician Chief Complaint: denies CP TELE: ST Both arms swollen- IV appears to have infiltrated. D/W RN History of Present Illness: spiking fevers - Current Medication List Current Medications: Active Medications Chlorhexidine Gluconate (Hibiclens For Decolonization -) 1 applic TP HS [facility] Last Admin: 12/22/19 21:24 Dose: 1 applic Haloperidol (Haldol Injection (Fast Acting) -) 10 mg IM Q4H PRN PRN Reason: AGITATION Last Admin: 12/23/19 02:22 Dose: 10 mg Heparin Sodium (Porcine) (Heparin -) 5,000 unit SQ TID JARED Last Admin: 12/23/19 06:21 Dose: 5,000 unit Piperacillin Sod/Tazobactam (Sod 4.5 gm/ Dextrose) 100 mls @ 200 mls/hr IVPB Q8H-IV JARED; Protocol Last Admin: 12/23/19 09:34 Dose: 200 mls/hr Potassium Chloride/Sodium Chloride (1/2ns+20meq Kcl) 20 meq in 1,000 mls @ 150 mls/hr IV Q6H [facility] Last Admin: 12/23/19 09:35 Dose: 150 mls/hr Potassium Phosphate 15 mm/ (Sodium Chloride) 255 mls @ 62.5 mls/hr IVPB ONCE ONE Stop: 12/23/19 12:25 Ibuprofen (Caldolor Injection -) 400 mg IVPB Q6H PRN PRN Reason: FEVER Last Admin: 12/22/19 17:12 Dose: 400 mg Levetiracetam (Keppra Injection -) 500 mg IVPB BID [facility] Last Admin: 12/23/19 09:33 Dose: 500 mg Mupirocin (Bactroban Ointment (For Decolonization) -) 1 applic NS BID [facility] Stop: 12/23/19 21:59 Last Admin: 12/22/19 21:23 Dose: 1 applic Pantoprazole Sodium (Protonix Iv) 40 mg IVPUSH DAILY [facility] Last Admin: 12/23/19 09:33 Dose: 40 mg Sertraline HCl (Zoloft -) 150 mg PO DAILY [facility] Last Admin: 12/23/19 09:34 Dose: 150 mg Thiamine HCl (Vitamin B1 Injection -) 200 mg IVPB DAILY [facility] Last Admin: 12/23/19 09:33 Dose: 200 mg - Objective Vital Signs: Vital Signs Temperature 99.4 F 12/23/19 04:00 Pulse Rate 121 H 12/23/19 08:00 Respiratory Rate 25 H 12/23/19 08:33 Blood Pressure 138/73 12/23/19 08:00 O2 Sat by Pulse Oximetry (%) 96 12/23/19 08:33 Constitutional: Yes: No Distress Cardiovascular: Yes: Regular Rate and Rhythm Respiratory: Yes: Rhonchi Edema: Yes (2+ upper ext edema) Edema: LUE: 2+, RUE: 2+ Peripheral Pulses WNL: Yes Neurological: Yes: Alert Labs: CBC, BMP 12/23/19 06:10 12/23/19 06:10 INR, PTT INR 1.07 (0.83-1.09) 12/18/19 13:30 Microbiology 12/18/19 13:30 Blood - Peripheral Venous Blood Culture - Preliminary NO GROWTH OBTAINED AFTER 96 HOURS, INCUBATION TO CONTINUE FOR 1 DAYS. 12/18/19 13:30 Blood - Peripheral Venous Blood Culture - Preliminary NO GROWTH OBTAINED AFTER 96 HOURS, INCUBATION TO CONTINUE FOR 1 DAYS. - ....Imaging EKG: Image Reviewed Assessment/Plan echo 12/2019 tds, nl LV/RV function, no significant valvular pathology tele: sinus rhythm PNA, hypoxic resp failure, polysubstance abuse/intoxication: -extensive L infiltrate on CXR, ? aspiration - now extubated - on abx Possible cellulitis upper ext: -On Abx -As per Critical care team and ID -Suggest b/l upper ext venous duplex septic shock, lactic acidosis: -off pressors, currently hemodynamically stable -aggressive fluid resuscitation, abx mgmt as doing rhabdomyolysis with JOSE MIGUEL (sec to cocaine intoxication): -renal fxn improving -cont fluids NSTEMI: -pt young with no known traditional CAD risk factors -no ecg changes, mult other life-threatening medical problems -this is Type II CA sec to demand ischemia/injury, vs sepsis syndrome associated myonecrosis -no ischemia-focused med intervention or testing indicated -nl LV function on echo, trop peaked at 3.6, now improving transaminitis: -likely shock liver -improving, trend labs, cont supportive care DVT proph as you are
[2019-12-23] MEDS: MUPIROCIN 2% TOPICAL OINTMENT FOR DECOLONIZATION NS SCH (10:24)
[2019-12-23] MEDS ORDERED: POTASSIUM PHOSPHATE 15 MM in SODIUM CHLORIDE 250 ML IVPB ONE (11:00)
--- NOTE | 2019-12-23 11:03 | PN ---
Teaching Attending Note Name of Resident: Jojo Chaparro ATTENDING PHYSICIAN STATEMENT I saw and evaluated the patient. I reviewed the resident's note and discussed the case with the resident. I agree with the resident's findings and plan as documented. SUBJECTIVE: Patient seen and examined in the ICU. Remains extubated. Awake and alert but agitated, which has improved with haldol IM. He denies CP or SOB. No acute events overnight. Low grade temps. OBJECTIVE: Intake & Output 12/20/19 12/21/19 12/22/19 12/23/19 23:59 23:59 23:59 23:59 Intake Total 3428 5385 3200 1050 Output Total 4100 7200 3700 Balance -672 -1815 -500 1050 Weight 241 lb 238 lb 12.8 oz 231 lb 6 oz 229 lb 5 oz Last Vital Signs Temp Pulse Resp BP Pulse Ox 99.4 F 121 H 25 H 138/73 96 12/23/19 04:00 12/23/19 08:00 12/23/19 08:33 12/23/19 08:00 12/23/19 08:33 Active Medications Chlorhexidine Gluconate (Hibiclens For Decolonization -) 1 applic TP HS [facility] Last Admin: 12/22/19 21:24 Dose: 1 applic Haloperidol (Haldol Injection (Fast Acting) -) 10 mg IM Q4H PRN PRN Reason: AGITATION Last Admin: 12/23/19 10:23 Dose: 10 mg Heparin Sodium (Porcine) (Heparin -) 5,000 unit SQ TID [facility] Last Admin: 12/23/19 06:21 Dose: 5,000 unit Piperacillin Sod/Tazobactam (Sod 4.5 gm/ Dextrose) 100 mls @ 200 mls/hr IVPB Q8H-IV JARED; Protocol Last Admin: 12/23/19 09:34 Dose: 200 mls/hr Potassium Chloride/Sodium Chloride (1/2ns+20meq Kcl) 20 meq in 1,000 mls @ 150 mls/hr IV Q6H [facility] Last Admin: 12/23/19 09:35 Dose: 150 mls/hr Potassium Phosphate 15 mm/ (Sodium Chloride) 255 mls @ 62.5 mls/hr IVPB ONCE ONE Stop: 12/23/19 15:04 Ibuprofen (Caldolor Injection -) 400 mg IVPB Q6H PRN PRN Reason: FEVER Last Admin: 12/22/19 17:12 Dose: 400 mg Levetiracetam (Keppra Injection -) 500 mg IVPB BID [facility] Last Admin: 12/23/19 09:33 Dose: 500 mg Mupirocin (Bactroban Ointment (For Decolonization) -) 1 applic NS BID [facility] Stop: 12/23/19 21:59 Last Admin: 12/23/19 10:24 Dose: 1 applic Pantoprazole Sodium (Protonix Iv) 40 mg IVPUSH DAILY [facility] Last Admin: 12/23/19 09:33 Dose: 40 mg Sertraline HCl (Zoloft -) 150 mg PO DAILY [facility] Last Admin: 12/23/19 09:34 Dose: 150 mg Thiamine HCl (Vitamin B1 Injection -) 200 mg IVPB DAILY [facility] Last Admin: 12/23/19 09:33 Dose: 200 mg Gen: Awake and alert, agitated Heart: RRR Lung: decreased breath sounds at the bases Abd: soft, nontender Ext: no edema Laboratory Results - last 24 hr 12/22/19 12/22/19 12/22/19 08:30 12:00 13:15 WBC RBC Hgb Hct MCV MCH MCHC RDW Plt Count MPV PTT (Actin FS) Sodium 142 Potassium 3.5 Chloride 111 H Carbon Dioxide 24 Anion Gap 7 L BUN 16.4 Creatinine 0.7 Est GFR (CKD-EPI)AfAm 149.90 Est GFR (CKD-EPI)NonAf 129.33 Random Glucose 85 Calcium 8.0 L Phosphorus Magnesium Total Bilirubin 1.1 H AST 452 H ALT 138 H Alkaline Phosphatase 86 Ammonia 17.80 Creatine Kinase 13409 H Creatine Kinase Index 0.0 CK-MB (CK-2) 3.0 Total Protein 5.2 L Albumin 2.4 L Urine Color Yellow Urine Appearance Clear Urine pH 8.0 D Ur Specific [place] 1.024 Urine Protein 1+ H Urine Glucose (UA) Negative Urine Ketones 3+ H Urine Blood 2+ H Urine Nitrite Negative Urine Bilirubin Negative Urine Urobilinogen 0.2 Ur Leukocyte Esterase Trace Urine WBC (Auto) 1 Urine RBC (Auto) 11 Urine Casts (Auto) 4 U Epithel Cells (Auto) 1.9 Urine Bacteria (Auto) 1.5 12/22/19 12/23/19 12/23/19 22:00 06:10 06:10 WBC 10.6 H RBC 3.63 L Hgb 12.3 Hct 34.2 L MCV 94.2 MCH 33.8 H MCHC 35.8 RDW 13.0 Plt Count 193 MPV 7.8 PTT (Actin FS) 28.7 Sodium Potassium Chloride Carbon Dioxide Anion Gap BUN Creatinine Est GFR (CKD-EPI)AfAm Est GFR (CKD-EPI)NonAf Random Glucose Calcium Phosphorus Magnesium Total Bilirubin AST ALT Alkaline Phosphatase Ammonia Creatine Kinase Creatine Kinase Index CK-MB (CK-2) Total Protein Albumin Urine Color Yellow Urine Appearance Clear Urine pH 7.0 Ur Specific [place] 1.021 Urine Protein 1+ H Urine Glucose (UA) Negative Urine Ketones 3+ H Urine Blood 1+ H Urine Nitrite Negative Urine Bilirubin Negative Urine Urobilinogen 0.2 Ur Leukocyte Esterase Negative Urine WBC (Auto) 2 Urine RBC (Auto) 4 Urine Casts (Auto) 1 U Epithel Cells (Auto) 1.8 Urine Bacteria (Auto) 2.1 12/23/19 06:10 WBC RBC Hgb Hct MCV MCH MCHC RDW Plt Count MPV PTT (Actin FS) Sodium 141 Potassium 3.6 Chloride 109 H Carbon Dioxide 22 Anion Gap 10 BUN 17.3 Creatinine 0.7 Est GFR (CKD-EPI)AfAm 149.90 Est GFR (CKD-EPI)NonAf 129.33 Random Glucose 80 Calcium 8.0 L Phosphorus 2.7 Magnesium 2.1 Total Bilirubin 1.0 AST 313 H ALT 133 H Alkaline Phosphatase 87 Ammonia Creatine Kinase 6258 H Creatine Kinase Index 0.0 CK-MB (CK-2) 2.4 Total Protein 5.4 L Albumin 2.4 L Urine Color Urine Appearance Urine pH Ur Specific [place] Urine Protein Urine Glucose (UA) Urine Ketones Urine Blood Urine Nitrite Urine Bilirubin Urine Urobilinogen Ur Leukocyte Esterase Urine WBC (Auto) Urine RBC (Auto) Urine Casts (Auto) U Epithel Cells (Auto) Urine Bacteria (Auto) ASSESSMENT AND PLAN: Acute Hypoxic and Hypercapneic Respiratory Failure Pneumonia likely Aspiration Septic Shock resolving Lactic Acidosis resolved Acute Kidney Injury improving Rhabdomyolysis Elevated LFTs likely Ischemic Injury +Troponins likely Demand Ischemia Polysubstance Abuse Depression Hemochromatosis - ABX per ID - Folllow repeat cultures - s/p stress dose steroids - IVF - monitor urine output, creatinine - aspiration precautions - DVT prophylaxis - Floor - Follow Detox consult and recommendations Dr Sanchez
[2019-12-23] MEDS ORDERED: PT OWN MED DRAWER 7, Y5N ONE (11:27)
--- NOTE | 2019-12-23 11:51 | PN ---
Physical Exam: SUBJECTIVE: Patient seen and examined in the morning. No acute events overnight , no events on cardiac monitoring. Patient denies any chest pain, shortness of breath, abdominal pain, nausea, vomiting, diarrhea. OBJECTIVE: Vital Signs Period Temp Pulse Resp BP Sys/Santoyo Pulse Ox Last 24 Hr 99 F-100.5 F 84-129 25-38 129-156/50-82 96-96 GENERAL: The patient is awake, alert, and fully oriented, but is restless. HEAD: Normal with no signs of trauma.. NECK: Trachea midline, full range of motion, supple. LUNGS: Breath sounds equal, clear to auscultation bilaterally. HEART: Tachycardic, no murmurs rubs or gallops heard. ABDOMEN: Soft, nontender, nondistended, normoactive bowel sounds EXTREMITIES: Lower extremities have no edema. Upper extremities have mild swelling, with signs of IV infiltration. NEUROLOGICAL:5/5 strength in upper and lower extremities. PSYCH: Normal mood, normal affect. Restless. COWS: 6 SKIN: Warm, dry, normal turgor, no rashes or lesions noted Laboratory Results - last 24 hr 12/22/19 12/22/19 12/22/19 08:30 12:00 13:15 WBC RBC Hgb Hct MCV MCH MCHC RDW Plt Count MPV PTT (Actin FS) Sodium 142 Potassium 3.5 Chloride 111 H Carbon Dioxide 24 Anion Gap 7 L BUN 16.4 Creatinine 0.7 Est GFR (CKD-EPI)AfAm 149.90 Est GFR (CKD-EPI)NonAf 129.33 Random Glucose 85 Calcium 8.0 L Phosphorus Magnesium Total Bilirubin 1.1 H AST 452 H ALT 138 H Alkaline Phosphatase 86 Ammonia 17.80 Creatine Kinase 08438 H Creatine Kinase Index 0.0 CK-MB (CK-2) 3.0 Total Protein 5.2 L Albumin 2.4 L Urine Color Yellow Urine Appearance Clear Urine pH 8.0 D Ur Specific [place] 1.024 Urine Protein 1+ H Urine Glucose (UA) Negative Urine Ketones 3+ H Urine Blood 2+ H Urine Nitrite Negative Urine Bilirubin Negative Urine Urobilinogen 0.2 Ur Leukocyte Esterase Trace Urine WBC (Auto) 1 Urine RBC (Auto) 11 Urine Casts (Auto) 4 U Epithel Cells (Auto) 1.9 Urine Bacteria (Auto) 1.5 12/22/19 12/23/19 12/23/19 22:00 06:10 06:10 WBC 10.6 H RBC 3.63 L Hgb 12.3 Hct 34.2 L MCV 94.2 MCH 33.8 H MCHC 35.8 RDW 13.0 Plt Count 193 MPV 7.8 PTT (Actin FS) 28.7 Sodium Potassium Chloride Carbon Dioxide Anion Gap BUN Creatinine Est GFR (CKD-EPI)AfAm Est GFR (CKD-EPI)NonAf Random Glucose Calcium Phosphorus Magnesium Total Bilirubin AST ALT Alkaline Phosphatase Ammonia Creatine Kinase Creatine Kinase Index CK-MB (CK-2) Total Protein Albumin Urine Color Yellow Urine Appearance Clear Urine pH 7.0 Ur Specific [place] 1.021 Urine Protein 1+ H Urine Glucose (UA) Negative Urine Ketones 3+ H Urine Blood 1+ H Urine Nitrite Negative Urine Bilirubin Negative Urine Urobilinogen 0.2 Ur Leukocyte Esterase Negative Urine WBC (Auto) 2 Urine RBC (Auto) 4 Urine Casts (Auto) 1 U Epithel Cells (Auto) 1.8 Urine Bacteria (Auto) 2.1 12/23/19 06:10 WBC RBC Hgb Hct MCV MCH MCHC RDW Plt Count MPV PTT (Actin FS) Sodium 141 Potassium 3.6 Chloride 109 H Carbon Dioxide 22 Anion Gap 10 BUN 17.3 Creatinine 0.7 Est GFR (CKD-EPI)AfAm 149.90 Est GFR (CKD-EPI)NonAf 129.33 Random Glucose 80 Calcium 8.0 L Phosphorus 2.7 Magnesium 2.1 Total Bilirubin 1.0 AST 313 H ALT 133 H Alkaline Phosphatase 87 Ammonia Creatine Kinase 6258 H Creatine Kinase Index 0.0 CK-MB (CK-2) 2.4 Total Protein 5.4 L Albumin 2.4 L Urine Color Urine Appearance Urine pH Ur Specific [place] Urine Protein Urine Glucose (UA) Urine Ketones Urine Blood Urine Nitrite Urine Bilirubin Urine Urobilinogen Ur Leukocyte Esterase Urine WBC (Auto) Urine RBC (Auto) Urine Casts (Auto) U Epithel Cells (Auto) Urine Bacteria (Auto) Active Medications Generic Name Dose Route Start Last Admin Trade Name Freq PRN Reason Stop Dose Admin Chlorhexidine Gluconate 1 applic 12/18/19 22:00 12/22/19 21:24 Hibiclens For Decolonization - TP 1 applic HS JARED Administration Haloperidol 10 mg 12/22/19 09:58 12/23/19 10:23 Haldol Injection (Fast Acting) - IM 10 mg Q4H PRN Administration AGITATION Heparin Sodium (Porcine) 5,000 unit 12/19/19 14:00 12/23/19 06:21 Heparin - SQ 5,000 unit TID JARED Administration Piperacillin Sod/Tazobactam 100 mls @ 200 mls/hr 12/20/19 04:00 12/23/19 09: 34 Sod 4.5 gm/ Dextrose IVPB 200 mls/hr Q8H-IV JARED Administration Protocol Potassium Chloride/Sodium Chloride 20 meq in 1,000 mls @ 150 mls/hr 12/22/19 10:06 12/23/19 09:35 1/2ns+20meq Kcl IV 150 mls/hr Q6H JARED Administration Potassium Phosphate 15 mm/ 255 mls @ 62.5 mls/hr 12/23/19 11:00 Sodium Chloride IVPB 12/23/19 15:04 ONCE ONE Ibuprofen 400 mg 12/22/19 14:36 12/22/19 17:12 Caldolor Injection - IVPB 400 mg Q6H PRN Administration FEVER Levetiracetam 500 mg 12/18/19 22:00 12/23/19 09:33 Keppra Injection - IVPB 500 mg BID [facility] Administration Mupirocin 1 applic 12/18/19 22:00 12/23/19 10:24 Bactroban Ointment (For Decolonization) - NS 12/23/19 21:59 1 applic BID JARED Administration Pantoprazole Sodium 40 mg 12/18/19 20:45 12/23/19 09:33 Protonix Iv IVPUSH 40 mg DAILY JARED Administration Sertraline HCl 150 mg 12/22/19 10:00 12/23/19 09:34 Zoloft - PO 150 mg DAILY [facility] Administration Thiamine HCl 200 mg 12/22/19 13:00 12/23/19 09:33 Vitamin B1 Injection - IVPB 200 mg DAILY [facility] Administration ASSESSMENT/PLAN: 29 M PMH PSA (opioids, benzos, cocaine, THC) hx of tremors, MDD (prior suicidal episodes), paranoid personality disorder, hemochromatosis, patient transferred to ICU for acute hypoxic respiratory failure. Neuro/Psych -Patient has hx of withdrawal seizures, PSA, MDD, paranoid personality, tremors. -After discussion with family, patient had had previous psychiatric admissions at [facility] in relation to Substance Use. Patient had 2 admissions to medical floor after overdosing on Heroin, likely laced with fentanyl according to family. -Utox was positive for opiates, benzos, cocaine. -Had witnessed seizure by EMS. -Was found down at skilled nursing, unsure of how long. -Patient no longer sedated. Was given Ativan before, now PRN Haldol. -Loaded with keppra, continue keppra 500 BID -COWS: 6, mild withdrawal. -Neurology consulted, appreciate recs -Addiction Medicine consulted, appreciate recs Cardiovascular -EKG shows sinus tachycardia, no ST Changes, QTC of 496. -Likely septic shock 2/2 to PNA. -Troponins peaked at 3.62, downtrending now. -Type II PA secondary to demand ischemia vs sepsis associated myonecrosis as per Cardiology. -S1Q3T3 noted on initial EKG, was on heparin drip. Repeat EKG shows resolution, heparin drip d/c'd -Maintaing MAP, is tachycardic. -Cardiology consulted, appreciate recs. Patient does not require cardiac cath. Pulm -Acute Hypoxic Respiratory failure -Chest X-ray shows significant multi-lobar consolidation in the left lung. Significant improvement since admission. Likely result of aspiration. -2L NC as needed to keep O2 sat> 92% GI -Transaminitis likely 2/2 to shock liver -LFTs elevated but downtrending. -Abdominal U/S shows mild fatty liver, borderline thickening of gallbladder. -Continue to trend LFTs Renal -Acute rhabdomyolsis -CPK 6258. Remains elevated but is downtrending. Once CPK <5000 will d/c IVF. -IVF until CPK < 5000 -Renal U/S shows unremarkable kidneys. -Nephrology consulted, appreciate recs Heme/Onc -Hx of hemochromatosis -Hgb of 12.3 today. Continue to monitor. ID -Left lung PNA -Given vanc/zoysn/azithromycin/clindamycin -Patient was hospitalized twice in past year. -Continue Zoysn. -F/U Urine culture, Blood culture, sputum culture. no growth for 2 sets of cultures, 3rd set pending. -Spiked fevers yesterday, was re-cultured and central line removed, and [place] removed. -ID consulted, appreciate recs F: IVF until CPK < 5000. E: Trend and replete CMP as needed. N: Regular diet with thin liquids. Lines: Peripheral IV DVT: Heparin SQ Dispo: Transfer to /S. Visit type - Emergency Visit Emergency Visit: Yes ED Registration Date: 12/18/19 Care time: The patient presented to the Emergency Department on the above date and was hospitalized for further evaluation of their emergent condition. - New Patient This patient is new to me today: No - Critical Care Critical Care patient: Yes Total Critical Care Time (in minutes): 35 Critical Care Statement: The care of this patient involved high complexity decision making to prevent further life threatening deterioration of the patient 's condition and/or to evaluate & treat vital organ system(s) failure or risk of failure. ATTENDING PHYSICIAN STATEMENT I saw and evaluated the patient. I reviewed the resident's note and discussed the case with the resident. I agree with the resident's findings and plan as documented. SUBJECTIVE: OBJECTIVE: ASSESSMENT AND PLAN:
--- NOTE | 2019-12-23 15:46 | PN ---
Physical Exam: SUBJECTIVE: Patient seen and examined O/N: Eliz x4, had removal of Del Angel and RIJ Endorses complaint that he wants to get up to urinate. Does not recall recent events. Denies pain, denies trouble breathing. OBJECTIVE: Vital Signs Period Temp Pulse Resp BP Sys/Santoyo Pulse Ox Last 24 Hr 98.7 F-100.5 F 84-137 25-38 129-156/50-77 96-96 GENERAL: obese, lethargic-appearing HEAD: NC/AT. Anicteric sclera, clear conjunctiva and w/o pallor. EYES: Reactive pupils b/l. Sclera anicteric, conjunctiva clear. No ptosis. ENT: Ears normal, nares patent NECK: Trachea midline, full range of motion, supple. Bandage over right neck at site of RIJ LUNGS: Breath sounds w/ mild coarse BS bilaterally, slightly worse on Left- side. NC @2L HEART: tachycardia, regular rhythm, S1, S2 without murmur, rub or gallop. ABDOMEN: Soft, nontender, nondistended, normoactive bowel sounds. Diaper in place, wet and full of pasty brown stool EXTREMITIES: 2+ pulses of b/l radial and b/l DP, warm, well-perfused. Mild peripheral nonpitting edema. NEUROLOGICAL: Answering questions. Following commands. A&O x3(name, month, location, president). Opens eyes to questioning and holding eye contact briefly. 5/5 air export agent strength, 5/5 elbow flexion/extension, shoulder shrug, 5/5 knee flexion/extension, 5/5 plantar/dorsiflexion SKIN: Warm, dry, normal turgor, no rashes or lesions noted. Mild nonpitting edema Laboratory Results - last 24 hr 12/22/19 12/22/19 12/22/19 08:30 13:15 22:00 WBC RBC Hgb Hct MCV MCH MCHC RDW Plt Count MPV PTT (Actin FS) Sodium Potassium Chloride Carbon Dioxide Anion Gap BUN Creatinine Est GFR (CKD-EPI)AfAm Est GFR (CKD-EPI)NonAf Random Glucose Calcium Phosphorus Magnesium Total Bilirubin AST ALT Alkaline Phosphatase Ammonia 17.80 Creatine Kinase Creatine Kinase Index 0.0 CK-MB (CK-2) 3.0 Total Protein Albumin Urine Color Yellow Urine Appearance Clear Urine pH 7.0 Ur Specific [place] 1.021 Urine Protein 1+ H Urine Glucose (UA) Negative Urine Ketones 3+ H Urine Blood 1+ H Urine Nitrite Negative Urine Bilirubin Negative Urine Urobilinogen 0.2 Ur Leukocyte Esterase Negative Urine WBC (Auto) 2 Urine RBC (Auto) 4 Urine Casts (Auto) 1 U Epithel Cells (Auto) 1.8 Urine Bacteria (Auto) 2.1 12/23/19 12/23/19 12/23/19 06:10 06:10 06:10 WBC 10.6 H RBC 3.63 L Hgb 12.3 Hct 34.2 L MCV 94.2 MCH 33.8 H MCHC 35.8 RDW 13.0 Plt Count 193 MPV 7.8 PTT (Actin FS) 28.7 Sodium 141 Potassium 3.6 Chloride 109 H Carbon Dioxide 22 Anion Gap 10 BUN 17.3 Creatinine 0.7 Est GFR (CKD-EPI)AfAm 149.90 Est GFR (CKD-EPI)NonAf 129.33 Random Glucose 80 Calcium 8.0 L Phosphorus 2.7 Magnesium 2.1 Total Bilirubin 1.0 AST 313 H ALT 133 H Alkaline Phosphatase 87 Ammonia Creatine Kinase 6258 H Creatine Kinase Index 0.0 CK-MB (CK-2) 2.4 Total Protein 5.4 L Albumin 2.4 L Urine Color Urine Appearance Urine pH Ur Specific [place] Urine Protein Urine Glucose (UA) Urine Ketones Urine Blood Urine Nitrite Urine Bilirubin Urine Urobilinogen Ur Leukocyte Esterase Urine WBC (Auto) Urine RBC (Auto) Urine Casts (Auto) U Epithel Cells (Auto) Urine Bacteria (Auto) Active Medications Generic Name Dose Route Start Last Admin Trade Name Freq PRN Reason Stop Dose Admin Chlorhexidine Gluconate 1 applic 12/18/19 22:00 12/22/19 21:24 Hibiclens For Decolonization - TP 1 applic HS JARED Administration Haloperidol 10 mg 12/22/19 09:58 12/23/19 13:23 Haldol Injection (Fast Acting) - IM 10 mg Q4H PRN Administration AGITATION Heparin Sodium (Porcine) 5,000 unit 12/19/19 14:00 12/23/19 13:21 Heparin - SQ 5,000 unit TID JARED Administration Piperacillin Sod/Tazobactam 100 mls @ 200 mls/hr 12/20/19 04:00 12/23/19 09: 34 Sod 4.5 gm/ Dextrose IVPB 200 mls/hr Q8H-IV JARED Administration Protocol Potassium Phosphate 15 mm/ 255 mls @ 62.5 mls/hr 12/23/19 11:00 12/23/19 12: 53 Sodium Chloride IVPB 12/23/19 15:04 62.5 mls/hr ONCE ONE Administration Potassium Chloride/Sodium Chloride 20 meq in 1,000 mls @ 75 mls/hr 12/23/19 11 :53 12/23/19 11:58 1/2ns+20meq Kcl IV 75 mls/hr Q6H JARED Administration Ibuprofen 400 mg 12/22/19 14:36 12/22/19 17:12 Caldolor Injection - IVPB 400 mg Q6H PRN Administration FEVER Levetiracetam 500 mg 12/18/19 22:00 12/23/19 09:33 Keppra Injection - IVPB 500 mg BID JARED Administration Mupirocin 1 applic 12/18/19 22:00 12/23/19 10:24 Bactroban Ointment (For Decolonization) - NS 12/23/19 21:59 1 applic BID JARED Administration Pantoprazole Sodium 40 mg 12/18/19 20:45 12/23/19 09:33 Protonix Iv IVPUSH 40 mg DAILY JARED Administration Sertraline HCl 150 mg 12/22/19 10:00 12/23/19 09:34 Zoloft - PO 150 mg DAILY JARED Administration Thiamine HCl 200 mg 12/22/19 13:00 12/23/19 09:33 Vitamin B1 Injection - IVPB 200 mg DAILY JARED Administration ASSESSMENT/PLAN: 29M with pmh of polysubstance use disorder (opiates, cocaine, cannabis), major depressive disorder (prior suicidal episodes), paranoid psychoid, hemochromatosis, presents after being found minimally responsive, tremulous at residential. Intubated for metabolic acidosis w/ severe hypoxemia, imaging suggestive of severe Left-sided pneumonia. CTH showing mild b/l white matter leukomalacia, mild brain swelling/edema, mild chronic sinusitis. Extubated on 12/21/19. Post-extubation was displaying AMS, possibly sustained anoxic brain injury vs recent sedation vs chronic heroin abuse withdrawal. Mentation improving. # Acute hypoxic respiratory failure --resolved, extubated; supplemental O2 via NC > CXR: left lung infiltrative changes, atelectasis > AB.22/42.6/<49/16.7 then 7.29/49.4/261/23 > Vent Settings: AC, 425, 14, PEEP 5.0, 50% > D-dimer 2231 --unclear for PE but EKG revealed S1Q3T3 --no CTA, as JOSE MIGUEL --heparin gtt --stopped > Sepsis secondary to ?left sided pneumonia(?aspiration) --improved HD; now with mild eukocytosis > BCX(12/22/19): NGTD > UCX(12/22/19): NGTD - abx regimen: Vancomycin, Zosyn --> zosyn - ID(Db) recommendations: -- vanc + zosyn; stopped vanc -- fu sputum cx: NGTD, fu urinary Ag: neg > Fever --possibly 2/2 PNA - remove RIJ, remove Del Angel > CXR(12/23/19): increased Left-hemithorax markings - c Diff if persisent diarrhea # AMS --possibly 2/2 anoxic brain injury vs recent sedation + chronic substance( opioid + cocaine) usage ---improving > CTH: brain ?edema > Ammonia(12/22/19): 17.8 - consider MRI if mental status not improving - Neuro(Leandra) consult: --recs pending - [facility] --recs pending # NSTEMI --likely demand and sepsis > Troponin 0.44, 1.07, 3.62, 2.64, 0.82 > BNP 4306 > EKG reveals sinus tachycardia at 144BPM. > Cardiac ECHO: LVEF 55-60%, normal - Telemetry monitoring - Cardio([facility]) consult: --eval for cellulitis of upper extremity, suggest B/L Upper Extremity Duplex # Transaminitis --likely 2/2 sepsis vs hepatoxins(?zosyn, ?keppra, ?ofirmev) --- improving > AST/ALT: 72/261 ...138/452, 133/313 > US RUQ: borderline GB wall thickening, mild fatty liver infiltration - avoid hepatotoxins if possible # Seizure > CT head reveals decreased attenuation of cerebral white matter, concerning for mild brain edema. > CK >14,000, 90507, 7315 - Loaded with Keppra in ED. Continue 500mg IV BID - Neurology(Leandra) recommendations appreciated. --wean of sedation when possible, Keppra 500mg IV q12h, Abx --will examine when off sedation -Seizure precautions # Acute kidney injury --secondary to rhabdomyolysis vs sespsis ---normalized > US Renal: normal kidneys b/l > Cr 3.2, 3.1, 2.8, 2.4, 2.0, 1.6, 1.4, 1.3, 0.9, 0.9 > CPK >73965, 77954, 51956, 6258 - Continue IVF - Nephrology(Derek) recommendations appreciated --cw IVF, until CPK < 5000 # Hyperkalemia --resolved - Likely secondary to seizure activity. - Given Insulin, D50, Kayexelate in ED. Nephrology recommendations appreciated - Follow repeat BMP # Major depressive disorder - home sertraline # FEN - 1/2NS + K @75 - reg + thin liquids Prophylaxis - SCDs + SQH Disposition - ICU Visit type - Emergency Visit Emergency Visit: No - New Patient This patient is new to me today: No - Critical Care Critical Care patient: Yes Total Critical Care Time (in minutes): 35 Critical Care Statement: The care of this patient involved high complexity decision making to prevent further life threatening deterioration of the patient 's condition and/or to evaluate & treat vital organ system(s) failure or risk of failure. ATTENDING PHYSICIAN STATEMENT I saw and evaluated the patient. I reviewed the resident's note and discussed the case with the resident. I agree with the resident's findings and plan as documented. SUBJECTIVE: OBJECTIVE: ASSESSMENT AND PLAN:
--- NOTE | 2019-12-23 18:40 | PN ---
Teaching Attending Note Name of Resident: Perry Ortega ATTENDING PHYSICIAN STATEMENT I saw and evaluated the patient. I reviewed the resident's note and discussed the case with the resident. I agree with the resident's findings and plan as documented. SUBJECTIVE: seen at 9 : 30 am No fever or chills. feels better . denies SOB . diarrhea OBJECTIVE: Looks uncomfortable but fully awake and cooperative with most of the exam. knows location , age, name, and reason for admission. denies alcohol or benzos use. only admits to heroin use Lungs: decreased breath sounds at L base. but good air entry otherwise CV: RRR, no MRG Abd: soft, ND. ND Ext: trace edema on LE and upper extremities. Neuro: No facial droop. EOMI, round equal pupils, reactive to light, tongue nad uvula at mid line. strength : unable toevaluate shoulder shrug/flexion/extension . biceps 5/5, triceps 5/5 . nl hand wardrobe coordinator b/l. b/l hip flexion /55 , knee flexion and extention 5/5 b/l. ankle plantar flexion 5/5. unable to evaluate ankle dorsiflexion . knee jerk 1+ b/l. biceps unable to obtain ASSESSMENT AND PLAN: 29 y/o man with h/o Polysubstance abuse,hemochromoatosis, depression, seizure disorder, who presented from [facility] and is being treated fro resp failure. 1- Septic shock : resolved 2- LLL PNA, possible aspiration PNA 3- Acute hypoxic resp failure 4- Tonic clonic seizure 5- Polysubstance abuse . father indicates opioids and cocaine use mainly 6- JOSE MIGUEL: resolved 7- Elevated D dimer. in setting of severe sepsis. 8- Rhabdomyolysis 9- Transaminitits: likely due to sepsis/ETOH /and septic shock. 10- Eelvated trop : demand ischemia from above 11- Hyperkalemia: resolved plan: -mental status cont to improve with holding sedative agents - shows some signs of opioid withdrawal. - LFTS and CPK improved - Monitor mental status - cont IVF - cont Keppra - cont SSRI - Monitor electrolytes - cont zosyn. - follow blood cx form yesterday - diet - transfer to floor - heparin SQ
[2019-12-23] MEDS ORDERED: IBUPROFEN 800 MG/8 ML IJ IVPB PRN (19:27)
[2019-12-23] MEDS ORDERED: MUPIROCIN 2% TOPICAL OINTMENT FOR DECOLONIZATION NS SCH (22:00)
[2019-12-23] MEDS ORDERED: CHLORHEXIDINE GLUCONATE 4% CLEANSER FOR DECOLONIZATION TP SCH (22:00)
[2019-12-23 22:10] LABS: BLOOD UREA NITROGEN 15.8 mg/dL (7-18); CALCIUM 7.6 mg/dL (8.5-10.1); CREATININE 0.8 mg/dL (0.55-1.3); POTASSIUM 3.5 mmol/L (3.5-5.1)
[2019-12-24] MEDS ORDERED: DEXTROSE 5%-WATER 100 ML IVPB ONE ×3 (01:07→17:15)
[2019-12-24] MEDS ORDERED: PIPERACILLIN/TAZOBACTAM 4.5 GM VIAL IVPB ONE ×3 (01:07→17:15)
[2019-12-24] MEDS: PIPERACILLIN/TAZOB 4.5 GM 4.5 GM in DEXTROSE 5%-WATER 100 ML IVPB SCH ×3 (03:04→17:44)
[2019-12-24] MEDS: HALOPERIDOL LACTATE 5 MG/ML IM PRN (06:42)
[2019-12-24] MEDS: HEPARIN NA (PORCINE) 5,000 UNITS/ML 1ML VIAL SQ SCH (06:42)
[2019-12-24 08:20] LABS: BASO % 0.6 % (0-2.0); EOS % 3.3 % (0-4.5); HEMOGLOBIN 12.4 GM/dL (11.7-16.9); LYMPH % 19.5 % (8-40); MCH 33.6 pg (25.7-33.7); MCHC 35.5 g/dl (32.0-35.9); MEAN CELL VOLUME 94.6 fl (80-96); MEAN PLT VOLUME 8.2 fl (7.5-11.1); MONO % 11.7 % (3.8-10.2); NEUT % 64.9 % (42.8-82.8); PLATELET COUNT 240 K/MM3 (134-434); RDW 13.1 % (11.9-15.9)
[2019-12-24 08:58] LABS: ALBUMIN 2.6 g/dl (3.4-5.0); BILIRUBIN,TOTAL 0.7 mg/dL (0.2-1); BLOOD UREA NITROGEN 21.3 mg/dL (7-18); CALCIUM 8.1 mg/dL (8.5-10.1); CREATININE 0.8 mg/dL (0.55-1.3); MAGNESIUM 2.3 mg/dL (1.8-2.4); POTASSIUM 3.6 mmol/L (3.5-5.1); TOT PROT 5.7 g/dl (6.4-8.2)
[2019-12-24] MEDS ORDERED: POTASSIUM CHLORIDE ORAL LIQUID 20 MEQ/15 ML PO ONE (09:59)
[2019-12-24] MEDS ORDERED: THIAMINE HCL 200 MG/2 ML VIAL IVPB SCH (10:00)
[2019-12-24] MEDS ORDERED: PANTOPRAZOLE SODIUM 40 MG VIAL IVPUSH SCH (10:00)
[2019-12-24] MEDS: SERTRALINE HCL 50 MG TABLET (FP) PO SCH (10:24)
[2019-12-24] MEDS ORDERED: ZINC OXIDE/PANTHENOL/VITAMIN E 56 GM TUBE TP PRN ×2 (11:19→11:51)
[2019-12-24] MEDS ORDERED: ACETAMINOPHEN 325 MG TABLET (FP) PO PRN (11:22)
[2019-12-24] MEDS: levETIRAcetam 500 MG/5 ML INJECTION VIAL IVPB SCH (11:28)
[2019-12-24] MEDS: SODIUM CHLORIDE 0.45%/POT 20 MEQ/1,000 ML INFUS.BAG IV SCH (11:44)
[2019-12-24] MEDS: levETIRAcetam 500 MG TABLET (FP) PO SCH ×2 (11:46→21:21)
--- NOTE | 2019-12-24 12:16 | PN ---
Teaching Attending Note Name of Resident: Perry Ortega ATTENDING PHYSICIAN STATEMENT I saw and evaluated the patient. I reviewed the resident's note and discussed the case with the resident. I agree with the resident's findings and plan as documented. SUBJECTIVE: no fever or chills. no SINGER , feels better. father at bedside and indicates Zaid is doing better. Zaid denies any abd pain/chest pain/SINGER/change in vision/SOB. he still has some degree of diarrhea he did not sleep last night and is tired this am. he admits to using fentanyl in addition to heroin events noted for agitation last night . Posy was placed OBJECTIVE: Looks uncomfortable , sweaty, but awake and cooperative with the exam. knows location , age, name, president, and year /month. Lungs: decreased breath sounds at L base. CV: RRR, no MRG Abd: soft, ND. NT. NL BS Ext: No edema on LE s. midl edema and bruising on both upper arms Neuro: No facial droop. EOMI, round equal pupils, reactive to light, tongue nad uvula at mid line. Strength: shoulder shrug/flexion/extension 5/5. biceps 5/5, triceps 5/5. b/l hip flexion 5/5, knee flexion and extention 5/5 b/l. ankle plantar flexion/ dorsiflexion 5/5. not relaxed for reflexes ASSESSMENT AND PLAN: 29 y/o man with h/o Polysubstance abuse,hemochromoatosis, depression, seizure disorder, who presented from [facility] and is being treated fro resp failure. 1- Septic shock: resolved 2- LLL PNA, possible aspiration PNA 3- Acute hypoxic resp failure 4- Tonic clonic seizure 5- opioids over dose 6- JOSE MIGUEL: resolved 7- Elevated D dimer. in setting of severe sepsis. 8- Rhabdomyolysis 9- Transaminitits: likely due to sepsis/ETOH /and septic shock. 10- Eelvated trop : demand ischemia from above 11- Hyperkalemia: resolved plan: -mental status cont to improve with holding sedative agents - has signs of opioid withdrawal , but dad declined detox with methadone on discussion today - LFTS and CPK cont to improve - Monitor mental status - cont IVF - cont Keppra . change to po - cont SSRI - Monitor electrolytes - cont zosyn. - follow blood cx till final - US of upepr extremities pending - diarrhea is likley due to opioid withdrawal. but will get C diff. - heparin SQ
--- NOTE | 2019-12-24 13:58 | PN ---
Physical Exam: SUBJECTIVE: Patient seen and examined O/N: agitated and pulled out P-IV. Received Roxana and Haldol. Having diarrhea Endorses agitation. Denies SINGER, sweating, abdominal pain OBJECTIVE: Vital Signs Period Temp Pulse Resp BP Sys/Santoyo Pulse Ox Last 24 Hr 97.9 F-99.8 F 101-115 18-27 127-161/58-82 97 GENERAL: obese, mildly lethargic-appearing HEAD: NC/AT. Anicteric sclera, clear conjunctiva and w/o pallor. EYES: Reactive pupils b/l. Dilated pupils. Sclera anicteric, conjunctiva clear. No ptosis. ENT: Ears normal, nares patent NECK: Trachea midline, full range of motion, supple. Bandage over right neck at site of RIJ LUNGS: Breath sounds w/ very mild coarse BS bilaterally, slightly worse on Left- side. HEART: tachycardia, regular rhythm, S1, S2 without murmur, rub or gallop. ABDOMEN: Soft, nontender, nondistended, normoactive bowel sounds. Diaper in place, wet. No erythema on buttocks EXTREMITIES: 2+ pulses of b/l radial and b/l DP, warm, well-perfused. Mild peripheral nonpitting edema. NEUROLOGICAL: Answering questions. Following commands. A&O x3(name, month, location, president). Opens eyes to questioning and holding eye contact briefly. 5/5 water tender strength, 5/5 elbow flexion/extension, shoulder shrug, 5/5 knee flexion/extension, 5/5 plantar/dorsiflexion. SKIN: Warm, dry, normal turgor, no rashes or lesions noted. Mild nonpitting edema Laboratory Results - last 24 hr 12/19/19 12/23/19 12/23/19 17:40 14:38 21:05 WBC RBC Hgb Hct MCV MCH MCHC RDW Plt Count MPV Absolute Neuts (auto) Neutrophils % Lymphocytes % Monocytes % Eosinophils % Basophils % Nucleated RBC % PTT (Actin FS) Sodium Cancelled 139 Potassium Cancelled 3.5 Chloride Cancelled 109 H Carbon Dioxide Cancelled 24 Anion Gap Cancelled 7 L BUN Cancelled 15.8 Creatinine Cancelled 0.8 Est GFR (CKD-EPI)AfAm Cancelled 141.89 Est GFR (CKD-EPI)NonAf Cancelled 122.43 Random Glucose Cancelled 96 Calcium Cancelled 7.6 L Magnesium Total Bilirubin AST ALT Alkaline Phosphatase Creatine Kinase Cancelled 3926 H Creatine Kinase Index Cancelled 0.0 CK-MB (CK-2) Cancelled 1.8 Total Protein Albumin Urine Myoglobin 83450 H 12/24/19 12/24/19 12/24/19 07:00 07:00 07:00 WBC 8.0 RBC 3.70 L Hgb 12.4 Hct 35.0 L MCV 94.6 MCH 33.6 MCHC 35.5 RDW 13.1 Plt Count 240 D MPV 8.2 Absolute Neuts (auto) 5.2 Neutrophils % 64.9 Lymphocytes % 19.5 D Monocytes % 11.7 H Eosinophils % 3.3 D Basophils % 0.6 Nucleated RBC % 0 PTT (Actin FS) 30.2 Sodium 140 Potassium 3.6 Chloride 109 H Carbon Dioxide 21 Anion Gap 10 BUN 21.3 H Creatinine 0.8 Est GFR (CKD-EPI)AfAm 141.89 Est GFR (CKD-EPI)NonAf 122.43 Random Glucose 78 Calcium 8.1 L Magnesium 2.3 Total Bilirubin 0.7 AST 186 H ALT 121 H Alkaline Phosphatase 81 Creatine Kinase 3248 H Creatine Kinase Index 0.0 CK-MB (CK-2) 2.0 Total Protein 5.7 L Albumin 2.6 L Urine Myoglobin Active Medications Generic Name Dose Route Start Last Admin Trade Name Freq PRN Reason Stop Dose Admin Acetaminophen 650 mg 12/24/19 11:22 Tylenol - PO Q6H PRN PAIN LEVEL 6-10 Folic Acid 1 mg 12/25/19 10:00 Folic Acid - PO DAILY JARED Haloperidol 10 mg 12/23/19 19:27 12/24/19 06:42 Haldol Injection (Fast Acting) - IM 10 mg Q4H PRN Administration AGITATION Heparin Sodium (Porcine) 5,000 unit 12/23/19 22:00 12/24/19 06:42 Heparin - SQ 5,000 unit TID JARED Administration Piperacillin Sod/Tazobactam 100 mls @ 200 mls/hr 12/24/19 02:00 12/24/19 10: 24 Sod 4.5 gm/ Dextrose IVPB 200 mls/hr Q8H-IV JARED Administration Protocol Levetiracetam 500 mg 12/24/19 11:30 12/24/19 11:46 Keppra - PO 500 mg BID JARED Administration Multivitamins/Minerals/Vitamin C 1 tab 12/25/19 10:00 Tab-A-Vit - PO DAILY JARED Sertraline HCl 150 mg 12/24/19 10:00 12/24/19 10:24 Zoloft - PO 150 mg DAILY JARED Administration Thiamine HCl 100 mg 12/25/19 10:00 Vitamin B1 - PO DAILY JARED Zinc Oxide/Panthenol/Vitamin E 1 applic 12/24/19 11:51 Balmex Cream - TP BID PRN HYGEINE ASSESSMENT/PLAN: 29M with pmh of polysubstance use disorder (opiates, cocaine, cannabis), major depressive disorder (prior suicidal episodes), paranoid psychoid, hemochromatosis, presents after being found minimally responsive, tremulous at [facility]. Intubated for metabolic acidosis w/ severe hypoxemia, imaging suggestive of severe Left-sided pneumonia. CTH showing mild b/l white matter leukomalacia, mild brain swelling/edema, mild chronic sinusitis. Extubated on 12/21/19. Post-extubation was displaying AMS, possibly sustained anoxic brain injury vs recent sedation vs chronic heroin abuse withdrawal. Mentation improving. # Acute hypoxic respiratory failure --resolved, extubated; supplemental O2 via NC > CXR: left lung infiltrative changes, atelectasis > AB.22/42.6/<49/16.7 then 7.29/49.4/261/23 > Vent Settings: AC, 425, 14, PEEP 5.0, 50% > D-dimer 2231 --unclear for PE but EKG revealed S1Q3T3 --no CTA, as JOSE MIGUEL --heparin gtt --stopped > Sepsis secondary to ?left sided pneumonia(?aspiration) --improved HD; no leukocytosis > BCX(12/22/19): NGTD > UCX(12/22/19): NGTD - abx regimen: Vancomycin, Zosyn --> zosyn - ID(Db) recommendations: -- vanc + zosyn; stopped vanc -- fu sputum cx: NGTD, fu urinary Ag: neg # Fever --possibly 2/2 PNA ---resolved - remove RIJ, remove Del Angel > CXR(12/23/19): increased Left-hemithorax markings - c Diff if persisent diarrhea # BUE DVTs > US venous duplex LE: neg > US venous duplex UE --final read pending, call from [employer] says STEVAN positive DVTs - Eliquis 10mg BID x7(12/24 -- 12/30) then Eliquis 5mg BID # AMS --possibly 2/2 anoxic brain injury vs recent sedation + chronic substance( opioid + cocaine) usage ---improving > CTH: brain ?edema > Ammonia(12/22/19): 17.8 > COWS 13(tachy, sweating, shifting body, dilated pupils, diarrhea) --pt's family expressing desire to detox w/o Methadone - consider MRI if mental status not improving - Re-orient and Bosque as needed - Neuro(Leandra) consult: --Keppra 500mg q12h, Abx --will examine when off sedation - [facility]: --not a detox candidate at this time d/t being critically ill --to be re-evaluated when pt stable # NSTEMI --likely demand and sepsis > Troponin 0.44, 1.07, 3.62, 2.64, 0.82 > BNP 4306 > EKG reveals sinus tachycardia at 144BPM. > Cardiac ECHO: LVEF 55-60%, normal - Telemetry monitoring - Cardio(Cassandra) consult: --eval for cellulitis of upper extremity, suggest B/L Upper Extremity Duplex # Transaminitis --likely 2/2 sepsis vs hepatoxins(?zosyn, ?keppra, ?ofirmev) --- improving > AST/ALT: 72/261 ...138/452, 133/313, 121/186 > US RUQ: borderline GB wall thickening, mild fatty liver infiltration - avoid hepatotoxins if possible # Seizure > CT head reveals decreased attenuation of cerebral white matter, concerning for mild brain edema. > CK >14,000, 82094, 7315, 67863, 02030, 6258, 3926, 3248 - Loaded with Keppra in ED. Continue 500mg PO BID - Neurology(Leandra) recommendations appreciated -Seizure precautions # Acute kidney injury --secondary to rhabdomyolysis vs sespsis ---normalized # Rhabdomylosis -- secondary to seizures vs seizures ---downtrending, no need for IVF > US Renal: normal kidneys b/l > Cr 3.2, 3.1, 2.8, 2.4, 2.0, 1.6, 1.4, 1.3, 0.9, 0.9 > CPK >14,000, 07187, 7315, 30241, 03824, 6258, 3926, 3248 - Nephrology(Derek) recommendations appreciated --IVF, until CPK < 5000 # Hyperkalemia --resolved - Likely secondary to seizure activity. - Given Insulin, D50, Kayexelate in ED - Follow repeat BMP # Major depressive disorder - home sertraline # FEN - reg + thin liquids Prophylaxis - SCDs + Eliquis Disposition - Med-Surg Visit type - Emergency Visit Emergency Visit: No - New Patient This patient is new to me today: No - Critical Care Critical Care patient: No ATTENDING PHYSICIAN STATEMENT I saw and evaluated the patient. I reviewed the resident's note and discussed the case with the resident. I agree with the resident's findings and plan as documented. SUBJECTIVE: OBJECTIVE: ASSESSMENT AND PLAN:
[2019-12-24] MEDS: APIXABAN 5 MG TABLET PO SCH ×2 (14:04→21:21)
--- NOTE | 2019-12-24 14:28 | EKG ---
Test Reason : Blood Pressure : / mmHG Vent. Rate : 099 BPM Atrial Rate : 099 BPM P-R Int : 134 ms QRS Dur : 090 ms QT Int : 370 ms P-R-T Axes : 039 058 044 degrees QTc Int : 474 ms NORMAL SINUS RHYTHM NORMAL ECG Confirmed by MD TYLER, THOMAS ([id number]) on 12/24/2019 2:28:42 PM Referred By: Cristel HARGROVE Confirmed By:THOMAS SCOTT MD
[2019-12-24] MEDS ORDERED: APIXABAN 5 MG TABLET PO SCH (22:00)
[2019-12-25] MEDS ORDERED: PIPERACILLIN/TAZOBACTAM 4.5 GM VIAL IVPB ONE ×2 (02:29→09:39)
[2019-12-25] MEDS ORDERED: DEXTROSE 5%-WATER 100 ML IVPB ONE ×2 (02:29→09:39)
[2019-12-25] MEDS: PIPERACILLIN/TAZOB 4.5 GM 4.5 GM in DEXTROSE 5%-WATER 100 ML IVPB SCH ×2 (02:40→09:44)
[2019-12-25 08:25] LABS: BILIRUBIN,TOTAL 0.7 mg/dL (0.2-1); BLOOD UREA NITROGEN 20.8 mg/dL (7-18); CALCIUM 8.5 mg/dL (8.5-10.1); CREATININE 0.8 mg/dL (0.55-1.3); MAGNESIUM 2.3 mg/dL (1.8-2.4); POTASSIUM 3.9 mmol/L (3.5-5.1); TOT PROT 6.3 g/dl (6.4-8.2)
[2019-12-25 09:23] LABS: HEMATOCRIT 39.9 % (35.4-49); MCH 33.4 pg (25.7-33.7); MCHC 35.2 g/dl (32.0-35.9); MEAN PLT VOLUME 8.2 fl (7.5-11.1); PLATELET COUNT 379 K/MM3 (134-434); RDW 13.4 % (11.9-15.9); WHITE BLOOD COUNT 10.2 K/mm3 (4.0-10.0)
[2019-12-25] MEDS ORDERED: PT OWN MED DRAWER 7, Y5N ONE (09:39)
[2019-12-25] MEDS: APIXABAN 5 MG TABLET PO SCH ×2 (09:42→21:51)
[2019-12-25] MEDS: MULTIVITAMINS (DAILY MVI) TABLET (FP) PO SCH (09:42)
[2019-12-25] MEDS: FOLIC ACID 1 MG TABLET (FP) PO SCH (09:42)
[2019-12-25] MEDS: levETIRAcetam 500 MG TABLET (FP) PO SCH ×2 (09:42→21:50)
[2019-12-25] MEDS: SERTRALINE HCL 50 MG TABLET (FP) PO SCH (09:43)
[2019-12-25] MEDS: THIAMINE HCL 100 MG TABLET (FP) PO SCH (09:43)
--- NOTE | 2019-12-25 16:13 | PN ---
Progress Note (short form) - Note Progress Note: Subjective: no fever or chills . No SINGER . no pain , No N/V. no events over night Objective: Vital Signs: Last Vital Signs Temp Pulse Resp BP Pulse Ox 97.6 F 100 H 20 144/86 93 L 12/25/19 14:00 12/25/19 14:00 12/25/19 14:00 12/25/19 14:00 12/25/19 09:00 Laboratory Results - last 24 hr 12/24/19 12/25/19 12/25/19 23:50 06:50 06:50 WBC 10.2 H RBC 4.20 Hgb 14.0 Hct 39.9 MCV 95.0 MCH 33.4 MCHC 35.2 RDW 13.4 Plt Count 379 D MPV 8.2 Sodium 137 Potassium 3.9 Chloride 106 Carbon Dioxide 21 Anion Gap 10 BUN 20.8 H Creatinine 0.8 Est GFR (CKD-EPI)AfAm 141.89 Est GFR (CKD-EPI)NonAf 122.43 Random Glucose 80 Calcium 8.5 Magnesium 2.3 Total Bilirubin 0.7 AST 101 H ALT 112 H Alkaline Phosphatase 84 Creatine Kinase 1515 H Creatine Kinase Index 0.1 CK-MB (CK-2) 2.6 Total Protein 6.3 L Albumin 3.0 L Stool Occult Blood Cancelled Physical Exam: sweaty, shaking in arms and legs but awake and cooperative with the exam. Lungs: decreased breath sounds at L base. CV: RRR, no MRG Abd: soft, ND. NT. NL BS. Ext: No edema on LE s. mild edema and bruising on both upper arms . course tremor in upper and lower extremities ASSESSMENT AND PLAN: 29 y/o man with h/o Polysubstance abuse,hemochromoatosis, depression, seizure disorder, who presented from [facility] and is being treated for resp failure. 1- Septic shock: resolved 2- LLL PNA, possible aspiration PNA 3- Acute hypoxic resp failure 4- Tonic clonic seizure 5- opioids over dose 6- JOSE MIGUEL: resolved 7- Elevated D dimer. in setting of severe sepsis. 8- Rhabdomyolysis 9- Transaminitits: likely due to sepsis/ETOH /and septic shock. 10- Eelvated trop : demand ischemia from above 11- Hyperkalemia: resolved 12- opioid withdrawal 14- b/l upper ext DVTs Plan: - Mental status cont to improve with holding sedative agents - lost IV. dc Abx. d/w ID - cont eliquis for DVts. d/w mother over the phone the risk of bleeding including spinal bleed. she was educated to watch for signs of bleeding - has signs of opioid withdrawal, d/w with mom starting methadone detox. she refused . - LFTS and CPK cont to improve - Monitor mental status - monitor off IVF - cont Keppra - cont SSRI - diarrhea is likley due to opioid withdrawal. but will get C diff when possible - heparin SQ Visit type - Emergency Visit Emergency Visit: Yes ED Registration Date: 12/18/19 Care time: The patient presented to the Emergency Department on the above date and was hospitalized for further evaluation of their emergent condition. - New Patient This patient is new to me today: No - Critical Care Critical Care patient: No
[2019-12-25] MEDS ORDERED: BISMUTH SUBSALICYLATE 524 MG/30 ML UD PO ONE (22:21)
[2019-12-25] MEDS ORDERED: MELATONIN 5 MG TABLETS PO ONE (22:22)
[2019-12-26 09:40] LABS: BASO % 0.6 % (0-2.0); EOS % 3.2 % (0-4.5); HEMATOCRIT 39.1 % (35.4-49); HEMOGLOBIN 14.2 GM/dL (11.7-16.9); MCH 33.9 pg (25.7-33.7); MCHC 36.3 g/dl (32.0-35.9); MEAN CELL VOLUME 93.4 fl (80-96); MEAN PLT VOLUME 7.7 fl (7.5-11.1); MONO % 10.2 % (3.8-10.2); PLATELET COUNT 486 K/MM3 (134-434); RBC 4.19 M/mm3 (4.00-5.60); RDW 13.4 % (11.9-15.9); WHITE BLOOD COUNT 10.3 K/mm3 (4.0-10.0)
[2019-12-26] MEDS ORDERED: PT OWN MED DRAWER 7, Y5N ONE ×2 (09:59→21:20)
[2019-12-26] MEDS: FOLIC ACID 1 MG TABLET (FP) PO SCH (10:01)
[2019-12-26] MEDS: SERTRALINE HCL 50 MG TABLET (FP) PO SCH (10:01)
[2019-12-26] MEDS: levETIRAcetam 500 MG TABLET (FP) PO SCH ×2 (10:01→22:20)
[2019-12-26] MEDS: THIAMINE HCL 100 MG TABLET (FP) PO SCH (10:01)
[2019-12-26] MEDS: MULTIVITAMINS (DAILY MVI) TABLET (FP) PO SCH (10:01)
[2019-12-26] MEDS: APIXABAN 5 MG TABLET PO SCH ×2 (10:01→22:19)
[2019-12-26 10:19] LABS: ALBUMIN 2.8 g/dl (3.4-5.0); BILIRUBIN,TOTAL 0.5 mg/dL (0.2-1); BLOOD UREA NITROGEN 22.2 mg/dL (7-18); CALCIUM 8.3 mg/dL (8.5-10.1); CREATININE 0.8 mg/dL (0.55-1.3); POTASSIUM 3.9 mmol/L (3.5-5.1); TOT PROT 6.1 g/dl (6.4-8.2)
--- NOTE | 2019-12-26 10:22 | PN ---
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 Pt moved form ICU to 8th floor unit. Pt presents as A&Ox3 verbal, cooperative. Chart review indicates that pt is consuming diet without s/s of dysphagia and/ or aspiration at this time. seating captain reports that medication have been given with no episodes of aspiration -like behaviors Re: Continue regular solids with thin liquids as tolerated. Observe standard aspiration precautions. Meds can be given whole with water. No further speech intervention needed unless there is a change in mental or medical status. Results given to wire charger and PCP via chart.
--- NOTE | 2019-12-26 10:24 | PN ---
Progress Note (short form) - Note Progress Note: stable off antibioitcs alert oob walking with walker today diarrhea has resolved off antibiotics Vital Signs Period Temp Pulse Resp BP Sys/Santoyo Pulse Ox Last 24 Hr 97.6 F-98.3 F 100-104 20-20 144-148/83-91 93 cor-rrr lungs clear abd soft,nt ext no edema +resting tremow CBC, BMP 12/26/19 08:30 Microbiology 12/20/19 16:00 Blood - Central Line Blood Culture - Final NO GROWTH AFTER 5 DAYS INCUBATION 12/20/19 16:00 Blood - Central Line Blood Culture - Final NO GROWTH AFTER 5 DAYS INCUBATION 12/22/19 12:50 Blood - Peripheral Venous Blood Culture - Preliminary NO GROWTH OBTAINED AFTER 72 HOURS, INCUBATION TO CONTINUE FOR 2 DAYS. 12/22/19 12:45 Blood - Peripheral Venous Blood Culture - Preliminary NO GROWTH OBTAINED AFTER 72 HOURS, INCUBATION TO CONTINUE FOR 2 DAYS. 12/22/19 22:00 Urine - Urine - Catheterized Urine Culture - Final NO GROWTH OBTAINED 12/18/19 13:30 Blood - Peripheral Venous Blood Culture - Final NO GROWTH AFTER 5 DAYS INCUBATION 12/18/19 13:30 Blood - Peripheral Venous Blood Culture - Final NO GROWTH AFTER 5 DAYS INCUBATION 12/20/19 17:25 Sputum - Endotrachea Suction/Ventilator Gram Stain - Final 12/20/19 17:25 Sputum - Endotrachea Suction/Ventilator Sputum Culture - Final 12/19/19 16:00 Sputum - Endotrachea Suction/Ventilator Gram Stain - Final 12/19/19 16:00 Sputum - Endotrachea Suction/Ventilator Sputum Culture - Final NORMAL RESPIRATORY VALENTINO 12/20/19 18:50 Nares - Right Nares MRSA Screen - Final NO MRSA ISOLATED 12/19/19 16:00 Urine - Urine [place] Legionella Antigen - Final 12/19/19 16:00 Urine - Urine [place] Streptococcus pneumoniae Antigen (M - Final 12/18/19 13:55 Urine - Urine Clean Catch Urine Culture - Final NO GROWTH OBTAINED imp/reccd respiratory failure-extubated 12/21 aspiration pneumonia-normal valentino in culture- stable off antiiboitcs seizures? substance use UE dvts rhabdomyolysis resolved d/w patient his substance use history, he has not been HIV tested in several years and is agreeable to retesting will order please call back if needed
[2019-12-26] MEDS ORDERED: FAMOTIDINE 20 MG/50 ML IVPB 20 MG/50 ML MG IVPB ONE (13:18)
[2019-12-26] MEDS ORDERED: FAMOTIDINE 20 MG TABLET PO ONE (13:30)
--- NOTE | 2019-12-26 13:30 | PN ---
Progress Note (short form) - Note Progress Note: OOB to chair. NAD on RA. SOme dry cough. Feels overall better. Intake & Output 12/23/19 12/24/19 12/25/19 12/26/19 23:59 23:59 23:59 23:59 Intake Total 2200 420 50 0 Balance 2200 420 50 0 Weight 229 lb 5 oz 219 lb 9.6 oz Last Vital Signs Temp Pulse Resp BP Pulse Ox 98.1 F 92 H 20 145/78 93 L 12/26/19 08:55 12/26/19 08:55 12/26/19 08:55 12/26/19 08:55 12/25/19 21:00 Active Medications Acetaminophen (Tylenol -) 650 mg PO Q6H PRN PRN Reason: PAIN LEVEL 6-10 Apixaban (Eliquis -) 10 mg PO BID [facility] Last Admin: 12/26/19 10:01 Dose: 10 mg Famotidine (Pepcid -) 20 mg PO ONCE ONE Stop: 12/26/19 13:31 Folic Acid (Folic Acid -) 1 mg PO DAILY [facility] Last Admin: 12/26/19 10:01 Dose: 1 mg Haloperidol (Haldol Injection (Fast Acting) -) 10 mg IM Q4H PRN PRN Reason: AGITATION Last Admin: 12/24/19 06:42 Dose: 10 mg Levetiracetam (Keppra -) 500 mg PO BID [facility] Last Admin: 12/26/19 10:01 Dose: 500 mg Multivitamins/Minerals/Vitamin C (Tab-A-Vit -) 1 tab PO DAILY [facility] Last Admin: 12/26/19 10:01 Dose: 1 tab Sertraline HCl (Zoloft -) 150 mg PO DAILY [facility] Last Admin: 12/26/19 10:01 Dose: 150 mg Thiamine HCl (Vitamin B1 -) 100 mg PO DAILY [facility] Last Admin: 12/26/19 10:01 Dose: 100 mg Zinc Oxide/Panthenol/Vitamin E (Balmex Cream -) 1 applic TP BID PRN PRN Reason: HYGEINE Last Admin: 12/24/19 14:15 Dose: 1 applic Gen: Awake and alert, NAD Heart: RRR Lung: decreased breath sounds at the bases Abd: soft, nontender Ext: no edema Laboratory Results - last 24 hr 0212/26/19 12/26/19 05:33 08:30 08:30 WBC 10.3 H RBC 4.19 Hgb 14.2 Hct 39.1 MCV 93.4 MCH 33.9 H MCHC 36.3 H RDW 13.4 Plt Count 486 H D MPV 7.7 Absolute Neuts (auto) 6.6 Neutrophils % 64.0 Lymphocytes % 22.0 Monocytes % 10.2 Eosinophils % 3.2 Basophils % 0.6 Nucleated RBC % 0 Sodium 136 Potassium 3.9 Chloride 104 Carbon Dioxide 23 Anion Gap 9 BUN 22.2 H Creatinine 0.8 Est GFR (CKD-EPI)AfAm 141.89 Est GFR (CKD-EPI)NonAf 122.43 Random Glucose 84 Calcium 8.3 L Total Bilirubin 0.5 AST 52 H ALT 89 H Alkaline Phosphatase 77 Total Protein 6.1 L Albumin 2.8 L Isopropyl Alc, Quant Negative HIV 1&2 Antibody Screen HIV P24 Antigen 12/26/19 11:20 WBC RBC Hgb Hct MCV MCH MCHC RDW Plt Count MPV Absolute Neuts (auto) Neutrophils % Lymphocytes % Monocytes % Eosinophils % Basophils % Nucleated RBC % Sodium Potassium Chloride Carbon Dioxide Anion Gap BUN Creatinine Est GFR (CKD-EPI)AfAm Est GFR (CKD-EPI)NonAf Random Glucose Calcium Total Bilirubin AST ALT Alkaline Phosphatase Total Protein Albumin Isopropyl Alc, Quant HIV 1&2 Antibody Screen Cancelled HIV P24 Antigen Cancelled ASSESSMENT AND PLAN: Acute Hypoxic and Hypercapneic Respiratory Failure Pneumonia likely Aspiration Septic Shock resolving Lactic Acidosis resolved Acute Kidney Injury improving Rhabdomyolysis Elevated LFTs likely Ischemic Injury +Troponins likely Demand Ischemia Polysubstance Abuse Depression Hemochromatosis - Off ABX per ID - DC planning Dr Sanchez
--- NOTE | 2019-12-26 14:27 | PN ---
[facility] Progress Note Note: [facility] follow up evaluation seen at beside alert,oriented x 3,sitting up in the chair no complaint denied any difficulty in breathing ,no shortness of breath,no diarrhea,no pain, no withdrawal symptom mentioned heroin dependence 3 bags/day,started age 20,last used 01/05/2020 cocaine abused,smoke,1/2 gram/used,daily,started at age of 19,last used 2019 Vital Signs Temperature 98.1 F 12/26/19 08:55 Pulse Rate 92 H 12/26/19 08:55 Respiratory Rate 12/26/19 08:55 Blood Pressure 145/78 12/26/19 08:55 O2 Sat by Pulse Oximetry (%) 93 L 12/25/19 21:00 no withdrawal symptom stated did not want any medication for detox patient did not want to go to rehab his plan is to go to his parent house in [place],follow up with out patient program and psychiatrist in [place]
--- NOTE | 2019-12-26 16:27 | PN ---
Progress Note (short form) - Note Progress Note: s: no chest pain, palps, dizziness, dyspnea Current Medications Acetaminophen (Tylenol -) 650 mg PO Q6H PRN PRN Reason: PAIN LEVEL 6-10 Apixaban (Eliquis -) 10 mg PO BID [facility] Last Admin: 12/26/19 10:01 Dose: 10 mg Folic Acid (Folic Acid -) 1 mg PO DAILY [facility] Last Admin: 12/26/19 10:01 Dose: 1 mg Haloperidol (Haldol Injection (Fast Acting) -) 10 mg IM Q4H PRN PRN Reason: AGITATION Last Admin: 12/24/19 06:42 Dose: 10 mg Levetiracetam (Keppra -) 500 mg PO BID [facility] Last Admin: 12/26/19 10:01 Dose: 500 mg Multivitamins/Minerals/Vitamin C (Tab-A-Vit -) 1 tab PO DAILY [facility] Last Admin: 12/26/19 10:01 Dose: 1 tab Sertraline HCl (Zoloft -) 150 mg PO DAILY [facility] Last Admin: 12/26/19 10:01 Dose: 150 mg Thiamine HCl (Vitamin B1 -) 100 mg PO DAILY [facility] Last Admin: 12/26/19 10:01 Dose: 100 mg Zinc Oxide/Panthenol/Vitamin E (Balmex Cream -) 1 applic TP BID PRN PRN Reason: HYGEINE Last Admin: 12/24/19 14:15 Dose: 1 applic Vital Signs Period Temp Pulse Resp BP Sys/Santoyo Pulse Ox Last 24 Hr 97.9 F-98.3 F 92-112 20-20 145-150/78-91 93-96 Constitutional: Yes: No Distress Cardiovascular: Yes: Regular Rate and Rhythm Respiratory: Yes: Rhonchi Edema: Yes (2+ upper ext edema) Edema: LUE: 2+, RUE: 2+ Peripheral Pulses WNL: Yes Neurological: Yes: Alert, oriented no jaundice, diaphoresis not agitated - ....Imaging EKG: Image Reviewed Assessment/Plan echo 12/2019 tds, nl LV/RV function, no significant valvular pathology PNA, hypoxic resp failure, polysubstance abuse/intoxication: -extensive L infiltrate on CXR, ? aspiration - now extubated - on abx upper ext DVT -on eliquis, manage per primary septic shock, lactic acidosis: -off pressors, currently hemodynamically stable -aggressive fluid resuscitation, abx mgmt as doing rhabdomyolysis with JOSE MIGUEL (sec to cocaine intoxication): -renal fxn improving -cont fluids NSTEMI: -pt young with no known traditional CAD risk factors -no ecg changes, mult other life-threatening medical problems -this is Type II CA sec to demand ischemia/injury, vs sepsis syndrome associated myonecrosis -no ischemia-focused med intervention or testing indicated -nl LV function on echo, trop peaked at 3.6, now improving transaminitis: -likely shock liver -improving, trend labs, cont supportive care
--- NOTE | 2019-12-26 18:15 | PN ---
Physical Exam: SUBJECTIVE: Patient seen and examined. Pt. endorses dyspnea on any exertion but denies shortness of breath at rest. Pt. states that both his arms are still swollen though a little less than yesterday and not tender. Pt. endorses upper extremity weakness. Pt. denies fever, chills, chest pain or numbness/tingling in extremities. OBJECTIVE: Vital Signs Period Temp Pulse Resp BP Sys/Santoyo Pulse Ox Last 24 Hr 97.9 F-98.3 F 92-112 20-20 145-150/78-91 93-96 GENERAL: obese, mildly lethargic-appearing HEAD: NC/AT EYES: Sclera anicteric, conjunctiva clear. No ptosis. LUNGS: CTAB HEART: regular rhythm, S1, S2 ABDOMEN: Soft, nontender, nondistended, normoactive bowel sounds. EXTREMITIES: 2+ dorsal pedal pulses of b/l radial and b/l DP, warm, well- perfused. Mild peripheral nonpitting edema in upper extremities, no edema in lower extremities. Resting tremor NEUROLOGICAL: Answering questions. Following commands. A&O x3(name, month, location, president). 4/5 addiction counselor strength, 4/5 elbow flexion/extension, shoulder shrug, 5/5 knee flexion/extension, 5/5 plantar/dorsiflexion. SKIN: Warm, moist Laboratory Results - last 24 hr 12/26/19 12/26/19 12/26/19 08:30 08:30 11:20 WBC 10.3 H RBC 4.19 Hgb 14.2 Hct 39.1 MCV 93.4 MCH 33.9 H MCHC 36.3 H RDW 13.4 Plt Count 486 H D MPV 7.7 Absolute Neuts (auto) 6.6 Neutrophils % 64.0 Lymphocytes % 22.0 Monocytes % 10.2 Eosinophils % 3.2 Basophils % 0.6 Nucleated RBC % 0 Sodium 136 Potassium 3.9 Chloride 104 Carbon Dioxide 23 Anion Gap 9 BUN 22.2 H Creatinine 0.8 Est GFR (CKD-EPI)AfAm 141.89 Est GFR (CKD-EPI)NonAf 122.43 Random Glucose 84 Calcium 8.3 L Total Bilirubin 0.5 AST 52 H ALT 89 H Alkaline Phosphatase 77 Total Protein 6.1 L Albumin 2.8 L HIV 1&2 Antibody Screen Cancelled HIV P24 Antigen Cancelled Active Medications Home Medications Medication Instructions Recorded Propranolol HCl 10 mg PO BID 06/09/19 Sertraline HCl [Zoloft] 150 mg PO DAILY 06/09/19 Olanzapine 10 mg PO DAILY 12/21/19 Current Medications Acetaminophen (Tylenol -) 650 mg PO Q6H PRN PRN Reason: PAIN LEVEL 6-10 Apixaban (Eliquis -) 10 mg PO BID [facility] Last Admin: 12/26/19 22:19 Dose: 10 mg Folic Acid (Folic Acid -) 1 mg PO DAILY [facility] Last Admin: 12/26/19 10:01 Dose: 1 mg Levetiracetam (Keppra -) 500 mg PO BID [facility] Last Admin: 12/26/19 22:20 Dose: 500 mg Multivitamins/Minerals/Vitamin C (Tab-A-Vit -) 1 tab PO DAILY [facility] Last Admin: 12/26/19 10:01 Dose: 1 tab Propranolol HCl (Inderal -) 10 mg PO BID [facility] Last Admin: 12/26/19 22:20 Dose: 10 mg Sertraline HCl (Zoloft -) 150 mg PO DAILY [facility] Last Admin: 12/26/19 10:01 Dose: 150 mg Thiamine HCl (Vitamin B1 -) 100 mg PO DAILY [facility] Last Admin: 12/26/19 10:01 Dose: 100 mg Zinc Oxide/Panthenol/Vitamin E (Balmex Cream -) 1 applic TP BID PRN PRN Reason: HYGEINE Last Admin: 12/24/19 14:15 Dose: 1 applic ASSESSMENT/PLAN: Pt. is a 29 y.o. M w/ PMHx. Polysubstance abuse, hemochromoatosis, depression, seizure disorder, who presented from [facility] and is being treated for acute respiratory failure. # Acute hypoxic respiratory failure --resolved, extubated; no supplemental O2 requirement likely 2/2 PE Pneumonia has resolved. #Sepsis secondary to Left sided pneumonia- resolved BCX(12/22/19): NGTD UCX(12/22/19): NGTD ID (Db) appreciated completed Abx. # AMS --possibly 2/2 anoxic brain injury vs recent sedation + chronic substance( opioid + cocaine) usage --resolved CTH: brain ?edema Ammonia(12/22/19): 17.8 consider MRI if mental status not improving Neuro(Leandra) consult appreciated Detox(Kathy) consult appreciated #NSTEMI --likely demand and sepsis- resolved Troponin 0.44, 1.07, 3.62, 2.64, 0.82 BNP 4306 EKG reveals sinus tachycardia at 144BPM. Cardiac ECHO: LVEF 55-60%, normal Cardio (Dr. Trujillo) consult appreciated # Transaminitis --likely 2/2 sepsis vs hepatoxins(?zosyn, ?keppra, ?ofirmev) --- improving > AST/ALT: 72/261 ...138/452, 133/313 > US RUQ: borderline GB wall thickening, mild fatty liver infiltration - avoid hepatotoxins if possible # Seizure CT head reveals decreased attenuation of cerebral white matter, concerning for mild brain edema. CK >14,000, 17055, 7315 Loaded with Keppra in ED. Continue 500mg IV BID Neurology(Leandra) recommendations appreciated. c/w home medications #Acute kidney injury --secondary to rhabdomyolysis vs sespsis ---resolving US Renal: normal kidneys b/l Cr 3.2, 3.1, 2.8, 2.4, 2.0, 1.6, 1.4, 1.3, 0.9, 0.9 CPK >95677, 62064, 80843, 6258-->1500 Continue IVF Nephrology(Derek) recommendations appreciated # Hyperkalemia --resolved Likely secondary to seizure activity. Given Insulin, D50, Kayexelate in ED. Nephrology recommendations appreciated monitor BMP # Major depressive disorder home sertraline # FEN 1/2NS + K @75 reg + thin liquids Prophylaxis Eliquis (Day 3 of 10 mg dosing) Disposition For tentative D/c to Rehab facility in AM Visit type - Emergency Visit Emergency Visit: Yes ED Registration Date: 12/18/19 Care time: The patient presented to the Emergency Department on the above date and was hospitalized for further evaluation of their emergent condition. - New Patient This patient is new to me today: Yes Date on this admission: 12/27/19 - Critical Care Critical Care patient: No - Discharge Referral Referred to [facility] No ATTENDING PHYSICIAN STATEMENT I saw and evaluated the patient. I reviewed the resident's note and discussed the case with the resident. I agree with the resident's findings and plan as documented. SUBJECTIVE: OBJECTIVE: ASSESSMENT AND PLAN:
--- NOTE | 2019-12-26 20:13 | PN ---
Teaching Attending Note Name of Resident: Iban Erwin ATTENDING PHYSICIAN STATEMENT I saw and evaluated the patient. I reviewed the resident's note and discussed the case with the resident. I agree with the resident's findings and plan as documented. SUBJECTIVE: No fever or chills. No SINGER . no N/V. feels much better today . shaking has improved. No diarrhea OBJECTIVE: sweaty, shaking in arms and legs but awake and cooperative with the exam. Lungs: CTAB CV: RRR, no MRG Abd: soft, ND. NT. NL BS. Ext: No edema on LEs. mild edema and bruising on both upper arms. no tremor today ASSESSMENT AND PLAN: 29 y/o man with h/o Polysubstance abuse,hemochromoatosis, depression, seizure disorder, who presented from [facility] and is being treated for resp failure. 1- Septic shock: resolved 2- LLL PNA, possible aspiration PNA 3- Acute hypoxic resp failure 4- Tonic clonic seizure 5- opioids over dose 6- JOSE MIGUEL: resolved 7- Elevated D dimer. in setting of severe sepsis. 8- Rhabdomyolysis 9- Transaminitits: likely due to sepsis/ETOH /and septic shock. 10- Eelvated trop : demand ischemia from above 11- Hyperkalemia: resolved 12- opioid withdrawal 14- b/l upper ext DVTs Plan: - no signs of withdrawal today - monitor off Abx - cont eliquis for DVts.day 3 of 10 mg dosing - LFTS and CPK cont to improve - monitor off IVF - cont Keppra - cont SSRI - resume propranolol. elevated bP today - heparin SQ
[2019-12-26] MEDS ORDERED: MELATONIN 5 MG TABLETS PO ONE (21:03)
[2019-12-27 09:12] LABS: BASO % 0.7 % (0-2.0); HEMATOCRIT 40.6 % (35.4-49); HEMOGLOBIN 14.4 GM/dL (11.7-16.9); LYMPH % 19.3 % (8-40); MCH 33.4 pg (25.7-33.7); MCHC 35.5 g/dl (32.0-35.9); MEAN CELL VOLUME 94.2 fl (80-96); MEAN PLT VOLUME 7.6 fl (7.5-11.1); MONO % 9.5 % (3.8-10.2); NEUT % 67.5 % (42.8-82.8); PLATELET COUNT 569 K/MM3 (134-434); RBC 4.31 M/mm3 (4.00-5.60); RDW 13.6 % (11.9-15.9); WHITE BLOOD COUNT 14.3 K/mm3 (4.0-10.0)
[2019-12-27 09:58] LABS: ALBUMIN 3.1 g/dl (3.4-5.0); BILIRUBIN,TOTAL 0.5 mg/dL (0.2-1); BLOOD UREA NITROGEN 18.1 mg/dL (7-18); CALCIUM 8.6 mg/dL (8.5-10.1); MAGNESIUM 2.1 mg/dL (1.8-2.4); TOT PROT 6.7 g/dl (6.4-8.2)
[2019-12-27] MEDS ORDERED: PT OWN MED DRAWER 7, Y5N ONE ×2 (10:07→20:57)
[2019-12-27] MEDS: SERTRALINE HCL 50 MG TABLET (FP) PO SCH (10:25)
[2019-12-27] MEDS: levETIRAcetam 500 MG TABLET (FP) PO SCH ×2 (10:25→21:15)
[2019-12-27] MEDS: FOLIC ACID 1 MG TABLET (FP) PO SCH (10:25)
[2019-12-27] MEDS: APIXABAN 5 MG TABLET PO SCH ×2 (10:25→21:15)
[2019-12-27] MEDS: MULTIVITAMINS (DAILY MVI) TABLET (FP) PO SCH (10:25)
[2019-12-27] MEDS: THIAMINE HCL 100 MG TABLET (FP) PO SCH (10:26)
--- NOTE | 2019-12-27 14:10 | PN ---
Progress Note, Physician Chief Complaint: Denies CP, SOB, palps History of Present Illness: walking around - Current Medication List Current Medications: Active Medications Acetaminophen (Tylenol -) 650 mg PO Q6H PRN PRN Reason: PAIN LEVEL 6-10 Apixaban (Eliquis -) 10 mg PO BID [facility] Last Admin: 12/27/19 10:25 Dose: 10 mg Folic Acid (Folic Acid -) 1 mg PO DAILY [facility] Last Admin: 12/27/19 10:25 Dose: 1 mg Levetiracetam (Keppra -) 500 mg PO BID [facility] Last Admin: 12/27/19 10:25 Dose: 500 mg Multivitamins/Minerals/Vitamin C (Tab-A-Vit -) 1 tab PO DAILY [facility] Last Admin: 12/27/19 10:25 Dose: 1 tab Olanzapine (Zyprexa -) 10 mg PO HS [facility] Propranolol HCl (Inderal -) 10 mg PO BID [facility] Last Admin: 12/27/19 10:25 Dose: 10 mg Sertraline HCl (Zoloft -) 150 mg PO DAILY [facility] Last Admin: 12/27/19 10:25 Dose: 150 mg Thiamine HCl (Vitamin B1 -) 100 mg PO DAILY [facility] Last Admin: 12/27/19 10:26 Dose: 100 mg Zinc Oxide/Panthenol/Vitamin E (Balmex Cream -) 1 applic TP BID PRN PRN Reason: HYGEINE Last Admin: 12/24/19 14:15 Dose: 1 applic - Objective Vital Signs: Vital Signs Temperature 98.6 F 12/27/19 09:28 Pulse Rate 79 12/27/19 09:28 Respiratory Rate 18 12/27/19 09:28 Blood Pressure 148/78 12/27/19 09:28 O2 Sat by Pulse Oximetry (%) 95 12/26/19 20:44 Constitutional: Yes: No Distress Cardiovascular: Yes: Regular Rate and Rhythm Respiratory: Yes: CTA Bilaterally Gastrointestinal: Yes: Soft (NT) Edema: No Neurological: Yes: Alert, Oriented Labs: CBC, BMP 12/27/19 08:30 12/27/19 06:00 INR, PTT INR 1.07 (0.83-1.09) 12/18/19 13:30 Microbiology 12/22/19 12:50 Blood - Peripheral Venous Blood Culture - Final NO GROWTH AFTER 5 DAYS INCUBATION 12/20/19 16:00 Blood - Central Line Blood Culture - Final NO GROWTH AFTER 5 DAYS INCUBATION 12/20/19 16:00 Blood - Central Line Blood Culture - Final NO GROWTH AFTER 5 DAYS INCUBATION 12/18/19 13:55 Urine - Urine Clean Catch Urine Culture - Final NO GROWTH OBTAINED 12/18/19 13:30 Blood - Peripheral Venous Blood Culture - Final NO GROWTH AFTER 5 DAYS INCUBATION Laboratory Tests 12/18/19 12/18/19 12/19/19 13:30 18:00 00:12 WBC Hgb Plt Count PTT (Actin FS) Sodium Potassium Creatinine AST ALT Creatine Kinase Troponin I 0.44 H 1.07 H* 3.62 H* 12/19/19 12/20/19 12/24/19 05:33 05:30 07:00 WBC Hgb Plt Count PTT (Actin FS) 30.2 Sodium Potassium Creatinine AST ALT Creatine Kinase Troponin I 2.64 H* 0.82 H* 12/27/19 12/27/19 06:00 08:30 WBC 14.3 H Hgb 14.4 Plt Count 569 H PTT (Actin FS) Sodium 138 Potassium 4.0 Creatinine 1.0 AST 48 H ALT 84 H Creatine Kinase 398 H Troponin I Assessment/Plan Assessment/Plan echo 12/2019 tds, nl LV/RV function, no significant valvular pathology PNA, hypoxic resp failure, polysubstance abuse/intoxication: -extensive L infiltrate on CXR, ? aspiration - now extubated - w/p course of abx upper ext DVTs: -on eliquis, manage per primary septic shock, lactic acidosis: resolved. -off pressors, currently hemodynamically stable rhabdomyolysis with JOSE MIGUEL (sec to cocaine intoxication): -renal fxn improving -as per primary team NSTEMI: -pt young with no known traditional CAD risk factors -no ecg changes, in the setting of sepsis. -this is Type II NC sec to demand ischemia/injury, vs sepsis syndrome associated myonecrosis -no ischemia-focused med intervention or testing indicated -nl LV function on echo, trop peaked at 3.6, now improving transaminitis: -likely shock liver, improving. -improving, trend labs, cont supportive care
[2019-12-27] MEDS ORDERED: PROCHLORPERAZINE INJECTION 10 MG/2 ML VIAL IVPB ONE (14:48)
[2019-12-27] MEDS ORDERED: MAG HYDROX/AL HYDROX/SIMETH 30 ML UNIT-DOSE CUP PO PRN (15:04)
[2019-12-27 15:25] VITALS: BMI 30.5
--- NOTE | 2019-12-27 15:36 | PN ---
Progress Note (short form) - Note Progress Note: OOB to chair. NAD on RA. Some dry cough. Feels overall better. Intake & Output 12/24/19 12/25/19 12/26/19 12/27/19 23:59 23:59 23:59 23:59 Intake Total 420 50 0 Output Total 400 Balance 420 50 -400 Weight 219 lb 9.6 oz Last Vital Signs Temp Pulse Resp BP Pulse Ox 98.2 F 84 18 135/84 95 12/27/19 14:00 12/27/19 14:00 12/27/19 14:00 12/27/19 14:00 12/26/19 20:44 Active Medications Acetaminophen (Tylenol -) 650 mg PO Q6H PRN PRN Reason: PAIN LEVEL 6-10 Al Hydroxide/Mg Hydroxide (Mylanta Oral Suspension -) 30 ml PO Q6H PRN PRN Reason: DYSPEPSIA Apixaban (Eliquis -) 10 mg PO BID [facility] Last Admin: 12/27/19 10:25 Dose: 10 mg Folic Acid (Folic Acid -) 1 mg PO DAILY [facility] Last Admin: 12/27/19 10:25 Dose: 1 mg Levetiracetam (Keppra -) 500 mg PO BID [facility] Last Admin: 12/27/19 10:25 Dose: 500 mg Multivitamins/Minerals/Vitamin C (Tab-A-Vit -) 1 tab PO DAILY [facility] Last Admin: 12/27/19 10:25 Dose: 1 tab Olanzapine (Zyprexa -) 10 mg PO [facility] Propranolol HCl (Inderal -) 10 mg PO BID [facility]S [facility] Last Admin: 12/27/19 10:25 Dose: 10 mg Sertraline HCl (Zoloft -) 150 mg PO DAILY [facility] Last Admin: 12/27/19 10:25 Dose: 150 mg Thiamine HCl (Vitamin B1 -) 100 mg PO DAILY [facility] Last Admin: 12/27/19 10:26 Dose: 100 mg Zinc Oxide/Panthenol/Vitamin E (Balmex Cream -) 1 applic TP BID PRN PRN Reason: HYGEINE Last Admin: 12/24/19 14:15 Dose: 1 applic Gen: Awake and alert, NAD Heart: RRR Lung: decreased breath sounds at the bases Abd: soft, nontender Ext: no edema Laboratory Results - last 24 hr 12/26/19 12/27/1912/27/20 11:20 06:00 08:30 WBC 14.3 H RBC 4.31 Hgb 14.4 Hct 40.6 MCV 94.2 MCH 33.4 MCHC 35.5 RDW 13.6 Plt Count 569 H MPV 7.6 Absolute Neuts (auto) 9.6 H Neutrophils % 67.5 Lymphocytes % 19.3 Monocytes % 9.5 Eosinophils % 3.0 Basophils % 0.7 Nucleated RBC % 0 Sodium 138 Potassium 4.0 Chloride 105 Carbon Dioxide 25 Anion Gap 7 L BUN 18.1 H Creatinine 1.0 Est GFR (CKD-EPI)AfAm 119.02 Est GFR (CKD-EPI)NonAf 102.69 Random Glucose 93 Calcium 8.6 Magnesium 2.1 Total Bilirubin 0.5 AST 48 H ALT 84 H Alkaline Phosphatase 80 Creatine Kinase 398 H Creatine Kinase Index 4.0 CK-MB (CK-2) 16.0 H Total Protein 6.7 Albumin 3.1 L HIV 1&2 Ag/Ab, 4th Gen Non reactive ASSESSMENT AND PLAN: Acute Hypoxic and Hypercapneic Respiratory Failure Pneumonia likely Aspiration Septic Shock resolving Lactic Acidosis resolved Acute Kidney Injury improving Rhabdomyolysis Elevated LFTs likely Ischemic Injury +Troponins likely Demand Ischemia Polysubstance Abuse Depression Hemochromatosis - Off ABX per ID - DC planning Dr Sanchez
--- NOTE | 2019-12-27 18:09 | PN ---
Teaching Attending Note Name of Resident: Albert Tubbs ATTENDING PHYSICIAN STATEMENT I saw and evaluated the patient. I reviewed the resident's note and discussed the case with the resident. I agree with the resident's findings and plan as documented. SUBJECTIVE: no fever or chills. no SINGER . no N/v. feels much better OBJECTIVE: NAD Lungs: CTAB CV: RRR, no MRG Abd: soft, ND. NT. NL BS. Ext: No edema on LEs. mild edema and bruising on both upper arms. no tremor today ASSESSMENT AND PLAN: 29 y/o man with h/o Polysubstance abuse,hemochromoatosis, depression, seizure disorder, who presented [facility] and is being treated for resp failure. 1- Septic shock: resolved 2- LLL PNA, possible aspiration PNA 3- Acute hypoxic resp failure 4- Tonic clonic seizure 5- opioids over dose 6- JOSE MIGUEL: resolved 7- Elevated D dimer. in setting of severe sepsis. 8- Rhabdomyolysis 9- Transaminitits: likely due to sepsis/ETOH /and septic shock. 10- Eelvated trop : demand ischemia from above 11- Hyperkalemia: resolved 12- opioid withdrawal 14- b/l upper ext DVTs Plan: - monitor off Abx - cont eliquis for DVts.day 4 of 10 mg dosing - LFTS and CPK cont to improve - leukocytosis is worse today , but no fever . will monitor off Abx - monitor off IVF - cont Keppra - cont SSRI - resume propranolol. - resume hishome dose olanzapine - heparin SQ dispo is pending a rehab bed. ASSESSMENT AND PLAN:
--- NOTE | 2019-12-27 18:54 | PN ---
Physical Exam: SUBJECTIVE: Patient seen and examined at the bedside. Patient stated that he feels better and does not have any acute complaints of cp, sob, abd pain, n/v/c/ d, fever, chills, headaches, dizziness, lightheadedness. Is eager to go to his rehab facility. OBJECTIVE: Vital Signs Period Temp Pulse Resp BP Sys/Santoyo Pulse Ox Last 24 Hr 98.0 F-98.6 F 79-94 18-20 129-150/74-84 95 GENERAL: The patient is awake, alert, and fully oriented, in no acute distress. HEAD: Normal with no signs of trauma. EYES: PERRL, extraocular movements intact, sclera anicteric, conjunctiva clear. ENT: Oropharynx clear without exudates, moist mucous membranes. LUNGS: Breath sounds equal, clear to auscultation bilaterally, no wheezes, no crackles, no accessory muscle use. HEART: Regular rate and rhythm, S1, S2 without murmur, rub. ABDOMEN: Soft, nontender, nondistended, normoactive bowel sounds, no guarding, no rebound, no masses. EXTREMITIES: upper extremities with noted swelling bilaterally. Limited range of motion secondary to pain. NEUROLOGICAL: Cranial nerves II through XII grossly intact. 5/5 muscle strength bilaterally upper and lower extremities. PSYCH: Slow speaking. SKIN: Warm, dry, normal turgor, no rashes or lesions noted. Laboratory Results - last 24 hr 12/26/19 12/27/19 12/27/19 11:20 06:00 08:30 WBC 14.3 H RBC 4.31 Hgb 14.4 Hct 40.6 MCV 94.2 MCH 33.4 MCHC 35.5 RDW 13.6 Plt Count 569 H MPV 7.6 Absolute Neuts (auto) 9.6 H Neutrophils % 67.5 Lymphocytes % 19.3 Monocytes % 9.5 Eosinophils % 3.0 Basophils % 0.7 Nucleated RBC % 0 Sodium 138 Potassium 4.0 Chloride 105 Carbon Dioxide 25 Anion Gap 7 L BUN 18.1 H Creatinine 1.0 Est GFR (CKD-EPI)AfAm 119.02 Est GFR (CKD-EPI)NonAf 102.69 Random Glucose 93 Calcium 8.6 Magnesium 2.1 Total Bilirubin 0.5 AST 48 H ALT 84 H Alkaline Phosphatase 80 Creatine Kinase 398 H Creatine Kinase Index 4.0 CK-MB (CK-2) 16.0 H Total Protein 6.7 Albumin 3.1 L HIV 1&2 Ag/Ab, 4th Gen Non reactive Active Medications Generic Name Dose Route Start Last Admin Trade Name Kimberley PRN Reason Stop Dose Admin Acetaminophen 650 mg 12/24/19 11:22 Tylenol - PO Q6H PRN PAIN LEVEL 6-10 Al Hydroxide/Mg Hydroxide 30 ml 12/27/19 15:04 12/27/19 15:51 Mylanta Oral Suspension - PO 30 ml Q6H PRN Administration DYSPEPSIA Apixaban 10 mg 12/24/19 14:00 12/27/19 10:25 Eliquis - PO 10 mg BID JARED Administration Folic Acid 1 mg 12/25/19 10:00 12/27/19 10:25 Folic Acid - PO 1 mg DAILY JARED Administration Levetiracetam 500 mg 12/24/19 11:30 12/27/19 10:25 Keppra - PO 500 mg BID JARED Administration Multivitamins/Minerals/Vitamin C 1 tab 12/25/19 10:00 12/27/19 10:25 Tab-A-Vit - PO 1 tab DAILY JARED Administration Olanzapine 10 mg 12/27/19 22:00 Zyprexa - PO HS JARED Propranolol HCl 10 mg 12/26/19 22:00 12/27/19 10:25 Inderal - PO 10 mg BID JARED Administration Sertraline HCl 150 mg 12/24/19 10:00 12/27/19 10:25 Zoloft - PO 150 mg DAILY JARED Administration Thiamine HCl 100 mg 12/25/19 10:00 12/27/19 10:26 Vitamin B1 - PO 100 mg DAILY JARED Administration Zinc Oxide/Panthenol/Vitamin E 1 applic 12/24/19 11:51 12/24/19 14:15 Balmex Cream - TP 1 applic BID PRN Administration HYGEINE ASSESSMENT/PLAN: Zaid Wade is a 29 year old male with a past medical history of Polysubstance abuse, hemochromoatosis, depression, seizure disorder, admitted for acute respiratory failure. Acute hypoxic respiratory failure --resolved, extubated; no supplemental O2 requirement - Pneumonia has resolved Sepsis secondary to Left sided pneumonia - BCX negative - UCX negative - ID consulted, recs appreciated - completed Abx AMS --possibly 2/2 anoxic brain injury vs recent sedation + chronic substance( opioid + cocaine) usage --resolved - CTH: brain ?edema - Neuro(Dicktim) consult appreciated - Detox(Kathy) consult appreciated - will go to substance abuse rehab center - thiamine, folate, MVI NSTEMI --likely Type II MD (demand) and sepsis- resolved - Troponin 0.44, 1.07, 3.62, 2.64, 0.82 - BNP 4306 - EKG reveals sinus tachycardia at 144BPM. - Cardiac ECHO: LVEF 55-60%, normal - Cardio (Dr. Trujillo) consult appreciated Transaminitis --likely 2/2 sepsis vs hepatoxins(?zosyn, ?keppra, ?ofirmev) --- improving - US RUQ: borderline GB wall thickening, mild fatty liver infiltration - avoid hepatotoxins if possible Seizure - CT head reveals decreased attenuation of cerebral white matter, concerning for mild brain edema. - Continue Keppra 500mg BID - Neurology(Leandra) recommendations appreciated. Acute kidney injury --secondary to rhabdomyolysis vs sespsis ---resolving - US Renal: normal kidneys b/l - CRE improving - CPK >66060, 67331, 82846, 6258-->1500 - Nephrology(Derek) recommendations appreciated Hyperkalemia --resolved - Likely secondary to seizure activity. - monitor BMP Major depressive disorder and anxiety - continue home sertraline and olanzapine, propranolol DVT in UE - on Eliquis day 02/23 of 10mg, will need 3 months of treatment at 5mg after completing 10mg doses Leukocytosis - unclear reason, no fever, no infectious etiology - continue to monitor DVT PPx - on Eliquis FEN - no standing fluids, encourage PO intake - continue to monitor electrolytes and replete as necessary - regular diet Dispo - for discharge to rehab facility once accepted Visit type - Emergency Visit Emergency Visit: Yes ED Registration Date: 12/18/19 Care time: The patient presented to the Emergency Department on the above date and was hospitalized for further evaluation of their emergent condition. - New Patient This patient is new to me today: Yes Date on this admission: 12/27/19 - Critical Care Critical Care patient: No
[2019-12-27] MEDS ORDERED: OLANZapine 5 MG TABLET PO SCH (22:00)
[2019-12-28 08:36] LABS: BASO % 0.7 % (0-2.0); EOS % 4.5 % (0-4.5); HEMATOCRIT 38.8 % (35.4-49); HEMOGLOBIN 13.7 GM/dL (11.7-16.9); LYMPH % 26.9 % (8-40); MCH 34.1 pg (25.7-33.7); MCHC 35.4 g/dl (32.0-35.9); MEAN CELL VOLUME 96.2 fl (80-96); MEAN PLT VOLUME 7.7 fl (7.5-11.1); MONO % 8.2 % (3.8-10.2); NEUT % 59.7 % (42.8-82.8); PLATELET COUNT 523 K/MM3 (134-434); RBC 4.03 M/mm3 (4.00-5.60); RDW 13.7 % (11.9-15.9)
[2019-12-28 09:03] LABS: BILIRUBIN,TOTAL 0.6 mg/dL (0.2-1); BLOOD UREA NITROGEN 16.9 mg/dL (7-18); CALCIUM 8.3 mg/dL (8.5-10.1); CREATININE 0.9 mg/dL (0.55-1.3); MAGNESIUM 2.5 mg/dL (1.8-2.4); POTASSIUM 4.1 mmol/L (3.5-5.1)
--- NOTE | 2019-12-28 09:16 | PN ---
Teaching Attending Note Name of Resident: Albert Tubbs ATTENDING PHYSICIAN STATEMENT I saw and evaluated the patient. I reviewed the resident's note and discussed the case with the resident. I agree with the resident's findings and plan as documented. SUBJECTIVE: Patient is sitting on the bed with no acute distress. Father at bedside. OBJECTIVE: Vital Signs Temperature 97.7 F 12/28/19 06:00 Pulse Rate 77 12/28/19 06:00 Respiratory Rate 20 12/28/19 06:00 Blood Pressure 126/67 12/28/19 06:00 O2 Sat by Pulse Oximetry (%) 100 12/27/19 21:00 GENERAL: The patient is awake, alert, and fully oriented, in no acute distress. HEAD: Normal with no signs of trauma. EYES: PERRL, extraocular movements intact, sclera anicteric, conjunctiva clear. ENT: Ears normal, oropharynx clear without exudates, moist mucous membranes. NECK: Trachea midline, full range of motion, supple. LUNGS: Breath sounds equal, clear to auscultation bilaterally, no wheezes, no crackles, no accessory muscle use. HEART: Regular rate and rhythm, S1, S2 without murmur, rub or gallop. ABDOMEN: Soft, nontender, nondistended, normoactive bowel sounds, no guarding, no rebound, no hepatosplenomegaly, no masses. EXTREMITIES: 2+ pulses, warm, well-perfused, no edema. NEUROLOGICAL: Cranial nerves II through XII grossly intact. Normal speech, gait not observed. PSYCH: Normal mood, normal affect. SKIN: Warm, dry, normal turgor, no rashes or lesions noted CBCD WBC 10.0 K/mm3 (4.0-10.0) 12/28/19 07:45 RBC 4.03 M/mm3 (4.00-5.60) 12/28/19 07:45 Hgb 13.7 GM/dL (11.7-16.9) 12/28/19 07:45 Hct 38.8 % (35.4-49) 12/28/19 07:45 MCV 96.2 fl (80-96) H 12/28/19 07:45 MCHC 35.4 g/dl (32.0-35.9) 12/28/19 07:45 RDW 13.7 % (11.9-15.9) 12/28/19 07:45 Plt Count 523 K/MM3 (134-434) H 12/28/19 07:45 MPV 7.7 fl (7.5-11.1) 12/28/19 07:45 CMP Sodium 140 mmol/L (136-145) 12/28/19 07:45 Potassium 4.1 mmol/L (3.5-5.1) 12/28/19 07:45 Chloride 108 mmol/L (98-107) H 12/28/19 07:45 Carbon Dioxide 25 mmol/L (21-32) 12/28/19 07:45 Anion Gap 7 MMOL/L (8-16) L 12/28/19 07:45 BUN 16.9 mg/dL (7-18) 12/28/19 07:45 Creatinine 0.9 mg/dL (0.55-1.3) 12/28/19 07:45 Random Glucose 85 mg/dL (74-106) 12/28/19 07:45 Calcium 8.3 mg/dL (8.5-10.1) L 12/28/19 07:45 Total Bilirubin 0.6 mg/dL (0.2-1) 12/28/19 07:45 AST 38 U/L (15-37) H 12/28/19 07:45 ALT 67 U/L (13-61) H 12/28/19 07:45 Alkaline Phosphatase 74 U/L (45-117) 12/28/19 07:45 Total Protein 6.0 g/dl (6.4-8.2) L 12/28/19 07:45 Albumin 3.0 g/dl (3.4-5.0) L 12/28/19 07:45 CARDIAC ENZYMES Creatine Kinase 293 U/L (26-308) 12/28/19 07:45 Troponin I 0.82 ng/ml (0.00-0.05) H* 12/20/19 05:30 Current Medications Generic Name Dose Route Start Last Admin Trade Name Freq PRN Reason Stop Dose Admin Acetaminophen 650 mg 12/24/19 11:22 Tylenol - PO Q6H PRN PAIN LEVEL 6-10 Al Hydroxide/Mg Hydroxide 30 ml 12/27/19 15:04 12/27/19 15:51 Mylanta Oral Suspension - PO 30 ml Q6H PRN Administration DYSPEPSIA Apixaban 10 mg 12/24/19 14:00 12/27/19 21:15 Eliquis - PO 10 mg BID JARED Administration Folic Acid 1 mg 12/25/19 10:00 12/27/19 10:25 Folic Acid - PO 1 mg DAILY JARED Administration Levetiracetam 500 mg 12/24/19 11:30 12/27/19 21:15 Keppra - PO 500 mg BID JARED Administration Multivitamins/Minerals/Vitamin C 1 tab 12/25/19 10:00 12/27/19 10:25 Tab-A-Vit - PO 1 tab DAILY JARED Administration Olanzapine 10 mg 12/27/19 22:00 12/27/19 21:15 Zyprexa - PO 10 mg HS JARED Administration Propranolol HCl 10 mg 12/26/19 22:00 12/28/19 00:05 Inderal - PO 10 mg BID JARED Administration Sertraline HCl 150 mg 12/24/19 10:00 12/27/19 10:25 Zoloft - PO 150 mg DAILY JARED Administration Thiamine HCl 100 mg 12/25/19 10:00 12/27/19 10:26 Vitamin B1 - PO 100 mg DAILY JARED Administration Zinc Oxide/Panthenol/Vitamin E 1 applic 12/24/19 11:51 12/24/19 14:15 Balmex Cream - TP 1 applic BID PRN Administration HYGEINE Home Medications Medication Instructions Recorded Propranolol HCl 10 mg PO BID 06/09/19 Sertraline HCl [Zoloft] 150 mg PO DAILY 06/09/19 Olanzapine 10 mg PO DAILY 12/21/19 Apixaban [Eliquis -] 10 mg PO BID 5 Days #0 tablet 12/28/19 levETIRAcetam [Keppra -] 500 mg PO BID tablet 12/28/19 Microbiology 12/22/19 12:45 Blood - Peripheral Venous Blood Culture - Final NO GROWTH AFTER 5 DAYS INCUBATION 12/22/19 12:50 Blood - Peripheral Venous Blood Culture - Final NO GROWTH AFTER 5 DAYS INCUBATION 12/25/19 20:55 Stool Clostridioides difficile Antigen - Final 12/25/19 20:55 Stool Clostridioides difficile Toxin Assay - Final 12/20/19 16:00 Blood - Central Line Blood Culture - Final NO GROWTH AFTER 5 DAYS INCUBATION 12/20/19 16:00 Blood - Central Line Blood Culture - Final NO GROWTH AFTER 5 DAYS INCUBATION 12/22/19 22:00 Urine - Urine - Catheterized Urine Culture - Final NO GROWTH OBTAINED 12/18/19 13:30 Blood - Peripheral Venous Blood Culture - Final NO GROWTH AFTER 5 DAYS INCUBATION 12/18/19 13:30 Blood - Peripheral Venous Blood Culture - Final NO GROWTH AFTER 5 DAYS INCUBATION 12/20/19 17:25 Sputum - Endotrachea Suction/Ventilator Gram Stain - Final 12/20/19 17:25 Sputum - Endotrachea Suction/Ventilator Sputum Culture - Final 12/19/19 16:00 Sputum - Endotrachea Suction/Ventilator Gram Stain - Final 12/19/19 16:00 Sputum - Endotrachea Suction/Ventilator Sputum Culture - Final NORMAL RESPIRATORY CESIA 12/20/19 18:50 Nares - Right Nares MRSA Screen - Final NO MRSA ISOLATED 12/19/19 16:00 Urine - Urine [place] Angel Legionella Antigen - Final 12/19/19 16:00 Urine - Urine [place] Streptococcus pneumoniae Antigen (M - Final 12/18/19 13:55 Urine - Urine Clean Catch Urine Culture - Final NO GROWTH OBTAINED ASSESSMENT AND PLAN: Patient is a 29yom with Pmhx Polysubstance abuse, hemochromoatosis, depression , seizure disorder, who presented from [facility] and is being treated for acute respiratory failure. # s/p Septic shock: resolved # LLL PNA, with aspiration PNA completed IV Antibiotic # Acute hypoxic resp failure s/p extubation # Tonic clonic seizure stable # opioids over dose going to rehab. # JOSE MIGUEL: resolved # Elevated D dimer. in setting of severe sepsis. + DVT of upper extremities # Rhabdomyolysis improved # Transaminitits: likely due to sepsis/ETOH /and septic shock. Improved # Elevated trop : demand ischemia from above # Hyperkalemia: resolved # b/l upper ext DVTs on Eliquis day 5/7 of 10mg bid for 2 more days then 5mg po bid discharge patient to rehab.
[2019-12-28] MEDS ORDERED: PT OWN MED DRAWER 7, Y5N ONE (10:53)
[2019-12-28 11:06] VITALS: BP 135/84; PULSE 86; TEMP 98.1
--- NOTE | 2019-12-28 11:15 | DS ---
Physical Exam: SUBJECTIVE: Patient seen and examined at the bedside. Patient stated that he felt well and denied any acute complaints of cp, sob, abd pain, n/v/c/d, fever, chills, dizziness, lightheadedness, headaches, numbness/tingling, focal weakness. Endorsed good appetite and was eager to go to his rehab facility. OBJECTIVE: Vital Signs Period Temp Pulse Resp BP Sys/Santoyo Pulse Ox Last 24 Hr 97.7 F-98.5 F 77-92 18-20 126-136/67-84 100 PHYSICAL EXAM GENERAL: The patient is awake, alert, and fully oriented, in no acute distress. HEAD: Normal with no signs of trauma. EYES: PERRL, extraocular movements intact, sclera anicteric, conjunctiva clear. ENT: Oropharynx clear without exudates, moist mucous membranes. LUNGS: Breath sounds equal, clear to auscultation bilaterally, no wheezes, no crackles, no accessory muscle use. HEART: Regular rate and rhythm, S1, S2 without murmur, rub. ABDOMEN: Soft, nontender, nondistended, normoactive bowel sounds, no guarding, no rebound, no masses. EXTREMITIES: upper extremities with noted swelling bilaterally. Limited range of motion secondary to pain. NEUROLOGICAL: Cranial nerves II through XII grossly intact. 5/5 muscle strength bilaterally upper and lower extremities. PSYCH: Slow speaking. SKIN: Warm, dry, normal turgor, no rashes or lesions noted. LABS Laboratory Results - last 24 hr 12/27/19 12/27/19 12/28/19 06:00 08:30 07:45 WBC 14.3 H 10.0 RBC 4.31 4.03 Hgb 14.4 13.7 Hct 40.6 38.8 MCV 94.2 96.2 H MCH 33.4 34.1 H MCHC 35.5 35.4 RDW 13.6 13.7 Plt Count 569 H 523 H MPV 7.6 7.7 Absolute Neuts (auto) 9.6 H 6.0 Neutrophils % 67.5 59.7 Lymphocytes % 19.3 26.9 D Monocytes % 9.5 8.2 Eosinophils % 3.0 4.5 Basophils % 0.7 0.7 Nucleated RBC % 0 0 Sodium 138 Potassium 4.0 Chloride 105 Carbon Dioxide 25 Anion Gap 7 L BUN 18.1 H Creatinine 1.0 Est GFR (CKD-EPI)AfAm 119.02 Est GFR (CKD-EPI)NonAf 102.69 Random Glucose 93 Calcium 8.6 Magnesium 2.1 Total Bilirubin 0.5 AST 48 H ALT 84 H Alkaline Phosphatase 80 Creatine Kinase 398 H Creatine Kinase Index 4.0 CK-MB (CK-2) 16.0 H Total Protein 6.7 Albumin 3.1 L 12/28/19 07:45 WBC RBC Hgb Hct MCV MCH MCHC RDW Plt Count MPV Absolute Neuts (auto) Neutrophils % Lymphocytes % Monocytes % Eosinophils % Basophils % Nucleated RBC % Sodium 140 Potassium 4.1 Chloride 108 H Carbon Dioxide 25 Anion Gap 7 L BUN 16.9 Creatinine 0.9 Est GFR (CKD-EPI)AfAm 135.19 Est GFR (CKD-EPI)NonAf 116.64 Random Glucose 85 Calcium 8.3 L Magnesium 2.5 H Total Bilirubin 0.6 AST 38 H ALT 67 H Alkaline Phosphatase 74 Creatine Kinase 293 Creatine Kinase Index 6.1 H CK-MB (CK-2) 18.1 H Total Protein 6.0 L Albumin 3.0 L HOSPITAL COURSE: Zaid Wade is a 29 year old male with a past medical history of Polysubstance abuse, hemochromoatosis, depression, seizure disorder, admitted for acute respiratory failure. Patient presented with acute hypoxic respiratory failure and was intubated. Had sepsis secondary to PNA and completed a course of antibiotics. Respiratory failure had resolved and patient was subsequently extubated and did not require any supplemental oxygen. Was found to have troponemia, transaminitis, JOSE MIGUEL all likely due to sepsis. Troponemia likely in setting of demand ischemia that resolved. Echo noted EF 55-60% and was noted as a normal study. Transaminitis resolved and had RUQ U/S which noted borderline GB wall thickening and mild fatty liver infiltration. JOSE MIGUEL likely in setting of sepsis and rehabdo which resolved with fluid hydration. Patient was found to have bilateral upper extremity DVTs and was started on Eliquis which the patient will continue to take outpatient. During hospitalization, patient was noted to have seizures and was started on Keppra 500mg bid which he will continue to take outpatient. CT head noted decreased attenuation of cerebral white matter, concerning for mild brain edema. Was evaluated for rehab and advised to continue a rehab program for his chronic substance abuse and will attend an inpatient rehab center. Patient was discharged on Keppra 500mg bid, Eliquis 10mg bid for 5 additional days and 5mg bid afterwards and advised to follow up with his PCP, gastroenterology, neurology, and nephrology. Patient was discharged in stable medical condition. Date of Admission:12/18/19 Date of Discharge: 12/28/19 Minutes to complete discharge: 35 Discharge Summary Problems reviewed: Yes Reason For Visit: RESPITORY FAILURE Current Active Problems Cocaine use disorder (Chronic) Opioid dependence (Chronic) Seizure (Chronic) Substance abuse (Chronic) Condition: Stable - Instructions Diet, Activity, Other Instructions: You were admitted after you had an episode of non-responsiveness and likely seizure. You were intubated and then subsequently extubated when your breathing status improved. You were found to have a pneumonia for which you were treated with and completed antibiotics. You were found to have damage to your heart, liver, and kidneys likely as a result of the pneumonia that you had developed which resolved. You had an ultrasound of your liver which showed some abnormalities of your liver and gallbladder for which you should follow up with a termite exterminator. You had a head CT which showed some generalized changes in your brain. You are advised to follow up with a neurologist for these findings. You had an echocardiogram (ultrasound of the heart) which showed normal function of your heart. You were found to have clots in both of your arms for which you were started on Eliquis (a medication to help with clots). MEDICATIONS Please start to take Eliquis 10mg twice a day for 5 more days. Your last dose will be on 01/02/20. START to take Eliquis 5mg twice a day for 3 months starting on 01/03/20. START to take Keppra 500mg twice a day and follow up with your neurologist. Continue to take all of your other home medications as prescribed. REFERRALS Please follow up with your primary care doctor within 1 week. If you do no have a primary care doctor you may follow up with the [facility] for which the information is provided. Please follow up with the construction representative, Dr. Reed, within 2 weeks. Please follow up with the neurologist, Dr. Mobley, within 1 week. Please follow up with the termite exterminator, Dr. Jones, within 2 weeks. SPECIAL INSTRUCTIONS You will be going to a rehab center for drug use. Please follow the recommendations given to you by the staff. If you have any symptoms of chest pain, shortness of breath, fevers, lightheadedness, dizziness, seizures, difficulty urinating, unremitting abdominal pain or any other general feelings of unwellness, please call 911 or go to your nearest emergency room. Referrals: [facility] – [place] [facility] [Provider Group] - 1 Week Iban Mobley MD [Staff Physician] - 1 Week Jose Alberto Jones DO [Staff Physician] - 2 Weeks Jose Roberto Reed MD [Staff Physician] - 2 Weeks Disposition: TRANSFER ACUTE CARE/OTHER HOSP - Home Medications Comprehensive Discharge Medication List: Ambulatory Orders Propranolol HCl 10 mg PO BID 06/09/19 Sertraline HCl [Zoloft] 150 mg PO DAILY 06/09/19 Olanzapine 10 mg PO DAILY 12/21/19 Apixaban [Eliquis -] 10 mg PO BID 5 Days #0 tablet 12/28/19 levETIRAcetam [Keppra -] 500 mg PO BID tablet 12/28/19 Problem List - Problems (1) Cocaine use disorder Code(s): F14.10 - COCAINE ABUSE, UNCOMPLICATED (2) Opioid dependence Code(s): F11.20 - OPIOID DEPENDENCE, UNCOMPLICATED Qualifiers: Substance use status: with unspecified opioid-induced disorder Qualified Code(s): F11.29 - Opioid dependence with unspecified opioid-induced disorder (3) Seizure Code(s): R56.9 - UNSPECIFIED CONVULSIONS (4) Substance abuse Code(s): F19.10 - OTHER PSYCHOACTIVE SUBSTANCE ABUSE, UNCOMPLICATED (5) Acute respiratory failure Code(s): J96.00 - ACUTE RESPIRATORY FAILURE, UNSP W HYPOXIA OR HYPERCAPNIA Qualifiers: Respiratory failure complication: unspecified whether with hypoxia or hypercapnia Qualified Code(s): J96.00 - Acute respiratory failure, unspecified whether with hypoxia or hypercapnia (6) Aspiration pneumonia Code(s): J69.0 - PNEUMONITIS DUE TO INHALATION OF FOOD AND VOMIT (7) CAP (community acquired pneumonia) Code(s): J18.9 - PNEUMONIA, UNSPECIFIED ORGANISM Qualifiers: Laterality: left Lung location: lower lobe of lung Qualified Code(s): J18.9 - Pneumonia, unspecified organism (8) Rhabdomyolysis Code(s): M62.82 - RHABDOMYOLYSIS (9) Cannabis abuse Code(s): F12.10 - CANNABIS ABUSE, UNCOMPLICATED This patient is new to me today: Yes Date on this admission: 12/28/19 Emergency Visit: No Critical Care patient: No - Discharge Referral Referred to [facility] No
[2019-12-28] MEDS: MULTIVITAMINS (DAILY MVI) TABLET (FP) PO SCH (11:19)
[2019-12-28] MEDS: APIXABAN 5 MG TABLET PO SCH (11:19)
[2019-12-28] MEDS: levETIRAcetam 500 MG TABLET (FP) PO SCH (11:19)
[2019-12-28] MEDS: THIAMINE HCL 100 MG TABLET (FP) PO SCH (11:19)
[2019-12-28] MEDS: FOLIC ACID 1 MG TABLET (FP) PO SCH (11:19)
[2019-12-28] MEDS: SERTRALINE HCL 50 MG TABLET (FP) PO SCH (11:19)
== END 2019-12-28 14:27 | disposition other institution (70) | DRG 871 ==
LOC: JER 13:08 → JERBED 13:16 → JICU 18:42 → J8W 12-23 18:49
PROVIDERS: ADMIT Internal Medicine; ATTEND Internal Medicine
PROC: 5A1945Z Respiratory Ventilation, 24-96 Consecutive Hours (ICD-10-PCS; principal; 2019-12-18)
PROC: 05HM33Z Insertion of Infusion Device into Right Internal Jugular Vein, Percutaneous Approach (ICD-10-PCS; 2019-12-19)
PROC: B543ZZA Ultrasonography of Right Jugular Veins, Guidance (ICD-10-PCS; 2019-12-19)
PROC: 3E0 Administration, Physiological Systems and Anatomical Regions, Introduction (ICD-10-PCS; 2019-12-19)
DX: A41.9 Sepsis, unspecified organism (principal); R65.21 Severe sepsis with septic shock; J96.01 Acute respiratory failure with hypoxia; J96.02 Acute respiratory failure with hypercapnia; I21.A1 Myocardial infarction type 2; J18.9 Pneumonia, unspecified organism; N17.9 Acute kidney failure, unspecified; M62.82 Rhabdomyolysis; E87.2 Acidosis; F33.3 Major depressive disorder, recurrent, severe with psychotic symptoms; F11.29 Opioid dependence with unspecified opioid-induced disorder; E83.119 Hemochromatosis, unspecified; E87.5 Hyperkalemia; E83.51 Hypocalcemia; R00.0 Tachycardia, unspecified; R56.9 Unspecified convulsions; E83.42 Hypomagnesemia; R79.89 Other specified abnormal findings of blood chemistry; T40.2X1A Poisoning by other opioids, accidental (unintentional), initial encounter; G93.89 Other specified disorders of brain; R41.82 Altered mental status, unspecified; F17.210 Nicotine dependence, cigarettes, uncomplicated
CPT/HCPCS: 36415; 36600; 70450-TC; 71045-TC-FY; 72125-TC; 76705-TC; 76775-TC; 80048; 80053; 80307; 81003; 82140; 82375; 82550; 82553; 82803; 82977; 83050; 83605; 83690; 83735; 83874; 83880; 84100; 84443; 84484; 85025; 85027; 85379; 85610; 85730; 86704; 86706; 86707; 86708; 86709; 86803; 87040; 87070; 87081; 87086; 87205; 87324; 87340; 87389; 87449; 87804; 87899; 93005; 93010; 93306-TC; 93308; 93970-TC; 94002; 94640; 94761; 97116-GP; 97162-GP; 99285-25; G0480; J0131; J1644; J3480; J7030